=== PATIENT | female | born 2000 | race American Indian/Alaskan Native ===

== ENCOUNTER 2020-08-30 15:56 | Outpatient (REF) | payer OTHER, SELFPAY ==
[2020-08-30 16:20] LABS: MANUAL DIFF FLAG NO
[2020-08-30 16:22] LABS: Basophils Percent Auto 0.3 % (0-2); Eosinophils Percent Auto 0.8 % (0-4); Hematocrit 39.1 % (37-47); Hemoglobin 12.4 g/dl (12.0-16.0); Imm Gran Pct Auto 0.2 % (0.0-0.4); Lymphocytes Percent Auto 25.2 % (20-40); Mean Corpuscular HGB Conc 31.7 g/dl (31.0-35.0); Mean Corpuscular Hemoglobin 26.4 pg (27.0-33.0); Mean Corpuscular Volume 83.4 fL (80-98); Mean Platelet Volume 9.4 fL (9.4-12.3); Monocytes Percent Auto 6.4 % (2-11); Neutrophils Percent Auto 67.1 % (45-73); Platelet Count 318 X10*3/uL (160-400); Red Blood Count 4.69 X10*6/uL (4.20-5.50); Red Cell Distribution Width 12.5 % (11.0-16.0); White Blood Count 6.1 X10*3/uL (4.8-10.8)
[2020-08-30 16:23] LABS: Eosinophils Absolute Auto 0.1 X10*3/uL (0.0-0.4); Imm Gran Abs Auto 0.01 X10*3/uL (0.00-0.03); Lymphocytes Absolute Auto 1.6 X10*3/uL (1.2-4.9); Monocytes Absolute Auto 0.4 X10*3/uL (0.1-1.2); Neutrophils Absolute Auto 4.1 X10*3/uL (2.0-8.3)
[2020-08-30 16:37] LABS: Glucose Urine UA NEG (NEG); Leukocyte Esterase Urine 1+ (NEG); Nitrite Urine NEG (NEG); PH 6.5 (5.0-8.0); Specific Gravity - Urine 1.025 (1.005-1.025); UACC Culture Trigger YES; Urine Blood NEG (NEG); Urine Ketones NEG (NEG); Urine Protein NEG (NEG-TRACE)
[2020-08-30 16:40] LABS: Appearance Urine HAZY; Color Urine YELLOW
[2020-08-30 16:45] LABS: Alanine Aminotransferase 9 U/L (0-31); Albumin Level 4.6 g/dL (3.5-5.0); Alkaline Phosphatase 67 U/L (39-117); Anion Gap 11 (12-20); Aspartate Amino Transferase 17 U/L (5-31); Blood Urea Nitrogen 10 mg/dL (9-16); Carbon Dioxide 26 mmol/L (22-29); Chloride 105 mmol/L (96-108); Cholesterol 161 mg/dL; Estimated Glomerular Filt Rate > 60; Glucose Random 90 mg/dL (60-115); Potassium 4.2 mmol/L (3.3-5.1); Sodium 138 mmol/L (135-145); Total Protein 7.2 g/dL (6.5-8.0)
[2020-08-30 16:52] LABS: Bacteria Urine 1+ /LPF; RBC Urine 0 /HPF (0); Squamous Epithelial Cell Urine 1+ /LPF
[2020-08-30 17:08] LABS: TSH reflex Free T4 2.51 uIU/mL (0.32-4.0)
[2020-08-30 17:59] LABS: Erythrocyte Sedimentation Rate 2 MM/HR (0-20)
== END 2020-08-30 15:57 | disposition home or self-care (01) ==
LOC: HO.LAB 15:56
PROVIDERS: PCP Internal Medicine; Visit Provider Internal Medicine
DX: Z00.00 Encounter for general adult medical examination without abnormal findings (principal); R10.31 Right lower quadrant pain; R10.32 Left lower quadrant pain
CPT/HCPCS: 36415; 80053; 81001; 81003; 82465; 84443; 85025; 85652; 87086; 87147

== ENCOUNTER 2020-09-12 15:56 | Outpatient (REF) | payer OTHER, SELFPAY ==
--- NOTE | ~2020-09-12 | US_ITS ---
EXAMINATION: US PELVIS, COMPLETE CLINICAL INFORMATION: Bilateral lower quadrant pain; the last menstrual period was on 09/06/2020. COMPARISON: None TECHNIQUE: Transabdominal and transvaginal imaging was performed. FINDINGS: The uterus is of normal size and echogenicity measuring 7.9 x 3.1 x 4.2 cm. The uterus is anteverted and anteflexed. A regular homogeneous endometrium is identified measuring 0.9 cm. Both ovaries are of normal size and echogenicity. The right ovary measures 2.8 x 1.9 x 2.8 cm for a volume of 7.8 mL. The left ovary measures 3.8 x 2.8 x 3.1 cm for a volume of 14.4 mL and shows normal Doppler flow. The left ovary contains a 2.0 cm in maximal diameter simple cyst. There is further smaller physiologic follicles within the bilateral ovaries. There is no pelvic free fluid. No adnexal mass is seen. US/US transvaginal IMPRESSION: A 2.0 cm left ovarian simple cyst is incidentally noted. The examination is otherwise unremarkable.
--- NOTE | ~2020-09-12 | US_ITS ---
EXAMINATION: US PELVIS, COMPLETE CLINICAL INFORMATION: Bilateral lower quadrant pain; the last menstrual period was on 09/06/2020. COMPARISON: None TECHNIQUE: Transabdominal and transvaginal imaging was performed. FINDINGS: The uterus is of normal size and echogenicity measuring 7.9 x 3.1 x 4.2 cm. The uterus is anteverted and anteflexed. A regular homogeneous endometrium is identified measuring 0.9 cm. Both ovaries are of normal size and echogenicity. The right ovary measures 2.8 x 1.9 x 2.8 cm for a volume of 7.8 mL. The left ovary measures 3.8 x 2.8 x 3.1 cm for a volume of 14.4 mL and shows normal Doppler flow. The left ovary contains a 2.0 cm in maximal diameter simple cyst. There is further smaller physiologic follicles within the bilateral ovaries. There is no pelvic free fluid. No adnexal mass is seen. US/US pelvic complete IMPRESSION: A 2.0 cm left ovarian simple cyst is incidentally noted. The examination is otherwise unremarkable.
== END 2020-09-12 15:57 | disposition home or self-care (01) ==
LOC: HO.US 15:56
PROVIDERS: PCP Internal Medicine; Visit Provider Internal Medicine
DX: R10.31 Right lower quadrant pain (principal); R10.32 Left lower quadrant pain
CPT/HCPCS: 76830; 76856

== ENCOUNTER → 2020-10-20 11:02 | Outpatient (BNVA) | payer OTHER, SELFPAY | PROVIDERS: PCP Internal Medicine; Visit Provider Advanced Practice Midwife | DX: N94.6 Dysmenorrhea, unspecified (principal) | CPT/HCPCS: 81003; 81025; 99202 ==

== ENCOUNTER 2020-12-27 08:26 | Emergency (ER) | payer OTHER, SELFPAY ==
--- NOTE | ~2020-12-27 | CT_ITS ---
EXAMINATION: CT HEAD WITHOUT CONTRAST CLINICAL INFORMATION: Severe headache COMPARISON: None TECHNIQUE: Contiguous axial imaging was performed from the skull base to vertex without intravenous administration of contrast. This CT examination was performed using dose optimization techniques as appropriate, variously including the following: *Automated exposure control *Adjustment of mA and/or kV according to patient size (this includes techniques or standardized protocols for targeted exams where dose is matched to indication/reason for exam; i.e. extremities or head) *Use of iterative reconstruction technique DLP: 609 mGy-cm FINDINGS: There is no evidence of acute intracranial hemorrhage or territorial infarction. No abnormal mass effect or midline shift is seen. Youngblood to white matter differentiation is well preserved. No extra-axial fluid collections are identified. The ventricles are normal in size. There is no abnormal attenuation within the brain parenchyma. The osseous structures and soft tissues are normal. The mastoid air cells and visualized portions of the paranasal sinuses are well aerated. CT/CT head/brain wo con IMPRESSION: No acute intracranial process seen.
[2020-12-27 08:35] VITALS: BP 110/74; PULSE 100; RESP 16; TEMP 36.8; O2SAT 100; BMI 19.8
--- NOTE | 2020-12-27 09:18 | ED.HA ---
HPI - Headache General Chief Complaint: Headache Stated Complaint: head pressure Time Seen by Provider: 12/27/20 08:51 Source: patient Mode of arrival: ambulatory Limitations: no limitations History of Present Illness HPI Narrative: 20 y/o female with no medical history presents to the ER with 2 weeks of posterior headache. It was gradual to come on and comes and goes. It started at the top of her neck and now has gone all the way to the top of her head. It is severe sharp pain at times in the back of her head that causes her to be dizzy. She had some blurred vision intermittently when the pain is severe. She also reports bilateral ear pressure and pain. She called her doctor yesterday who told her it was probably seasonal allergies. MD elicited complaint: headache Onset (ago): week(s) (2) Onset description: gradually Location: occipital Severity: moderate Pain scale (0-10): 6 Quality & Timing: aching, sharp and intermittent Exacerbating factors: exertion and sitting/standing Relieving factors: rest Treatments prior to arrival: none Related Data Previous Rx's Medication Instructions Recorded ibuprofen 600 mg tablet 600 mg PO Q6H PRN #60 tab 10/20/20 [id number]-lsyuslcmnyaku-[id number] 1 cap PO Q8H PRN #10 cap 12/27/20 [Fioricet] Allergies Allergy/AdvReac Type Severity Reaction Status Date / Time No Known Allergies Allergy Verified 12/27/20 09:55 Review of Systems Review of Systems: Constitutional: No Fever, No Chills ENT/Mouth: No sore throat, No Rhinorrhea, No Swallowing Difficulty, +ear pain Eyes: No Eye Pain, No Swelling, No Redness Cardiovascular: No Chest Pain, No SOB, No Orthopnea, No Edema Respiratory: No Cough, No Sputum, No Wheezing, No dyspnea Gastrointestinal: No Nausea, No Vomiting, No Diarrhea, No abdominal Pain Genitourinary: No Dysuria, No Urinary Frequency, No Hematuria Musculoskeletal: No joint pain, No Myalgias Skin: No Skin Lesions, No rash Neuro: No Weakness, No Numbness, + Dizziness, + Headache Psych: No Anxiety/Panic, No Depression Heme/Lymph: No Bruising, No Lymphadenopathy Endocrine: No Polyuria, No Polydipsia PMFSH Past Medical History Attestation statement: The following information was validated with the patient. Medical History Inguinal pain of both sides No significant past medical history Surgical History No significant past surgical history Social History Social History Alcohol intake: never Smoked in Last 30 Days: No Use of substances other than those prescribed or required for medical reasons: No Advance Directives: Yes Advance Directives Information Provided: Yes Advance Directives on File: No Patient : No Gender identity: female Physical Exam Vital Signs: Vital Signs: Last Vital Signs Temp 98.2 F 12/27/20 08:35 Pulse 78 12/27/20 12:25 Resp 16 12/27/20 12:25 BP 115/48 L 12/27/20 12:25 Pulse Ox 99 12/27/20 12:25 Body Mass Index 19.8 Appearance: Alert. Oriented X3. No acute distress. Eyes: Pupils equal, round and reactive to light. EOMI, no nystagmus ENT: Pharynx normal. Neck: Normal inspection. Neck supple. CVS: Normal heart rate and rhythm. Pulses normal. Respiratory: No respiratory distress. Breath sounds normal. Abdomen: Soft and nontender. +BS x4 Skin: Skin warm and dry. Normal skin color. Normal skin turgor. No rashes. Extremities: No lower extremity edema. Neuro: Oriented X 3. No motor deficit. No sensory deficit. Steady gait. Course Course Course Narrative: 20 y/o female presenting with occipital headache x2 weeks. No neuro deficits. No trauma. No thunderclap headache. Gait is normal. Possibly mediated by stress. Will treat with benadryl, toradol and reglan and reassess. Reevaluation(s) Reevaluation #1: Patient had anxiety with sensation of SOB after mediation were administered. She was easily coached and calmed down. HR Improved nicely from 120-80s with calming breaths. EKG and CT head ordered. Reevaluation #2: CT head unremarkable. Her headache is greatly improved, slight throbbing in the back of her head but much better. She is stable for discharge from the ER with plan for outpatient follow up. Will start trial of fioricet PRN. Patient agreeable with plan. MDM - Headache Differential Diagnosis Differential diagnosis: Likely migraine, tension headache, subarachnoid hemorrhage, headache and sinusitis Lab Data Labs: Lab Results 12/27/20 Range/Units 11:08 Urine Test NEGATIVE (NEGATIVE) ECG Data Attestation: I personally reviewed and interpreted this ECG as follows: ECG interpretation date: 12/27/20 ECG interpretation time: 13:03 Interpretation: normal sinus rhythm, HR 88 bpm, nomral ID interval, rightward axis , question pulmonary disease pattern. No ST segment elevations or depressions. Discharge Plan Discharge Clinical Impression: Headache Qualifiers: Headache type: unspecified Headache chronicity pattern: episodic headache Intractability: not intractable Qualified Code(s): R51.9 - Headache, unspecified Patient Disposition: Home, Self-Care Instructions: Migraine Headache (ED) Additional Instructions: Your CT scan was normal. Recommend rest and staying dehydrated. Start Fioricet as needed for headache. Follow up with your doctor this week. If you have any worsening symptoms come back to the ER for further evaluation. Prescriptions: New byaxemkknk-rkqzjuxoxptsk-zsgx [Fioricet] 50-300-40 mg capsule 1 cap PO Q8H PRN (Reason: pain) Qty: 10 RF: 0 No Action ibuprofen 600 mg tablet 600 mg PO Q6H PRN (Reason: pain) Qty: 60 RF: 0 Stand Alone Forms: Work/School Release
[2020-12-27] MEDS: Ketorolac Tromethamine 30 MG/ML VIAL IVPUSH (09:27)
[2020-12-27] MEDS: diphenhydrAMINE HCL 50 MG/ML VIAL 25 MG IVPUSH (09:27)
[2020-12-27] MEDS: Metoclopramide HCl 10 MG/2 ML VIAL IVPUSH (09:27)
[2020-12-27 09:33] VITALS: BP 144/90; PULSE 102; RESP 20; O2SAT 100
--- NOTE | 2020-12-27 09:52 | PC.NURSE ---
Patient feeling dizzy and SOB after receiving meds, tearful and anxious- ST on tele HTN, 100% room air. EKG completed. Provider Francesca bedside to see the patient.
--- NOTE | 2020-12-27 10:05 | ECG_ITS ---
Test Reason : CHEST PRESSURE Blood Pressure : / mmHG Vent. Rate : 088 BPM Atrial Rate : 088 BPM P-R Int : 130 ms QRS Dur : 072 ms QT Int : 370 ms P-R-T Axes : 080 096 030 degrees QTc Int : 447 ms Normal sinus rhythm Biatrial enlargement Rightward axis Pulmonary disease pattern Abnormal ECG No previous ECGs available Referred By: Francesca Becker Electronically Signed By:ABILIO QUEVEDO MD
[2020-12-27] MEDS: 0.9 % Sodium Chloride 1,000 ML 999 ML IVCONT (10:15)
--- NOTE | 2020-12-27 11:01 | PC.NURSE ---
Patient ambulated to bathroom.
[2020-12-27 11:35] LABS: UPreg QC Valid YES; Urine Pregnancy NEGATIVE (NEGATIVE)
[2020-12-27 12:25] VITALS: BP 115/48; PULSE 78; RESP 16; O2SAT 99
== END 2020-12-27 13:37 | disposition home or self-care (01) ==
PROVIDERS: Physician Assistant; Emergency Provider Emergency Medicine; PCP Internal Medicine
DX: R51.9 Headache, unspecified (principal); R42 Dizziness and giddiness; I10 Essential (primary) hypertension
CPT/HCPCS: 70450; 81025; 93005; 96361; 96374; 96375; 99284; 99285; J1200; J1885; J2765

== ENCOUNTER 2021-01-21 08:22 | Emergency (ER) | payer OTHER, SELFPAY ==
--- NOTE | ~2021-01-21 | CT_ITS ---
EXAMINATION: CT ABDOMEN AND PELVIS WITH CONTRAST CLINICAL INFORMATION: 20-year-old female with right lower quadrant pain. Question appendicitis. COMPARISON: None TECHNIQUE: Multidetector volumetric images were obtained from the superior aspect of the liver through the pubic symphysis following administration 85 mL of Omnipaque 350 intravenous contrast. Sagittal and coronal reformatted images were obtained on the technologist's workstation. Evaluation of solid organs is suboptimal given paucity of intra-abdominal fat and contrast bolus timing. This CT examination was performed using dose optimization techniques as appropriate, variously including the following: *Automated exposure control *Adjustment of mA and/or kV according to patient size (this includes techniques or standardized protocols for targeted exams where dose is matched to indication/reason for exam; i.e. extremities or head) *Use of iterative reconstruction technique DLP: 314 mGy-cm FINDINGS: Visualized lung bases demonstrate some minimal lingular atelectasis. The liver demonstrates normal size, contour and attenuation. The gallbladder is normal in appearance. The pancreas, spleen and adrenal glands are unremarkable. The kidneys demonstrate symmetric nephrograms. There is no hydronephrosis of either kidney. The stomach is decompressed. Normal caliber loops of small and large bowel. The appendix is not definitively visualized, however, there is no localized inflammatory stranding identified within the right lower abdomen. Normal caliber abdominal aorta. Retroaortic left renal vein. No retroperitoneal lymphadenopathy. The bladder is only partially distended but grossly unremarkable. Unremarkable CT appearance of the uterus. A small amount of free pelvic fluid is likely physiologic in a female of this age. 1.7 cm right adnexal cyst. No inguinal lymphadenopathy. No acute osseous abnormality. CT/CT abdomen pelvis w con IMPRESSION: -Evaluation of solid organs is suboptimal given paucity of intra-abdominal fat and contrast bolus timing. -The appendix is not definitively visualized, however, there is no localized inflammatory stranding identified within the right lower abdomen. -1.7 cm right adnexal cyst.
[2021-01-21 08:25] VITALS: BP 121/68; PULSE 96; RESP 16; TEMP 36.9; O2SAT 98; BMI 19.5
--- NOTE | 2021-01-21 08:44 | ED_ITS ---
HPI - Female Genitourinary General Chief complaint: Urogenital-Female Stated complaint: right side abd pain, pt having trouble urinating Time Seen by Provider: 01/21/21 08:39 Source: patient Mode of arrival: ambulatory Limitations: no limitations History of Present Illness HPI Narrative: patient presents to ED for right lower quadrant pain with difficulty urinating. Patient states feeling pressure when urinating and significant right lower quadrant pain. Patient states having symptoms for the past 2 days. Patient states no nausea, vomiting, flank pain, fever, or chills. Patient denies missing her menstruation. Patient denies any recent trauma to the abdomen. Related Data Previous Rx's Medication Instructions Recorded lorazepam 0.5 mg tablet 0.5 mg PO DAILY PRN 5 Days #5 tab 01/04/21 naproxen 500 mg PO BID PRN #20 tab 01/21/21 Allergies Allergy/AdvReac Type Severity Reaction Status Date / Time diphenhydramine Allergy Severe Chest Verified 01/04/21 10:14 [From Benadryl] Pain, hard to breath Review of Systems Review of Systems: Yes all other systems are reviewed and are negative Constitutional: Constitutional: Reports as per HPI and Reports no additional constitutional complaints Eyes: Eyes: Reports as per HPI and Reports no additional eye complaints ENT: Reports system reviewed and no additional complaints, except as d ocumented and Reports as per HPI Cardiovascular: Cardiovascular: Reports as per HPI and Reports no additional cardiovascular complaints Respiratory: Respiratory: Reports as per HPI and Reports no additional respiratory complaints Gastrointestinal: Gastrointestinal: Reports as per HPI, Reports no additional gastrointestinal complaints and Reports abdominal pain ( Right lower quadrant) Genitourinary: Genitourinary: Reports no additional female genitourinary complaints, Reports as per HPI and Reports difficulty voiding Musculoskeletal: Musculoskeletal: Reports no additional musculoskeletal complaints and Reports as per HPI Neurologic: Reports system reviewed and no additional complaints, except as documented and Reports as per HPI Psychiatric: Psychiatric: Reports no additional psychiatric complaints and Reports as per HPI [facility] Past Medical History Medical History Inguinal pain of both sides No significant past medical history Surgical History No significant past surgical history Family History Family History Mother No problems noted. Father No problems noted. Social History Social History Housing: House Alcohol intake: never Patient Tobacco Use Status: Never used Tobacco Advance Directives: Yes Advance Directives Information Provided: No Advance Directives on File: No Patient : No Current occupational status: employed Gender identity: female Physical Exam Vital Signs: Vital Signs: Last Vital Signs Temp 98.4 F 01/21/21 09:19 Pulse 94 01/21/21 12:08 Resp 16 01/21/21 12:08 BP 119/70 01/21/21 12:08 Pulse Ox 99 01/21/21 12:08 Body Mass Index 19.5 Const: General: cooperative, healthy appearing, comfortable, no acute distress, well developed, alert, awake and Physically active Orientation/consciousness: patient oriented x3 HENMT: Head: Yes normal to inspection, Yes No palpable skull fracture present, Yes normocephalic, Yes atraumatic and No abrasion Eyes: General: appearance normal, both eyes and all related structures Neck: Neck: Yes normal visual inspection, Yes full ROM, Yes no lymphad enopathy, Yes no meningeal signs, Yes trachea midline, Yes supple and No tender Chest: Chest palpation & inspection: normal inspection of the chest and normal palpation of entire chest wall Resp: Effort & Inspection: normal respiratory effort and able to speak in complete sentences Auscultation: clear to auscultation bilaterally Cardio: Jugular venous distension: no JVD Heart sounds: S1 normal heart sound present and S2 normal heart sound present GI: Inspection: Yes normal to inspection and No abdominal wall ecchymosis Palpation (GI): Soft to palpation, not firm, Tenderness to palpation present (GI) in the RLQ, no guarding and not rigid : General: No CVA tenderness and Yes no CVA tenderness Back/Spine/Pelvis: Back: no CVA tenderness, No CVA tenderness and No back tenderness Skin: General skin exam: no rashes or lesions noted and elasticity normal Neuro: General: patient oriented x3, gait normal, no meningeal signs and CN's II-XI intact bilaterally Cranial nerves: Yes CN's II-XII intact bilaterally Extrem: General: Yes normal to inspection and Yes full ROM Psych: Appearance: grossly normal, well kempt and not disheveled Course Course Course Narrative: due to significant right lower quadrant tenderness will do labs and UA. Reevaluation(s) Reevaluation #1: Patient has no elevated white blood cell count. Urine negative for UTI in . Due to significant right lower quadrant pain was sent for abdominal CT scan Time: 10:01 Reevaluation #2: nurse informed me that the patient did not want any Toradol or pain medication. Patient inform her that her right lower quadrant pain resolved on its own. CT scan came back and states appendix was not visualized but negative for any signs of inflammatory changes in the right lower quadrant to indicate appendicitis. CT scan shows right adnexal cyst. Went to re-evaluate patient in abdominal exam is benign and nontender on palpation. I do Not suspect ovarian torsion or ovarian abscess Due to abdominal pain resolved without any pain medication and patient is smiling. Not suspecting appendicitis due to patient pain resolving, CT scan not showing any inflammatory changes, and negative for any white blood cell count. Vital signs are stable. Patient denies any vaginal discharge, vaginal lesions, or any recent unprotected sex to indicate STD. Patient will follow-up with her PCP. patient given instructions educated on ovarian torsion/abscess, appendicitis, kidney stones, and UTI and told to return to the ED immediatley if she has the symptoms or any other concerning symptoms. Time: 11:46 MDM - Female Genitourinary MDM Narrative Medical decision making narrative: right ovarian cyst Lab Data Result diagrams: 01/21/21 09:07 01/21/21 09:07 Labs: Lab Results 01/21/21 01/21/21 01/21/21 Range/Units 09:07 09:07 09:07 WBC 4.2 L (4.8-10.8) X10*3/uL RBC 5.25 (4.20-5.50) X10*6/uL Hgb 13.8 (12.0-16.0) g/dl Hct 43.2 (37-47) % MCV 82.3 (80-98) fL MCH 26.3 L (27.0-33.0) pg MCHC 31.9 (31.0-35.0) g/dl RDW 12.7 (11.0-16.0) % Plt Count 297 (160-400) X10*3/uL MPV 9.5 (9.4-12.3) fL Immature Gran % (Auto) 0.0 (0.0-0.4) % Neut % (Auto) 63.6 (45-73) % Lymph % (Auto) 28.0 (20-40) % Darke % (Auto) 7.2 (2-11) % Eos % (Auto) 0.7 (0-4) % Baso % (Auto) 0.5 (0-2) % Lymph # (Auto) 1.2 (1.2-4.9) X10*3/uL Darke # (Auto) 0.3 (0.1-1.2) X10*3/uL Eos # (Auto) 0.0 (0.0-0.4) X10*3/uL Baso # (Auto) 0.0 (0.0-0.2) X10*3/uL Abs Immat Gran (auto) 0.00 (0.00-0.03) X10*3/uL Absolute Neuts (auto) 2.6 (2.0-8.3) X10*3/uL Absolute Nucleated RBC 0.000 (0.0-0.012) X10*3/uL Nucleated RBC % (auto) 0.0 (0.0-0.2) /100WBC PT 11.4 (9.9-13.0) SEC INR 1.0 (0.9-1.1) APTT 38.4 H (24.1-38.0) SEC Sodium 140 (135-145) mmol/L Potassium 3.8 (3.3-5.1) mmol/L Chloride 107 (96-108) mmol/L Carbon Dioxide 22 (22-29) mmol/L Anion Gap 15 (12-20) BUN 11 (9-16) mg/dL Creatinine 0.78 (0.5-1.4) mg/dL Estim Creat Clear Calc 83.9 Estimated GFR > 60 Random Glucose 92 (60-115) mg/dL Calcium 9.8 D (8.4-10.2) mg/dL Total Bilirubin 1.5 H (0.0-1.0) mg/dL Direct Bilirubin 0.5 (0.0-0.5) mg/dL AST 17 (5-31) U/L ALT 12 (0-31) U/L Alkaline Phosphatase 74 (39-117) U/L Total Protein 7.6 (6.5-8.0) g/dL Albumin 4.8 (3.5-5.0) g/dL Lipase 37 (8-78) U/L Beta HCG, Quant < 2 mIU/mL Urine Color Urine Appearance Urine pH (5.0-8.0) Ur Specific [place] (1.005-1.025) Urine Protein (NEG-TRACE) MG/DL Urine Glucose (UA) (NEG) MG/DL Urine Ketones (NEG) MG/DL Urine Blood (NEG) Urine Nitrite (NEG) Ur Leukocyte Esterase (NEG) Urine RBC (0) /HPF Urine WBC (0-4) /HPF Ur Squamous Epith Cells /LPF Urine Bacteria /LPF Urine Mucus /LPF Urine Test (NEGATIVE) 01/21/21 01/21/21 Range/Units 09:07 09:07 WBC (4.8-10.8) X10*3/uL RBC (4.20-5.50) X10*6/uL Hgb (12.0-16.0) g/dl Hct (37-47) % MCV (80-98) fL MCH (27.0-33.0) pg MCHC (31.0-35.0) g/dl RDW (11.0-16.0) % Plt Count (160-400) X10*3/uL MPV (9.4-12.3) fL Immature Gran % (Auto) (0.0-0.4) % Neut % (Auto) (45-73) % Lymph % (Auto) (20-40) % Darke % (Auto) (2-11) % Eos % (Auto) (0-4) % Baso % (Auto) (0-2) % Lymph # (Auto) (1.2-4.9) X10*3/uL Darke # (Auto) (0.1-1.2) X10*3/uL Eos # (Auto) (0.0-0.4) X10*3/uL Baso # (Auto) (0.0-0.2) X10*3/uL Abs Immat Gran (auto) (0.00-0.03) X10*3/uL Absolute Neuts (auto) (2.0-8.3) X10*3/uL Absolute Nucleated RBC (0.0-0.012) X10*3/uL Nucleated RBC % (auto) (0.0-0.2) /100WBC PT (9.9-13.0) SEC INR (0.9-1.1) APTT (24.1-38.0) SEC Sodium (135-145) mmol/L Potassium (3.3-5.1) mmol/L Chloride (96-108) mmol/L Carbon Dioxide (22-29) mmol/L Anion Gap (12-20) BUN (9-16) mg/dL Creatinine (0.5-1.4) mg/dL Estim Creat Clear Calc Estimated GFR Random Glucose (60-115) mg/dL Calcium (8.4-10.2) mg/dL Total Bilirubin (0.0-1.0) mg/dL Direct Bilirubin (0.0-0.5) mg/dL AST (5-31) U/L ALT (0-31) U/L Alkaline Phosphatase (39-117) U/L Total Protein (6.5-8.0) g/dL Albumin (3.5-5.0) g/dL Lipase (8-78) U/L Beta HCG, Quant mIU/mL Urine Color YELLOW Urine Appearance HAZY Urine pH 6.0 (5.0-8.0) Ur Specific [place] 1.025 (1.005-1.025) Urine Protein NEG (NEG-TRACE) MG/DL Urine Glucose (UA) NEG (NEG) MG/DL Urine Ketones NEG (NEG) MG/DL Urine Blood TRACE (NEG) Urine Nitrite NEG (NEG) Ur Leukocyte Esterase NEG (NEG) Urine RBC 0-2 (0) /HPF Urine WBC 0 (0-4) /HPF Ur Squamous Epith Cells 1+ /LPF Urine Bacteria 1+ /LPF Urine Mucus 1+ /LPF Urine Test NEGATIVE (NEGATIVE) Discharge Plan Discharge Clinical Impression: Ovarian cyst Patient Disposition: Home, Self-Care Instructions: Ovarian Cyst (ED), Pelvic Pain (ED) Additional Instructions: return to the ED immediately for worsening abdominal pain, nausea, vomiting, fever, chills, flank pain, dizziness, weakness, vaginal discharge, vaginal bleeding, dysuria, hematuria, or any other concerning symptoms. Prescriptions: New naproxen 500 mg tablet 500 mg PO BID PRN (Reason: pain) Qty: 20 RF: 0 No Action lorazepam 0.5 mg tablet 0.5 mg PO DAILY PRN (Reason: anxiety) 5 Days Qty: 5 RF: 0 Referrals: Jasbir Wynn MD [Primary Care Provider] - 2 days (Right ovarian cyst) Stand Alone Forms: Work/School Release Interventions: ED Discharge Assessment Last Done: 01/21/21 12:15 Discharge Date/Time: 01/21/21 12:16 Print Language: Belarusian
[2021-01-21 09:13] LABS: MANUAL DIFF FLAG NO
[2021-01-21 09:15] LABS: Basophils Percent Auto 0.5 % (0-2); Eosinophils Percent Auto 0.7 % (0-4); Hematocrit 43.2 % (37-47); Hemoglobin 13.8 g/dl (12.0-16.0); Lymphocytes Absolute Auto 1.2 X10*3/uL (1.2-4.9); Mean Corpuscular HGB Conc 31.9 g/dl (31.0-35.0); Mean Corpuscular Hemoglobin 26.3 pg (27.0-33.0); Mean Corpuscular Volume 82.3 fL (80-98); Mean Platelet Volume 9.5 fL (9.4-12.3); Monocytes Absolute Auto 0.3 X10*3/uL (0.1-1.2); Monocytes Percent Auto 7.2 % (2-11); Neutrophils Absolute Auto 2.6 X10*3/uL (2.0-8.3); Neutrophils Percent Auto 63.6 % (45-73); Platelet Count 297 X10*3/uL (160-400); Red Blood Count 5.25 X10*6/uL (4.20-5.50); Red Cell Distribution Width 12.7 % (11.0-16.0); White Blood Count 4.2 X10*3/uL (4.8-10.8)
[2021-01-21 09:19] VITALS: BP 142/83; PULSE 89; RESP 18; TEMP 36.9; O2SAT 100
[2021-01-21 09:23] LABS: Glucose Urine UA NEG (NEG); Leukocyte Esterase Urine NEG (NEG); Nitrite Urine NEG (NEG); Specific Gravity - Urine 1.025 (1.005-1.025); Urine Blood TRACE (NEG); Urine Ketones NEG (NEG); Urine Protein NEG (NEG-TRACE)
[2021-01-21 09:25] LABS: Prothrombin Time 11.4 SEC (9.9-13.0)
[2021-01-21] MEDS: 0.9 % Sodium Chloride 1,000 ML 999 ML IV (09:26)
[2021-01-21 09:28] LABS: Partial Thromboplastin Time 38.4 SEC (24.1-38.0)
[2021-01-21 09:34] LABS: Appearance Urine HAZY; Color Urine YELLOW
[2021-01-21 09:38] LABS: Alanine Aminotransferase 12 U/L (0-31); Albumin Level 4.8 g/dL (3.5-5.0); Alkaline Phosphatase 74 U/L (39-117); Anion Gap 15 (12-20); Aspartate Amino Transferase 17 U/L (5-31); Bilirubin Direct 0.5 mg/dL (0.0-0.5); Bilirubin Total 1.5 mg/dL (0.0-1.0); Blood Urea Nitrogen 11 mg/dL (9-16); Calcium 9.8 mg/dL (8.4-10.2); Carbon Dioxide 22 mmol/L (22-29); Chloride 107 mmol/L (96-108); Creatinine Clr Calc Pharmacy 83.9; Estimated Glomerular Filt Rate > 60; Glucose Random 92 mg/dL (60-115); Lipase 37 U/L (8-78); Potassium 3.8 mmol/L (3.3-5.1); Sodium 140 mmol/L (135-145); Total Protein 7.6 g/dL (6.5-8.0); UPreg QC Valid YES; Urine Pregnancy NEGATIVE (NEGATIVE)
[2021-01-21 09:39] LABS: Bacteria Urine 1+ /LPF; Mucus Urine 1+ /LPF; RBC Urine 0-2 /HPF (0); Squamous Epithelial Cell Urine 1+ /LPF; WBC Urine 0 /HPF (0-4)
[2021-01-21 09:45] LABS: HCG Quantitative < 2 mIU/mL
[2021-01-21] MEDS: iohexoL 350 MG/ML 100 ML INFUS..BTL IV (10:25)
[2021-01-21 12:08] VITALS: BP 119/70; PULSE 94; RESP 16; O2SAT 99
== END 2021-01-21 12:16 | disposition home or self-care (01) ==
PROVIDERS: Physician Assistant; Emergency Provider Emergency Medicine; PCP Internal Medicine
DX: N83.201 Unspecified ovarian cyst, right side (principal); R10.31 Right lower quadrant pain
CPT/HCPCS: 36415; 74177; 80053; 80076; 81001; 81025; 82248; 83690; 84702; 85025; 85610; 85730; 96361; 96374; 99284; Q9967

== ENCOUNTER 2021-01-24 11:25 | Emergency (ER) | payer OTHER, SELFPAY ==
--- NOTE | 2021-01-24 | ECG_ITS ---
Test Reason : TACHYCARDIA Blood Pressure : / mmHG Vent. Rate : 106 BPM Atrial Rate : 106 BPM P-R Int : 124 ms QRS Dur : 068 ms QT Int : 334 ms P-R-T Axes : 082 102 017 degrees QTc Int : 443 ms Sinus tachycardia Biatrial enlargement Pulmonary disease pattern Possible Right ventricular hypertrophy Nonspecific ST abnormality Abnormal ECG When compared with ECG of 27-DEC-2020 09:45, No significant change was found Referred By: Generic ED Physician Electronically Signed By:BASILIO HUERTA
[2021-01-24 11:28] VITALS: BP 136/58; PULSE 128; RESP 18; TEMP 36.3; O2SAT 98; BMI 18.8
--- NOTE | 2021-01-24 13:26 | ED.NAVMDI ---
HPI - Nausea/Vomiting/Diarrhea General Chief complaint: General Medical Stated complaint: multiple complaints Time Seen by Provider: 01/24/21 11:41 Source: patient Mode of arrival: ambulatory Limitations: no limitations History of Present Illness MD elicited complaint: nausea, vomiting and diarrhea Onset (ago): day(s) (2) Associated nausea: Yes Associated abdominal pain: No Location of pain: none Pain consistency: intermittent Severity: mild Quality: cramping Exacerbating factors: eating Relieving factors: none Context: foreign travel (went to [place]) Associated symptoms: headaches, loss of appetite, malaise, nausea/vomiting and other (diarrhea) Related Data Previous Rx's Medication Instructions Recorded lorazepam 0.5 mg tablet 0.5 mg PO DAILY PRN 5 Days #5 tab 01/04/21 naproxen 500 mg PO BID PRN #20 tab 01/21/21 ondansetron 4 mg PO Q8H PRN #20 tab 01/24/21 Allergies Allergy/AdvReac Type Severity Reaction Status Date / Time diphenhydramine Allergy Severe Chest Verified 01/24/21 11:28 [From Benadryl] Pain, hard to breath Review of Systems Review of Systems: Constitutional : No Weight loss, No Fever, pos Chills ENT/Mouth : No sore throat, No Rhinorrhea Eyes: No Swelling, No Redness Cardiovascular : No Chest Pain, No SOB, NoEdema Respiratory : No Cough, No Sputum, No Wheezing Gastrointestinal : Positive Nausea, Positive Vomiting, positive Diarrhea, no abdominal Pain, No Hematochezia, No Melena Genitourinary : No Dysuria, No Urinary Frequency, No Hematuria, No Urgency Musculoskeletal : No joint pain, No Myalgias, No Joint Swelling Skin : No Skin Lesions, No rash Neuro : No Weakness, No Numbness, No Dizziness, No Headache Psych : No Anxiety/Panic, No Depression Heme/Lymph: No Bruising, No Lymphadenopathy Endocrine : No Polyuria, No Polydipsia All other systems reviewed and are negative. Gastrointestinal: Gastrointestinal: Reports nausea PMFSH Past Medical History Attestation statement: The following information was validated with the patient. Medical History Inguinal pain of both sides Surgical History No significant past surgical history Family History Family History Mother No problems noted. Father No problems noted. Social History Social History Housing: House Alcohol intake: never Patient Tobacco Use Status: Never used Tobacco Use of substances other than those prescribed or required for medical reasons: No Advance Directives: Yes Advance Directives Information Provided: Yes Advance Directives on File: No Patient : No Current occupational status: employed Gender identity: female Physical Exam Vital Signs: Vital Signs: Last Vital Signs Temp 98.5 F 01/24/21 15:51 Pulse 94 01/24/21 15:51 Resp 16 01/24/21 15:51 BP 118/68 01/24/21 15:51 Pulse Ox 100 01/24/21 15:51 Body Mass Index 18.8 Appearance: Alert. Oriented X3. No acute distress. Eyes: Pupils equal, round and reactive to light. ENT: Pharynx mild dry MM Neck: Normal inspection. Neck supple. CVS: Normal heart rate and rhythm. Pulses normal. Respiratory: No respiratory distress. Breath sounds normal. Abdomen: Soft and nontender. Skin: Skin warm and dry. Normal skin color. Normal skin turgor. Extremities: No lower extremity edema. No calf ttp Neuro: Oriented X 3. No motor deficit. No sensory deficit. Course Course Course Narrative: feels better able to tolerate PO without issue MDM - Nausea/Vomiting/Diarrhea MDM Narrative Medical decision making narrative: 20 yo female just came back from [place] two days ago had a negative COVID test yesterday, went to [facility] waiting room - did not see a provider comes in today with c/o n/v/d - feels weak and dehydrated her mom has the same illness, no abdominal ttp , no rash, no fevers - at this time will need labs, IVF, zofran, UA and UPT, doubt appendicitis, dispo per results and findings. Lab Data Result diagrams: 01/24/21 13:47 01/24/21 13:47 Labs: Lab Results 01/24/21 01/24/21 01/24/21 Range/Units 13:47 13:47 14:58 WBC 8.9 (4.8-10.8) X10*3/uL RBC 5.43 (4.20-5.50) X10*6/uL Hgb 14.2 (12.0-16.0) g/dl Hct 44.5 (37-47) % MCV 82.0 (80-98) fL MCH 26.2 L (27.0-33.0) pg MCHC 31.9 (31.0-35.0) g/dl RDW 12.8 (11.0-16.0) % Plt Count 303 (160-400) X10*3/uL MPV 9.9 (9.4-12.3) fL Immature Gran % (Auto) 0.2 (0.0-0.4) % Neut % (Auto) 87.2 H (45-73) % Lymph % (Auto) 8.6 L (20-40) % [place] % (Auto) 3.8 (2-11) % Eos % (Auto) 0.1 (0-4) % Baso % (Auto) 0.1 (0-2) % Lymph # (Auto) 0.8 L (1.2-4.9) X10*3/uL [place] # (Auto) 0.3 (0.1-1.2) X10*3/uL Eos # (Auto) 0.0 (0.0-0.4) X10*3/uL Baso # (Auto) 0.0 (0.0-0.2) X10*3/uL Abs Immat Gran (auto) 0.02 (0.00-0.03) X10*3/uL Absolute Neuts (auto) 7.7 (2.0-8.3) X10*3/uL Absolute Nucleated RBC 0.000 (0.0-0.012) X10*3/uL Nucleated RBC % (auto) 0.0 (0.0-0.2) /100WBC Sodium 138 (135-145) mmol/L Potassium 4.2 (3.3-5.1) mmol/L Chloride 104 (96-108) mmol/L Carbon Dioxide 20 L (22-29) mmol/L Anion Gap 18 (12-20) BUN 14 (9-16) mg/dL Creatinine 0.81 (0.5-1.4) mg/dL Estim Creat Clear Calc 77.9 Estimated GFR > 60 Random Glucose 78 (60-115) mg/dL Calcium 10.1 (8.4-10.2) mg/dL Total Bilirubin 2.2 H (0.0-1.0) mg/dL Direct Bilirubin 0.7 H (0.0-0.5) mg/dL AST 18 (5-31) U/L ALT 10 (0-31) U/L Alkaline Phosphatase 73 (39-117) U/L Total Protein 8.5 H (6.5-8.0) g/dL Albumin 5.2 H (3.5-5.0) g/dL Lipase 34 (8-78) U/L Urine Color Urine Appearance Urine pH (5.0-8.0) Ur Specific [place] (1.005-1.025) Urine Protein (NEG-TRACE) MG/DL Urine Glucose (UA) (NEG) MG/DL Urine Ketones (NEG) MG/DL Urine Blood (NEG) Urine Nitrite (NEG) Ur Leukocyte Esterase (NEG) Urine RBC (0) /HPF Urine WBC (0-4) /HPF Ur Squamous Epith Cells /LPF Urine Bacteria /LPF Urine Mucus /LPF Urine Test (NEGATIVE) COVID-19 (TARSHA) Negative (Negative) COVID-19 Clin Com See Note 01/24/21 01/24/21 Range/Units 14:59 15:01 WBC (4.8-10.8) X10*3/uL RBC (4.20-5.50) X10*6/uL Hgb (12.0-16.0) g/dl Hct (37-47) % MCV (80-98) fL MCH (27.0-33.0) pg MCHC (31.0-35.0) g/dl RDW (11.0-16.0) % Plt Count (160-400) X10*3/uL MPV (9.4-12.3) fL Immature Gran % (Auto) (0.0-0.4) % Neut % (Auto) (45-73) % Lymph % (Auto) (20-40) % [place] % (Auto) (2-11) % Eos % (Auto) (0-4) % Baso % (Auto) (0-2) % Lymph # (Auto) (1.2-4.9) X10*3/uL [place] # (Auto) (0.1-1.2) X10*3/uL Eos # (Auto) (0.0-0.4) X10*3/uL Baso # (Auto) (0.0-0.2) X10*3/uL Abs Immat Gran (auto) (0.00-0.03) X10*3/uL Absolute Neuts (auto) (2.0-8.3) X10*3/uL Absolute Nucleated RBC (0.0-0.012) X10*3/uL Nucleated RBC % (auto) (0.0-0.2) /100WBC Sodium (135-145) mmol/L Potassium (3.3-5.1) mmol/L Chloride (96-108) mmol/L Carbon Dioxide (22-29) mmol/L Anion Gap (12-20) BUN (9-16) mg/dL Creatinine (0.5-1.4) mg/dL Estim Creat Clear Calc Estimated GFR Random Glucose (60-115) mg/dL Calcium (8.4-10.2) mg/dL Total Bilirubin (0.0-1.0) mg/dL Direct Bilirubin (0.0-0.5) mg/dL AST (5-31) U/L ALT (0-31) U/L Alkaline Phosphatase (39-117) U/L Total Protein (6.5-8.0) g/dL Albumin (3.5-5.0) g/dL Lipase (8-78) U/L Urine Color YELLOW Urine Appearance CLEAR Urine pH 6.0 (5.0-8.0) Ur Specific [place] >= 1.030 H (1.005-1.025) Urine Protein TRACE (NEG-TRACE) MG/DL Urine Glucose (UA) NEG (NEG) MG/DL Urine Ketones >=80 (NEG) MG/DL Urine Blood TRACE (NEG) Urine Nitrite NEG (NEG) Ur Leukocyte Esterase NEG (NEG) Urine RBC 1-4 (0) /HPF Urine WBC 0-2 (0-4) /HPF Ur Squamous Epith Cells 1+ /LPF Urine Bacteria NONE /LPF Urine Mucus 2+ /LPF Urine Test NEGATIVE (NEGATIVE) COVID-19 (TARSHA) (Negative) COVID-19 Clin Com ECG Data Attestation: I personally reviewed and interpreted this ECG as follows: ECG interpretation date: 01/24/21 ECG interpretation time: 13:27 Interpretation: Rate: 106 Rhythm: sinus tachycardia [place]: rightward Normal P waves. Normal KEVIN. Normal QRS complex. ST T wave : nonspecific, no ALVINA qTC: normal prior studies: no change from prior The study has been interpreted contemporaneously by me. . Discharge Plan Discharge Clinical Impression: Acute dehydration Vomiting Qualifiers: Vomiting type: unspecified Vomiting Intractability: non-intractable Nausea presence: with nausea Qualified Code(s): R11.2 - Nausea with vomiting, unspecified Patient Disposition: Home, Self-Care Instructions: Dehydration (ED), Acute Nausea and Vomiting (ED) Additional Instructions: return to ED for any worsening symptoms or concerns Prescriptions: New ondansetron 4 mg tablet,disintegrating 4 mg PO Q8H PRN (Reason: nausea and vomiting) Qty: 20 RF: 0 No Action naproxen 500 mg tablet 500 mg PO BID PRN (Reason: pain) Qty: 20 RF: 0 lorazepam 0.5 mg tablet 0.5 mg PO DAILY PRN (Reason: anxiety) 5 Days Qty: 5 RF: 0 Stand Alone Forms: Work/School Release
[2021-01-24 13:51] LABS: MANUAL DIFF FLAG NO
[2021-01-24 13:53] LABS: Basophils Percent Auto 0.1 % (0-2); Eosinophils Percent Auto 0.1 % (0-4); Hematocrit 44.5 % (37-47); Hemoglobin 14.2 g/dl (12.0-16.0); Imm Gran Abs Auto 0.02 X10*3/uL (0.00-0.03); Imm Gran Pct Auto 0.2 % (0.0-0.4); Lymphocytes Absolute Auto 0.8 X10*3/uL (1.2-4.9); Lymphocytes Percent Auto 8.6 % (20-40); Mean Corpuscular HGB Conc 31.9 g/dl (31.0-35.0); Mean Corpuscular Hemoglobin 26.2 pg (27.0-33.0); Mean Platelet Volume 9.9 fL (9.4-12.3); Monocytes Absolute Auto 0.3 X10*3/uL (0.1-1.2); Monocytes Percent Auto 3.8 % (2-11); Neutrophils Absolute Auto 7.7 X10*3/uL (2.0-8.3); Neutrophils Percent Auto 87.2 % (45-73); Platelet Count 303 X10*3/uL (160-400); Red Blood Count 5.43 X10*6/uL (4.20-5.50); Red Cell Distribution Width 12.8 % (11.0-16.0); White Blood Count 8.9 X10*3/uL (4.8-10.8)
[2021-01-24 14:09] VITALS: BP 116/55; PULSE 91; RESP 17; TEMP 36.8; O2SAT 99
[2021-01-24] MEDS: ondansetron HCL 4 MG/2 ML VIAL IVPUSH (14:13)
[2021-01-24] MEDS: 0.9 % Sodium Chloride 1,000 ML 999 ML IVCONT ×2 (14:13→15:51)
[2021-01-24 14:23] LABS: Alanine Aminotransferase 10 U/L (0-31); Albumin Level 5.2 g/dL (3.5-5.0); Alkaline Phosphatase 73 U/L (39-117); Anion Gap 18 (12-20); Aspartate Amino Transferase 18 U/L (5-31); Bilirubin Direct 0.7 mg/dL (0.0-0.5); Bilirubin Total 2.2 mg/dL (0.0-1.0); Blood Urea Nitrogen 14 mg/dL (9-16); Calcium 10.1 mg/dL (8.4-10.2); Carbon Dioxide 20 mmol/L (22-29); Chloride 104 mmol/L (96-108); Creatinine Clr Calc Pharmacy 77.9; Estimated Glomerular Filt Rate > 60; Glucose Random 78 mg/dL (60-115); Lipase 34 U/L (8-78); Potassium 4.2 mmol/L (3.3-5.1); Sodium 138 mmol/L (135-145); Total Protein 8.5 g/dL (6.5-8.0)
[2021-01-24 15:10] LABS: Glucose Urine UA NEG (NEG); Leukocyte Esterase Urine NEG (NEG); Nitrite Urine NEG (NEG); Specific Gravity - Urine >= 1.030 (1.005-1.025); Urine Blood TRACE (NEG); Urine Ketones >=80 MG/DL (NEG); Urine Protein TRACE MG/DL (NEG-TRACE)
[2021-01-24 15:11] LABS: Appearance Urine CLEAR; Color Urine YELLOW
[2021-01-24 15:12] LABS: UPreg QC Valid YES; Urine Pregnancy NEGATIVE (NEGATIVE)
[2021-01-24 15:22] LABS: Mucus Urine 2+ /LPF; Squamous Epithelial Cell Urine 1+ /LPF; WBC Urine 0-2 /HPF (0-4)
[2021-01-24 15:41] LABS: COVID-19 Test Negative (Negative); IDNOW Serial# 9DD0AD1C
[2021-01-24 15:51] VITALS: BP 118/68; PULSE 94; RESP 16; TEMP 36.9; O2SAT 100
--- NOTE | 2021-01-24 16:40 | PC.NURSE ---
Passed PO challenge: plan to d/c
== END 2021-01-24 17:05 | disposition home or self-care (01) ==
PROVIDERS: Emergency Provider Emergency Medicine; PCP Internal Medicine
DX: E86.0 Dehydration (principal); R11.2 Nausea with vomiting, unspecified; Z20.822 Contact with and (suspected) exposure to COVID-19
CPT/HCPCS: 36415; 80048; 80076; 81001; 81025; 83690; 85025; 87635; 93005; 96361; 96374; 99284; J2405

== ENCOUNTER 2021-01-26 08:47 | Outpatient (REF) | payer OTHER, SELFPAY ==
--- NOTE | ~2021-01-26 | MR_ITS ---
EXAMINATION: MR BRAIN WITHOUT CONTRAST CLINICAL INFORMATION: Migraines. COMPARISON: Head CT dated 12/27/2020. TECHNIQUE: Multiplanar, multisequence imaging of the brain was performed without contrast. FINDINGS: No diffusion abnormalities are identified to suggest an acute or subacute infarct. The ventricles are normal in size. No mass effect or midline shift is seen. No brain parenchymal signal abnormality is noted. No extra-axial fluid collections are seen. The brainstem and cerebellum are normal. The gradient refocused acquisition is normal. The craniovertebral junction, marrow signal, and midline structures are normal. The major intracranial flow voids at the level of the native of [place] are preserved. The dural venous sinus flow voids are maintained. The mastoid air cells are well aerated. There are some small retention cysts in the right maxillary sinus. MR/MR head/brain wo con IMPRESSION: Normal MRI of the brain. No acute process.
== END 2021-01-26 08:48 | disposition home or self-care (01) ==
LOC: HO.MRI 08:47
PROVIDERS: PCP Internal Medicine; Visit Provider Physician Assistant
DX: G43.909 Migraine, unspecified, not intractable, without status migrainosus (principal)
CPT/HCPCS: 70551

== ENCOUNTER → 2021-02-05 08:56 | Outpatient (BNVA) | payer OTHER, SELFPAY | PROVIDERS: PCP Internal Medicine; Visit Provider Obstetrics & Gynecology | DX: N83.209 Unspecified ovarian cyst, unspecified side (principal) | CPT/HCPCS: 99212 ==

== ENCOUNTER 2021-02-06 09:16 | Outpatient (REF) | payer OTHER, SELFPAY ==
[2021-02-07 02:38] LABS: CT PCR NOT DETECTED (Not Detect.); NG PCR NOT DETECTED (Not Detect.)
== END 2021-02-06 09:17 | disposition home or self-care (01) ==
LOC: HO.LAB 09:16
PROVIDERS: Visit Provider Obstetrics & Gynecology
DX: N83.209 Unspecified ovarian cyst, unspecified side (principal); N93.9 Abnormal uterine and vaginal bleeding, unspecified
CPT/HCPCS: 87491; 87591

== ENCOUNTER 2021-02-22 14:47 | Outpatient (REF) | payer OTHER, SELFPAY ==
--- NOTE | ~2021-02-22 | US_ITS ---
EXAMINATION: PELVIC ULTRASOUND CLINICAL INFORMATION: Abnormal bleeding COMPARISON: Previous CT of the abdomen and pelvis January 2021 and pelvic ultrasound August 2020 TECHNIQUE: Transabdominal and transvaginal pelvic ultrasound was performed. Transvaginal exam was performed for better visualization of the uterus and ovaries. FINDINGS: The uterus is anteverted and measures 7.1 x 3.3 x 4.1 cm in dimension. No focal uterine lesion is seen. Endometrial thickness is normal measuring 0.9 cm. The cervix is normal. The right ovary is upper normal in size.. The right ovary measures 3.9 x 2.8 x 2.5 cm, volume 14 mL. There is a new 2.2 x 1.9 x 2.5 cm complex right ovarian cyst. The left ovary is normal-appearing and measures 3.1 x 1.7 x 2.8 cm. There is no fluid in the pelvis. US/US pelvic and transvaginal IMPRESSION: Unremarkable exam. Normal thickness endometrium. New 2.2 x 1.9 x 2.5 cm complex right ovarian cyst probably representing a physiologic cyst.
== END 2021-02-22 14:48 | disposition home or self-care (01) ==
LOC: HO.US 14:47
PROVIDERS: PCP Internal Medicine; Visit Provider Obstetrics & Gynecology
DX: N83.209 Unspecified ovarian cyst, unspecified side (principal); N93.9 Abnormal uterine and vaginal bleeding, unspecified
CPT/HCPCS: 76830; 76856

== ENCOUNTER 2021-03-04 17:21 | Emergency (ER) | payer OTHER, SELFPAY ==
--- NOTE | ~2021-03-04 | CT_ITS ---
EXAMINATION: CTA OF THE HEAD/NECK CLINICAL INFORMATION: Left-sided neck pain. Family history of dissection. COMPARISON: MRI 01/26/2021 TECHNIQUE: A routine non contrast head CT was performed followed by a 70 mL bolus of Omnipaque 350. Subsequent multidetector helical imaging was performed of the head and neck. Delayed post contrast imaging was also performed through the head. Multiplanar reformats and MIP were also obtained. Internal carotid artery stenoses are assessed in accordance with NASCET criteria unless otherwise indicated. This CT examination was performed using dose optimization techniques as appropriate, variously including the following: *Automated exposure control *Adjustment of mA and/or kV according to patient size (this includes techniques or standardized protocols for targeted exams where dose is matched to indication/reason for exam; i.e. extremities or head) *Use of iterative reconstruction technique DLP: 2254 mGy-cm. FINDINGS: CT HEAD: There is no evidence of acute intracranial hemorrhage or territorial infarction. No abnormal mass effect or midline shift is seen. Youngblood to white matter differentiation is well preserved. No extra-axial fluid collections are identified. No suspicious leptomeningeal or parenchymal enhancement on the post-contrast images. No hydrocephalus. No significant volume loss. There is no abnormal attenuation within the brain parenchyma. The osseous structures and soft tissues are normal. The mastoid air cells and visualized portions of the paranasal sinuses are well aerated. CTA NECK: The aortic arch is of normal caliber and the origins of the great vessels are patent without evidence of significant stenosis. The cervical portion of the vertebral arteries are patent bilaterally. No luminal irregularities in the common carotid arteries and the carotid bifurcations are patent bilaterally. The cervical portion of the internal carotid arteries are of normal caliber. The laryngeal structures and pharyngeal mucosal spaces are unremarkable. The oral cavity appears normal. The parotid and submandibular glands are normal. No pathologically enlarged lymph nodes. The thyroid gland is unremarkable. The lung apices are clear without evidence of pneumothorax. Spinal alignment is maintained. CTA HEAD: The intradural portion of the vertebral arteries are of normal caliber. The basilar, superior cerebellar, and posterior communicating arteries are patent. The posterior, middle, and anterior cerebral arteries are of normal caliber without evidence of significant luminal irregularity. No definite intracranial aneurysms. CT/CT angio head neck IMPRESSION: Normal head CT. Normal CT angiogram of the head and neck. No vertebral artery dissection.
[2021-03-04 17:29] VITALS: BP 128/82; PULSE 100; RESP 18; TEMP 36.6; O2SAT 100; BMI 18.4
--- NOTE | 2021-03-04 18:07 | ED.HA ---
HPI - Headache General Chief Complaint: Headache Stated Complaint: Head pressure Time Seen by Provider: 03/04/21 18:06 Source: patient Mode of arrival: ambulatory Limitations: no limitations History of Present Illness HPI Narrative: 20 yo female with hx or RLQ pain (has known cyst being followed by [facility]), migraines, anxiety disorder, recurrent syncope with recent observation [place] [facility] [place] workup thus far due for ECHO on 03/08 she is here with complaint of feeling off since being put on propanolol 10mg TID for palpitations. She is worried her arteries are clogged. When asked about anxiety she became visibly upset and refused anxiolytic. She states her mom had a carotid dissection when she was younger. Records [place] [facility] [place] 6 visits to their ED since December and 4 ED visits to our ED since December. Patient is no longer on the propanolol after talking to her PCP (due to lower blood pressure) MD elicited complaint: other (L sided neck pain feels her arteries are clogged) Pertinent past history: other Onset (ago): day(s) (started when she was put on propanolol (Friday)) Onset description: suddenly Location: left and other (left neck area) Severity: moderate Quality & Timing: constant and pressure Exacerbating factors: movement of head/neck Relieving factors: nothing Context: other (reports started after taking propanolol) Associated symptoms: lightheadedness Treatments prior to arrival: none Related Data Home Medications Medication Instructions Recorded Confirmed propranolol 10 mg tablet 10 mg PO TID 03/02/21 03/04/21 Allergies Allergy/AdvReac Type Severity Reaction Status Date / Time diphenhydramine Allergy Severe Chest Verified 03/04/21 01:00 [From Benadryl] Pain, hard to breath Review of Systems Review of Systems: Constitutional : No Fever, No Chills, No Fatigue ENT/Mouth : No sore throat, No Rhinorrhea, pos neck pain Eyes: No Eye Pain, No Swelling, No Redness Cardiovascular : No Chest Pain, No SOB, No Dyspnea on Exertion Respiratory : No Cough, No Sputum Gastrointestinal : No Nausea, No Vomiting, No Diarrhea, No abdominal Pain Genitourinary : No Dysuria, No Urinary Frequency, No Hematuria, Musculoskeletal : No joint pain, No Myalgias, No Joint Swelling Skin : No Skin Lesions, No rash Neuro : No Weakness, No Numbness, No Dizziness, positive Headache Psych : No Anxiety/Panic, No Depression Heme/Lymph: No Bruising, No Bleeding,No Lymphadenopathy Endocrine : No Polyuria, No Polydipsia All other systems reviewed and are negative [facility] Past Medical History Attestation statement: The following information was validated with the patient. Medical History Inguinal pain of both sides Palpitations Recurrent syncope RLQ abdominal pain Syncope Surgical History No significant past surgical history Family History Family History Mother No problems noted. Father No problems noted. 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 Oriented X3. No acute distress. Anxious, rapid speech Eyes: Pupils equal, round and reactive to light. ENT: Pharynx normal. Neck: Normal inspection. Neck supple. no bruit sound heard on L neck CVS: Normal heart rate and rhythm. Pulses normal. Respiratory: No respiratory distress. Breath sounds normal. Abdomen: Soft and nontender. Skin: Skin warm and dry. Normal skin color. Normal skin turgor. Extremities: No lower extremity edema. No calf ttp Neuro: Oriented X 3. No motor deficit. No sensory deficit. 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 after CT scan reported allergic reaction her sats were 100%, HR 150 no rash, it quickly resolved without any medications and the patient was breathing rapidly, HR returned to normal, seems unusual for allergic reaction no acute findings on CTA of neck can be DC at this time MDM - Headache MDM Narrative Medical decision making narrative: 20 yo female with hx or RLQ pain (has known cyst being followed by [facility]), migraines, anxiety disorder, recurrent syncope with recent observation stay [place] [facility] [place] negative workup thus far due for ECHO on 03/08 she is here with complaint of feeling off since being put on propanolol 10mg TID for palpitations. She is worried her arteries are clogged. When asked about anxiety she became visibly upset and refused anxiolytic. She states her mom had a carotid dissection when she was younger. At this time there is definitely a component of anxiety but she is refusing medications. Given her complaints will obtain basic labs, CTA of neck to r/o dissection, dispo per results and findings. Lab Data Result diagrams: 03/04/21 18:33 03/04/21 18:33 Labs: Lab Results 03/04/21 03/04/21 03/04/21 Range/Units 18:33 18:33 19:08 WBC 5.1 (4.8-10.8) X10*3/uL RBC 4.89 (4.20-5.50) X10*6/uL Hgb 13.1 (12.0-16.0) g/dl Hct 39.9 (37-47) % MCV 81.6 (80-98) fL MCH 26.8 L (27.0-33.0) pg MCHC 32.8 (31.0-35.0) g/dl RDW 12.6 (11.0-16.0) % Plt Count 330 (160-400) X10*3/uL MPV 9.4 (9.4-12.3) fL Immature Gran % (Auto) 0.2 (0.0-0.4) % Neut % (Auto) 72.3 (45-73) % Lymph % (Auto) 20.2 (20-40) % [place] % (Auto) 6.7 (2-11) % Eos % (Auto) 0.2 (0-4) % Baso % (Auto) 0.4 (0-2) % Lymph # (Auto) 1.0 L (1.2-4.9) X10*3/uL [place] # (Auto) 0.3 (0.1-1.2) X10*3/uL Eos # (Auto) 0.0 (0.0-0.4) X10*3/uL Baso # (Auto) 0.0 (0.0-0.2) X10*3/uL Abs Immat Gran (auto) 0.01 (0.00-0.03) X10*3/uL Absolute Neuts (auto) 3.7 (2.0-8.3) X10*3/uL Absolute Nucleated RBC 0.000 (0.0-0.012) X10*3/uL Nucleated RBC % (auto) 0.0 (0.0-0.2) /100WBC Sodium 143 (135-145) mmol/L Potassium 3.5 (3.3-5.1) mmol/L Chloride 108 (96-108) mmol/L Carbon Dioxide 26 (22-29) mmol/L Anion Gap 13 (12-20) BUN 6 L D (9-16) mg/dL Creatinine 0.81 (0.5-1.4) mg/dL Estim Creat Clear Calc 76.3 Estimated GFR > 60 Random Glucose 96 (60-115) mg/dL Calcium 9.8 (8.4-10.2) mg/dL Urine Color YELLOW Urine Appearance HAZY Urine pH 7.5 (5.0-8.0) Ur Specific [place] 1.010 (1.005-1.025) Urine Protein NEG (NEG-TRACE) MG/DL Urine Glucose (UA) NEG (NEG) MG/DL Urine Ketones NEG (NEG) MG/DL Urine Blood 2+ H (NEG) Urine Nitrite NEG (NEG) Ur Leukocyte Esterase NEG (NEG) Urine RBC 0 (0) /HPF Urine WBC 0-2 (0-4) /HPF Ur Squamous Epith Cells 2+ /LPF Amorphous Sediment 4+ /LPF Urine Bacteria NONE /LPF Urine Test (NEGATIVE) 03/04/21 Range/Units 19:08 WBC (4.8-10.8) X10*3/uL RBC (4.20-5.50) X10*6/uL Hgb (12.0-16.0) g/dl Hct (37-47) % MCV (80-98) fL MCH (27.0-33.0) pg MCHC (31.0-35.0) g/dl RDW (11.0-16.0) % Plt Count (160-400) X10*3/uL MPV (9.4-12.3) fL Immature Gran % (Auto) (0.0-0.4) % Neut % (Auto) (45-73) % Lymph % (Auto) (20-40) % [place] % (Auto) (2-11) % Eos % (Auto) (0-4) % Baso % (Auto) (0-2) % Lymph # (Auto) (1.2-4.9) X10*3/uL [place] # (Auto) (0.1-1.2) X10*3/uL Eos # (Auto) (0.0-0.4) X10*3/uL Baso # (Auto) (0.0-0.2) X10*3/uL Abs Immat Gran (auto) (0.00-0.03) X10*3/uL Absolute Neuts (auto) (2.0-8.3) X10*3/uL Absolute Nucleated RBC (0.0-0.012) X10*3/uL Nucleated RBC % (auto) (0.0-0.2) /100WBC Sodium (135-145) mmol/L Potassium (3.3-5.1) mmol/L Chloride (96-108) mmol/L Carbon Dioxide (22-29) mmol/L Anion Gap (12-20) BUN (9-16) mg/dL Creatinine (0.5-1.4) mg/dL Estim Creat Clear Calc Estimated GFR Random Glucose (60-115) mg/dL Calcium (8.4-10.2) mg/dL Urine Color Urine Appearance Urine pH (5.0-8.0) Ur Specific [place] (1.005-1.025) Urine Protein (NEG-TRACE) MG/DL Urine Glucose (UA) (NEG) MG/DL Urine Ketones (NEG) MG/DL Urine Blood (NEG) Urine Nitrite (NEG) Ur Leukocyte Esterase (NEG) Urine RBC (0) /HPF Urine WBC (0-4) /HPF Ur Squamous Epith Cells /LPF Amorphous Sediment /LPF Urine Bacteria /LPF Urine Test NEGATIVE (NEGATIVE) ECG Data Attestation: I personally reviewed and interpreted this ECG as follows: ECG interpretation date: 03/04/21 ECG interpretation time: 20:19 Interpretation: Rate: 77 Rhythm: NSR [place]: rightward Normal P waves. Normal KEVIN. Normal QRS complex. ST T wave : inverted t waves V1-V3, no ALVINA qTC: normal prior studies: no acute ischemia The study has been interpreted contemporaneously by me. . Discharge Plan Discharge Clinical Impression: Acute neck pain Patient Disposition: Home, Self-Care Instructions: Acute Neck Pain (ED) Additional Instructions: return to ED for any worsening symptoms or concerns IMPRESSION: Normal head CT. Normal CT angiogram of the head and neck. No vertebral artery dissection. PLEASE FOLLOW UP WITH YOUR DOCTOR AND THE FACILITY WORKER PLANNED Prescriptions: No Action propranolol 10 mg tablet 10 mg PO TID RF: 0
--- NOTE | 2021-03-04 18:19 | ECG_ITS ---
Test Reason : GENERAL MEDICAL Blood Pressure : / mmHG Vent. Rate : 077 BPM Atrial Rate : 077 BPM P-R Int : 130 ms QRS Dur : 072 ms QT Int : 378 ms P-R-T Axes : 078 094 050 degrees QTc Int : 427 ms Normal sinus rhythm with sinus arrhythmia Possible Left atrial enlargement Rightward axis Nonspecific T wave abnormality Abnormal ECG When compared with ECG of 24-JAN-2021 11:41, Non-specific change in ST segment in Inferior leads Heart rate has decreased Referred By: Roxy Osborne Electronically Signed By:JOSE HESTER
[2021-03-04 18:39] LABS: Basophils Percent Auto 0.4 % (0-2); Eosinophils Percent Auto 0.2 % (0-4); Hematocrit 39.9 % (37-47); Hemoglobin 13.1 g/dl (12.0-16.0); Imm Gran Abs Auto 0.01 X10*3/uL (0.00-0.03); Imm Gran Pct Auto 0.2 % (0.0-0.4); Lymphocytes Percent Auto 20.2 % (20-40); MANUAL DIFF FLAG NO; Mean Corpuscular HGB Conc 32.8 g/dl (31.0-35.0); Mean Corpuscular Hemoglobin 26.8 pg (27.0-33.0); Mean Corpuscular Volume 81.6 fL (80-98); Mean Platelet Volume 9.4 fL (9.4-12.3); Monocytes Absolute Auto 0.3 X10*3/uL (0.1-1.2); Monocytes Percent Auto 6.7 % (2-11); Neutrophils Absolute Auto 3.7 X10*3/uL (2.0-8.3); Neutrophils Percent Auto 72.3 % (45-73); Platelet Count 330 X10*3/uL (160-400); Red Blood Count 4.89 X10*6/uL (4.20-5.50); Red Cell Distribution Width 12.6 % (11.0-16.0); White Blood Count 5.1 X10*3/uL (4.8-10.8)
[2021-03-04] MEDS: 0.9 % Sodium Chloride 1,000 ML 999 ML IVCONT (18:40)
[2021-03-04 18:44] VITALS: BP 117/60; PULSE 91; RESP 20; TEMP 36.9; O2SAT 100
--- NOTE | 2021-03-04 18:57 | PC.NURSE ---
Pt alert and oriented x3, vss, lscta. +BS x4, all neuros in tact. Pt states her doctor stopped her propranolol 3 days ago and since then she has been feeling dizzy and having a headache that radiates from the back of her head to her left side. Pt states she was discharged from [facility] sometime last week and still feels the same. She denies n/v/d. no sob/difficulty breathing. No apparent distress noted. IV established, labs drawn, fluids hung. lab results pending.
[2021-03-04 19:06] LABS: Anion Gap 13 (12-20); Blood Urea Nitrogen 6 mg/dL (9-16); Calcium 9.8 mg/dL (8.4-10.2); Carbon Dioxide 26 mmol/L (22-29); Chloride 108 mmol/L (96-108); Creatinine Clr Calc Pharmacy 76.3; Estimated Glomerular Filt Rate > 60; Glucose Random 96 mg/dL (60-115); Potassium 3.5 mmol/L (3.3-5.1); Sodium 143 mmol/L (135-145)
[2021-03-04 19:16] LABS: Glucose Urine UA NEG (NEG); Leukocyte Esterase Urine NEG (NEG); Nitrite Urine NEG (NEG); PH 7.5 (5.0-8.0); UACC Culture Trigger NO; Urine Blood 2+ (NEG); Urine Ketones NEG (NEG); Urine Protein NEG (NEG-TRACE)
--- NOTE | 2021-03-04 19:17 | PC.NURSE ---
UA obtained and sent by SALLY Angulo. This RN resuming care. Plan for CTA.
[2021-03-04 19:19] LABS: UPreg QC Valid YES; Urine Pregnancy NEGATIVE (NEGATIVE)
[2021-03-04 19:20] LABS: Appearance Urine HAZY; Color Urine YELLOW
[2021-03-04 19:25] LABS: RBC Urine 0 /HPF (0); WBC Urine 0-2 /HPF (0-4)
[2021-03-04 19:26] LABS: Amorphous Sediment Urine 4+ /LPF; Squamous Epithelial Cell Urine 2+ /LPF
--- NOTE | 2021-03-04 20:21 | PC.NURSE ---
staging technician at bedside for EKG.
[2021-03-04] MEDS: iohexoL 350 MG/ML 100 ML INFUS..BTL IV (21:24)
[2021-03-04 22:00] VITALS: BP 117/56; PULSE 60; RESP 16; O2SAT 98
== END 2021-03-04 23:15 | disposition home or self-care (01) ==
PROVIDERS: Emergency Provider Emergency Medicine; PCP Internal Medicine
DX: M54.2 Cervicalgia (principal); R42 Dizziness and giddiness; Z20.822 Contact with and (suspected) exposure to COVID-19
CPT/HCPCS: 36415; 70496; 70498; 80048; 81001; 81025; 85025; 93005; 96360; 99284; Q9967

== ENCOUNTER → 2021-03-08 07:32 | Outpatient (REF) | payer OTHER, SELFPAY ==
--- NOTE | 2021-03-08 07:50 | CA_ITS ---
Transthoracic Echocardiogram Patient (Last, First, Middle): Twila Baker Marie Gender: Female Date of : 2000 Age: 20 Procedure Date: 03/08/2021 Procedure Type: Transthoracic Echocardiogram Location: OP Height: 154.94 cm Weight: 44. kg BSA: 1.39 m2 Heart Rate: bpm BP: 130 / 90 mmHg Floor Worker Transfer Bay: QUIQUE Escamilla MD: Jasbir Wynn MD Plasma Processing Technician: Feliz Medina MD Symptoms: R00.2 - Palpitations Study Quality: Fair ECG Rhythm: Sinus Conclusions: - Normal study Findings Left Ventricle Normal left ventricular size, thickness, and systolic function. The visually estimated ejection fraction is between 60-65%. Spectral Doppler is indicative of a normal filling pattern. There is presence of LV false tendon in the mid cavity Right Ventricle Normal right ventricular cavity size and systolic function. Atria Both atria are normal in size. There is no evidence of interatrial shunt. Aortic Valve Normal aortic valve structure and function. There is no aortic valve stenosis. There is no aortic valve regurgitation. Mitral Valve Likely normal mitral valve structure and function. There is no mitral valve regurgitation. There is no mitral valve stenosis. Tricuspid Valve Likely normal tricuspid valve structure and function. There is trace tricuspid valve regurgitation. The right ventricular systolic pressure is normal. The right ventricular systolic pressure is 17 mmHg. Normal right atrial pressure. There is no evidence of pulmonary hypertension. Great Vessels All visible segments of the aorta are normal in size. The pulmonary artery was not well visualized. Venous The inferior vena cava is normal in size and collapses greater than 50% with inspiration. Pericardium/Pleural There is no evidence of pericardial effusion. Prior Study Comparison No prior study available for comparison. Measurements 2D Linear Measurements IVSd: 0.56 0.6-0.9/0.6-1.0 cm LVIDd: 3.72 3.9-5.3/4.2-5.9 cm LVIDd Index: 2.68 2.4-3.2/2.2-3.1 cm/m2 LVIDs: 2.38 2.0-3.6 cm LVPWd: 0.65 0.7-1.1 cm Ao Root: 2.50 2.1-3.5 cm LA Diam: 2.10 2.7-3.8/3.0-4.0 cm LAIDs Index: 1.51 1.5-2.3 cm/m2 LV Mass: 70.70 67-162/88-224 g LV Mass Index: 50.86 43-95/49-115 g/m2 LVOT Diam: 2.00 3.0+(-)1.3 cm Mitral Valve MV Pk E: 0.77 MV PK A: 0.61 MV Decel Time: 348.00 E/A: 1.30 E'Lateral: 14.80 E'Medial: 12.60 E/E' Med: 6.10 E/E' Lat: 5.20 PHT: 102.00 MVA PHT: 2.16 Decel [place]: 2.20 Aortic Valve AoV Pk [place]: 1.31 AoV Mn [place]: 0.92 AoV VTI: 0.26 AoV Pk Grad: 7.00 Aov Mn Grad: 4.00 PHIL Cont.VTI: 2.26 LVOT LVOT Pk [place]: 0.88 LVOT Mn [place]: 0.64 LVOT VTI: 0.19 LVOT Pk Grad: 3.00 LVOT Mn Grad: 2.00 LVOT Diam: 2.00 LVOT Area: 3.14 Diastolic Function MV Pk E: 0.77 MV Pk A: 0.61 E/A: 1.30 E'Medial: 12.60 E/E' Med: 6.10 E' Laterial: 14.80 E/E' Lat: 5.20 Right Ventricle TAPSE (mm): 1.63 TVS' [place]: 11.60 Tricuspid Valve TR Pk [place]: 1.85 TR Pk Grad: 14.00 RA Press: 3.00 RVSP: 17.00 Great Vessels Aorta Ao Root-2D: 2.50 2.0-3.7 cm Ao Asc: 2.10 2.1-3.4 cm Ao Arch: 1.90 Updated in Other Vendor System with Status of Final Feliz Medina MD electronically signed on 03/09/2021 3:48:53 PM with status of Final
== END ==
LOC: HO.CARD 07:32
PROVIDERS: PCP Internal Medicine; Visit Provider Internal Medicine
DX: R00.2 Palpitations (principal); R55 Syncope and collapse; N83.291 Other ovarian cyst, right side
CPT/HCPCS: 93306

== ENCOUNTER → 2021-03-23 12:48 | Outpatient (REF) | payer OTHER, SELFPAY ==
--- NOTE | 2021-03-23 12:52 | ECG_ITS ---
Hook-up date: 2021-03-23 13:02:00 Duration: 47:59:00 Test Indications: PALPITATIONS Medications: [id number] QRS complexes 7 Ventricular ectopics which represent <1 % of total QRS comp. * Supraventricular ectopics which represent % of total QRS comp. * Paced QRS complexs which represent % of total QRS comp. VENTRICULAR ECTOPY 7 Isolated 0 Bigeminal Cycles 0 Couplets 0 Runs 0 Beats in Runs * Beats LONGEST at * BPM at :: -- * Beats FASTEST at * BPM at :: -- SUPRAVENTRICULAR ECTOPY * Isolated * Couplets * Runs * Beats in Runs * Beats LONGEST at * BPM at :: -- * Beats FASTEST at * BPM at :: -- HEART RATES 46 MIN at 08:21:52 2021-03-25 82 AVG 167 MAX at 18:56:44 2021-03-24 LONGEST RR 1.4880 secs at 06:02:07 2021-03-24 S-T LEVELS Channel 1 - 128 mm at 13:02:00 2021-03-23 - 128 mm at 13:02:00 2021-03-23 Channel 2 - 128 mm at 13:02:00 2021-03-23 - 128 mm at 13:02:00 2021-03-23 Channel 3 - 128 mm at 03:22:11 -- - 128 mm at 03:22:11 Underlying rhythm is sinus; Average ventricular rate 82/min; range 46-167/min; About 36% of the time, rate >100/min (sinus tachycardia); Very rare PVCs; Patient did not report any symptoms in the diary Referred By: Jasbir Wynn Overread By: BASILIO HUERTA
== END ==
LOC: HO.CARD 12:48
PROVIDERS: PCP Internal Medicine; Visit Provider Internal Medicine
DX: R00.2 Palpitations (principal); R55 Syncope and collapse
CPT/HCPCS: 93225; 93226

== ENCOUNTER → 2021-04-19 13:02 | Outpatient (BNVA) | payer OTHER, SELFPAY | PROVIDERS: PCP Internal Medicine; Referring Provider Internal Medicine; Visit Provider Internal Medicine Cardiovascular Disease | DX: R55 Syncope and collapse (principal) | CPT/HCPCS: 93005; 99202 ==

== ENCOUNTER 2021-05-08 10:59 | Emergency (ER) | payer OTHER, SELFPAY ==
[2021-05-08 11:56] VITALS: BP 121/67; PULSE 86; RESP 18; TEMP 36.7; O2SAT 100; BMI 17.4
[2021-05-08 12:34] LABS: COVID-19 Test Negative (Negative)
[2021-05-08 12:35] LABS: IDNOW Serial# 08D9AD1C; Strep A Nucleic Acid Negative (Negative)
--- NOTE | 2021-05-08 13:53 | ED_ITS ---
HPI - General Adult General Chief complaint: General Medical Stated complaint: Sore throat Time Seen by Provider: 05/08/21 13:20 Source: patient Mode of arrival: ambulatory Limitations: no limitations History of Present Illness HPI narrative: 20 y/o female who presents to the ER with sore throat and painful lumps in her neck for the last 1 week. She reports painful swallowing. She states she had an ear infection over a month ago and was antibiotics for this. She reports she had the painful lumps in her neck at that time and they never went away. She was seen by her doctor who continued antibiotics back in [facility]. Her ear got better with the lumps never fully went away. She has been off of antibiotics for over 1 month. She reports for the last 1 week she has had a sore throat generalized fatigue. She has some body aches and overall not feeling well. She has no shortness of breath, cough, chest pain, fever, chills. No known sick contacts and no known COVID exposure. MD complaint: Sore throat and neck lumps Onset (ago): week(s) (1) Location: mouth and neck Radiation: non-radiation Severity: moderate Severity scale (1-10): 5 Quality: aching Pain Consistency: constant Relieving factors: none Exacerbating factors: eating Associated symptoms: loss of appetite and malaise Treatments prior to arrival: none Related Data Previous Rx's Medication Instructions Recorded ibuprofen 600 mg tablet 600 mg PO Q6H PRN #60 tab 04/25/21 amoxicillin 875 mg-potassium 1 tab PO BID #20 tab 05/08/21 clavulanate 125 mg tablet (Augmentin) ibuprofen 600 mg tablet 600 mg PO Q8H PRN #10 tab 05/08/21 prednisone 20 mg tablet 40 mg PO DAILY #10 tab 05/08/21 Allergies Allergy/AdvReac Type Severity Reaction Status Date / Time diphenhydramine Allergy Severe Chest Verified 05/08/21 11:56 [From Benadryl] Pain, hard to breath Review of Systems Review of Systems: Constitutional: No Fever, No Chills ENT/Mouth: + sore throat, No Rhinorrhea, No Swallowing Difficulty, +Painful swallowing Eyes: No Eye Pain, No Swelling, No Redness Cardiovascular: No Chest Pain, No SOB Respiratory: No Cough, No Sputum, No Wheezing, No dyspnea Gastrointestinal: No Nausea, No Vomiting, No Diarrhea, No abdominal Pain Genitourinary: No Dysuria, No Urinary Frequency, No Hematuria Musculoskeletal: No joint pain, No Myalgias Skin: No Skin Lesions, No rash Neuro: No Weakness, No Numbness, No Dizziness, + Headache Psych: + Anxiety/Panic, No Depression Heme/Lymph: No Bruising, + Lymphadenopathy PMFSH Past Medical History Medical History Inguinal pain of both sides Otitis externa Palpitations Recurrent syncope RLQ abdominal pain Syncope Surgical History No significant past surgical history Family History Family History Mother No problems noted. Father No problems noted. 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 Oriented X3. No acute distress. Eyes: Pupils equal, round and reactive to light. ENT: Pharynx with moderate generalized erythema, mild tonsillar swelling bilaterally with no exudates. Uvula midline. Normal voice. Handling secretions normally. Neck: Normal inspection. Neck with left anterior cervical chains body small tender mobile lymph nodes. Submandibular lymphadenopathy noted as well CVS: Normal heart rate and rhythm. Pulses normal. Respiratory: No respiratory distress. Breath sounds normal. Skin: Skin warm and dry. Normal skin color. Normal skin turgor. No rashes. Extremities: No lower extremity edema. Neuro: Oriented X 3. Grossly normal, nonfocal Course Course Course Narrative: 20-year-old female presenting with sore throat and tender lymphadenopathy in her neck for the last 1 week. Nontoxic appearing. She reports the lymphadenopathy has been present for over 1 month in the setting of a recent ear infection. She is very concerned as they have not gone away with antibiotic treatment. She has no weight loss, fevers. No SOB or chest pain. Will check COVID, Strep, [place] and basic labs. Reevaluation(s) Reevaluation #1: Lab workup is unremarkable. COVID, strep, mono oral negative. Will treat for acute pharyngitis with course of antibiotics and steroids. Encourage follow-up with her PCP once she is no longer ill for follow-up of her mild cervical lymphadenopathy. This seems to be reactive from her illness. She was counseled and is stable for discharge home with supportive care. Medical Decision Making Lab Data Result diagrams: 05/08/21 14:07 05/08/21 14:07 Labs: Lab Results 05/08/21 05/08/21 05/08/21 Range/Units 12:02 12:02 14:07 WBC 7.8 (4.8-10.8) X10*3/uL RBC 5.14 (4.20-5.50) X10*6/uL Hgb 13.6 (12.0-16.0) g/dl Hct 42.3 (37-47) % MCV 82.3 (80-98) fL MCH 26.5 L (27.0-33.0) pg MCHC 32.2 (31.0-35.0) g/dl RDW 12.7 (11.0-16.0) % Plt Count 340 (160-400) X10*3/uL MPV 9.3 L (9.4-12.3) fL Immature Gran % (Auto) 0.3 (0.0-0.4) % Neut % (Auto) 80.2 H (45-73) % Lymph % (Auto) 15.1 L (20-40) % [place] % (Auto) 3.8 (2-11) % Eos % (Auto) 0.3 (0-4) % Baso % (Auto) 0.3 (0-2) % Lymph # (Auto) 1.2 (1.2-4.9) X10*3/uL [place] # (Auto) 0.3 (0.1-1.2) X10*3/uL Eos # (Auto) 0.0 (0.0-0.4) X10*3/uL Baso # (Auto) 0.0 (0.0-0.2) X10*3/uL Abs Immat Gran (auto) 0.02 (0.00-0.03) X10*3/uL Absolute Neuts (auto) 6.3 (2.0-8.3) X10*3/uL Absolute Nucleated RBC 0.000 (0.0-0.012) X10*3/uL Nucleated RBC % (auto) 0.0 (0.0-0.2) /100WBC Sodium (135-145) mmol/L Potassium (3.3-5.1) mmol/L Chloride (96-108) mmol/L Carbon Dioxide (22-29) mmol/L Anion Gap (12-20) BUN (9-16) mg/dL Creatinine (0.5-1.4) mg/dL Estim Creat Clear Calc Estimated GFR Random Glucose (60-115) mg/dL Calcium (8.4-10.2) mg/dL COVID-19 (TARSHA) Negative (Negative) COVID-19 Clin Com See Note Monoscreen (Negative) S. pyogenes GrpA TAMAR Negative (Negative) 05/08/21 05/08/21 Range/Units 14:07 14:07 WBC (4.8-10.8) X10*3/uL RBC (4.20-5.50) X10*6/uL Hgb (12.0-16.0) g/dl Hct (37-47) % MCV (80-98) fL MCH (27.0-33.0) pg MCHC (31.0-35.0) g/dl RDW (11.0-16.0) % Plt Count (160-400) X10*3/uL MPV (9.4-12.3) fL Immature Gran % (Auto) (0.0-0.4) % Neut % (Auto) (45-73) % Lymph % (Auto) (20-40) % [place] % (Auto) (2-11) % Eos % (Auto) (0-4) % Baso % (Auto) (0-2) % Lymph # (Auto) (1.2-4.9) X10*3/uL [place] # (Auto) (0.1-1.2) X10*3/uL Eos # (Auto) (0.0-0.4) X10*3/uL Baso # (Auto) (0.0-0.2) X10*3/uL Abs Immat Gran (auto) (0.00-0.03) X10*3/uL Absolute Neuts (auto) (2.0-8.3) X10*3/uL Absolute Nucleated RBC (0.0-0.012) X10*3/uL Nucleated RBC % (auto) (0.0-0.2) /100WBC Sodium 141 (135-145) mmol/L Potassium 4.1 (3.3-5.1) mmol/L Chloride 106 (96-108) mmol/L Carbon Dioxide 25 (22-29) mmol/L Anion Gap 14 (12-20) BUN 11 D (9-16) mg/dL Creatinine 0.76 (0.5-1.4) mg/dL Estim Creat Clear Calc 76.4 Estimated GFR > 60 Random Glucose 83 (60-115) mg/dL Calcium 10.1 (8.4-10.2) mg/dL COVID-19 (TARSHA) (Negative) COVID-19 Clin Com Monoscreen Negative (Negative) S. pyogenes GrpA TAMAR (Negative) Critical Care Time Critical Care Time Critical Care Time: No Discharge Plan Discharge Clinical Impression: Acute pharyngitis Qualifiers: Pharyngitis/tonsillitis etiology: unspecified etiology Qualified Code(s): J02.9 - Acute pharyngitis, unspecified Patient Disposition: Home, Self-Care Instructions: Pharyngitis (ED) Additional Instructions: Urine negative for COVID, strep throat, and mononucleosis. Your symptoms are most likely due to acute pharyngitis. Take the prescribed antibiotic and other medications as directed. Rest and drink plenty of fluids. Recommend warm salt water gargles several times throughout the day for sore throat. Recommend [id number] her Chloraseptic spray and Cepacol lozenges as needed for sore throat. Take Tylenol and Motrin as needed for pain. Follow-up with your doctor in 2 weeks. Prescriptions: New amoxicillin-pot clavulanate [Augmentin] 875-125 mg tablet 1 tab PO BID Qty: 20 RF: 0 ibuprofen 600 mg tablet 600 mg PO Q8H PRN (Reason: pain) Qty: 10 RF: 0 prednisone 20 mg tablet 40 mg PO DAILY Qty: 10 RF: 0 No Action ibuprofen 600 mg tablet 600 mg PO Q6H PRN (Reason: pain) Qty: 60 RF: 0 Interventions: ED Discharge Assessment Last Done: 05/08/21 16:05
[2021-05-08 14:12] LABS: MANUAL DIFF FLAG NO
[2021-05-08 14:17] LABS: Basophils Percent Auto 0.3 % (0-2); Eosinophils Percent Auto 0.3 % (0-4); Hematocrit 42.3 % (37-47); Hemoglobin 13.6 g/dl (12.0-16.0); Imm Gran Abs Auto 0.02 X10*3/uL (0.00-0.03); Imm Gran Pct Auto 0.3 % (0.0-0.4); Lymphocytes Absolute Auto 1.2 X10*3/uL (1.2-4.9); Lymphocytes Percent Auto 15.1 % (20-40); Mean Corpuscular HGB Conc 32.2 g/dl (31.0-35.0); Mean Corpuscular Hemoglobin 26.5 pg (27.0-33.0); Mean Corpuscular Volume 82.3 fL (80-98); Mean Platelet Volume 9.3 fL (9.4-12.3); Monocytes Absolute Auto 0.3 X10*3/uL (0.1-1.2); Monocytes Percent Auto 3.8 % (2-11); Neutrophils Absolute Auto 6.3 X10*3/uL (2.0-8.3); Neutrophils Percent Auto 80.2 % (45-73); Platelet Count 340 X10*3/uL (160-400); Red Blood Count 5.14 X10*6/uL (4.20-5.50); Red Cell Distribution Width 12.7 % (11.0-16.0); White Blood Count 7.8 X10*3/uL (4.8-10.8)
[2021-05-08 14:29] LABS: Anion Gap 14 (12-20); Blood Urea Nitrogen 11 mg/dL (9-16); Calcium 10.1 mg/dL (8.4-10.2); Carbon Dioxide 25 mmol/L (22-29); Chloride 106 mmol/L (96-108); Creatinine Clr Calc Pharmacy 76.4; Estimated Glomerular Filt Rate > 60; Glucose Random 83 mg/dL (60-115); Potassium 4.1 mmol/L (3.3-5.1); Sodium 141 mmol/L (135-145)
[2021-05-08 14:56] LABS: Monotest Negative (Negative)
[2021-05-08 16:00] VITALS: RESP 16
== END 2021-05-08 16:06 | disposition home or self-care (01) ==
PROVIDERS: Physician Assistant; Emergency Provider Emergency Medicine Emergency Medical Services; PCP Internal Medicine
DX: J02.9 Acute pharyngitis, unspecified (principal); R59.0 Localized enlarged lymph nodes; Z20.822 Contact with and (suspected) exposure to COVID-19
CPT/HCPCS: 36415; 80048; 85025; 86308; 87635; 87651; 99283

== ENCOUNTER → 2021-05-22 13:16 | Outpatient (REF) | payer OTHER, SELFPAY | LOC: HO.CARD 13:16 | PROVIDERS: Visit Provider Internal Medicine Cardiovascular Disease | DX: Z13.89 Encounter for screening for other disorder (principal) ==

== ENCOUNTER 2021-05-28 16:15 | Outpatient (REF) | payer OTHER, SELFPAY ==
[2021-05-28 16:27] LABS: MANUAL DIFF FLAG NO
[2021-05-28 17:23] LABS: Basophils Percent Auto 0.5 % (0-2); Eosinophils Percent Auto 0.3 % (0-4); Hematocrit 40.1 % (37.0-47.0); Hemoglobin 12.7 g/dl (12.0-16.0); Imm Gran Abs Auto 0.01 X10*3/uL (0.00-0.03); Imm Gran Pct Auto 0.2 % (0.0-0.4); Lymphocytes Absolute Auto 1.2 X10*3/uL (1.2-4.9); Lymphocytes Percent Auto 20.8 % (20-40); Mean Corpuscular HGB Conc 31.7 g/dl (31.0-35.0); Mean Corpuscular Hemoglobin 26.3 pg (27.0-33.0); Mean Corpuscular Volume 83.2 fL (80.0-98.0); Mean Platelet Volume 9.8 fL (9.4-12.3); Monocytes Absolute Auto 0.4 X10*3/uL (0.1-1.2); Monocytes Percent Auto 6.4 % (2-11); Neutrophils Absolute Auto 4.3 x10*3/uL (2.0-8.3); Neutrophils Percent Auto 71.8 % (45-73); Platelet Count 333 X10*3/uL (160-400); Red Blood Count 4.82 X10*6/uL (4.20-5.50)
[2021-05-28 18:01] LABS: Alanine Aminotransferase 12 U/L (0-31); Albumin Level 4.6 g/dL (3.5-5.0); Alkaline Phosphatase 71 U/L (39-117); Anion Gap 11 (12-20); Aspartate Amino Transferase 17 U/L (5-31); Bilirubin Total 1.6 mg/dL (0.0-1.0); Blood Urea Nitrogen 9 mg/dL (9-16); Calcium 9.4 mg/dL (8.4-10.2); Carbon Dioxide 25 mmol/L (22-29); Chloride 107 mmol/L (96-108); Estimated Glomerular Filt Rate > 60; Glucose Random 94 mg/dL (60-115); Potassium 4.2 mmol/L (3.3-5.1); Sodium 139 mmol/L (135-145); Total Protein 7.3 g/dL (6.5-8.0)
[2021-05-28 18:21] LABS: TSH reflex Free T4 1.74 uIU/mL (0.32-4.0)
== END 2021-05-28 16:16 | disposition home or self-care (01) ==
LOC: HO.LAB 16:15
PROVIDERS: PCP Internal Medicine; Visit Provider Internal Medicine
DX: I10 Essential (primary) hypertension (principal); R55 Syncope and collapse; E78.00 Pure hypercholesterolemia, unspecified
CPT/HCPCS: 36415; 80053; 84443; 85025

== ENCOUNTER → 2021-05-29 08:12 | Outpatient (REF) | payer OTHER, SELFPAY ==
--- NOTE | 2021-05-29 08:18 | CA_ITS ---
Acquisition Time: 2021-05-29 09:14:40 Total Exercise Time: 00:10:00 Test Indications: SYNCOPE AND COLLAPSE Medications: SEE CHART Protocol: ZEB Max HR: 187 BPM 94% of Pred: 198 BPM Max BP: 126/068 mmHG Max Work Load: 11.7 METS Exercise stress test with exercise 10 min of Zeb protocol, with 5/10 chest tightness during exercise, without arrythmia, with normal chronotropic and normotensive response to exercise, without EKG changes meeting criteria for ischemia. In recovery her chest tightness increased to 7/10 then gradually improved and resolved during remainder of recovery. After 8 min, she was allowed to stand and reported lightheadedness. Her standing BP was 98/60, which was minimal drop from sitting BP of 106/60. She was given a snack of dinesh crackers and 12 oz of water. At 15 min recovery she was allowed to stand again and reported feeling much better. BP sitting and standing was 102/60-70. Test reviewed with Dr Delgado. Referred By: Feliz Medina Overread By: CARMEN UNGER
--- NOTE | 2021-05-29 08:18 | HM_ITS ---
The patient is a 21-year-old female. REQUESTING PROVIDER: Feliz Medina M.D. REASON FOR TEST: Syncope and collapse. FINDINGS: The patient was monitored from 05/29/2021 to 06/28/2021. I was asked to report on this monitor today. The patient was monitored for a total period of 30 days. The patient's baseline rhythm is normal sinus rhythm with heart rate varying from 85 beats per minute to 102 beats per minute. The patient triggered 2 events, which were suggested events. There were no reported symptoms at that time. There were no arrhythmias noted. CONCLUSION: Event monitor is remarkable for: 1. Baseline normal sinus rhythm with no arrhythmias. 2. No patient reported events. Feliz Medina MD NRS/MODL / [id number]
== END ==
LOC: HO.CARD 08:12
PROVIDERS: Visit Provider Internal Medicine Cardiovascular Disease
DX: R55 Syncope and collapse (principal)
CPT/HCPCS: 93017; 93270

== ENCOUNTER 2021-06-07 08:04 | Outpatient (REF) | payer OTHER, SELFPAY ==
--- NOTE | ~2021-06-07 | US_ITS ---
EXAMINATION: US PELVIS CLINICAL INFORMATION: Ovarian cyst. COMPARISON: None TECHNIQUE: Ultrasound of the pelvis is performed using both transabdominal and transvaginal transducers along with Doppler. Transvaginal imaging is performed due to inadequate visualization transabdominally. FINDINGS: Uterus: The uterus is anteverted and measures 7.6 x 3.0 x 5.0 cm. The double wall endometrial thickness is 0.4 mm. The uterus is smooth in contour and has normal myometrial echogenicity. No visible fibroid. Adnexa: Both ovaries are visualized. There is normal color flow to the adnexa. There is no ovarian torsion. There is no pelvic ascites or fluid collection. Right ovary measures 3.8 x 2.0 x 1.9 cm. Volume 7.6 mL. No focal lesion seen. Previously, the right ovary measured 3.9 x 2.8 x 2.5 cm and volume 14.3 mL. Left ovary measures 3.6 x 2.2 x 2.1 cm. Volume 8.7 mL. No focal cystic or solid lesions seen. Previously, the left ovary measured 3.1 x 1.7 x 2.1 cm for a volume of 7.7 mL. US/US pelvic and transvaginal IMPRESSION: Unremarkable pelvic ultrasound.
== END 2021-06-07 08:05 | disposition home or self-care (01) ==
LOC: HO.US 08:04
PROVIDERS: Visit Provider Obstetrics & Gynecology
DX: N83.299 Other ovarian cyst, unspecified side (principal)
CPT/HCPCS: 76830; 76856

== ENCOUNTER → 2021-06-13 15:03 | Outpatient (BNVA) | payer OTHER, SELFPAY | PROVIDERS: PCP Internal Medicine; Visit Provider Obstetrics & Gynecology ==

== ENCOUNTER 2021-06-18 13:45 | Outpatient (REF) | payer OTHER, SELFPAY ==
[2021-06-19 03:02] LABS: CT PCR NOT DETECTED (Not Detect.); NG PCR NOT DETECTED (Not Detect.)
== END 2021-06-18 13:46 | disposition home or self-care (01) ==
LOC: HO.LAB 13:45
PROVIDERS: PCP Internal Medicine; Visit Provider Obstetrics & Gynecology
DX: Z01.411 Encounter for gynecological examination (general) (routine) with abnormal findings (principal); R10.2 Pelvic and perineal pain
CPT/HCPCS: 87491; 87591; 88142

== ENCOUNTER → 2021-06-19 15:32 | Outpatient (BNVA) | payer OTHER, SELFPAY | PROVIDERS: PCP Internal Medicine; Referring Provider Internal Medicine; Visit Provider Internal Medicine Cardiovascular Disease | DX: I49.8 Other specified cardiac arrhythmias (principal) | CPT/HCPCS: 99212 ==

== ENCOUNTER 2021-08-14 09:42 | Emergency (ER) | payer OTHER, SELFPAY ==
--- NOTE | ~2021-08-14 | CT_ITS ---
EXAMINATION: CT ABDOMEN AND PELVIS WITH CONTRAST CLINICAL INFORMATION: Left-sided pain COMPARISON: Previous CT of the abdomen and pelvis January 2021 and pelvic ultrasound May 2021 TECHNIQUE: Multidetector volumetric images were obtained from the superior aspect of the liver through the pubic symphysis following administration 85 mL of Omnipaque 350 intravenous contrast. Sagittal and coronal reformatted images were obtained on the technologist's workstation. Oral contrast: Yes This CT examination was performed using dose optimization techniques as appropriate, variously including the following: *Automated exposure control *Adjustment of mA and/or kV according to patient size (this includes techniques or standardized protocols for targeted exams where dose is matched to indication/reason for exam; i.e. extremities or head) *Use of iterative reconstruction technique DLP: 299 mGy-cm FINDINGS: LUNG BASES: The visualized lung bases are unremarkable. LIVER, GALLBLADDER, AND BILIARY TREE: The liver is normal in size, shape, and attenuation. No focal hepatic lesion or biliary ductal dilatation is present. The gallbladder is unremarkable with no evidence of radiopaque gallstones, gallbladder wall thickening, or obvious pericholecystic inflammatory changes. PANCREAS: Unremarkable. SPLEEN: Unremarkable. ADRENAL GLANDS: Unremarkable. KIDNEYS AND URETERS: The kidneys are normal in size, shape, and attenuation. No hydronephrosis, hydroureter, or calculi seen. No perinephric stranding. BLADDER: Unremarkable. GASTROINTESTINAL TRACT: The small and large bowel are unremarkable. The appendix is unremarkable. ABDOMINAL WALL: No significant hernia is appreciated. LYMPH NODES: Normal. VASCULAR: Unremarkable. PELVIC VISCERA: There is a centimeter left ovarian. Uterus and adnexa are otherwise unremarkable. OSSEOUS STRUCTURES: Unremarkable. CT/CT abdomen pelvis w con IMPRESSION: 2 cm left ovarian cyst otherwise unremarkable exam. Fleischner guidelines were followed.
[2021-08-14 09:55] VITALS: BP 147/94; PULSE 78; RESP 19; TEMP 36.6; O2SAT 99; BMI 18.5
[2021-08-14 11:19] LABS: MANUAL DIFF FLAG NO
[2021-08-14 11:22] LABS: Basophils Percent Auto 0.2 % (0-2); Eosinophils Percent Auto 0.3 % (0-4); Hematocrit 40.6 % (37.0-47.0); Hemoglobin 12.8 g/dl (12.0-16.0); Imm Gran Abs Auto 0.02 X10*3/uL (0.00-0.03); Imm Gran Pct Auto 0.3 % (0.0-0.4); Lymphocytes Absolute Auto 1.2 X10*3/uL (1.2-4.9); Lymphocytes Percent Auto 18.7 % (20-40); Mean Corpuscular HGB Conc 31.5 g/dl (31.0-35.0); Mean Corpuscular Hemoglobin 25.8 pg (27.0-33.0); Mean Corpuscular Volume 81.9 fL (80.0-98.0); Mean Platelet Volume 9.6 fL (9.4-12.3); Monocytes Absolute Auto 0.4 X10*3/uL (0.1-1.2); Monocytes Percent Auto 6.9 % (2-11); Neutrophils Absolute Auto 4.7 x10*3/uL (2.0-8.3); Neutrophils Percent Auto 73.6 % (45-73); Platelet Count 336 X10*3/uL (160-400); Red Blood Count 4.96 X10*6/uL (4.20-5.50); Red Cell Distribution Width 12.8 % (11.0-16.0); White Blood Count 6.4 X10*3/uL (4.8-10.8)
[2021-08-14 11:38] LABS: Anion Gap 12 (12-20); Blood Urea Nitrogen 11 mg/dL (9-16); Calcium 9.6 mg/dL (8.4-10.2); Carbon Dioxide 24 mmol/L (22-29); Chloride 106 mmol/L (96-108); Creatinine Clr Calc Pharmacy 85.3; Estimated Glomerular Filt Rate > 60; Glucose Random 91 mg/dL (60-115); Potassium 3.9 mmol/L (3.3-5.1); Sodium 138 mmol/L (135-145)
[2021-08-14 11:39] LABS: COVID-19 Test Negative (Negative)
[2021-08-14 11:44] LABS: Appearance Urine CLEAR; Color Urine YELLOW; Glucose Urine UA NEG (NEG); Leukocyte Esterase Urine TRACE (NEG); Nitrite Urine NEG (NEG); UACC Culture Trigger YES; Urine Blood NEG (NEG); Urine Ketones NEG (NEG); Urine Protein NEG (NEG-TRACE)
[2021-08-14 11:50] LABS: UPreg QC Valid YES; Urine Pregnancy NEGATIVE (NEGATIVE)
--- NOTE | 2021-08-14 11:52 | ED_ITS ---
HPI - Abdominal Pain General Chief Complaint: Abdominal Pain <Veda Bowles MD - Last Filed: 08/14/21 14:47> Stated Complaint: lt side abd pain <Veda Bowles MD - Last Filed: 08/14/21 14:47> Time Seen by Provider: 08/14/21 11:41 <Veda Bowles MD - Last Filed: 08/14/21 14:47> Source: patient <Veda Bowles MD - Last Filed: 08/14/21 14:47> Mode of arrival: ambulatory <Veda Bowles MD - Last Filed: 08/14/21 14:47> Limitations: no limitations <Veda Bowles MD - Last Filed: 08/14/21 14:47> History of Present Illness HPI narrative: Patient comes to the emergency room complaining of left abdominal pain upper and lower quadrant for 3 days. Patient complaining of nausea, no vomiting or diarrhea. Patient states at home she has been trying to take senna and Pepto-Bismol with the hope that it would alleviate the pain. Patient has had ovarian cysts in the past. Patient states that the pain is different. All previously all of her pain has been in the right side but never on the left. Patient describes the pain as very sharp, constant, nonradiating. <Veda Bowles MD - Last Filed: 08/14/21 14:47> Related Data Home Medications: Home Medications Medication Instructions Recorded Confirmed propranolol 10 mg tablet 10 mg PO DAILY 05/28/21 06/19/21 Previous Rx's Medication Instructions Recorded fludrocortisone 0.1 mg tablet 0.1 mg PO DAILY #30 tab 06/19/21 levonorgestrel 1.5 mg tablet (Plan 1.5 mg PO ONCE 1 Days #1 tab 06/20/21 B One-Step) acetaminophen 500 mg tablet 500 mg PO Q6H PRN #14 tab 08/14/21 ibuprofen 600 mg tablet 600 mg PO Q8H PRN #10 tab 08/14/21 <Veda Bowles MD - Last Filed: 08/14/21 14:47> Allergies/Adverse Reactions: Allergies Allergy/AdvReac Type Severity Reaction Status Date / Time diphenhydramine Allergy Severe Chest Verified 06/18/21 13:57 [From Benadryl] Pain, hard to breath <Veda Bowles MD - Last Filed: 08/14/21 14:47> Review of Systems Review of Systems Constitutional : No Weight loss, No Fever, No Chills, No Night Sweats, No Fatigue, No Malaise ENT/Mouth : No Hearing loss, No Ear Pain, No Nasal Congestion, No Sinus Pain, No Hoarseness, No sore throat, No Rhinorrhea, No Swallowing Difficulty Eyes: No Eye Pain, No Swelling, No Redness, No Foreign Body, No Discharge, No Vision Changes Cardiovascular : No Chest Pain, No SOB, No Dyspnea on Exertion, No Orthopnea, No Edema, No Palpitations Respiratory : No Cough, No Sputum, No Wheezing, No Smoke Exposure, No Dyspnea Gastrointestinal : Complaining of Nausea, No Vomiting, No Diarrhea, No Constipation, complaining right-sided abdominal pain both upper and lower quadrant, No Hematochezia, No Melena Genitourinary : no irregular bleeding, No Dysuria, No Urinary Frequency, No Hematuria, No Urinary Incontinence, No Urgency, No Flank Pain, No Urinary Flow Changes, No Hesitancy Musculoskeletal : No joint pain, No Myalgias, No Joint Swelling Skin : No Skin Lesions, No rash Neuro : No Weakness, No Numbness, No Paresthesias, No Loss of Consciousness, No Dizziness, No Headache Psych : No Anxiety/Panic, No Depression, No SI/HI/AH/VH, No Social Issues, Heme/Lymph: No Bruising, No Bleeding,No Lymphadenopathy Endocrine : No Polyuria, No Polydipsia, No Temperature Intolerance <Veda Bowles MD - Last Filed: 08/14/21 14:47> Physical Exam Vital Signs: Vital Signs: Last Vital Signs Temp 98.1 F 08/14/21 12:11 Pulse 90 08/14/21 12:11 Resp 16 08/14/21 12:11 BP 126/73 08/14/21 12:11 Pulse Ox 100 08/14/21 12:11 BMI result Body Mass Index 18.5 <Veda Bowles MD - Last Filed: 08/14/21 14:47> Vital Signs: Last Vital Signs Temp 98.1 F 08/14/21 12:11 Pulse 90 08/14/21 12:11 Resp 16 08/14/21 12:11 BP 126/73 08/14/21 12:11 Pulse Ox 100 08/14/21 12:11 BMI result Body Mass Index 18.5 <AGUILA Louise - Last Filed: 08/14/21 14:44> Const: Other: Appearance: Alert. Oriented X3. No acute distress. Eyes: Pupils equal, round and reactive to light. ENT: Pharynx normal. Neck: Normal inspection. Neck supple. No lymph nodes noted. No crepitus CVS: Normal heart rate and rhythm. Pulses normal. Normal S1 and S2 Respiratory: No respiratory distress. Breath sounds normal. No Wheezing. No rales Abdomen: Soft , moderate pain to palpation over the left upper and lower quadrant. No rigidity. No distention Skin: Skin warm and dry. Normal skin color. Normal skin turgor. Extremities: No lower extremity edema. No Lacerations. No Rash Neuro: Oriented X 3. No motor deficit. No sensory deficit. Moving all extermities. No slurred speech. <Veda Bowles MD - Last Filed: 08/14/21 14:47> Course Course Course Narrative: I discussed with the patient that she has ovarian cyst 2 cm on the left s benigno. At this time, patient is not ready to start control pills. Patient received 1 dose of IV Toradol and feels much better. Patient ready for discharge. Patient will take ibuprofen and Tylenol. Patient has no UTI symptoms. At this time, patient only has leukocyte esterase in the urine, patient is asymptomatic, antibiotics will not be started at this time. <Veda Bowles MD - Last Filed: 08/14/21 14:47> MDM - Abdominal Pain Lab Data Result diagrams: : 08/14/21 11:06 08/14/21 11:06 <Veda Bowles MD - Last Filed: 08/14/21 14:47> Labs: Lab Results 08/14/21 08/14/21 08/14/21 Range/Units 11:06 11:06 11:06 WBC 6.4 (4.8-10.8) X10*3/uL RBC 4.96 (4.20-5.50) X10*6/uL Hgb 12.8 (12.0-16.0) g/dl Hct 40.6 (37.0-47.0) % MCV 81.9 (80.0-98.0) fL MCH 25.8 L (27.0-33.0) pg MCHC 31.5 (31.0-35.0) g/dl RDW 12.8 (11.0-16.0) % Plt Count 336 (160-400) X10*3/uL MPV 9.6 (9.4-12.3) fL Immature Gran % (Auto) 0.3 (0.0-0.4) % Neut % (Auto) 73.6 H (45-73) % Lymph % (Auto) 18.7 L (20-40) % Gage % (Auto) 6.9 (2-11) % Eos % (Auto) 0.3 (0-4) % Baso % (Auto) 0.2 (0-2) % Lymph # (Auto) 1.2 (1.2-4.9) X10*3/uL Gage # (Auto) 0.4 (0.1-1.2) X10*3/uL Eos # (Auto) 0.0 (0.0-0.4) X10*3/uL Baso # (Auto) 0.0 (0.0-0.2) X10*3/uL Abs Immat Gran (auto) 0.02 (0.00-0.03) X10*3/uL Absolute Neuts (auto) 4.7 (2.0-8.3) x10*3/uL Absolute Nucleated RBC 0.000 (0.0-0.012) X10*3/uL Nucleated RBC % (auto) 0.0 (0.0-0.2) /100WBC Sodium 138 (135-145) mmol/L Potassium 3.9 (3.3-5.1) mmol/L Chloride 106 (96-108) mmol/L Carbon Dioxide 24 (22-29) mmol/L Anion Gap 12 (12-20) BUN 11 (9-16) mg/dL Creatinine 0.72 (0.5-1.4) mg/dL Estim Creat Clear Calc 85.3 Estimated GFR > 60 Random Glucose 91 (60-115) mg/dL Calcium 9.6 (8.4-10.2) mg/dL Urine Color Urine Appearance Urine pH (5.0-8.0) Ur Specific [place] (1.005-1.025) Urine Protein (NEG-TRACE) MG/DL Urine Glucose (UA) (NEG) MG/DL Urine Ketones (NEG) MG/DL Urine Blood (NEG) Urine Nitrite (NEG) Ur Leukocyte Esterase (NEG) Urine RBC (0) /HPF Urine WBC (0-4) /HPF Ur Squamous Epith Cells /LPF Urine Bacteria /LPF Urine Mucus /LPF Urine Test (NEGATIVE) COVID-19 (TARSHA) Negative (Negative) COVID-19 Clin Com See Note 08/14/21 08/14/21 Range/Units 11:06 11:06 WBC (4.8-10.8) X10*3/uL RBC (4.20-5.50) X10*6/uL Hgb (12.0-16.0) g/dl Hct (37.0-47.0) % MCV (80.0-98.0) fL MCH (27.0-33.0) pg MCHC (31.0-35.0) g/dl RDW (11.0-16.0) % Plt Count (160-400) X10*3/uL MPV (9.4-12.3) fL Immature Gran % (Auto) (0.0-0.4) % Neut % (Auto) (45-73) % Lymph % (Auto) (20-40) % Gage % (Auto) (2-11) % Eos % (Auto) (0-4) % Baso % (Auto) (0-2) % Lymph # (Auto) (1.2-4.9) X10*3/uL Gage # (Auto) (0.1-1.2) X10*3/uL Eos # (Auto) (0.0-0.4) X10*3/uL Baso # (Auto) (0.0-0.2) X10*3/uL Abs Immat Gran (auto) (0.00-0.03) X10*3/uL Absolute Neuts (auto) (2.0-8.3) x10*3/uL Absolute Nucleated RBC (0.0-0.012) X10*3/uL Nucleated RBC % (auto) (0.0-0.2) /100WBC Sodium (135-145) mmol/L Potassium (3.3-5.1) mmol/L Chloride (96-108) mmol/L Carbon Dioxide (22-29) mmol/L Anion Gap (12-20) BUN (9-16) mg/dL Creatinine (0.5-1.4) mg/dL Estim Creat Clear Calc Estimated GFR Random Glucose (60-115) mg/dL Calcium (8.4-10.2) mg/dL Urine Color YELLOW Urine Appearance CLEAR Urine pH 7.0 (5.0-8.0) Ur Specific [place] 1.020 (1.005-1.025) Urine Protein NEG (NEG-TRACE) MG/DL Urine Glucose (UA) NEG (NEG) MG/DL Urine Ketones NEG (NEG) MG/DL Urine Blood NEG (NEG) Urine Nitrite NEG (NEG) Ur Leukocyte Esterase TRACE H (NEG) Urine RBC 0 (0) /HPF Urine WBC 1-4 (0-4) /HPF Ur Squamous Epith Cells 2+ /LPF Urine Bacteria 1+ /LPF Urine Mucus 1+ /LPF Urine Test NEGATIVE (NEGATIVE) COVID-19 (TARSHA) (Negative) COVID-19 Clin Com <Veda Bowles MD - Last Filed: 08/14/21 14:47> Lab Results 08/14/21 08/14/21 08/14/21 Range/Units 11:06 11:06 11:06 WBC 6.4 (4.8-10.8) X10*3/uL RBC 4.96 (4.20-5.50) X10*6/uL Hgb 12.8 (12.0-16.0) g/dl Hct 40.6 (37.0-47.0) % MCV 81.9 (80.0-98.0) fL MCH 25.8 L (27.0-33.0) pg MCHC 31.5 (31.0-35.0) g/dl RDW 12.8 (11.0-16.0) % Plt Count 336 (160-400) X10*3/uL MPV 9.6 (9.4-12.3) fL Immature Gran % (Auto) 0.3 (0.0-0.4) % Neut % (Auto) 73.6 H (45-73) % Lymph % (Auto) 18.7 L (20-40) % Gage % (Auto) 6.9 (2-11) % Eos % (Auto) 0.3 (0-4) % Baso % (Auto) 0.2 (0-2) % Lymph # (Auto) 1.2 (1.2-4.9) X10*3/uL Gage # (Auto) 0.4 (0.1-1.2) X10*3/uL Eos # (Auto) 0.0 (0.0-0.4) X10*3/uL Baso # (Auto) 0.0 (0.0-0.2) X10*3/uL Abs Immat Gran (auto) 0.02 (0.00-0.03) X10*3/uL Absolute Neuts (auto) 4.7 (2.0-8.3) x10*3/uL Absolute Nucleated RBC 0.000 (0.0-0.012) X10*3/uL Nucleated RBC % (auto) 0.0 (0.0-0.2) /100WBC Sodium 138 (135-145) mmol/L Potassium 3.9 (3.3-5.1) mmol/L Chloride 106 (96-108) mmol/L Carbon Dioxide 24 (22-29) mmol/L Anion Gap 12 (12-20) BUN 11 (9-16) mg/dL Creatinine 0.72 (0.5-1.4) mg/dL Estim Creat Clear Calc 85.3 Estimated GFR > 60 Random Glucose 91 (60-115) mg/dL Calcium 9.6 (8.4-10.2) mg/dL Urine Color Urine Appearance Urine pH (5.0-8.0) Ur Specific [place] (1.005-1.025) Urine Protein (NEG-TRACE) MG/DL Urine Glucose (UA) (NEG) MG/DL Urine Ketones (NEG) MG/DL Urine Blood (NEG) Urine Nitrite (NEG) Ur Leukocyte Esterase (NEG) Urine RBC (0) /HPF Urine WBC (0-4) /HPF Ur Squamous Epith Cells /LPF Urine Bacteria /LPF Urine Mucus /LPF Urine Test (NEGATIVE) COVID-19 (TARSHA) Negative (Negative) COVID-19 Clin Com See Note 08/14/21 08/14/21 Range/Units 11:06 11:06 WBC (4.8-10.8) X10*3/uL RBC (4.20-5.50) X10*6/uL Hgb (12.0-16.0) g/dl Hct (37.0-47.0) % MCV (80.0-98.0) fL MCH (27.0-33.0) pg MCHC (31.0-35.0) g/dl RDW (11.0-16.0) % Plt Count (160-400) X10*3/uL MPV (9.4-12.3) fL Immature Gran % (Auto) (0.0-0.4) % Neut % (Auto) (45-73) % Lymph % (Auto) (20-40) % Gage % (Auto) (2-11) % Eos % (Auto) (0-4) % Baso % (Auto) (0-2) % Lymph # (Auto) (1.2-4.9) X10*3/uL Gage # (Auto) (0.1-1.2) X10*3/uL Eos # (Auto) (0.0-0.4) X10*3/uL Baso # (Auto) (0.0-0.2) X10*3/uL Abs Immat Gran (auto) (0.00-0.03) X10*3/uL Absolute Neuts (auto) (2.0-8.3) x10*3/uL Absolute Nucleated RBC (0.0-0.012) X10*3/uL Nucleated RBC % (auto) (0.0-0.2) /100WBC Sodium (135-145) mmol/L Potassium (3.3-5.1) mmol/L Chloride (96-108) mmol/L Carbon Dioxide (22-29) mmol/L Anion Gap (12-20) BUN (9-16) mg/dL Creatinine (0.5-1.4) mg/dL Estim Creat Clear Calc Estimated GFR Random Glucose (60-115) mg/dL Calcium (8.4-10.2) mg/dL Urine Color YELLOW Urine Appearance CLEAR Urine pH 7.0 (5.0-8.0) Ur Specific [place] 1.020 (1.005-1.025) Urine Protein NEG (NEG-TRACE) MG/DL Urine Glucose (UA) NEG (NEG) MG/DL Urine Ketones NEG (NEG) MG/DL Urine Blood NEG (NEG) Urine Nitrite NEG (NEG) Ur Leukocyte Esterase TRACE H (NEG) Urine RBC 0 (0) /HPF Urine WBC 1-4 (0-4) /HPF Ur Squamous Epith Cells 2+ /LPF Urine Bacteria 1+ /LPF Urine Mucus 1+ /LPF Urine Test NEGATIVE (NEGATIVE) COVID-19 (TARSHA) (Negative) COVID-19 Clin Com <AGUILA Louise - Last Filed: 08/14/21 14:44> Imaging Data CT scan - abdomen: Radiologist's impression: FINDINGS: LUNG BASES: The visualized lung bases are unremarkable.? LIVER, GALLBLADDER, AND BILIARY TREE: The liver is normal in size, shape, and attenuation. No focal hepatic lesion or biliary ductal dilatation is present. The gallbladder is unremarkable with no evidence of radiopaque gallstones, gallbladder wall thickening, or obvious pericholecystic inflammatory changes.? PANCREAS: Unremarkable.? SPLEEN: Unremarkable.? ADRENAL GLANDS: Unremarkable.? KIDNEYS AND URETERS: The kidneys are normal in size, shape, and attenuation. No hydronephrosis, hydroureter, or calculi seen. No perinephric stranding. ? BLADDER: Unremarkable.? GASTROINTESTINAL TRACT: The small and large bowel are unremarkable. The appendix is unremarkable.? ABDOMINAL WALL: No significant hernia is appreciated.? LYMPH NODES: Normal. VASCULAR: Unremarkable. PELVIC VISCERA: There is a centimeter left ovarian. Uterus and adnexa are otherwise unremarkable. OSSEOUS STRUCTURES: Unremarkable.? CT/CT abdomen pelvis w con IMPRESSION: 2 cm left ovarian cyst otherwise unremarkable exam. ? Fleischner guidelines were followed. <Veda Bowles MD - Last Filed: 08/14/21 14:47> Discharge Plan Discharge Clinical Impression: Ovarian cyst <Veda Bowles MD - Last Filed: 08/14/21 14:47> Patient Disposition: Home, Self-Care <Veda Bowles MD - Last Filed: 08/14/21 14:47> Instructions: Ovarian Cyst (ED) <Veda Bowles MD - Last Filed: 08/14/21 14:47> Additional Instructions: Please follow-up with your primary care physician tomorrow. If you have any worsening or new symptoms, please return to the emergency room or call 911 <Veda Bowles MD - Last Filed: 08/14/21 14:47> Prescriptions: New acetaminophen 500 mg tablet 500 mg PO Q6H PRN (Reason: pain) Qty: 14 RF: 0 ibuprofen 600 mg tablet 600 mg PO Q8H PRN (Reason: pain) Qty: 10 RF: 0 No Action levonorgestrel [Plan B One-Step] 1.5 mg tablet 1.5 mg PO ONCE 1 Days Qty: 1 RF: 0 propranolol 10 mg tablet 10 mg PO DAILY RF: 0 fludrocortisone 0.1 mg tablet 0.1 mg PO DAILY Qty: 30 RF: 4 <Veda Bowles MD - Last Filed: 08/14/21 14:47> Referrals: Jeferson Singletary MD [Physician] - 2 days <Veda Bowles MD - Last Filed: 08/14/21 14:47> [facility] Past Medical History Medical History: Medical History Inguinal pain of both sides Otitis externa Palpitations POTS (postural orthostatic tachycardia syndrome) Recurrent syncope RLQ abdominal pain Syncope <Veda Bowles MD - Last Filed: 08/14/21 14:47> Surgical History: Surgical History No significant past surgical history <Veda Bowles MD - Last Filed: 08/14/21 14:47> Family History Family History: Family History Mother No problems noted. Father No problems noted. 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
[2021-08-14 12:03] LABS: Bacteria Urine 1+ /LPF; Mucus Urine 1+ /LPF; RBC Urine 0 /HPF (0); Squamous Epithelial Cell Urine 2+ /LPF
[2021-08-14] MEDS: Ketorolac Tromethamine 30 MG/ML VIAL IVPUSH (12:09)
[2021-08-14] MEDS: ondansetron HCL 4 MG/2 ML VIAL IVPUSH (12:09)
[2021-08-14 12:11] VITALS: BP 126/73; PULSE 90; RESP 16; TEMP 36.7; O2SAT 100
[2021-08-14] MEDS: iohexoL 350 MG/ML 100 ML INFUS..BTL IV (13:23)
== END 2021-08-14 15:00 | disposition home or self-care (01) ==
PROVIDERS: Emergency Provider Emergency Medicine; PCP Internal Medicine
DX: N83.202 Unspecified ovarian cyst, left side (principal); R10.32 Left lower quadrant pain; R11.0 Nausea; Z20.822 Contact with and (suspected) exposure to COVID-19; Z79.899 Other long term (current) drug therapy
CPT/HCPCS: 74177; 80048; 81001; 81025; 85025; 87086; 87635; 96374; 96375; 99284; J1885; J2405; Q9967

== ENCOUNTER → 2021-08-27 13:52 | Outpatient (BNVA) | payer OTHER, SELFPAY | PROVIDERS: PCP Internal Medicine; Visit Provider Obstetrics & Gynecology | DX: I49.8 Other specified cardiac arrhythmias (principal); R10.2 Pelvic and perineal pain | CPT/HCPCS: 99212 ==

== ENCOUNTER 2021-09-01 10:33 | Outpatient (REF) | payer OTHER, SELFPAY ==
[2021-09-01 10:43] LABS: MANUAL DIFF FLAG NO
[2021-09-01 11:00] LABS: Basophils Percent Auto 0.6 % (0-2); Eosinophils Percent Auto 0.6 % (0-4); Hematocrit 41.1 % (37.0-47.0); Hemoglobin 12.7 g/dl (12.0-16.0); Imm Gran Abs Auto 0.01 X10*3/uL (0.00-0.03); Imm Gran Pct Auto 0.2 % (0.0-0.4); Lymphocytes Absolute Auto 1.2 X10*3/uL (1.2-4.9); Lymphocytes Percent Auto 26.2 % (20-40); Mean Corpuscular HGB Conc 30.9 g/dl (31.0-35.0); Mean Corpuscular Hemoglobin 25.2 pg (27.0-33.0); Mean Corpuscular Volume 81.5 fL (80.0-98.0); Mean Platelet Volume 9.4 fL (9.4-12.3); Monocytes Absolute Auto 0.3 X10*3/uL (0.1-1.2); Monocytes Percent Auto 6.3 % (2-11); Neutrophils Absolute Auto 3.1 x10*3/uL (2.0-8.3); Neutrophils Percent Auto 66.1 % (45-73); Platelet Count 359 X10*3/uL (160-400); Red Blood Count 5.04 X10*6/uL (4.20-5.50); White Blood Count 4.7 X10*3/uL (4.8-10.8)
[2021-09-01 11:03] LABS: Appearance Urine CLEAR; Color Urine YELLOW; Glucose Urine UA NEG (NEG); Leukocyte Esterase Urine NEG (NEG); Nitrite Urine NEG (NEG); Specific Gravity - Urine 1.015 (1.005-1.025); Urine Blood NEG (NEG); Urine Ketones NEG (NEG); Urine Protein NEG (NEG-TRACE)
[2021-09-01 11:29] LABS: Alanine Aminotransferase 9 U/L (0-31); Albumin Level 4.5 g/dL (3.5-5.0); Alkaline Phosphatase 69 U/L (39-117); Anion Gap 11 (12-20); Aspartate Amino Transferase 16 U/L (5-31); Bilirubin Total 1.8 mg/dL (0.0-1.0); Blood Urea Nitrogen 13 mg/dL (9-16); Calcium 9.8 mg/dL (8.4-10.2); Carbon Dioxide 26 mmol/L (22-29); Chloride 104 mmol/L (96-108); Cholesterol 183 mg/dL; Estimated Glomerular Filt Rate > 60; Glucose Fasting 92 mg/dL (60-99); HDL Cholesterol 70 mg/dL; LDL Cholesterol Calculated 101 mg/dl; Potassium 4.2 mmol/L (3.3-5.1); Sodium 137 mmol/L (135-145); Total Protein 7.4 g/dL (6.5-8.0); Triglycerides 60 mg/dL
[2021-09-01 11:35] LABS: Erythrocyte Sedimentation Rate 3 MM/HR (0-20)
[2021-09-01 11:51] LABS: TSH reflex Free T4 0.97 uIU/mL (0.32-4.0); Vitamin D 25-OH Total 8.1 ng/mL (>30)
== END 2021-09-01 10:34 | disposition home or self-care (01) ==
LOC: HO.LAB 10:33
PROVIDERS: PCP Internal Medicine; Visit Provider Internal Medicine
DX: Z00.00 Encounter for general adult medical examination without abnormal findings (principal); R10.84 Generalized abdominal pain; E55.9 Vitamin D deficiency, unspecified; E80.6 Other disorders of bilirubin metabolism
CPT/HCPCS: 36415; 80053; 80061; 81003; 82306; 84443; 85025; 85652

== ENCOUNTER 2021-09-06 10:35 | Outpatient (REF) | payer OTHER, SELFPAY ==
--- NOTE | ~2021-09-06 | FL_ITS ---
EXAMINATION: XR GI SERIES CLINICAL INFORMATION: Generalized abdominal pain for 2 weeks after eating or drinking. COMPARISON: None. TECHNIQUE: Air-contrast upper GI examination. FINDINGS: There is normal apposition of the vocal cords while saying E . There is normal elevation of the soft palate while saying candy . Patient swallowed thin and thick barium and half-inch diameter barium tablet without difficulty. No tracheal aspiration noted. No persistent stricture is seen. No mucosal abnormalities identified within the esophagus. Patient swallowed half-inch diameter barium tablet without difficulty. No gastroesophageal reflux appreciated including with water siphon test. The stomach demonstrated normal distensibility without abnormal mass or ulceration. There was no delay in gastric emptying. The duodenal bulb and sweep appeared unremarkable.. FLUOROSCOPY TIME: 1.4 minutes DOSE AREA PRODUCT: 2.279 Gy-cm2 (patel-centimeter squared) FL/FL upper GI series IMPRESSION: Normal air-contrast upper GI examination.
== END 2021-09-06 10:36 | disposition home or self-care (01) ==
LOC: HO.XRAY 10:35
PROVIDERS: PCP Internal Medicine; Visit Provider Internal Medicine
DX: R10.84 Generalized abdominal pain (principal)
CPT/HCPCS: 74240

== ENCOUNTER 2021-09-18 14:47 | Outpatient (REF) | payer OTHER, SELFPAY ==
[2021-09-18 15:16] LABS: Hematocrit 42.2 % (37.0-47.0); Mean Corpuscular HGB Conc 30.8 g/dl (31.0-35.0); Mean Corpuscular Hemoglobin 25.7 pg (27.0-33.0); Mean Corpuscular Volume 83.6 fL (80.0-98.0); Mean Platelet Volume 9.6 fL (9.4-12.3); Platelet Count 362 X10*3/uL (160-400); Red Blood Count 5.05 X10*6/uL (4.20-5.50); Red Cell Distribution Width 13.4 % (11.0-16.0)
[2021-09-18 16:01] LABS: Anion Gap 12 (12-20); Blood Urea Nitrogen 11 mg/dL (9-16); Calcium 9.6 mg/dL (8.4-10.2); Carbon Dioxide 25 mmol/L (22-29); Chloride 106 mmol/L (96-108); Estimated Glomerular Filt Rate > 60; Glucose Random 84 mg/dL (60-115); Potassium 4.1 mmol/L (3.3-5.1); Sodium 139 mmol/L (135-145)
[2021-09-18 16:35] LABS: Monotest Negative (Negative)
== END 2021-09-18 14:48 | disposition home or self-care (01) ==
LOC: HO.LAB 14:47
PROVIDERS: PCP Internal Medicine; Visit Provider Nurse Practitioner Family
DX: J02.9 Acute pharyngitis, unspecified (principal)
CPT/HCPCS: 36415; 80048; 85027; 86308

== ENCOUNTER 2021-12-07 08:25 | Outpatient (REF) | payer OTHER, SELFPAY ==
[2021-12-07 09:34] LABS: Alanine Aminotransferase 12 U/L (0-31); Albumin Level 4.4 g/dL (3.5-5.0); Alkaline Phosphatase 68 U/L (39-117); Anion Gap 10 (12-20); Aspartate Amino Transferase 21 U/L (5-31); Bilirubin Total 1.4 mg/dL (0.0-1.0); Blood Urea Nitrogen 11 mg/dL (9-16); Calcium 9.4 mg/dL (8.4-10.2); Carbon Dioxide 25 mmol/L (22-29); Chloride 103 mmol/L (96-108); Estimated Glomerular Filt Rate > 60; Glucose Random 80 mg/dL (60-115); Lipase 46 U/L (8-78); Potassium 4.1 mmol/L (3.3-5.1); Sodium 134 mmol/L (135-145); Total Protein 7.2 g/dL (6.5-8.0)
== END 2021-12-07 08:26 | disposition home or self-care (01) ==
LOC: HO.LAB 08:25
PROVIDERS: PCP Internal Medicine; Visit Provider Nurse Practitioner Family
DX: R10.13 Epigastric pain (principal); R10.9 Unspecified abdominal pain
CPT/HCPCS: 36415; 80053; 83690

== ENCOUNTER 2021-12-24 08:09 | Outpatient (REF) | payer OTHER, SELFPAY ==
[2021-12-24 14:17] LABS: CT PCR NOT DETECTED (Not Detect.); NG PCR NOT DETECTED (Not Detect.)
== END 2021-12-24 08:10 | disposition home or self-care (01) ==
LOC: HO.LAB 08:09
PROVIDERS: PCP Internal Medicine; Visit Provider Obstetrics & Gynecology
DX: R10.2 Pelvic and perineal pain (principal)
CPT/HCPCS: 81025; 87086; 87491; 87591; 99212

== ENCOUNTER 2022-01-10 08:58 | Outpatient (REF) | payer OTHER, SELFPAY ==
--- NOTE | ~2022-01-10 | US_ITS ---
EXAMINATION: US PELVIS CLINICAL INFORMATION: Pelvic and perineal pain. COMPARISON: CT abdomen of 08/14/2021 and pelvic ultrasound 06/07/2021. TECHNIQUE: Ultrasound of the pelvis is performed using both transabdominal and transvaginal transducers along with Doppler. Transvaginal imaging is performed due to inadequate visualization transabdominally. FINDINGS: Uterus: The uterus is anteverted and measures 8.0 x 3.7 x 5.0 cm. The double wall endometrial thickness is 11 mm. The uterus is smooth in contour and has normal myometrial echogenicity. No visible fibroid. Adnexa: Both ovaries are visualized. There is normal color flow to the adnexa. There is no ovarian torsion. There is no pelvic ascites or fluid collection. Right ovary measures 4.9 x 2.3 x 2.4 cm. Volume of 14.1 mL. No right ovarian abnormality is appreciated. Left ovary measures 4.2 x 2.4 x 3.2 cm. Volume of 16.9 mL. There is a corpus luteum seen within the left ovary measuring approximately 1.8 x 1.7 x 1.8 cm in size. No free fluid appreciated. US/US pelvic and transvaginal IMPRESSION: No significant pelvic abnormality appreciated. Left ovarian corpus luteum.
== END 2022-01-10 08:59 | disposition home or self-care (01) ==
LOC: HO.HMGCX 08:58
PROVIDERS: PCP Internal Medicine; Visit Provider Obstetrics & Gynecology
DX: R10.2 Pelvic and perineal pain (principal)
CPT/HCPCS: 76830; 76856

== ENCOUNTER 2022-01-22 | Outpatient (REF) | payer OTHER, SELFPAY | END 2022-01-22 00:01 | disposition home or self-care (01) | LOC: HO.LNP | PROVIDERS: Visit Provider Physician Assistant | DX: A04.8 Other specified bacterial intestinal infections (principal) | CPT/HCPCS: 83013 ==

== ENCOUNTER → 2022-01-22 09:34 | Outpatient (BNVA) | payer OTHER, SELFPAY | PROVIDERS: PCP Internal Medicine; Visit Provider Physician Assistant | DX: R10.13 Epigastric pain (principal) | CPT/HCPCS: 99202; 99212 ==

== ENCOUNTER 2022-02-07 11:07 | Outpatient (REF) | payer OTHER, SELFPAY ==
[2022-02-08 09:06] LABS: BV Int Neg Control Negative (Negative); BV Int Pos Control Positive (Positive)
== END 2022-02-07 11:08 | disposition home or self-care (01) ==
LOC: HO.LAB 11:07
PROVIDERS: Visit Provider Advanced Practice Midwife
DX: R10.2 Pelvic and perineal pain (principal); R32 Unspecified urinary incontinence; R35.0 Frequency of micturition; Z71.2 Person consulting for explanation of examination or test findings
CPT/HCPCS: 81003; 87480; 87510; 87660; 99212

== ENCOUNTER 2022-02-26 10:01 | Outpatient (REF) | payer OTHER, SELFPAY ==
[2022-02-26 11:18] LABS: MANUAL DIFF FLAG NO
[2022-02-26 11:33] LABS: Basophils Percent Auto 0.5 % (0-2); Eosinophils Percent Auto 0.3 % (0-4); Hematocrit 41.3 % (37.0-47.0); Hemoglobin 12.8 g/dl (12.0-16.0); Imm Gran Abs Auto 0.01 X10*3/uL (0.00-0.03); Imm Gran Pct Auto 0.2 % (0.0-0.4); Lymphocytes Absolute Auto 1.2 X10*3/uL (1.2-4.9); Lymphocytes Percent Auto 19.8 % (20-40); Mean Corpuscular Hemoglobin 24.8 pg (27.0-33.0); Mean Platelet Volume 9.5 fL (9.4-12.3); Monocytes Absolute Auto 0.4 X10*3/uL (0.1-1.2); Monocytes Percent Auto 7.4 % (2-11); Neutrophils Absolute Auto 4.3 x10*3/uL (2.0-8.3); Neutrophils Percent Auto 71.8 % (45-73); Platelet Count 316 X10*3/uL (160-400); Red Blood Count 5.16 X10*6/uL (4.20-5.50); Red Cell Distribution Width 13.5 % (11.0-16.0)
[2022-02-28 13:08] LABS: Transglutaminase IgA <1.0 U/mL
[2022-03-09 14:37] LABS: Endomysial IgA Antibody Negative (Negative)
== END 2022-02-26 10:02 | disposition home or self-care (01) ==
LOC: HO.WFDLDS 10:01
PROVIDERS: Visit Provider Physician Assistant
DX: R10.31 Right lower quadrant pain (principal); R10.32 Left lower quadrant pain; K52.9 Noninfective gastroenteritis and colitis, unspecified; G89.29 Other chronic pain
CPT/HCPCS: 36415; 85025; 86231; 86364; 99212

== ENCOUNTER → 2022-03-04 09:04 | Outpatient (BNVA) | payer OTHER, SELFPAY | PROVIDERS: PCP Internal Medicine; Referring Provider Physician Assistant; Visit Provider Internal Medicine | DX: R10.9 Unspecified abdominal pain (principal); E80.6 Other disorders of bilirubin metabolism; G89.29 Other chronic pain | CPT/HCPCS: 99212 ==

== ENCOUNTER 2022-06-02 12:33 | Emergency (ER) | payer OTHER, SELFPAY ==
--- NOTE | ~2022-06-02 | XR_ITS ---
EXAMINATION: XR CHEST CLINICAL INFORMATION: Shortness of breath COMPARISON: None TECHNIQUE: Frontal view of the chest was obtained. FINDINGS: No significant abnormality is noted involving the heart, lungs, mediastinum, bony thorax or soft tissues. XR/XR chest 1V IMPRESSION: Unremarkable examination.
--- NOTE | ~2022-06-02 | US_ITS ---
EXAMINATION: US ABDOMEN LIMITED CLINICAL INFORMATION: Right upper quadrant/epigastric pain. COMPARISON: CT abdomen/pelvis dated 08/14/2021. TECHNIQUE: Real-time imaging of the right upper quadrant abdominal viscera. FINDINGS: PANCREAS: Normal. LIVER: Normal. The liver is normal in size. The liver contour is normal. Parenchymal echogenicity is normal. No focal hepatic lesion. There is no intrahepatic biliary duct dilatation seen. GALLBLADDER: Normal. The gallbladder is physiologically distended without evidence of stones, sludge, polyps, wall thickening or pericholecystic fluid. COMMON BILE DUCT: Normal in caliber measuring 0.1 cm in diameter. RIGHT KIDNEY: Normal. No hydronephrosis. No renal calculi or focal parenchymal lesions. The kidney measures 10.2 cm in maximum dimension. FREE FLUID: None. US/US abdomen limited IMPRESSION: Unremarkable examination.
[2022-06-02 12:48] VITALS: BP 137/86; PULSE 105; RESP 20; TEMP 36.8; O2SAT 100; BMI 18.9
--- NOTE | 2022-06-02 14:46 | ED_ITS ---
HPI - General Adult General Chief complaint: General Medical Stated complaint: SOB Chest Tightness Time Seen by Provider: 06/02/22 14:36 Source: patient Mode of arrival: ambulatory Limitations: no limitations History of Present Illness HPI narrative: 21 year old female with a PMHx of POTS, presenting to the ED c/o URI sx including congestion, rhinorrhea, headache, chest tightness, & SOB since . Reports chest pain worsened with deep breath and when lying on her sides. Admits tested negative for Flu and COVID for the past 2 days. She took Theraflu with mild alleviation of her symptoms. She denies any lightheadedness, leg swelling, cough, nausea, vomiting, abdominal pain, ear pain, sore throat. reports sick contacts at work. Onset (ago): day(s) (4 days) Location: face and chest Radiation: non-radiation Pain Consistency: constant Relieving factors: medication Associated symptoms: cough, headaches and shortness of breath Treatments prior to arrival: cold therapy Related Data Previous Rx's Medication Instructions Recorded acetaminophen 500 mg tablet 500 mg PO Q6H PRN pain #14 tabs 08/14/21 calcium carbonate 300 mg (750 mg) 300 mg PO QID 30 days #120 tabs 01/22/22 chewable tablet (Tums E-X) famotidine 20 mg tablet (Pepcid) 20 mg PO DAILY #14 tabs 06/02/22 Allergies Allergy/AdvReac Type Severity Reaction Status Date / Time diphenhydramine Allergy Severe Chest Verified 03/15/22 12:32 [From Benadryl] Pain, hard to breath Review of Systems Review of Systems: Constitutional: No Fever, No Chills ENT/Mouth: No Ear Pain, +Nasal Congestion, No Sinus Pain, No Hoarseness, No sore throat, + Rhinorrhea Cardiovascular: + Chest tightness, + SOB Respiratory: No Cough, No Sputum, No Wheezing Gastrointestinal: No Nausea, No Vomiting, No Diarrhea, No Abdominal pain Genitourinary: No Dysuria, No Urinary Frequency, No Hematuria, No Urgency, No Flank Pain Musculoskeletal: No joint pain, + Myalgias, No Joint Swelling Skin: No Skin Lesions, No rash Neuro: No Weakness, No Numbness, No Paresthesias Yes all other systems are reviewed and are negative Constitutional: Constitutional: Reports as per HPI Neurologic: Reports Abnormal speech present PMFSH Past Medical History Attestation statement: The following information was validated with the patient. Medical History Chronic abdominal pain Inguinal pain of both sides Palpitations POTS (postural orthostatic tachycardia syndrome) Surgical History No significant past surgical history Family History Family History Mother No problems noted. Father No problems noted. 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 Sexual orientation: Straight/Heterosexual Gender identity: Female Cognitive needs: No Hearing needs: No Vision needs: No Physical Exam ED Vital Signs: Vital Signs - 24 hr 06/02/22 12:48 Temperature 98.3 F Pulse Rate 105 H Respiratory Rate 20 Blood Pressure 137/86 Pulse Oximetry 100 Oxygen Delivery Method Room Air BMI result Body Mass Index 18.9 Const General: cooperative, healthy appearing, comfortable, no acute distress, alert, awake and Physically active Orientation/consciousness: patient oriented x3 Limitations: no limitations HENMT Head: Yes normal to inspection and Yes atraumatic Ears: hearing grossly normal bilaterally, external ears normal, TM's normal bilaterally, EAC's normal and mastoids normal General nose exam: Normal external nose present Face and sinus: Yes normal facial exam Mouth: Normal oral and palatal mucosa present, lip normal, tongue normal, moist mucous membranes and no muffled voice Throat: Yes posterior oropharynx normal, Yes tonsils normal, Yes uvula midline, No peritonsillar mass, No uvula laterally displaced and No uvular edema Eyes General: appearance normal, both eyes and all related structures Pupils: Equal, round and reactive pupils present EOM: EOMs intact bilaterally Neck Neck: Yes normal visual inspection, Yes full ROM, Yes no lymphadenopathy and Yes no meningeal signs Thyroid: Thyroid normal Resp Effort & Inspection: normal respiratory effort, able to speak in complete sentences, no audible wheezes, no cough and no respiratory distress Auscultation: clear to auscultation bilaterally, no crackles, no rales, no rhonchi and no wheezes Cardio Rate: regular rate Rhythm: regular rhythm Heart sounds: S1 normal heart sound present and S2 normal heart sound present GI Other: Epigastric and RUQ tenderness on palpation Inspection: Yes normal to inspection Palpation (GI): Soft to palpation, Tenderness to palpation present (GI) in the epigastrum and in the RUQ; with no rebound tenderness, no guarding and not rigid General: Yes no CVA tenderness Back/Spine/Pelvis Back: no CVA tenderness Skin General skin exam: no rashes or lesions noted Rashes: no rashes Wounds: no wounds Neuro General: patient oriented x3, tone normal and no meningeal signs Cranial nerves: Yes CN's II-XII intact bilaterally and Yes Equal, round and reactive pupils present Speech: Abnormal speech present Gait exam (Neuro): Normal gait present Extrem General: Yes normal to inspection, Yes full ROM, Yes no clubbing, cyanosis or edema, Yes no pedal edema and Yes no calf tenderness Course Course Course Narrative: XR chest 1V IMPRESSION: Unremarkable examination. -no leukocytosis. Labs otherwise unremarkable -UA with trace leuk esterase and 3-5 rbc's, no appreciable infection, contaminated. -COVID/flu/RSV negative -D-dimer WNL US abdomen limited IMPRESSION: Unremarkable examination. >1921--on re-evaluation patient reports symptomatic improvement after Pepcid and Maalox. Results discussed. Discussed close follow-up with PCP/GI Results discussed with patient including worrisome signs and symptoms and strict return precautions, and when to return to the emergency department. They verbalized understanding and feel safe for discharge at this time. Medications Administered Discontinued Medications Generic Name Dose Route Start Last Admin Trade Name Freq PRN Reason Stop Dose Admin Al Hydroxide/Mg Hydroxide 30 ml 06/02/22 16:20 06/02/22 16:50 Magnesium Hydrox/Alum Hydrox 30 Ml Oral.Susp PO 06/02/22 16:21 30 ml ONCE ONE Administration Famotidine 20 mg 06/02/22 16:20 06/02/22 16:50 Famotidine 20 Mg Tablet PO 06/02/22 16:21 20 mg ONCE ONE Administration Medical Decision Making [facility] Narrative Medical decision making narrative: 21 year old female with a PMHx of POTS, presenting to the ED c/o URI sx including congestion, rhinorrhea, headache, chest tightness, & SOB since . On exam mildly tachycardic, NAD, nontoxic appearing, lungs CTA, abdomen soft with epigastric/RUQ tenderness, no rebound or guarding. No pedal edema. CP not reproducible. Concern for viral syndrome vs pneumonia vs PE vs pancreatitis vs cholecystitis/lithiasis vs GERD/gastritis. Lower suspicion for ACS, appendicitis/diverticulitis, renal stone/pyelo Plan: COVID/Flu/RSV swab, labs, Abdominal US, EKG, CXR, symptomatic remedies Medical Records Medical records reviewed: Yes I reviewed the patient's medical records. Lab Data Lab results reviewed: Yes I reviewed the patient's lab results. Result diagrams: 06/02/22 16:41 06/02/22 16:41 Labs: Lab Results 06/02/22 06/02/22 06/02/22 Range/Units 16:41 16:41 16:41 WBC 6.8 (4.8-10.8) X10*3/uL RBC 5.21 (4.20-5.50) X10*6/uL Hgb 13.1 (12.0-16.0) g/dl Hct 42.0 (37.0-47.0) % MCV 80.6 (80.0-98.0) fL MCH 25.1 L (27.0-33.0) pg MCHC 31.2 (31.0-35.0) g/dl RDW 13.5 (11.0-16.0) % Plt Count 337 (160-400) X10*3/uL MPV 9.2 L (9.4-12.3) fL Immature Gran % (Auto) 0.3 (0.0-0.4) % Neut % (Auto) 75.0 H (45-73) % Lymph % (Auto) 18.0 L (20-40) % [place] % (Auto) 6.0 (2-11) % Eos % (Auto) 0.4 (0-4) % Baso % (Auto) 0.3 (0-2) % Lymph # (Auto) 1.2 (1.2-4.9) X10*3/uL [place] # (Auto) 0.4 (0.1-1.2) X10*3/uL Eos # (Auto) 0.0 (0.0-0.4) X10*3/uL Baso # (Auto) 0.0 (0.0-0.2) X10*3/uL Abs Immat Gran (auto) 0.02 (0.00-0.03) X10*3/uL Absolute Neuts (auto) 5.1 (2.0-8.3) x10*3/uL Absolute Nucleated RBC 0.000 (0.0-0.012) X10*3/uL Nucleated RBC % (auto) 0.0 (0.0-0.2) /100WBC D-Dimer High Sensitivty < 150 NG/ML Sodium (135-145) mmol/L Potassium (3.3-5.1) mmol/L Chloride (96-108) mmol/L Carbon Dioxide (22-29) mmol/L Anion Gap (12-20) BUN (9-16) mg/dL Creatinine (0.5-1.4) mg/dL Estim Creat Clear Calc Estimated GFR Random Glucose (60-115) mg/dL Calcium (8.4-10.2) mg/dL Total Bilirubin (0.0-1.0) mg/dL Direct Bilirubin (0.0-0.5) mg/dL AST (5-31) U/L ALT (0-31) U/L Alkaline Phosphatase (39-117) U/L Troponin I High Sens (<3.5-17.0) ng/L Total Protein (6.5-8.0) g/dL Albumin (3.5-5.0) g/dL Lipase (8-78) U/L Urine Color Urine Appearance Urine pH (5.0-9.0) Ur Specific [place] (1.005-1.025) Urine Protein (Neg-Trace) mg/dL Urine Glucose (UA) (Negative) mg/dL Urine Ketones (Negative) mg/dL Urine Blood (Negative) Urine Nitrite (Negative) Ur Leukocyte Esterase (Negative) Urine RBC (0-2) /HPF Urine WBC (0-5) /HPF Ur Squamous Epith Cells (0-2) /HPF Urine Bacteria (None Seen) Hyaline Casts (0-2) /LPF Urine Test (NEGATIVE) Influenza Type A (PCR) NEGATIVE (Negative) Influenza Type B (PCR) NEGATIVE (Negative) RSV RNA Qual (PCR) NEGATIVE (Negative) SARS-CoV-2 RNA (RT-PCR) NEGATIVE (Negative) 06/02/22 06/02/22 06/02/22 Range/Units 16:41 16:41 16:41 WBC (4.8-10.8) X10*3/uL RBC (4.20-5.50) X10*6/uL Hgb (12.0-16.0) g/dl Hct (37.0-47.0) % MCV (80.0-98.0) fL MCH (27.0-33.0) pg MCHC (31.0-35.0) g/dl RDW (11.0-16.0) % Plt Count (160-400) X10*3/uL MPV (9.4-12.3) fL Immature Gran % (Auto) (0.0-0.4) % Neut % (Auto) (45-73) % Lymph % (Auto) (20-40) % [place] % (Auto) (2-11) % Eos % (Auto) (0-4) % Baso % (Auto) (0-2) % Lymph # (Auto) (1.2-4.9) X10*3/uL [place] # (Auto) (0.1-1.2) X10*3/uL Eos # (Auto) (0.0-0.4) X10*3/uL Baso # (Auto) (0.0-0.2) X10*3/uL Abs Immat Gran (auto) (0.00-0.03) X10*3/uL Absolute Neuts (auto) (2.0-8.3) x10*3/uL Absolute Nucleated RBC (0.0-0.012) X10*3/uL Nucleated RBC % (auto) (0.0-0.2) /100WBC D-Dimer High Sensitivty NG/ML Sodium 141 (135-145) mmol/L Potassium 4.0 (3.3-5.1) mmol/L Chloride 106 (96-108) mmol/L Carbon Dioxide 23 (22-29) mmol/L Anion Gap 16 (12-20) BUN 10 (9-16) mg/dL Creatinine 0.72 (0.5-1.4) mg/dL Estim Creat Clear Calc 84.4 Estimated GFR > 60 Random Glucose 83 (60-115) mg/dL Calcium 9.5 (8.4-10.2) mg/dL Total Bilirubin 0.8 (0.0-1.0) mg/dL Direct Bilirubin 0.3 (0.0-0.5) mg/dL AST 16 (5-31) U/L ALT 10 (0-31) U/L Alkaline Phosphatase 70 (39-117) U/L Troponin I High Sens 4.3 (<3.5-17.0) ng/L Total Protein 7.8 (6.5-8.0) g/dL Albumin 4.9 (3.5-5.0) g/dL Lipase 63 (8-78) U/L Urine Color Yellow Urine Appearance Turbid Urine pH 8.5 (5.0-9.0) Ur Specific [place] 1.020 (1.005-1.025) Urine Protein Negative (Neg-Trace) mg/dL Urine Glucose (UA) Negative (Negative) mg/dL Urine Ketones Negative (Negative) mg/dL Urine Blood Negative (Negative) Urine Nitrite Negative (Negative) Ur Leukocyte Esterase Trace H (Negative) Urine RBC 3-5 H (0-2) /HPF Urine WBC 0-5 (0-5) /HPF Ur Squamous Epith Cells 3-5 (0-2) /HPF Urine Bacteria Trace (None Seen) Hyaline Casts 0-2 (0-2) /LPF Urine Test (NEGATIVE) Influenza Type A (PCR) (Negative) Influenza Type B (PCR) (Negative) RSV RNA Qual (PCR) (Negative) SARS-CoV-2 RNA (RT-PCR) (Negative) 06/02/22 Range/Units 16:41 WBC (4.8-10.8) X10*3/uL RBC (4.20-5.50) X10*6/uL Hgb (12.0-16.0) g/dl Hct (37.0-47.0) % MCV (80.0-98.0) fL MCH (27.0-33.0) pg MCHC (31.0-35.0) g/dl RDW (11.0-16.0) % Plt Count (160-400) X10*3/uL MPV (9.4-12.3) fL Immature Gran % (Auto) (0.0-0.4) % Neut % (Auto) (45-73) % Lymph % (Auto) (20-40) % [place] % (Auto) (2-11) % Eos % (Auto) (0-4) % Baso % (Auto) (0-2) % Lymph # (Auto) (1.2-4.9) X10*3/uL [place] # (Auto) (0.1-1.2) X10*3/uL Eos # (Auto) (0.0-0.4) X10*3/uL Baso # (Auto) (0.0-0.2) X10*3/uL Abs Immat Gran (auto) (0.00-0.03) X10*3/uL Absolute Neuts (auto) (2.0-8.3) x10*3/uL Absolute Nucleated RBC (0.0-0.012) X10*3/uL Nucleated RBC % (auto) (0.0-0.2) /100WBC D-Dimer High Sensitivty NG/ML Sodium (135-145) mmol/L Potassium (3.3-5.1) mmol/L Chloride (96-108) mmol/L Carbon Dioxide (22-29) mmol/L Anion Gap (12-20) BUN (9-16) mg/dL Creatinine (0.5-1.4) mg/dL Estim Creat Clear Calc Estimated GFR Random Glucose (60-115) mg/dL Calcium (8.4-10.2) mg/dL Total Bilirubin (0.0-1.0) mg/dL Direct Bilirubin (0.0-0.5) mg/dL AST (5-31) U/L ALT (0-31) U/L Alkaline Phosphatase (39-117) U/L Troponin I High Sens (<3.5-17.0) ng/L Total Protein (6.5-8.0) g/dL Albumin (3.5-5.0) g/dL Lipase (8-78) U/L Urine Color Urine Appearance Urine pH (5.0-9.0) Ur Specific [place] (1.005-1.025) Urine Protein (Neg-Trace) mg/dL Urine Glucose (UA) (Negative) mg/dL Urine Ketones (Negative) mg/dL Urine Blood (Negative) Urine Nitrite (Negative) Ur Leukocyte Esterase (Negative) Urine RBC (0-2) /HPF Urine WBC (0-5) /HPF Ur Squamous Epith Cells (0-2) /HPF Urine Bacteria (None Seen) Hyaline Casts (0-2) /LPF Urine Test NEGATIVE (NEGATIVE) Influenza Type A (PCR) (Negative) Influenza Type B (PCR) (Negative) RSV RNA Qual (PCR) (Negative) SARS-CoV-2 RNA (RT-PCR) (Negative) Discharge Plan Discharge Clinical Impression: Acute viral syndrome, Epigastric abdominal pain Patient Disposition: Home, Self-Care Instructions: Viral Syndrome (ED), Epigastric Pain (ED) Additional Instructions: Your blood work and imaging studies were reassuring Your chest x-ray and ultrasound were unremarkable. You tested negative for COVID-19, the flu, and RSV Pepcid and Maalox to help with acid reduction Pace of close follow-up with her doctor. Avoid spicy foods, sweets, chocolate, caffeine as may worsen her symptoms Please follow-up with GI and your doctor Prescriptions: New famotidine [Pepcid] 20 mg tablet 20 mg PO DAILY Qty: 14 0RF No Action acetaminophen 500 mg tablet 500 mg PO Q6H PRN (Reason: pain) Qty: 14 0RF calcium carbonate [Tums E-X] 300 mg (750 mg) tablet,chewable 300 mg PO QID 30 Days Qty: 120 2RF Referrals: [facility] [place] [facility] [Provider Group] Jasbir Wynn MD [Primary Care Provider] - Interventions: ED Discharge Assessment Last Done: 06/02/22 19:50 Discharge Date/Time: 06/02/22 19:50
--- NOTE | 2022-06-02 15:04 | ECG_ITS ---
Test Reason : CHEST PAIN Blood Pressure : / mmHG Vent. Rate : 073 BPM Atrial Rate : 073 BPM P-R Int : 132 ms QRS Dur : 072 ms QT Int : 380 ms P-R-T Axes : 054 094 035 degrees QTc Int : 418 ms Normal sinus rhythm with sinus arrhythmia Rightward axis RSR' or QR pattern in V1 suggests right ventricular conduction delay Borderline ECG When compared with ECG of 04-MAR-2021 20:15, No significant change was found Referred By: Samra Cheng Electronically Signed By:OFE RANKIN MD
[2022-06-02 16:47] LABS: MANUAL DIFF FLAG NO
[2022-06-02 16:49] LABS: Basophils Percent Auto 0.3 % (0-2); Eosinophils Percent Auto 0.4 % (0-4); Hemoglobin 13.1 g/dl (12.0-16.0); Imm Gran Abs Auto 0.02 X10*3/uL (0.00-0.03); Imm Gran Pct Auto 0.3 % (0.0-0.4); Lymphocytes Absolute Auto 1.2 X10*3/uL (1.2-4.9); Mean Corpuscular HGB Conc 31.2 g/dl (31.0-35.0); Mean Corpuscular Hemoglobin 25.1 pg (27.0-33.0); Mean Corpuscular Volume 80.6 fL (80.0-98.0); Mean Platelet Volume 9.2 fL (9.4-12.3); Monocytes Absolute Auto 0.4 X10*3/uL (0.1-1.2); Neutrophils Absolute Auto 5.1 x10*3/uL (2.0-8.3); Platelet Count 337 X10*3/uL (160-400); Red Blood Count 5.21 X10*6/uL (4.20-5.50); Red Cell Distribution Width 13.5 % (11.0-16.0); White Blood Count 6.8 X10*3/uL (4.8-10.8)
[2022-06-02] MEDS: Magnesium Hydrox/Alum Hydrox 30 ML ORAL.SUSP PO (16:50)
[2022-06-02] MEDS: Famotidine 20 MG TABLET PO (16:50)
[2022-06-02 16:51] LABS: Appearance Urine Turbid; Color Urine Yellow; Glucose Urine UA Negative (Negative); Leukocyte Esterase Urine Trace (Negative); Nitrite Urine Negative (Negative); PH 8.5 (5.0-9.0); UMIC TRIGGER UACC YES; UPreg QC Valid YES; Urine Blood Negative (Negative); Urine Ketones Negative (Negative); Urine Pregnancy NEGATIVE (NEGATIVE); Urine Protein Negative (Neg-Trace)
[2022-06-02 16:53] LABS: Bacteria Urine Trace (None Seen); Hyaline Casts Urine 0-2 /LPF (0-2); WBC Urine 0-5 /HPF (0-5)
[2022-06-02 17:08] LABS: D Dimer High Sensitivity < 150 NG/ML
[2022-06-02 17:15] LABS: Alanine Aminotransferase 10 U/L (0-31); Albumin Level 4.9 g/dL (3.5-5.0); Alkaline Phosphatase 70 U/L (39-117); Anion Gap 16 (12-20); Aspartate Amino Transferase 16 U/L (5-31); Bilirubin Direct 0.3 mg/dL (0.0-0.5); Bilirubin Total 0.8 mg/dL (0.0-1.0); Blood Urea Nitrogen 10 mg/dL (9-16); Calcium 9.5 mg/dL (8.4-10.2); Carbon Dioxide 23 mmol/L (22-29); Chloride 106 mmol/L (96-108); Creatinine Clr Calc Pharmacy 84.4; Estimated Glomerular Filt Rate > 60; Glucose Random 83 mg/dL (60-115); Lipase 63 U/L (8-78); Sodium 141 mmol/L (135-145); Total Protein 7.8 g/dL (6.5-8.0)
[2022-06-02 17:22] LABS: Troponin-I High Sensitivity 4.3 ng/L (<3.5-17.0)
[2022-06-02 17:26] LABS: Influenza A PCR NEGATIVE (Negative); Influenza B PCR NEGATIVE (Negative); Resp Syncy Virus RNA Qual PCR NEGATIVE (Negative); SARS COV2 PCR INHOUSE NEGATIVE (Negative)
== END 2022-06-02 19:50 | disposition home or self-care (01) ==
PROVIDERS: Physician Assistant; Emergency Provider Emergency Medicine; PCP Internal Medicine
DX: R06.02 Shortness of breath (principal); R07.89 Other chest pain; R51.9 Headache, unspecified; R10.9 Unspecified abdominal pain; Z20.822 Contact with and (suspected) exposure to COVID-19; Z79.899 Other long term (current) drug therapy
CPT/HCPCS: 0241U; 36415; 71045; 76705; 80048; 80076; 81001; 81025; 83690; 84484; 85025; 85379; 93005; 99283

== ENCOUNTER → 2022-07-23 15:17 | Outpatient (BNVA) | payer OTHER, SELFPAY | PROVIDERS: PCP Internal Medicine; Referring Provider Internal Medicine; Visit Provider Internal Medicine Cardiovascular Disease | DX: R00.2 Palpitations (principal); G90.A Postural orthostatic tachycardia syndrome [POTS] | CPT/HCPCS: 99212 ==

== ENCOUNTER 2022-07-30 15:46 | Outpatient (REF) | payer OTHER, SELFPAY ==
[2022-07-31 17:13] LABS: CT PCR NOT DETECTED (Not Detect.); NG PCR NOT DETECTED (Not Detect.)
== END 2022-07-30 15:47 | disposition home or self-care (01) ==
LOC: HO.LNP 15:46
PROVIDERS: PCP Internal Medicine; Visit Provider Obstetrics & Gynecology
DX: Z11.3 Encounter for screening for infections with a predominantly sexual mode of transmission (principal); N64.4 Mastodynia
CPT/HCPCS: 0353U

== ENCOUNTER 2022-08-14 13:50 | Outpatient (REF) | payer OTHER, SELFPAY ==
--- NOTE | ~2022-08-14 | US_ITS ---
EXAMINATION: US PELVIS CLINICAL INFORMATION: Pelvic and perineal pain COMPARISON: None TECHNIQUE: Ultrasound of the pelvis is performed using both transabdominal and transvaginal transducers along with Doppler. Transvaginal imaging is performed due to inadequate visualization transabdominally. FINDINGS: Uterus: The uterus is anteverted and measures 7 x 3.2 x 4.9 cm. The double wall endometrial thickness is 6 mm. The uterus is smooth in contour and has normal myometrial echogenicity. No visible fibroid. Adnexa: Both ovaries are visualized. There is normal color flow to the adnexa. There is no ovarian torsion. There is no pelvic ascites or fluid collection. Right ovary measures 3.4 x 2 x 2.8 cm. Multiple follicles noted. Left ovary measures 2.9 x 1.9 x 2.2 cm. Multiple follicles noted. US/US pelvic and transvaginal IMPRESSION: Normal pelvic ultrasound.
[2022-08-14 14:48] LABS: Hematocrit 39.4 % (37.0-47.0); Hemoglobin 12.4 g/dl (12.0-16.0); Mean Corpuscular HGB Conc 31.5 g/dl (31.0-35.0); Mean Corpuscular Hemoglobin 25.7 pg (27.0-33.0); Mean Corpuscular Volume 81.7 fL (80.0-98.0); Mean Platelet Volume 9.8 fL (9.4-12.3); Platelet Count 325 X10*3/uL (160-400); Red Blood Count 4.82 X10*6/uL (4.20-5.50); Red Cell Distribution Width 13.8 % (11.0-16.0)
[2022-08-14 15:20] LABS: HCG Quantitative < 2 mIU/mL
== END 2022-08-14 13:51 | disposition home or self-care (01) ==
LOC: HO.US 13:50
PROVIDERS: PCP Internal Medicine; Visit Provider Obstetrics & Gynecology
DX: R10.2 Pelvic and perineal pain (principal)
CPT/HCPCS: 36415; 76830; 76856; 84702; 85027; 96372; 99212; J0696

== ENCOUNTER 2022-08-14 15:11 | Outpatient (REF) | payer OTHER, SELFPAY ==
[2022-08-15 01:57] LABS: CT PCR NOT DETECTED (Not Detect.); NG PCR NOT DETECTED (Not Detect.)
== END 2022-08-14 15:12 | disposition home or self-care (01) ==
LOC: HO.LNP 15:11
PROVIDERS: Visit Provider Obstetrics & Gynecology
DX: Z11.3 Encounter for screening for infections with a predominantly sexual mode of transmission (principal); R10.2 Pelvic and perineal pain
CPT/HCPCS: 0353U

== ENCOUNTER 2022-08-16 13:50 | Outpatient (REF) | payer OTHER, SELFPAY ==
--- NOTE | ~2022-08-16 | US_ITS ---
EXAMINATION: US DIAGNOSTIC ULTRASOUND BREAST, LEFT CLINICAL INFORMATION: 22-year-old with pain 5:00 left breast. Palpable fullness noted on clinical exam 6:00. No prior breast imaging. COMPARISON: None. TECHNIQUE: Ultrasound of the left breast is targeted to the areas of clinical concern. Grayscale imaging and color Doppler are performed without and with harmonics. FINDINGS: There is no focal suspicious finding. There is no cystic or solid mass, architectural abnormality, duct ectasia, or edema in the soft tissue planes. No skin thickening. Results are discussed with the patient at time of visit. US/US breast LT limited IMPRESSION: -Normal study. ASSESSMENT: BI-RADS 1: Negative RECOMMENDATION: Patient should be managed based on the clinical impression. If clinically indicated, further evaluation may be considered with surgical consult. Decision to proceed with biopsy should be based on clinical grounds and degree of clinical concern.
== END 2022-08-16 13:51 | disposition home or self-care (01) ==
LOC: HO.MAMMO 13:50
PROVIDERS: PCP Internal Medicine; Visit Provider Obstetrics & Gynecology
DX: N64.4 Mastodynia (principal)
CPT/HCPCS: 76642; 99202

== ENCOUNTER → 2022-08-19 14:35 | Outpatient (REF) | payer OTHER, SELFPAY ==
--- NOTE | 2022-08-19 14:42 | CA_ITS ---
Transthoracic Echocardiogram Patient (Last, First, Middle): Twila Baker M Gender: Female Date of : 2000 Age: 22 Procedure Date: 08/19/2022 Procedure Type: Transthoracic Echocardiogram Location: OP Height: 152.4 cm Weight: 45.36 kg BSA: 1.39 m2 Heart Rate: 70 bpm BP: 128 / 66 mmHg Senior Web Applications Developer: KAYLAH Referring MD: Feliz Medina MD Combine Mechanic: Feliz Median MD Symptoms: R00.2 - Palpitations Study Quality: Technically Difficult but adequate ECG Rhythm: Sinus Conclusions: - 1. Normal LV and RV systolic function and size 2. Mildly thickened mitral valve leaflet tips with possible artifactual structure attached to the tips 3. Normal cardiac valvular Dopplers 4. Normal RV systolic pressure 5. No gross pericardial effusion Findings Left Ventricle Normal left ventricular size, thickness, and systolic function. The visually estimated ejection fraction is between 55-60%. Diastolic function is normal for age. Right Ventricle Normal right ventricular cavity size and systolic function. Atria Both atria are normal in size. There is no evidence of interatrial shunt. Aortic Valve The aortic valve structure and function is likely normal. There is no aortic valve stenosis. There is no aortic valve regurgitation. Mitral Valve There is mild anterior and posterior mitral leaflet thickening. especially the tips of mitral valve leaflets are thickened without any evidence of prolapse. There is small mobile string like structure test to leaflet tips that could represent an artifact. Vegetation although unlikely cannot be entirely ruled out Pulmonic Valve The pulmonic valve is likely normal. Tricuspid Valve Normal tricuspid valve structure. There is trace tricuspid valve regurgitation. The right ventricular systolic pressure is normal. The right ventricular systolic pressure is 15 mmHg. Normal right atrial pressure. There is no evidence of pulmonary hypertension. Great Vessels All visible segments of the aorta are normal in size. The pulmonary artery was not well visualized. Venous The inferior vena cava is normal in size and collapses greater than 50% with inspiration. Pericardium/Pleural There is no evidence of pericardial effusion. Prior Study Comparison No significant change compared to prior study dated: 03/08/2021. Measurements 2D Linear Measurements IVSd: 0.49 0.6-0.9/0.6-1.0 cm LVIDd: 3.83 3.9-5.3/4.2-5.9 cm LVIDd Index: 2.76 2.4-3.2/2.2-3.1 cm/m2 LVIDs: 2.71 2.0-3.6 cm LVPWd: 0.51 0.7-1.1 cm LA Diam: 2.50 2.7-3.8/3.0-4.0 cm LAIDs Index: 1.80 1.5-2.3 cm/m2 LV Mass: 58.32 67-162/88-224 g LV Mass Index: 41.96 43-95/49-115 g/m2 LVOT Diam: 1.90 3.0+(-)1.3 cm 2D Systolic Function EF 4C: 56.80 >55% EF 2C: 60.50 >55% EF BiP: 59.20 >55% Mitral Valve MV Pk E: 1.15 MV PK A: 0.48 MV Decel Time: 114.00 E/A: 2.40 E'Lateral: 17.30 E'Medial: 12.90 E/E' Med: 8.90 E/E' Lat: 6.60 PHT: 34.00 MVA PHT: 6.47 [place]: 10.04 Aortic Valve AoV Pk [place]: 1.32 AoV Pk Grad: 7.00 PHIL: 2.50 LVOT LVOT Pk [place]: 1.16 LVOT Mn [place]: 0.77 LVOT VTI: 0.22 LVOT Pk Grad: 5.00 LVOT Mn Grad: 3.00 LVOT Diam: 1.90 LVOT Area: 2.84 Diastolic Function MV Pk E: 1.15 MV Pk A: 0.48 E/A: 2.40 E'Medial: 12.90 E/E' Med: 8.90 E' L[place]: 17.30 E/E' Lat: 6.60 Right Ventricle TAPSE (mm): 18.40 TVS' [place]: 11.70 Tricuspid Valve TR Pk [place]: 1.75 TR Pk Grad: 12.00 RA Press: 3.00 RVSP: 15.00 Great Vessels Aorta Sinus of Valsalva: 2.20 2.0-3.5 cm Ao Asc: 1.90 2.1-3.4 cm Pulmonary Veins Pulm Vein S/D 0.80 Pulmonary Valve PV Pk [place]: 0.70 Peak PV Grad: 2.00 Updated in Other Vendor System with Status of Final Feliz Carol MD electronically signed on 08/20/2022 8:45:18 AM with status of Final
--- NOTE | 2022-08-19 14:42 | HM_ITS ---
* Total monitoring time approximately 3 days. * Underlying rhythm is sinus. * Average ventricular rate 85/Min. Range 44 to 158/Min. About 24% of the time, rate > 100/Min. * Rare supraventricular and ventricular ectopy. * No significant pauses or AV blocks. * Chest tightness in patient diary correlates with sinus rhythm. MTDD
== END ==
LOC: HO.CARD 14:35
PROVIDERS: PCP Internal Medicine; Visit Provider Internal Medicine Cardiovascular Disease
DX: R00.2 Palpitations (principal)
CPT/HCPCS: 93242; 93306

== ENCOUNTER → 2022-09-19 15:34 | Outpatient (BNVA) | payer OTHER, SELFPAY | PROVIDERS: PCP Internal Medicine; Visit Provider Surgery | DX: N64.4 Mastodynia (principal) | CPT/HCPCS: 99212 ==

== ENCOUNTER 2022-10-02 10:09 | Outpatient (REF) | payer OTHER, SELFPAY ==
--- NOTE | ~2022-10-02 | XR_ITS ---
EXAMINATION: XR THORACIC SPINE CLINICAL INFORMATION: Pain. COMPARISON: None available. TECHNIQUE: 3 views of the thoracic spine were obtained. FINDINGS: There is maintained thoracic kyphosis. The vertebral heights and alignment is normal. There is minimal dextroscoliosis of dorsolumbar spine. No aggressive lytic or sclerotic process seen. The paravertebral soft tissues are normal. XR/XR thoracic spine 3V IMPRESSION: Mild dextroscoliosis of dorsolumbar spine. No visible acute fracture or dislocation seen. Minimal dextroscoliosis dorsolumbar spine. No visible acute fracture, dislocation or subluxation seen.
[2022-10-02 10:17] LABS: MANUAL DIFF FLAG NO
[2022-10-02 10:34] LABS: Basophils Percent Auto 0.3 % (0-2); Eosinophils Absolute Auto 0.1 X10*3/uL (0.0-0.4); Eosinophils Percent Auto 0.7 % (0-4); Hematocrit 42.1 % (37.0-47.0); Hemoglobin 13.3 g/dl (12.0-16.0); Imm Gran Abs Auto 0.02 X10*3/uL (0.00-0.03); Imm Gran Pct Auto 0.3 % (0.0-0.4); Lymphocytes Absolute Auto 1.6 X10*3/uL (1.2-4.9); Lymphocytes Percent Auto 23.4 % (20-40); Mean Corpuscular HGB Conc 31.6 g/dl (31.0-35.0); Mean Corpuscular Hemoglobin 25.4 pg (27.0-33.0); Mean Corpuscular Volume 80.5 fL (80.0-98.0); Mean Platelet Volume 9.4 fL (9.4-12.3); Monocytes Absolute Auto 0.5 X10*3/uL (0.1-1.2); Monocytes Percent Auto 6.4 % (2-11); Neutrophils Absolute Auto 4.8 x10*3/uL (2.0-8.3); Neutrophils Percent Auto 68.9 % (45-73); Platelet Count 332 X10*3/uL (160-400); Red Blood Count 5.23 X10*6/uL (4.20-5.50); Red Cell Distribution Width 13.5 % (11.0-16.0)
[2022-10-02 11:24] LABS: Appearance Urine Cloudy; Color Urine Yellow; Glucose Urine UA Negative (Negative); Leukocyte Esterase Urine Moderate (2+) (Negative); Nitrite Urine Negative (Negative); Specific Gravity - Urine 1.025 (1.005-1.025); UMIC TRIGGER UACC YES; Urine Blood Negative (Negative); Urine Ketones Trace mg/dL (Negative); Urine Protein Negative (Neg-Trace)
[2022-10-02 11:26] LABS: Alanine Aminotransferase 8 U/L (0-31); Albumin Level 4.8 g/dL (3.5-5.0); Alkaline Phosphatase 75 U/L (39-117); Anion Gap 11 (12-20); Aspartate Amino Transferase 17 U/L (5-31); Bilirubin Total 1.6 mg/dL (0.0-1.0); Blood Urea Nitrogen 13 mg/dL (9-16); Calcium 9.1 mg/dL (8.4-10.2); Carbon Dioxide 26 mmol/L (22-29); Chloride 105 mmol/L (96-108); Cholesterol 199 mg/dL; Estimated Glomerular Filt Rate > 60; Glucose Random 89 mg/dL (60-115); Potassium 4.2 mmol/L (3.3-5.1); Sodium 138 mmol/L (135-145); Total Protein 7.5 g/dL (6.5-8.0)
[2022-10-02 11:37] LABS: Bacteria Urine 3+ (None Seen); Hyaline Casts Urine 0-2 /LPF (0-2); UACC Culture Trigger YES
[2022-10-02 11:45] LABS: TSH reflex Free T4 1.96 uIU/mL (0.32-4.0); Vitamin D 25-OH Total 10.8 ng/mL (>30)
== END 2022-10-02 10:10 | disposition home or self-care (01) ==
LOC: HO.LAB 10:09
PROVIDERS: PCP Internal Medicine; Visit Provider Internal Medicine
DX: Z00.00 Encounter for general adult medical examination without abnormal findings (principal); E55.9 Vitamin D deficiency, unspecified; M54.6 Pain in thoracic spine
CPT/HCPCS: 36415; 72072; 80053; 81001; 82306; 82465; 84443; 85025; 87086

== ENCOUNTER 2022-11-27 09:51 | Emergency (ER) | payer OTHER, SELFPAY ==
--- NOTE | ~2022-11-27 | CT_ITS ---
EXAMINATION: CT ABDOMEN AND PELVIS WITHOUT CONTRAST CLINICAL INFORMATION: Right lower quadrant pain with question of appendicitis COMPARISON: Ultrasound pelvis 08/14/[address] abdomen pelvis 08/13/2021 TECHNIQUE: Multidetector volumetric imaging was performed from the superior aspect of the liver through the pubic symphysis. Sagittal and coronal reformatted images were obtained on the technologist's workstation. This CT examination was performed using dose optimization techniques as appropriate, variously including the following: *Automated exposure control *Adjustment of mA and/or kV according to patient size (this includes techniques or standardized protocols for targeted exams where dose is matched to indication/reason for exam; i.e. extremities or head) *Use of iterative reconstruction technique DLP: 272 mGy-cm FINDINGS: LUNG BASES: The visualized lung bases are unremarkable. LIVER, GALLBLADDER, AND BILIARY TREE: The liver is normal in size, shape, and attenuation. No focal hepatic lesion or biliary ductal dilatation is present. The gallbladder is unremarkable with no evidence of radiopaque gallstones, gallbladder wall thickening, or obvious pericholecystic inflammatory changes. PANCREAS: Unremarkable. SPLEEN: Unremarkable. ADRENAL GLANDS: Unremarkable. KIDNEYS AND URETERS: The kidneys are normal in size, shape, and attenuation. No hydronephrosis, hydroureter, or calculi seen. No perinephric stranding. BLADDER: Unremarkable. GASTROINTESTINAL TRACT: The small and large bowel are unremarkable. The appendix is none identified with certainty, but there is certainly no evidence of appendicitis. ABDOMINAL WALL: No significant hernia is appreciated. LYMPH NODES: No retroperitoneal lymphadenopathy. VASCULAR: Unremarkable. The left renal vein is retroaortic. PELVIC VISCERA: Unremarkable. OSSEOUS STRUCTURES: Unremarkable. CT/CT abdomen pelvis wo IV con IMPRESSION: A cause for the patient's abdominal pain has not been found. The appendix is not identified but there is no evidence of appendicitis. Fleischner guidelines were followed.
[2022-11-27 10:22] VITALS: BP 133/83; PULSE 93; RESP 18; TEMP 36.7; O2SAT 100; BMI 19.8
[2022-11-27 11:38] LABS: MANUAL DIFF FLAG NO
[2022-11-27 11:43] LABS: Basophils Percent Auto 0.4 % (0-2); Eosinophils Percent Auto 0.4 % (0-4); Hemoglobin 13.4 g/dl (12.0-16.0); Imm Gran Abs Auto 0.01 X10*3/uL (0.00-0.03); Imm Gran Pct Auto 0.2 % (0.0-0.4); Lymphocytes Absolute Auto 0.9 X10*3/uL (1.2-4.9); Lymphocytes Percent Auto 15.9 % (20-40); Mean Corpuscular HGB Conc 31.2 g/dl (31.0-35.0); Mean Corpuscular Hemoglobin 25.2 pg (27.0-33.0); Mean Corpuscular Volume 80.8 fL (80.0-98.0); Mean Platelet Volume 9.2 fL (9.4-12.3); Monocytes Absolute Auto 0.3 X10*3/uL (0.1-1.2); Monocytes Percent Auto 5.3 % (2-11); Neutrophils Absolute Auto 4.4 x10*3/uL (2.0-8.3); Neutrophils Percent Auto 77.8 % (45-73); Platelet Count 316 X10*3/uL (160-400); Red Blood Count 5.32 X10*6/uL (4.20-5.50); Red Cell Distribution Width 13.3 % (11.0-16.0); White Blood Count 5.7 X10*3/uL (4.8-10.8)
[2022-11-27 12:07] LABS: Alanine Aminotransferase 8 U/L (0-31); Albumin Level 4.7 g/dL (3.5-5.0); Alkaline Phosphatase 68 U/L (39-117); Anion Gap 13 (12-20); Aspartate Amino Transferase 17 U/L (5-31); Bilirubin Direct 0.6 mg/dL (0.0-0.5); Bilirubin Total 2.3 mg/dL (0.0-1.0); Blood Urea Nitrogen 8 mg/dL (9-16); Calcium 10.4 mg/dL (8.4-10.2); Carbon Dioxide 27 mmol/L (22-29); Chloride 105 mmol/L (96-108); Creatinine Clr Calc Pharmacy 79.8; Estimated Glomerular Filt Rate > 60; Glucose Random 88 mg/dL (60-115); HCG Quantitative < 2 mIU/mL; Magnesium 2.1 mg/dL (1.6-2.6); Potassium 4.5 mmol/L (3.3-5.1); Sodium 140 mmol/L (135-145); Total Protein 7.3 g/dL (6.5-8.0)
[2022-11-27 15:28] VITALS: BP 115/55; PULSE 76; RESP 17; TEMP 36.9; O2SAT 97
--- NOTE | 2022-11-27 16:20 | ED_ITS ---
HPI - Abdominal Pain General Chief Complaint: Abdominal Pain Stated Complaint: ? Appendicitis Time Seen by Provider: 11/27/22 15:16 Source: patient Mode of arrival: ambulatory Limitations: no limitations History of Present Illness HPI narrative: Patient with Chronic abdominal pain diagnosed with IBS followed by GI complaint here for 10 days of lower abdominal no diarrhea no nausea no vomiting no fever or chills patient had multiple CT scan the past which were negative Related Data Previous Rx's Medication Instructions Recorded dicyclomine 20 mg tablet 20 mg PO QID PRN abdominal pain 11/27/22 #20 tabs Allergies Allergy/AdvReac Type Severity Reaction Status Date / Time diphenhydramine Allergy Severe Chest Verified 11/27/22 09:27 [From Benadryl] Pain, hard to breath Review of Systems Review of Systems Yes all other systems are reviewed and are negative PMFSH Past Medical History Medical History Chronic abdominal pain Inguinal pain of both sides Insomnia Palpitations POTS (postural orthostatic tachycardia syndrome) Surgical History No significant past surgical history Family History Family History Mother No problems noted. Father No problems noted. 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 Oriented X3. No acute distress. ENT: Pharynx normal. Oral Mucosa moist Neck: Normal inspection. Neck supple. CVS: Normal heart rate and rhythm. Pulses normal. Respiratory: No respiratory distress. Equal air entry bilateral, no wheezing/rales/rhonchi Abdomen: Soft mild deep tenderness lower abdomen bilateral no rebound tenderness guarding Bowel sounds are present, no mass palpable, no CVA tenderness Skin: Skin warm and dry. Normal skin color. Normal skin turgor. Extremities: No lower extremity edema. No calf tenderness Neuro: Oriented X 3. Medical Decision Making Medical Decision Making MDM Narrative: Patient's CT scan negative for acute labs are stable likely has IBS-discharge patient on dicyclomine Lab Data [facility] Lab Attestation statement: I reviewed the patient's lab results. 11/27/22 11:35 11/27/22 11:35 Labs: Lab Results 11/27/22 11/27/22 11/27/22 Range/Units 11:35 11:35 16:09 WBC 5.7 (4.8-10.8) X10*3/uL RBC 5.32 (4.20-5.50) X10*6/uL Hgb 13.4 (12.0-16.0) g/dl Hct 43.0 (37.0-47.0) % MCV 80.8 (80.0-98.0) fL MCH 25.2 L (27.0-33.0) pg MCHC 31.2 (31.0-35.0) g/dl RDW 13.3 (11.0-16.0) % Plt Count 316 (160-400) X10*3/uL MPV 9.2 L (9.4-12.3) fL Immature Gran % (Auto) 0.2 (0.0-0.4) % Neut % (Auto) 77.8 H (45-73) % Lymph % (Auto) 15.9 L (20-40) % [place] % (Auto) 5.3 (2-11) % Eos % (Auto) 0.4 (0-4) % Baso % (Auto) 0.4 (0-2) % Lymph # (Auto) 0.9 L (1.2-4.9) X10*3/uL [place] # (Auto) 0.3 (0.1-1.2) X10*3/uL Eos # (Auto) 0.0 (0.0-0.4) X10*3/uL Baso # (Auto) 0.0 (0.0-0.2) X10*3/uL Abs Immat Gran (auto) 0.01 (0.00-0.03) X10*3/uL Absolute Neuts (auto) 4.4 (2.0-8.3) x10*3/uL Absolute Nucleated RBC 0.000 (0.0-0.012) X10*3/uL Nucleated RBC % (auto) 0.0 (0.0-0.2) /100WBC Sodium 140 (135-145) mmol/L Potassium 4.5 (3.3-5.1) mmol/L Chloride 105 (96-108) mmol/L Carbon Dioxide 27 (22-29) mmol/L Anion Gap 13 (12-20) BUN 8 L (9-16) mg/dL Creatinine 0.78 (0.5-1.4) mg/dL Estim Creat Clear Calc 79.8 Estimated GFR > 60 Random Glucose 88 (60-115) mg/dL Calcium 10.4 H D (8.4-10.2) mg/dL Magnesium 2.1 (1.6-2.6) mg/dL Total Bilirubin 2.3 H (0.0-1.0) mg/dL Direct Bilirubin 0.6 H (0.0-0.5) mg/dL AST 17 (5-31) U/L ALT 8 (0-31) U/L Alkaline Phosphatase 68 (39-117) U/L Total Protein 7.3 (6.5-8.0) g/dL Albumin 4.7 (3.5-5.0) g/dL Beta HCG, Quant < 2 mIU/mL Urine Color Yellow Urine Appearance Clear Urine pH 7.5 (5.0-9.0) Ur Specific [place] 1.020 (1.005-1.025) Urine Protein Trace (Neg-Trace) mg/dL Urine Glucose (UA) Negative (Negative) mg/dL Urine Ketones 80 (Negative) mg/dL Urine Blood Negative (Negative) Urine Nitrite Negative (Negative) Ur Leukocyte Esterase Moderate (2+) H (Negative) Urine RBC 3-5 H (0-2) /HPF Urine WBC 6-10 H (0-5) /HPF Ur Squamous Epith Cells 6-10 (0-2) /HPF Urine Bacteria 1+ (None Seen) Hyaline Casts 0-2 (0-2) /LPF Medications Administered Discontinued Medications Generic Name Dose Route Start Last Admin Trade Name Freq PRN Reason Stop Dose Admin Dicyclomine HCl 20 mg 11/27/22 16:20 11/27/22 17:04 Dicyclomine Hcl 10 Mg Capsule PO 11/27/22 16:21 20 mg ONCE ONE Administration Discharge Plan Discharge Clinical Impression: Irritable bowel syndrome Patient Disposition: Home, Self-Care Instructions: Irritable Bowel Syndrome (ED) Additional Instructions: drink plenty of fluids bentyl for severe pain have increase fibers in food follow up with GI Prescriptions: New dicyclomine 20 mg tablet 20 mg PO QID PRN (Reason: abdominal pain) Qty: 20 0RF Interventions: ED Discharge Assessment Last Done: 11/27/22 17:07
[2022-11-27 16:22] LABS: Appearance Urine Clear; Color Urine Yellow; Glucose Urine UA Negative (Negative); Leukocyte Esterase Urine Moderate (2+) (Negative); Nitrite Urine Negative (Negative); PH 7.5 (5.0-9.0); UMIC TRIGGER UACC YES; Urine Blood Negative (Negative); Urine Ketones 80 mg/dL (Negative); Urine Protein Trace mg/dL (Neg-Trace)
[2022-11-27 16:24] LABS: Bacteria Urine 1+ (None Seen); Hyaline Casts Urine 0-2 /LPF (0-2); UACC Culture Trigger YES
[2022-11-27] MEDS: Dicyclomine HCl 10 MG CAPSULE 20 MG PO (17:04)
== END 2022-11-27 17:07 | disposition home or self-care (01) ==
PROVIDERS: Physician Assistant; Emergency Provider Internal Medicine; PCP Internal Medicine
DX: K58.9 Irritable bowel syndrome, unspecified (principal); R10.30 Lower abdominal pain, unspecified; Z79.899 Other long term (current) drug therapy
CPT/HCPCS: 36415; 74176; 80048; 80076; 81001; 83735; 84702; 85025; 87086; 99284

== ENCOUNTER 2023-01-01 16:51 | Outpatient (REF) | payer OTHER, SELFPAY | END 2023-01-01 16:52 | disposition home or self-care (01) | LOC: HO.LAB 16:51 | PROVIDERS: Visit Provider Nurse Practitioner Family | DX: R30.0 Dysuria (principal) | CPT/HCPCS: 87086 ==

== ENCOUNTER 2023-01-30 12:04 | Outpatient (REF) | payer OTHER, SELFPAY ==
[2023-01-30 13:35] LABS: Appearance Urine Clear; Color Urine Yellow; Glucose Urine UA Negative (Negative); Leukocyte Esterase Urine Trace (Negative); Nitrite Urine Negative (Negative); PH 7.5 (5.0-9.0); UMIC TRIGGER UACC YES; Urine Blood Negative (Negative); Urine Ketones Negative (Negative); Urine Protein Trace mg/dL (Neg-Trace)
[2023-01-30 13:40] LABS: Bacteria Urine 1+ (None Seen); Hyaline Casts Urine 0-2 /LPF (0-2); RBC Urine 0-2 /HPF (0-2); WBC Urine 0-5 /HPF (0-5)
== END 2023-01-30 12:05 | disposition home or self-care (01) ==
LOC: HO.LAB 12:04
PROVIDERS: Physician Assistant; PCP Internal Medicine; Visit Provider Internal Medicine
DX: R30.0 Dysuria (principal)
CPT/HCPCS: 81001

== ENCOUNTER 2023-06-05 13:45 | Outpatient (AMB) | payer OTHER, SELFPAY ==
[2023-06-05 13:50] VITALS: BMI 19.8
--- NOTE | 2023-06-05 13:50 | MHC.OFFVIS ---
Intake Vital Signs 06/05/23 13:50 Height 5 ft Weight 101 lb 6.602 oz BMI 19.8 Intake Visit Reasons: ? BV Explosive Ordnance Specialist Required: No Information Interpreted: non-clinical & clinical Screen Handler: Screen Handler Present (Pita ZAVALA) Accompanied by: Self / Same As Patient Allergies diphenhydramine [From Benadryl] Allergy (Severe, Verified 06/05/23 13:51) Chest Pain, hard to breath Is last menstrual period known: Yes Last menstrual period: 05/25/23 HPI HPI Comments History of Present Illness Details The patient is presenting complaining of vulvovaginal irritation and itching associated with vaginal discharge and no odor, no other concerns PFSH Medical History Insomnia Chronic abdominal pain POTS (postural orthostatic tachycardia syndrome) Palpitations Inguinal pain of both sides Surgical History No significant past surgical history Family History Mother No problems noted. Father No problems noted. 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 Sexual orientation: Straight/Heterosexual Gender identity: Female Cognitive needs: No Hearing needs: No Vision needs: No Female Reproductive History Menstrual Age of Menarche: 10 Date of last menstrual period: 05/25/23 Review of Systems Const All systems reviewed & are unremarkable except as noted in HPI and below Physical Exam Vital Signs: BMI result Body Mass Index 19.8 General: Yes no CVA tenderness External Female Exam: normal external appearance and normal appearance of the urethra Speculum Exam - Vagina: normal appearance of the vagina, normal palpation, no lesions and no masses Speculum Exam - Cervix: normal appearance of the cervix, normal palpation, no lesions, no masses and nontender Bimanual exam- vagina & uterus: normal bimanual exam, normal palpation, uterine size normal, normal palpation, uterine shape normal, No Cervical tenderness present and non-tender Bimanual Exam- Adnexa, other: normal adnexae Back/Spine/Pelvis Back: no CVA tenderness Assessment & Plan Assessment & Plan (1) Candidal vulvovaginitis: Code(s): B37.31 - Acute candidiasis of vulva and vagina Plan: GC/CT, Bacterial Vaginosis panel taken, Terazol 0.8% q.h.s. for 3 days was sent to the patient's pharmacy. The patient was instructed to call if symptoms don't improve in 48 hours. Medications: New terconazole 0.8% 1 appful vaginal BEDTIME 20 grams 0RF 3 days Coding Level of Care Code Est Pt Level 3 (83586) Diagnoses Candidal vulvovaginitis B37.31
== END 2023-06-05 14:49 | disposition home or self-care (01) ==
PROVIDERS: PCP Internal Medicine; Visit Provider Obstetrics & Gynecology
DX: B37.31 Acute candidiasis of vulva and vagina (principal)
CPT/HCPCS: 99213

== ENCOUNTER 2023-06-05 13:45 | Outpatient (REF) | payer OTHER, SELFPAY ==
[2023-06-05 17:44] LABS: CT PCR NOT DETECTED (Not Detect.); NG PCR NOT DETECTED (Not Detect.)
[2023-06-06 08:58] LABS: BV Int Neg Control Negative (Negative); BV Int Pos Control Positive (Positive)
== END 2023-06-05 13:46 | disposition home or self-care (01) ==
LOC: HO.LNP 13:45
PROVIDERS: PCP Internal Medicine; Visit Provider Obstetrics & Gynecology
DX: B37.31 Acute candidiasis of vulva and vagina (principal)
CPT/HCPCS: 0353U; 87480; 87510; 87660

== ENCOUNTER 2023-06-07 09:49 | Outpatient (REF) | payer OTHER, SELFPAY ==
[2023-06-07 11:20] LABS: HBsAGNum1 0.31 S/CO (0.00-0.99); HIV AB/AG Nonreactive (Nonreactive); HIV Num 1 0.05 S/CO (0.00-0.99); Hepatitis B Surface Antigen Negative (Negative); ~HepC Num1 0.09 S/CO (0.00-0.79); ~Hepatitis C Antibody Nonreactive (Nonreactive)
[2023-06-09 03:31] LABS: Syphilis Screen Nonreactive (Nonreactive)
== END 2023-06-07 09:50 | disposition home or self-care (01) ==
LOC: HO.LAB 09:49
PROVIDERS: PCP Internal Medicine; Visit Provider Obstetrics & Gynecology
DX: Z20.2 Contact with and (suspected) exposure to infections with a predominantly sexual mode of transmission (principal)
CPT/HCPCS: 36415; 86780; 86803; 87340; 87389

== ENCOUNTER 2023-07-30 04:22 | Emergency (ER) | payer OTHER, SELFPAY ==
--- NOTE | 2023-07-30 | ECG_ITS ---
Test Reason : CHEST PAIN Blood Pressure : / mmHG Vent. Rate : 087 BPM Atrial Rate : 087 BPM P-R Int : 124 ms QRS Dur : 076 ms QT Int : 362 ms P-R-T Axes : 075 097 011 degrees QTc Int : 435 ms Normal sinus rhythm Rightward axis Nonspecific ST and T wave abnormality Abnormal ECG When compared with ECG of 02-JUN-2022 15:54, Non-specific change in ST segment in Anterior leads Referred By: Generic ED Physician Electronically Signed By:ABILIO QUEVEDO MD
--- NOTE | ~2023-07-30 | US_ITS ---
EXAMINATION: US PELVIS CLINICAL INFORMATION: Left lower quadrant tenderness COMPARISON: CT abdomen pelvis 11/27/2022 TECHNIQUE: Ultrasound of the pelvis is performed using both transabdominal and transvaginal transducers along with Doppler. Transvaginal imaging is performed due to inadequate visualization transabdominally. FINDINGS: Uterus: The uterus is anteverted and measures 8.2 x 3.1 x 4.5 cm. The double wall endometrial thickness is 11 mm. The uterus is smooth in contour and has normal myometrial echogenicity. No visible fibroid. Adnexa: Both ovaries are visualized. There is normal color flow to the adnexa. There is no ovarian torsion. There is no pelvic ascites or fluid collection. Right ovary measures 2.8 x 2.2 x 1.8 cm. Left ovary measures 3.8 x 3.0 x 2.6 cm. A corpus luteum cyst measuring 2.1 x 1.5 x 2.1 cm is present. US/US pelvic and transvaginal IMPRESSION: Negative exam.
[2023-07-30 04:35] VITALS: BP 139/77; PULSE 108; RESP 18; TEMP 36.8; O2SAT 98; BMI 20.5
[2023-07-30 04:58] LABS: MANUAL DIFF FLAG NO
[2023-07-30 04:59] LABS: Basophils Percent Auto 0.4 % (0-2); Eosinophils Absolute Auto 0.1 X10*3/uL (0.0-0.4); Eosinophils Percent Auto 1.2 % (0-4); Hematocrit 41.5 % (37.0-47.0); Hemoglobin 13.5 g/dl (12.0-16.0); Imm Gran Abs Auto 0.01 X10*3/uL (0.00-0.03); Imm Gran Pct Auto 0.1 % (0.0-0.4); Lymphocytes Absolute Auto 2.3 X10*3/uL (1.2-4.9); Lymphocytes Percent Auto 33.2 % (20-40); Mean Corpuscular HGB Conc 32.5 g/dl (31.0-35.0); Mean Corpuscular Hemoglobin 26.2 pg (27.0-33.0); Mean Corpuscular Volume 80.4 fL (80.0-98.0); Mean Platelet Volume 9.2 fL (9.4-12.3); Monocytes Absolute Auto 0.3 X10*3/uL (0.1-1.2); Monocytes Percent Auto 4.9 % (2-11); Neutrophils Absolute Auto 4.2 x10*3/uL (2.0-8.3); Neutrophils Percent Auto 60.2 % (45-73); Platelet Count 337 X10*3/uL (160-400); Red Blood Count 5.16 X10*6/uL (4.20-5.50); Red Cell Distribution Width 12.5 % (11.0-16.0); White Blood Count 6.9 X10*3/uL (4.8-10.8)
[2023-07-30 05:01] LABS: Appearance Urine Cloudy; Color Urine Yellow; Glucose Urine UA Negative (Negative); Leukocyte Esterase Urine Small (1+) (Negative); Nitrite Urine Negative (Negative); PH 6.5 (5.0-9.0); Specific Gravity - Urine <= 1.005 (1.005-1.025); UMIC TRIGGER UACC YES; Urine Blood Negative (Negative); Urine Ketones Negative (Negative); Urine Protein Negative (Neg-Trace)
[2023-07-30 05:02] LABS: UPreg QC Valid YES; Urine Pregnancy NEGATIVE (NEGATIVE)
[2023-07-30 05:09] LABS: Bacteria Urine None Seen (None Seen); Hyaline Casts Urine 0-2 /LPF (0-2); RBC Urine 0-2 /HPF (0-2); UACC Culture Trigger YES; WBC Urine 0-5 /HPF (0-5)
[2023-07-30 05:15] LABS: Alanine Aminotransferase 8 U/L (0-31); Albumin Level 4.4 g/dL (3.5-5.0); Alkaline Phosphatase 79 U/L (39-117); Anion Gap 16 (12-20); Aspartate Amino Transferase 16 U/L (5-31); Bilirubin Direct 0.2 mg/dL (0.0-0.5); Bilirubin Total 0.7 mg/dL (0.0-1.0); Blood Urea Nitrogen 8 mg/dL (9-16); Calcium 9.3 mg/dL (8.4-10.2); Carbon Dioxide 20 mmol/L (22-29); Chloride 107 mmol/L (96-108); Creatinine Clr Calc Pharmacy 88.2; Estimated Glomerular Filt Rate > 60; Glucose Random 99 mg/dL (60-115); Lipase 42 U/L (8-78); Potassium 3.4 mmol/L (3.3-5.1); Sodium 140 mmol/L (135-145); Total Protein 7.4 g/dL (6.5-8.0)
--- NOTE | 2023-07-30 06:19 | ED_ITS ---
HPI - General Adult General Chief complaint: Abdominal Pain Stated complaint: abd pain Time Seen by Provider: 07/30/23 06:18 Source: patient Mode of arrival: ambulatory Limitations: no limitations History of Present Illness HPI narrative: Patient is a 23-year-old female with history chronic abdominal pain, POTS, insomnia presenting to the emergency department with complaint of epigastric abdominal pain for three days, becoming intense overnight and waking her from sleep, radiating into chest. Denies vomiting, diarrhea, constipation. Reports some nausea which is new since arrival to ED. Denies dysuria, frequency, hematuria or other urinary symptoms. Denies back or flank pain. Denies fever, cough, shortness of breath. Has not taken any OTC medications for her symptoms. Denies sick contacts. MD complaint: abdominal pain Onset (ago): day(s) Radiation: abdomen Severity: severe Quality: burning Pain Consistency: constant Relieving factors: none Exacerbating factors: none Associated symptoms: nausea/vomiting (Reports nausea, denies vomiting) Treatments prior to arrival: none Related Data Previous Rx's Medication Instructions Recorded lidocaine HCl 2 % mucosal solution 1 appl mucous membrane BID PRN 01/01/23 (Lidocaine Viscous) pain 7 days #100 mL terconazole 0.8 % vaginal cream 1 appful vaginal BEDTIME 3 days 06/05/23 #20 grams metronidazole 500 mg tablet 500 mg PO BID 7 days #14 tabs 06/06/23 famotidine 20 mg tablet 20 mg PO BID #28 tabs 07/30/23 Allergies Allergy/AdvReac Type Severity Reaction Status Date / Time diphenhydramine Allergy Severe Chest Verified 07/30/23 04:38 [From Benadryl] Pain, hard to breath Review of Systems 2 Review of Systems: As per HPI. Yes all other systems are reviewed and are negative Constitutional: Constitutional: Reports as per HPI [facility] Past Medical History Onset Date is defined in the Problem List Problems that require an onset date and time if occurred within 24 hrs of arrival to the ED Aortic Dissection and Rupture; Neurologic impairment; Cardiopulmonary Arrest; Endotracheal Intubation; Insertion or Replacement of Mechanical Circulatory Assist Device Medical History Insomnia Chronic abdominal pain POTS (postural orthostatic tachycardia syndrome) Palpitations Inguinal pain of both sides Surgical History No significant past surgical history Family History Family History Mother No problems noted. Father No problems noted. 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 Blood pressure normal. Heart rate mildly tachycardic. Respiratory rate normal. Temperature normal. Oxygen saturation normal. Const General: cooperative, healthy appearing and no acute distress Orientation/consciousness: oriented to person, oriented to place, oriented to time and patient oriented x3 Limitations: no limitations HENMT Head: Yes normocephalic and Yes atraumatic Ears: external ears normal General nose exam: Normal external nose present Face and sinus: Yes face symmetric Mouth: oropharynx normal and moist mucous membranes Throat: Yes uvula midline Eyes Pupils: Equal, round and reactive pupils present Neck Neck: Yes normal visual inspection and Yes supple Resp Effort & Inspection: normal respiratory effort and able to speak in complete sentences Auscultation: clear to auscultation bilaterally Cardio Rate: regular rate Rhythm: regular rhythm Heart sounds: S1 normal heart sound present and S2 normal heart sound present GI Inspection: Yes normal to inspection Palpation (GI): Soft to palpation and Tenderness to palpation present (GI) in the LLQ Auscultation: normoactive bowel sounds General: Yes no CVA tenderness Back/Spine/Pelvis Back: no CVA tenderness Skin General skin exam: elasticity normal and turgor normal Neuro General: oriented to person, oriented to place, oriented to time, patient oriented x3, moves all extremities, no focal motor deficits and CN's II-XI intact bilaterally Cranial nerves: Yes Equal, round and reactive pupils present Cognition (Neuro): normal cognition Extrem General: Yes full ROM, Yes no pedal edema and Yes no calf tenderness Psych Mental Status: mental status grossly normal Affect: normal affect Thought process: Normal thought process present Medications Administered Discontinued Medications Generic Name Dose Route Start Last Admin Trade Name Dottie PRN Reason Stop Dose Admin Al Hydroxide/Mg Hydroxide 30 ml 07/30/23 06:29 07/30/23 06:48 Magnesium Hydrox/Alum Hydrox 30 Ml Oral.Susp PO 07/30/23 06:30 30 ml ONCE ONE Administration Lidocaine HCl 5 ml 07/30/23 06:29 07/30/23 06:48 Lidocaine Hcl Viscous 2 % 15 Ml Solution MUCOUS MEM 07/30/23 06:30 5 ml ONCE ONE Administration Medical Decision Making Medical Decision Making MDM Narrative: Patient is a 23-year-old female with history chronic abdominal pain, POTS, insomnia presenting to the emergency department with complaint of epigastric abdominal pain for three days, becoming intense overnight and waking her from sleep, radiating into chest. On exam patient is awake, A+Ox3, mildly tachycardic, VS otherwise WNL, afebrile, normal neurological exam without focal deficits, physical exam findings as above. Given reported symptoms and physical exam findings, initial differential includes GERD, PUD, gastritis, diverticulitis, ovarian cyst, uterine fibroid. Do not suspect ovarian torsion. Unlikely ACS but will obtain troponin as EKG shows normal sinus rhythm with T wave inversion in lead III, aVF, V1 Labs notable for no leukocytosis, no anemia, no significant electrolyte abnormalities. UA notable for 1+ leukocytes, no WBCs or bacteria, negative . Unlikely UTI as patient denies urinary complaints. Discussed imaging with patient who would prefer to defer CT at this time reporting significant history of imaging and concern for additional radiation. Will medicate at this time and order ultrasound. Will check troponin. U/S notable for no evidence of ovarian cyst. My interpretation is in agreement with the radiologist's interpretation. Negative troponin. Results discussed with patient, continues to decline CT scan. Feel symptoms are likely due to GERD vs PUD. Will start patient on famotidine, refer to GI. Return precautions discussed with patient. Patient verbalized understanding of and agreement with plan. Differential Diagnosis Differential Diagnoses: The differential diagnosis associated with the presentation includes As per [facility] Admission/Observation Consideration of admission/observation: Escalation of care including admission/observation considered Lab Data [facility] Lab Attestation statement: I reviewed the patient's lab results. As per [facility] 07/30/23 04:50 07/30/23 04:50 Labs: Lab Results 07/30/23 07/30/23 07/30/23 Range/Units 04:50 04:51 07:30 WBC 6.9 (4.8-10.8) X10*3/uL RBC 5.16 (4.20-5.50) X10*6/uL Hgb 13.5 (12.0-16.0) g/dl Hct 41.5 (37.0-47.0) % MCV 80.4 (80.0-98.0) fL MCH 26.2 L (27.0-33.0) pg MCHC 32.5 (31.0-35.0) g/dl RDW 12.5 (11.0-16.0) % Plt Count 337 (160-400) X10*3/uL MPV 9.2 L (9.4-12.3) fL Immature Gran % (Auto) 0.1 (0.0-0.4) % Neut % (Auto) 60.2 (45-73) % Lymph % (Auto) 33.2 (20-40) % [place] % (Auto) 4.9 (2-11) % Eos % (Auto) 1.2 (0-4) % Baso % (Auto) 0.4 (0-2) % Lymph # (Auto) 2.3 (1.2-4.9) X10*3/uL [place] # (Auto) 0.3 (0.1-1.2) X10*3/uL Eos # (Auto) 0.1 (0.0-0.4) X10*3/uL Baso # (Auto) 0.0 (0.0-0.2) X10*3/uL Abs Immat Gran (auto) 0.01 (0.00-0.03) X10*3/uL Absolute Neuts (auto) 4.2 (2.0-8.3) x10*3/uL Absolute Nucleated RBC 0.000 (0.0-0.012) X10*3/uL Nucleated RBC % (auto) 0.0 (0.0-0.2) /100WBC Sodium 140 (135-145) mmol/L Potassium 3.4 (3.3-5.1) mmol/L Chloride 107 (96-108) mmol/L Carbon Dioxide 20 L (22-29) mmol/L Anion Gap 16 (12-20) BUN 8 L (9-16) mg/dL Creatinine 0.70 (0.5-1.4) mg/dL Estim Creat Clear Calc 88.2 Estimated GFR > 60 Random Glucose 99 (60-115) mg/dL Calcium 9.3 D (8.4-10.2) mg/dL Total Bilirubin 0.7 (0.0-1.0) mg/dL Direct Bilirubin 0.2 (0.0-0.5) mg/dL AST 16 (5-31) U/L ALT 8 (0-31) U/L Alkaline Phosphatase 79 (39-117) U/L Troponin I High Sens < 2.7 (<3.5-17.0) ng/L Total Protein 7.4 (6.5-8.0) g/dL Albumin 4.4 (3.5-5.0) g/dL Lipase 42 (8-78) U/L Urine Color Yellow Urine Appearance Cloudy Urine pH 6.5 (5.0-9.0) Ur Specific [place] <= 1.005 (1.005-1.025) Urine Protein Negative (Neg-Trace) mg/dL Urine Glucose (UA) Negative (Negative) mg/dL Urine Ketones Negative (Negative) mg/dL Urine Blood Negative (Negative) Urine Nitrite Negative (Negative) Ur Leukocyte Esterase Small (1+) H (Negative) Urine RBC 0-2 (0-2) /HPF Urine WBC 0-5 (0-5) /HPF Ur Squamous Epith Cells 3-5 (0-2) /HPF Urine Bacteria None Seen (None Seen) Hyaline Casts 0-2 (0-2) /LPF Urine Test NEGATIVE (NEGATIVE) Independent Interpretation I performed an independent interpretation of an: EKG (normal sinus rhythm, rate 87 bpm, normal OR and QT intervals) and Ultrasound Interpretation: No evidence of ovarian cyst or uterine fibroids on U/S, no torsion Radiology Impression Discussion of test interpretation with radiology: I have reviewed the radiologist's reading. Radiologist Impression: US/US pelvic and transvaginal IMPRESSION: Negative exam. External Record Review External record reviewed: Inpatient record, Office record and Outpatient record Prescription Management I considered prescription management with: Other Discharge Plan Discharge Clinical Impression: Acute epigastric pain Patient Disposition: Home, Self-Care Instructions: Epigastric Pain (ED) Additional Instructions: You were evaluated in the emergency department today for epigastric pain, nausea which is most likely due to irritation of the lining of your stomach. You are being prescribed famotidine to begin taking daily. You can also use Mylanta, which is available over the counter, to help manage your symptoms. Avoid spicy or acidic foods. You are being referred to gastroenterology for further evaluation and management, please call their office to schedule an appointment. Please follow up with your primary care physician within two days. Return to the emergency department if you experience shortness of breath, worsening or uncontrolled abdominal pain, chest pain, light headedness, faiting, persistent nausea and vomiting, bloody vomit or stools, black, tarry stools, or any other concerning symptoms. Prescriptions: New famotidine 20 mg tablet 20 mg PO BID Qty: 28 0RF No Action metronidazole 500 mg tablet 500 mg PO BID 7 Days Qty: 14 0RF lidocaine HCl [Lidocaine Viscous] 2 % solution 1 appl mucous membrane BID PRN (Reason: pain) 7 Days Qty: 100 0RF terconazole 0.8 % cream 1 appful vaginal BEDTIME 3 Days Qty: 20 0RF Referrals: [facility] [Provider Group]
[2023-07-30] MEDS: Magnesium Hydrox/Alum Hydrox 30 ML ORAL.SUSP PO (06:48)
[2023-07-30] MEDS: Lidocaine HCl Viscous 2 % 15 ML SOLUTION 5 ML MUCOUS MEM (06:48)
[2023-07-30 07:58] LABS: Troponin-I High Sensitivity < 2.7 ng/L (<3.5-17.0)
== END 2023-07-30 09:04 | disposition home or self-care (01) ==
PROVIDERS: Registered Nurse Emergency; Emergency Provider Internal Medicine; PCP Internal Medicine
DX: R10.13 Epigastric pain (principal); R07.9 Chest pain, unspecified
CPT/HCPCS: 36415; 76830; 76856; 80053; 81001; 81025; 82248; 83690; 84484; 85025; 87086; 87147; 93005; 99284; 99285

== ENCOUNTER → 2023-07-30 04:41 | Outpatient (BNV) | payer OTHER, SELFPAY | PROVIDERS: Emergency Provider Internal Medicine; PCP Internal Medicine; Visit Provider Internal Medicine Cardiovascular Disease | DX: R07.9 Chest pain, unspecified (principal); R94.31 Abnormal electrocardiogram [ECG] [EKG] | CPT/HCPCS: 93010 ==

== ENCOUNTER 2023-08-05 15:08 | Outpatient (AMB) | payer OTHER, SELFPAY ==
[2023-08-05 15:36] VITALS: BP 110/68; BMI 20.2
--- NOTE | 2023-08-05 15:36 | MHC.OFFVIS ---
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 Complaining of heavy menstrual cycle associated with passage of blood clots last 2 months Last Pap smear was in 06/10 was negative [facility] Medical History Insomnia Chronic abdominal pain POTS (postural orthostatic tachycardia syndrome) Palpitations Inguinal pain of both sides Surgical History No significant past surgical history Family History Mother No problems noted. Father No problems noted. 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 Sexually active: No Sexual orientation: Straight/Heterosexual Gender identity: Female Cognitive needs: No Hearing needs: No Vision needs: No Female Reproductive History Menstrual Age of Menarche: 10 Date of last menstrual period: 07/03/23 control method: none Total pregnancies: 0 Review of Systems Const All systems reviewed & are unremarkable except as noted in HPI and below Card Reports as per HPI Resp Reports as per HPI GI Reports as per HPI and Reports no additional complaints Reports as per HPI Physical Exam Vital Signs: Last Vital Signs BP 110/68 08/05/23 15:36 BMI result Body Mass Index 20.2 Const General: cooperative, healthy appearing and comfortable Chest Chest palpation & inspection: normal inspection of the chest and normal palpation of entire chest wall Breast/axilla inspection: normal inspection of the breasts and normal inspection of the axillae Breast/axilla palpation: normal palpation of the breasts, normal palpation of the axillae and no axillary lymphadenopathy Resp Effort & Inspection: normal respiratory effort Auscultation: clear to auscultation bilaterally Percussion: percussion normal Cardio Palpation: normal PMI Rate: regular rate Rhythm: regular rhythm Heart sounds: no murmurs and no rubs Peripheral pulses: Peripheral pulses 2+ throughout GI Inspection: Yes normal to inspection Palpation (GI): Soft to palpation, nontender, no guarding, not rigid and No hepatosplenomegaly present Percussion: Yes normal to percussion Auscultation: normal bowel sounds Rectal Exam - Female: deferred General: Yes bladder normal to palpation External Female Exam: No lesion Speculum Exam - Vagina: normal appearance of the vagina, normal palpation, normal vaginal discharge and not erythematous Speculum Exam - Cervix: normal appearance of the cervix and normal palpation Bimanual exam- vagina & uterus: normal bimanual exam, normal palpation, uterine size normal, bladder normal to palpation, consistency normal and normal palpation Bimanual Exam- Adnexa, other: normal adnexae, no masses and no tenderness Assessment & Plan Assessment & Plan (1) Well woman exam: Code(s): Z01.419 - Encounter for gynecological examination (general) (routine) without abnormal findings Plan: Pap smear not indicated this year. GC/CT taken. Counseled the patient about the recommended dietary allowance of 1000 mg of Calcium & 600 IU of vitamin D. The patient was instructed to perform monthly self-breast exams , to call for any changes in menstrual patterns and to schedule an annual exam in a year; all questions answered and the patient verbalized understanding. (2) Abnormal uterine bleeding (AUB): Code(s): N93.9 - Abnormal uterine and vaginal bleeding, unspecified Plan: Pap smear not indicated this year, GC and chlamydia taken CBC, prolactin, TSH, HCG ordered and pelvic ultrasound recently done in the emergency. Discussed with the patient the different causes of abnormal bleeding including thyroid disorders, uterine and ovarian pathology and other potential causes. Discussed with the patient the work up including CBC (to r/o anemia), TSH, pelvic Ultrasound. All questions answered and the patient verbalized understanding. Instructed the patient to schedule a follow-up appointment in 2 weeks. Orders: Orders TSH reflex Free T4 Today N93.9 - Abnormal uterine and vaginal bleeding, unspecified HCG Quantitative Today N93.9 - Abnormal uterine and vaginal bleeding, unspecified Complete Blood Count no Diff Today N93.9 - Abnormal uterine and vaginal bleeding, unspecified Prolactin Today N93.9 - Abnormal uterine and vaginal bleeding, unspecified Coding Level of Care Code Est Pt Prev Care 18-39y(06407) Diagnoses Well woman exam Z01.419 Abnormal uterine bleeding (AUB) N93.9
== END 2023-08-05 16:05 | disposition home or self-care (01) ==
LOC: HO.HWS 15:08
PROVIDERS: PCP Internal Medicine; Visit Provider Obstetrics & Gynecology
DX: Z01.419 Encounter for gynecological examination (general) (routine) without abnormal findings (principal); N93.9 Abnormal uterine and vaginal bleeding, unspecified
CPT/HCPCS: 99395

== ENCOUNTER 2023-08-05 15:08 | Outpatient (REF) | payer OTHER, SELFPAY ==
[2023-08-05 18:31] LABS: CT PCR NOT DETECTED (Not Detect.); NG PCR NOT DETECTED (Not Detect.)
== END 2023-08-05 15:09 | disposition home or self-care (01) ==
LOC: HO.LNP 15:08
PROVIDERS: PCP Internal Medicine; Visit Provider Obstetrics & Gynecology
DX: N93.9 Abnormal uterine and vaginal bleeding, unspecified (principal); Z20.2 Contact with and (suspected) exposure to infections with a predominantly sexual mode of transmission
CPT/HCPCS: 0353U

== ENCOUNTER 2023-08-09 09:48 | Outpatient (REF) | payer OTHER, SELFPAY ==
[2023-08-09 10:39] LABS: Hematocrit 41.2 % (37.0-47.0); Hemoglobin 12.8 g/dl (12.0-16.0); Mean Corpuscular HGB Conc 31.1 g/dl (31.0-35.0); Mean Corpuscular Hemoglobin 25.9 pg (27.0-33.0); Mean Corpuscular Volume 83.4 fL (80.0-98.0); Mean Platelet Volume 9.7 fL (9.4-12.3); Platelet Count 335 X10*3/uL (160-400); Red Blood Count 4.94 X10*6/uL (4.20-5.50); Red Cell Distribution Width 12.7 % (11.0-16.0); White Blood Count 4.2 X10*3/uL (4.8-10.8)
[2023-08-09 11:44] LABS: HCG Quantitative < 2 mIU/mL; TSH reflex Free T4 1.43 uIU/mL (0.32-4.0)
[2023-08-11 17:29] LABS: Prolactin 17.4 ng/mL
== END 2023-08-09 09:49 | disposition home or self-care (01) ==
LOC: HO.LAB 09:48
PROVIDERS: PCP Internal Medicine; Visit Provider Obstetrics & Gynecology
DX: N93.9 Abnormal uterine and vaginal bleeding, unspecified (principal)
CPT/HCPCS: 36415; 84146; 84443; 84702; 85027

== ENCOUNTER 2023-08-27 13:41 | Outpatient (AMB) | payer OTHER, SELFPAY ==
--- NOTE | 2023-08-27 13:44 | MHC.OFFVIS ---
Intake Vital Signs 08/27/23 13:48 Height 5 ft Weight 103 lb 9.876 oz BMI 20.2 BP 110/66 Intake Visit Reasons: lab work results Allergies diphenhydramine [From Benadryl] Allergy (Severe, Verified 08/05/23 15:39) Chest Pain, hard to breath HPI HPI Comments History of Present Illness Details The patient is presenting for follow-up to discuss the results of her abnormal uterine bleeding workup and options of treatment. The patient is complaining of left breast 2 point tenderness over the last few days no associated nipple discharge. The following workup was done.: H&H= 12.8/41.2 TSH, hCG, prolactin, GC and chlamydia were negative. Co testing was done in 06/10 was negative. Pelvic ultrasound was negative [facility] Medical History Insomnia Chronic abdominal pain POTS (postural orthostatic tachycardia syndrome) Palpitations Inguinal pain of both sides Surgical History No significant past surgical history Family History Mother No problems noted. Father No problems noted. 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 Sexual orientation: Straight/Heterosexual Gender identity: Female Cognitive needs: No Hearing needs: No Vision needs: No Female Reproductive History Menstrual Age of Menarche: 10 Date of last menstrual period: 08/06/23 Review of Systems Const All systems reviewed & are unremarkable except as noted in HPI and below Reports as per HPI and Reports no additional complaints GI Reports no additional complaints Reports no additional complaints Physical Exam Chest Chest palpation & inspection: normal inspection of the chest Breast/axilla inspection: normal inspection of the breasts Breast/axilla palpation: normal palpation of the breasts (R breast wnl,L breast 7o'clock 4 cm from nipple & 11 oclock 5 cm from nippl) Assessment & Plan Assessment & Plan (1) Abnormal uterine bleeding (AUB): Code(s): N93.9 - Abnormal uterine and vaginal bleeding, unspecified Plan: Discussed with the patient the results of the work up done and options of treatment including BCP's, Mirena IUD, cyclic progesterone. All pros, cons, risks and benefits if each option was discussed with the patient and the patient decided to think about it and get back to us. All questions answered the patient verbalized understanding. (2) Breast pain, left: Comment: L breast 7 o'clock 4 cm from nipple & 11 o'clock 5 cm from nipple Code(s): N64.4 - Mastodynia Plan: Discussed with the patient the finding on Breast exam (breast point tenderness) .The differential diagnosis includes but not limited to lump/cyst/pre cancer/cancer or dense breast tissue. The work up includes breast US and referral for surgical breast consult. Orders: Orders US breast LT complete Today N64.4 - Mastodynia Referrals General Surgery Referral N64.4 - Mastodynia Coding Level of Care Code Est Pt Level 3 (88891) Diagnoses Abnormal uterine bleeding (AUB) N93.9 Breast pain, left N64.4
[2023-08-27 13:48] VITALS: BP 110/66; BMI 20.2
== END 2023-08-27 15:16 | disposition home or self-care (01) ==
LOC: HO.HWS 13:42
PROVIDERS: PCP Internal Medicine; Visit Provider Obstetrics & Gynecology
DX: N93.9 Abnormal uterine and vaginal bleeding, unspecified (principal); N64.4 Mastodynia
CPT/HCPCS: 99213

== ENCOUNTER → 2023-08-27 13:41 | Outpatient (BNVA) | payer OTHER, SELFPAY | PROVIDERS: PCP Internal Medicine; Visit Provider Obstetrics & Gynecology ==

== ENCOUNTER 2023-08-28 14:03 | Outpatient (AMB) | payer OTHER, SELFPAY ==
--- NOTE | 2023-08-28 14:15 | A.OFFPC_ITS ---
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 Denies any nausea or vomiting. No fever. Urinalysis done and urine culture will be order. Antibiotics were restarted. [facility] Medical History Insomnia Chronic abdominal pain POTS (postural orthostatic tachycardia syndrome) Palpitations Inguinal pain of both sides Surgical History No significant past surgical history Family History Mother No problems noted. Father No problems noted. 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 Maninder Evans, Kira Ceballos, Mike Veras and colleagues, with an educational dixie from [employer]. Review of Systems Const All systems reviewed & are unremarkable except as noted in HPI and below Eyes Reports no additional complaints, Denies change in vision and Denies other visual disturbances Card Denies chest pain at rest, Denies chest pain with activity, Denies edema, Denies irregular heart rhythm, Denies claudication, Denies dyspnea, Denies dyspnea on exertion, Denies orthopnea, Denies paroxysmal nocturnal dyspnea and Denies slow heart rate Resp Denies cough, Denies dyspnea and Denies dyspnea on exertion GI Denies abdominal pain, Denies change in bowel habits, Denies excessive flatus, Denies nausea and Denies vomiting Denies urinary incontinence, Denies urinary hesitancy and Denies urinary urgency Musc Denies abnormal gait, Denies atrophy, Denies deformity and Denies limited range of motion Skin/Breast Denies bleeding lesions, Denies changing lesions and Denies rash Neuro Denies abnormal gait Physical exam (Primary Care) Vital Signs: Last Vital Signs BP 110/70 08/28/23 14:30 BMI result Body Mass Index 20.9 Tobacco/Smoking Status: Tobacco use Status Tobacco use date assessed 08/28/23 08/28/23 14:39 Patient Tobacco Use Status Never used Tobacco 08/28/23 14:17 e-Cigarette/Vaping Use Never Used 08/28/23 14:17 Thrive Assessment: Date of Thrive Assessment Date Thrive assessed 10/02/22 08/28/23 14:17 Eyes General: appearance normal, both eyes and all related structures Eyelids: Yes eyelids normal Conjunctivae: conjunctivae normal Neck Neck: Yes normal visual inspection and Yes supple Resp Effort & Inspection: normal respiratory effort Auscultation: clear to auscultation bilaterally Cardio Jugular venous distension: no JVD Rate: regular rate Rhythm: regular rhythm Heart sounds: S1 normal heart sound present and S2 normal heart sound present Extrem General: Yes full ROM Results AMB Urinalysis, Automated UA Leukoctes 1 Miya/uL Last Edit by SALLY Juarez on 08/28/23 14:42 UA Nitrite Negative Last Edit by SALLY Juarez on 08/28/23 14:42 UA Urobilinogen 0.2 mg/dL Last Edit by SALLY Juarez on 08/28/23 14: 42 UA Protein 0 mg/dL Last Edit by SHAY JuarezA on 08/28/23 14:42 UA pH 7.5 Last Edit by Elmira Pineda, RMA on 08/28/23 14:42 UA Blood 0 Joshua/uL Last Edit by Elmira Pineda, RMA on 08/28/23 14:42 UA Specific Luna 1.020 Last Edit by Elmira Pineda, RMA on 08/28/23 14 :42 UA Ketone Negative Last Edit by Elmira Pineda, RMA on 08/28/23 14:42 UA Bilirubin 0 mg/dL Last Edit by Elmira Pineda, RMA on 08/28/23 14:42 UA Glucose 0 mg/dL Last Edit by Dashawnmaggi Miriam RMA on 08/28/23 14:42 Results Reviewed Results Reviewed: Laboratory Last Values Urine pH (Auto) 7.5 08/28/23 14:39 Specific Luna (Auto) 1.020 08/28/23 14:39 Urine Protein (Auto) 0 mg/dL 08/28/23 14:39 Glucose (UA)(Auto) 0 mg/dL 08/28/23 14:39 Urine Ketones (Auto) Negative 08/28/23 14:39 Urine Blood (Auto) 0 Joshua/uL 08/28/23 14:39 Urine Nitrite (Auto) Negative 08/28/23 14:39 Urine Bilirubin (Auto) 0 mg/dL 08/28/23 14:39 Urine Urobilinogen (Auto) 0.2 mg/dL 08/28/23 14:39 Leukocyte Esterase (Auto) 1 Miya/uL 08/28/23 14:39 Assessment and Plan Assessment & Plan (1) Dysuria: Code(s): R30.0 - Dysuria Plan: Urine culture ordered. Start antibiotics. Orders: Orders AMB Urinalysis Automated Today R30.0 - Dysuria Urine Culture Today R30.0 - Dysuria Medications: New sulfamethoxazole-trimethoprim 800-160 mg (Bactrim DS) 1 tab PO BID 3 days 6 tabs 0RF Coding Level of Care Code Est Pt Level 3 (48584) Diagnoses Dysuria R30.0 Time Spent (min) 19
[2023-08-28 14:30] VITALS: BP 110/70; BMI 20.9
== END 2023-08-28 14:59 | disposition home or self-care (01) ==
PROVIDERS: PCP Internal Medicine; Visit Provider Internal Medicine
DX: R30.0 Dysuria (principal)
CPT/HCPCS: 81003; 99213

== ENCOUNTER 2023-08-28 14:59 | Outpatient (REF) | payer OTHER, SELFPAY | END 2023-08-28 15:00 | disposition home or self-care (01) | LOC: HO.LAB 14:59 | PROVIDERS: Visit Provider Internal Medicine | DX: R30.0 Dysuria (principal) | CPT/HCPCS: 87086 ==

== ENCOUNTER 2023-09-08 16:55 | Outpatient (AMB) | payer OTHER, SELFPAY ==
[2023-09-08 17:29] VITALS: BP 110/60; PULSE 77; O2SAT 98; BMI 21.1
--- NOTE | 2023-09-08 17:29 | A.OFFPC_ITS ---
Vital Signs 09/08/23 17:29 Height 5 ft Weight 108 lb 2 oz BMI 21.1 BP 110/60 Blood Pressure Location Lt brachial Position Sitting Pulse 77 Pulse Source Pulse Oximeter Pulse Oximetry (%) 98 Oxygen Delivery Method Room Air Intake Visit Reasons: physical Rougher For Cement Required: No Accompanied by: Self / Same As Patient Allergies diphenhydramine [From Benadryl] Allergy (Severe, Verified 09/08/23 17:49) Chest Pain, hard to breath Medication List - Last Reconciled 09/08/23 by Jasbir Wynn MD No Known Home Meds Tobacco use date assessed: 09/08/23 Dental Screening Dental Screen Date: 09/08/23 Did you have a dental visit in the last 12 months?: No Did you have a dental problem in the last 6 months where you did not have access to dental care?: No Was dental information given to patient?: No HPI physical HPI Details Patient comes in today for her annual physical examination States that she continues to experience on and off sharp chest pains but these do not seem to be associated with activity or exertion Relates that she would sometimes wake up in the middle of the night from the sharp chest pains Work ups done in the past so far have all been negative for coronary disease Other cardiac work ups done last year (2022) including Holter monitor and echocardiogram have all come back normal although her echocardiogram did reveal (+) mildly thickened mitral valve leaflet tips with possible artifactual structure attached to the tips, something that was not present on her previous echocardiogram in 2020 Patient also reports experiencing frequent epigastric and upper abdominal pain States that she would often wake up in the morning already with the abdominal pain and notes that eating and drinking sometimes make her symptoms feel worse She went to the ER last month for the same complaints - states that the increasing abdominal pain woke her up from her sleep Work ups done in the ER were all negative and she was eventually discharged home with some Rx for oral Famotidine She was also recommended to see GI for further evaluation and she is scheduled to see GI later this week She denies any headaches or dizziness lately although she reports experiencing frequent symptoms of what she thinks are allergies but these tend to linger on and eventually turn into a sinus infection for her States that she would often start taking some OTC Mucinex when her symptoms of nasal drainage and congestion occur but these often only help temporarily She is concerned about getting sinus infections often and is wondering if there is anything she can do to prevent this from happening repeatedly She currently denies any sore throat or any sinus pain or pressure; denies any fever or chills Denies any SOB Relates (+) nausea when her stomach starts hurting; denies any vomiting lately No change in bowel habits noted - states that she still sometimes gets constipated Adds that she also has a tendency to easily develop symptoms of UTI for which she often ends up being prescribed some antibiotics States that she normally drinks a lot of water so hydration is not an issue but is also wondering if there is anything she can do to help prevent her getting UTIs often She had some labs done last month (ordered by Dr. Singletary) and is inquiring if she needs to go and get any additional labs done after her physical exam today FORMERLY [facility], [facility] Medical History (Updated 09/08/23 @ 19:41 by Jasbir Wynn MD) Allergic rhinitis Insomnia Chronic abdominal pain POTS (postural orthostatic tachycardia syndrome) Palpitations Inguinal pain of both sides Surgical History No significant past surgical history Family History Mother No problems noted. Father No problems noted. 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 1. Little interest or pleasure in doing things: not at all 2. Feeling down, depressed, or hopeless: not at all 3. Trouble falling or staying asleep, or sleeping too much: not at all 4. Feeling tired or having little energy: not at all 5. Poor appetite or overeating: not at all 6. Feeling bad about yourself - or that you are a failure or have let yourself or your family down: not at all 7. Trouble concentrating on things, such as reading the newspaper or watching television: not at all 8. Moving or speaking so slowly that other people could have noticed. Or the opposite - being so fidgety or restless that you have been moving around a lot more than usual: not at all 9. Thoughts that you would be better off or of hurting yourself in some way: not at all Total score: 0 Depression Screening Interpretation: Negative Depression Screening Done: Yes 85857 - PHQ-9 Billing: Yes Source: Developed by Drs. Maninder Evans, Kira Ceballos, Mike Veras and colleagues, with an educational dixie from [employer]. Thrive Questionnaire Date Thrive assessed: 09/08/23 I am a: Patient What is your living situation today?: I have a steady place to live Within the past 12 months, did the food you bought not last and you didn't have the money to get more?: Never true Within the past 12 months, did you worry whether your food would run out before you got money to buy more?: Never true Do you have trouble paying for medicines?: No Do you have trouble getting transportation to medical appointments?: No Do you have trouble paying your heating and electricity bill?: No Do you have trouble taking care of your child, family member or friend?: No Do you have trouble with day-to-day activities such as bathing, preparing meals, shopping, managing finances, etc.?: No Are you currently unemployed and looking for a job?: No Are you interested in more education?: No Please select the resources that you would like help with: None Currently or been in a relationship where the following occur: no concerns reported THRIVE Score: 0 AUDIT C Alcohol Use Questionnaire (AUDIT-C) 1. How often do you have a drink containing alcohol?: Never 3. How often do you have six or more drinks on one occasion?: Never Total Score: 0 Score Reviewed/Action Taken: Yes EVETTE-7 AMB Questionnaire EVETTE-7 Date EVETTE - 7 assessed: 09/08/23 Feeling nervous, anxious, or on edge: 0 = Not at all Not being able to stop or control worryin = Not at all Worrying too much about different things: 0 = Not at all Trouble relaxin = Not at all Being so restless that it is hard to sit still: 0 = Not at all Becoming easily annoyed or irritable: 0 = Not at all Feeling afraid as if something awful might happen: 0 = Not at all Total EVETTE-7 score (0-4 normal; 5-9 mild; 10-14 moderate; 15-21 severe): 0 Source: Developed by Drs. Maninder Evans, Kira Ceballos, Mike Vears and colleagues, with an educational dixie from [employer]. Review of Systems Const Denies chills, Reports fatigue, Denies fever(s), Denies headache(s) and Denies malaise Eyes Denies blurry vision, Denies change in vision, Denies irritation and Denies itchy eyes ENT Denies dysphagia, Denies dizziness, Denies otalgia, Denies headache(s), Reports nasal congestion (on and off), Denies neck pain, Denies odynophagia, Denies sinus pain, Reports sinus pressure (at times) and Denies sore throat Card Reports chest pain (recurrent sharp chest pains - see HPI), Denies chest pain with activity, Denies rapid heart rate, Denies irregular heart rhythm, Denies palpitations and Denies dyspnea Resp Denies chest congestion, Denies cough, Denies dyspnea and Denies wheezing GI Reports abdominal pain (over the epigastric area), Denies bloating, Denies hematochezia, Reports constipation (at times), Denies dysphagia, Denies heartburn, Denies diarrhea, Reports nausea (occasionally), Denies odynophagia and Denies vomiting Denies hematuria, Denies urinary frequency, Reports dysuria (on and off), Denies urinary incontinence, Reports urinary urgency (on and off) and Denies vaginal discharge Musc Denies back pain, Denies arthralgias, Denies joint swelling, Denies muscle weakness and Denies neck pain Skin/Breast Denies breast pain, Denies breast mass, Denies change in pigmentation, Denies lesions, Denies rash and Denies unusual bruising Neuro Denies dizziness, Denies headache(s) and Denies paresthesias Psych Denies anxiety and Denies depression Endo Reports fatigue and Denies palpitations Peter/Lymph Denies easy bruising Aller/Immun Denies itchy eyes and Denies wheezing Physical exam (Primary Care) Vital Signs: Last Vital Signs Pulse 77 09/08/23 17:29 BP 110/60 09/08/23 17:29 Pulse Ox 98 09/08/23 17:29 Oxygen Delivery Method Room Air 09/08/23 17:29 BMI result Body Mass Index 21.1 Tobacco/Smoking Status: Tobacco use Status Tobacco use date assessed 09/08/23 09/08/23 17:37 Patient Tobacco Use Status Never used Tobacco 09/08/23 17:37 e-Cigarette/Vaping Use Never Used 09/08/23 17:37 PHQ-9: PHQ-9 Score PHQ-9: Total score 0 09/08/23 17:50 Depression Screening Interpretation: Negative Thrive Assessment: Date of Thrive Assessment Date Thrive assessed 09/08/23 09/08/23 17:37 Currently or been in a relationship where the following occur: no concerns reported Const General: no acute distress, alert and awake Orientation/consciousness: patient oriented x3 HENMT Head: Yes normocephalic and Yes atraumatic Ears: external ears normal, TM's normal bilaterally and EAC's normal General nose exam: No nasal discharge present Face and sinus: Yes normal facial exam and Yes sinuses nontender Teeth and gingiva: dentition normal Throat: Yes posterior oropharynx normal and Yes tonsils normal (no TP congestion) Eyes Eyelids: Yes eyelids normal Conjunctivae: conjunctivae normal Pupils: Equal, round and reactive pupils present EOM: EOMs intact bilaterally Neck Neck: Yes no lymphadenopathy and Yes supple Thyroid: Thyroid normal Resp Auscultation: clear to auscultation bilaterally, no rales and no wheezes Cardio Rate: regular rate Rhythm: regular rhythm Heart sounds: no murmurs GI Palpation (GI): Soft to palpation, Tenderness to palpation present (GI) (mild) in the epigastrum, no guarding, not rigid, No hepatosplenomegaly present and No Rebound tenderness present Auscultation: normal bowel sounds General: Yes no CVA tenderness Back/Spine/Pelvis Back: no CVA tenderness Thoracic/Lumbar Spine: thoracic and lumbar spine normal to inspection Skin Lesions: no lesions Rashes: no rashes Neuro General: patient oriented x3, moves all extremities, no focal motor deficits and CN's II-XI intact bilaterally Cranial nerves: Yes Equal, round and reactive pupils present Cognition (Neuro): normal cognition Gait exam (Neuro): Normal gait present Extrem General: Yes no clubbing, cyanosis or edema Results Reviewed Results Reviewed: Laboratory Tests 07/30/23 07/30/23 07/30/23 04:50 04:50 04:51 WBC Hgb Hct Plt Count Sodium 140 Potassium 3.4 Creatinine 0.70 Estimated GFR > 60 Random Glucose 99 Calcium 9.3 D AST 16 ALT 8 Total Protein 7.4 Albumin 4.4 TSH Ur Specific Rhodes <= 1.005 Urine Protein Negative Urine Glucose (UA) Negative Urine Blood Negative Urine Nitrite Negative Ur Leukocyte Esterase Small (1+) H 08/09/23 08/09/23 10:05 10:05 WBC 4.2 L Hgb 12.8 Hct 41.2 Plt Count 335 Sodium Potassium Creatinine Estimated GFR Random Glucose Calcium AST ALT Total Protein Albumin TSH 1.43 Ur Specific Rhodes Urine Protein Urine Glucose (UA) Urine Blood Urine Nitrite Ur Leukocyte Esterase Assessment and Plan Assessment & Plan (1) Annual physical exam: Code(s): Z00.00 - Encounter for general adult medical examination without abnormal findings Plan: Results of her labs done last month reviewed and discussed with patient - advised that her labs are all within normal limits (2) Epigastric pain: Code(s): R10.13 - Epigastric pain Plan: Discussed that her abdominal symptoms are likely due to gastritis Discussed dietary restrictions to minimize aggravating her symptoms Advised that she can start back on OTC Famotidine 20 mg BID PRN for now until she is seen by GI Has appointment with GI coming up later this week - may need EGD for further evaluation (3) Allergic rhinitis: Code(s): J30.9 - Allergic rhinitis, unspecified Qualifiers: Allergic rhinitis trigger: unspecified Allergic rhinitis seasonality: unspecified Qualified Code(s): J30.9 - Allergic rhinitis, unspecified Plan: Advised that she can try taking OTC Loratadine 10 mg QD or Cetirizine 10 mg QD PRN, and that Mucinex would not really help much for allergy symptoms May also consider Fluticasone nasal spray and also referral to [facility] specialist for allergy testing and evaluation if her symptoms persist or progress (4) Recurrent chest pain: Code(s): R07.9 - Chest pain, unspecified Plan: Her cardiac work ups done last year were all negative She also had Holter monitoring done as part of her work up for POTS, which came out unremarkable as well Reassured that her recurrent chest pains are likely musculoskeletal in etiology Follow up with cardiology as scheduled - she has an appointment with cardiology coming up in October 2023 (5) Recurrent urinary tract infection: Code(s): N39.0 - Urinary tract infection, site not specified Plan: She is encouraged to continue to increase her oral fluids and advised to try either drinking cranberry juice or taking some cranberry tablets to see if these will help decrease her risks/tendencies to develop symptoms of dysuria and UTI Plan Follow up in 3 to 4 months Coding Level of Care Code Est Pt Prev Care [id number]([id number]) Diagnoses Annual physical exam Z00.00 Epigastric pain R10.13 Allergic rhinitis, unspecified seasonality, unspecified trigger J30.9 Allergic rhinitis trigger: unspecified Allergic rhinitis seasonality: unspecified Recurrent chest pain R07.9 Recurrent urinary tract infection N39.0
== END 2023-09-08 18:03 | disposition home or self-care (01) ==
PROVIDERS: PCP Internal Medicine; Visit Provider Internal Medicine
DX: Z00.00 Encounter for general adult medical examination without abnormal findings (principal); R10.13 Epigastric pain; J30.9 Allergic rhinitis, unspecified; R07.9 Chest pain, unspecified; N39.0 Urinary tract infection, site not specified
CPT/HCPCS: 99395

== ENCOUNTER → 2023-09-25 08:00 | Outpatient (BNV) | payer OTHER, SELFPAY | PROVIDERS: PCP Internal Medicine; Visit Provider Radiology Diagnostic Radiology | DX: N64.4 Mastodynia (principal); R92.30 Dense breasts, unspecified | CPT/HCPCS: 76642 ==

== ENCOUNTER 2023-09-25 08:05 | Outpatient (REF) | payer OTHER, SELFPAY ==
--- NOTE | ~2023-09-25 | US_ITS ---
EXAMINATION: US DIAGNOSTIC ULTRASOUND BREAST, LEFT CLINICAL INFORMATION: Left breast pain lower outer quadrant 1-2 months. COMPARISON: 08/16/2022. TECHNIQUE: Ultrasound of the breast is performed with real-time patel scale imaging and color Doppler. Attention was given to the 2:00-12:00 axes to include the lower outer quadrant region of pain. FINDINGS: There is no focal suspicious finding. There is dense breast tissue present. There is no solid mass, architectural abnormality, duct ectasia, cystic abnormality, or edema in the soft tissue planes. No correlate to left breast pain is identified. Results are discussed with the patient at time of visit. US/US breast LT limited mamm only IMPRESSION: No findings suspicious for malignancy. Negative left breast ultrasound. No correlate in the region of pain lower outer quadrant. Recommend clinical management. ASSESSMENT: BI-RADS 1 - Negative RECOMMENDATION: 1. Patient should be managed based on the clinical impression.
== END 2023-09-25 08:06 | disposition home or self-care (01) ==
LOC: HO.MAMMO 08:05
PROVIDERS: PCP Internal Medicine; Visit Provider Obstetrics & Gynecology
DX: N64.4 Mastodynia (principal)
CPT/HCPCS: 76642

== ENCOUNTER 2023-10-13 13:55 | Outpatient (AMB) | payer OTHER, SELFPAY ==
--- NOTE | 2023-10-13 14:00 | A.OFFVIS_ITS ---
Vital Signs 10/13/23 14:03 Height 5 ft Weight 108 lb 0.424 oz BMI 21.1 Intake Visit Reasons: per keesha - abdominal pains Intake Note: Twila presents in the office as a follow up for abdominal pains. CC: She suffers from abdominal pains, She gets a lot of constipation lately. Allergies diphenhydramine [From Benadryl] Allergy (Severe, Verified 11/03/23 03:21) Chest Pain, hard to breath HPI Comments Details: 21 y.o F with PMH of POTS who is here for follow up of her chronic abdominal pain. Recap: Previously has been seen by Keesha Greer. Her abdominal pain dates back to December started with LUQ and then later started noticing it in her bilateral flanks with radiation to back. Unable to identify trigger thinks may be dairy. Had significant bloating and constipation with this. Would feel better after defecation. Also had loss of appetite. H Pylori and celiac r/o. Has not had abd US but CT abd from 07/2021 without any GI related abnormality. 03/04/22: Now the pain is in fact better. Has not had any issues since last week. Attributes it to mostly the change in her diet. Has stopped having any fast food now having low fat home cooked food. Also feels dairy is irritating and has been avoiding it. Of note, she reports she just finished school last month. Recall December/January to be quite challenging as she had finals in January. Thinks now that the school is complete her stress levels have improved tremendously. No hx of NSAID use. 10/13/23: Here for follow up for IBS-C. Had been doing very well over the last 1 year, but the last couple months has noticed progressive worsening. This is despite taking adequate fiber and avoiding trigger foods. Reports that cramping seems to be more bothersome than the constipation itself. COUNTS INCLUDE 234 BEDS AT THE [facility] Medical History (Updated 11/10/23 @ 11:29 by Nadiya Burnham MD) Allergic rhinitis Insomnia Chronic abdominal pain POTS (postural orthostatic tachycardia syndrome) Palpitations Inguinal pain of both sides Surgical History No significant past surgical history Family History Mother No problems noted. Father No problems noted. 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 Current occupational exposures/hazards: No Sexual orientation: Straight/Heterosexual Gender identity: Female Cognitive needs: No Hearing needs: No Vision needs: No Female Reproductive History Menstrual Age of Menarche: 10 Review of Systems Const All systems reviewed & are unremarkable except as noted in HPI and below Physical Exam Vital Signs: BMI result Body Mass Index 21.1 No acute distress Young female Nonicteric Abdomen soft, nondistended, nontender No peripheral edema Assessment & Plan Assessment & Plan (1) Chronic abdominal pain: Code(s): R10.9 - Unspecified abdominal pain; G89.29 - Other chronic pain Category: Medical (2) Irritable bowel syndrome with constipation: Code(s): K58.1 - Irritable bowel syndrome with constipation Category: Medical Plan Clinical assessment remains consistent with IBS C. Heightened symptoms the background of ongoing stressors. Plan: - Will trial hyoscyamine for abdominal cramping. - Cont soluble fiber - add MiraLax once daily, titrated to effect - can also add senna on top if no bowel movement >3-4 days despite the above, but patient was cautioned that as this is a stimulant laxative, may worsened cramping transiently Follow-up in 3 months Medications: New hyoscyamine sulfate ER 0.375 mg PO BID PRN 60 tabs 0RF Abd discomfort 30 days sennosides (senna) 17.2 mg (2 x 8.6 mg) PO DAILY 28 tabs 0RF 14 days polyethylene glycol 3350 (Miralax) 17 grams PO DAILY 510 grams 0RF 30 days
[2023-10-13 14:03] VITALS: BMI 21.1
== END 2023-10-13 14:18 | disposition home or self-care (01) ==
PROVIDERS: PCP Internal Medicine; Visit Provider Internal Medicine
DX: R10.9 Unspecified abdominal pain (principal); G89.29 Other chronic pain; K58.1 Irritable bowel syndrome with constipation
CPT/HCPCS: 99213

== ENCOUNTER → 2023-10-13 13:55 | Outpatient (BNVA) | payer OTHER, SELFPAY | PROVIDERS: PCP Internal Medicine; Visit Provider Internal Medicine ==

== ENCOUNTER 2023-10-14 07:45 | Outpatient (AMB) | payer OTHER, SELFPAY ==
--- NOTE | 2023-10-14 07:47 | A.OFFVIS_ITS ---
Intake Vital Signs 10/14/23 07:54 Height 5 ft BP 100/60 Intake Visit Reasons: vag inf Intake Note: pt c/o vag irritation and discharge ?BV Slip Operator: Slip Operator Present (Saniya) Allergies diphenhydramine [From Benadryl] Allergy (Severe, Verified 10/14/23 07:53) Chest Pain, hard to breath Is last menstrual period known: Yes Last menstrual period: 09/15/23 HPI HPI Comments History of Present Illness Details Patient is here today with vaginal discharge and irritation. She reports she is prone to bacterial vaginosis in the past. Currently not sexually active. She denies any pelvic pain or urinary symptoms. [facility] Medical History (Updated 09/08/23 @ 19:41 by Jasbir Wynn MD) Allergic rhinitis Insomnia Chronic abdominal pain POTS (postural orthostatic tachycardia syndrome) Palpitations Inguinal pain of both sides Surgical History No significant past surgical history Family History Mother No problems noted. Father No problems noted. 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 Current occupational exposures/hazards: No Sexual orientation: Straight/Heterosexual Gender identity: Female Cognitive needs: No Hearing needs: No Vision needs: No Female Reproductive History Menstrual Age of Menarche: 10 Date of last menstrual period: 09/15/23 Review of Systems Const All systems reviewed & are unremarkable except as noted in HPI and below Physical Exam Vital Signs: Last Vital Signs BP 100/60 10/14/23 07:54 Const General: cooperative, healthy appearing and no acute distress Orientation/consciousness: patient oriented x3 GI Inspection: Yes normal to inspection Palpation (GI): Soft to palpation and Other GI palpation findings present (Nontender) Rectal Exam - Female: visual inspection normal General: Yes bladder normal to palpation External Female Exam: normal appearance of the urethra Speculum Exam - Vagina: normal appearance of the vagina, normal palpation and normal vaginal discharge Speculum Exam - Cervix: normal appearance of the cervix and normal palpation Bimanual exam- vagina & uterus: normal bimanual exam, normal palpation, uterine size normal, bladder normal to palpation, normal palpation, uterine shape normal and non-tender Bimanual Exam- Adnexa, other: normal adnexae Neuro General: patient oriented x3 Assessment & Plan Assessment & Plan (1) Vaginitis: Code(s): N76.0 - Acute vaginitis Qualifiers: Chronicity: chronic Qualified Code(s): N76.1 - Subacute and chronic vaginitis Plan Await BV and GC chlamydia results for plan of care. She declines having STD blood work tested today. Use of condoms if sexually active. Annual exam as scheduled for July 2024. All of her questions and concerns were addressed to the best of my ability and shared decision making. She is agreeable to the plan of care. This note is constructed using voice recognition software. While every effort has been made to ensure accuracy, grease cup filler errors may have been included. Orders: Orders Bacterial Vaginosis Panel Today N89.8 - Other specified noninflammatory disorders of vagina CT NG by PCR Today N89.8 - Other specified noninflammatory disorders of vagina Coding Level of Care Code Est Pt Level 3 (46847) Diagnoses Chronic vaginitis N76.1 Chronicity: chronic
[2023-10-14 07:54] VITALS: BP 100/60
== END 2023-10-14 08:05 | disposition home or self-care (01) ==
PROVIDERS: PCP Internal Medicine; Visit Provider Advanced Practice Midwife
DX: N76.1 Subacute and chronic vaginitis (principal)
CPT/HCPCS: 99213

== ENCOUNTER 2023-10-14 07:45 | Outpatient (REF) | payer OTHER, SELFPAY ==
[2023-10-14 17:10] LABS: CT PCR NOT DETECTED (Not Detect.); NG PCR NOT DETECTED (Not Detect.)
[2023-10-15 10:18] LABS: BV Int Neg Control Negative (Negative); BV Int Pos Control Positive (Positive)
== END 2023-10-14 07:46 | disposition home or self-care (01) ==
LOC: HO.LAB 07:45
PROVIDERS: PCP Internal Medicine; Visit Provider Advanced Practice Midwife
DX: N89.8 Other specified noninflammatory disorders of vagina (principal)
CPT/HCPCS: 0353U; 87480; 87510; 87660

== ENCOUNTER 2023-10-14 08:13 | Outpatient (REF) | payer OTHER, SELFPAY | END 2023-10-14 08:14 | disposition home or self-care (01) | LOC: HO.LNP 08:13 | PROVIDERS: Visit Provider Advanced Practice Midwife | DX: Z13.89 Encounter for screening for other disorder (principal) ==

== ENCOUNTER 2023-10-30 09:50 | Outpatient (AMB) | payer OTHER, SELFPAY ==
--- NOTE | 2023-10-30 10:08 | MHC.PC.OV ---
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 Allergies diphenhydramine [From Benadryl] Allergy (Severe, Verified 11/03/23 03:21) Chest Pain, hard to breath Medication List - Last Reconciled 11/03/23 by Jasbir Wynn MD fluconazole 150 mg PO DAILY 1 dose hyoscyamine sulfate ER 0.375 mg PO BID PRN 30 days metronidazole 0.75%(37.5mg/5gram) 1 appful vaginal BEDTIME 5 days ondansetron 4 mg PO Q8H PRN 15 days pantoprazole 40 mg PO DAILY 30 days polyethylene glycol 3350 (Miralax) 17 grams PO DAILY 30 days sennosides (senna) 17.2 mg (2 x 8.6 mg) PO DAILY 14 days sucralfate (Carafate) 10 mL PO QIDACHS 30 days Tobacco use date assessed: 10/30/23 Dental Screening Dental Screen Date: 09/08/23 HPI bloody discharge and trouble with bowel movement HPI Details Patient comes in today complaining of increased epigastric pain for the past 2 weeks Notes that her abdominal pain often feels worse when she eats so she has hardly been eating much of anything lately States that she has also been experiencing increased perianal/rectal pain at times when she moves her bowels, especially when she has to strain a lot during bowel movements, and has noticed the presence of bright red blood in her stools often lately Relates (+) on and off nausea as well lately but denies any vomiting She reports also feeling dizzy at times over the past week or so; denies any headaches She denies any chest pains, no shortness of breath [facility] Medical History (Updated 11/03/23 @ 04:12 by Jasbir Wynn MD) Allergic rhinitis Insomnia Chronic abdominal pain POTS (postural orthostatic tachycardia syndrome) Palpitations Inguinal pain of both sides Surgical History No significant past surgical history Family History Mother No problems noted. Father No problems noted. 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 How often do you have a drink containing alcohol?: Never 3. How often do you have six or more drinks on one occasion?: Never Total Score: 0 Score Reviewed/Action Taken: Yes EVETTE-7 AMB Questionnaire EVETTE-7 Date EVETTE - 7 assessed: 09/08/23 Source: Developed by Drs. Maninder Evans, Kira Ceballos, Mike Veras and colleagues, with an educational dixie from [employer]. Review of Systems Const Denies chills, Reports fatigue, Denies fever(s) and Denies headache(s) ENT Denies dysphagia, Reports dizziness (on and off lately), Denies headache(s), Denies neck pain, Denies odynophagia and Denies sore throat Card Denies chest pain, Denies rapid heart rate, Denies irregular heart rhythm, Denies palpitations and Denies dyspnea Resp Denies cough, Denies dyspnea and Denies wheezing GI Reports abdominal pain (over the epigastric area), Reports hematochezia, Reports constipation (at times), Denies dysphagia, Denies heartburn, Denies diarrhea, Reports nausea (on and off), Denies odynophagia and Denies vomiting Denies hematuria, Denies urinary frequency, Denies nocturia and Denies dysuria Musc Denies back pain and Denies neck pain Skin/Breast Denies rash Neuro Reports dizziness (on and off lately), Denies headache(s) and Denies paresthesias Psych Denies anxiety and Denies depression Endo Reports fatigue and Denies palpitations Peter/Lymph Denies easy bruising Aller/Immun Denies wheezing Physical exam (Primary Care) Vital Signs: Last Vital Signs BP 98/70 10/30/23 10:11 Pulse Ox 100 10/30/23 10:11 Oxygen Delivery Method Room Air 10/30/23 10:11 BMI result Body Mass Index 20.5 Tobacco/Smoking Status: Tobacco use Status Tobacco use date assessed 10/30/23 10/30/23 10:17 Patient Tobacco Use Status Never used Tobacco 10/30/23 10:08 e-Cigarette/Vaping Use Never Used 10/30/23 10:08 Thrive Assessment: Date of Thrive Assessment Date Thrive assessed 09/08/23 10/30/23 10:08 Const General: no acute distress and alert HENMT Throat: Yes posterior oropharynx normal and Yes tonsils normal Neck Neck: Yes no lymphadenopathy and Yes supple Thyroid: Thyroid normal Resp Auscultation: clear to auscultation bilaterally, no rales and no wheezes Cardio Rate: regular rate Rhythm: regular rhythm Heart sounds: no murmurs GI Palpation (GI): Soft to palpation, Tenderness to palpation present (GI) in the epigastrum, no guarding, not rigid and No Rebound tenderness present General: Yes no CVA tenderness Back/Spine/Pelvis Back: no CVA tenderness Extrem General: Yes no clubbing, cyanosis or edema Assessment and Plan Assessment & Plan (1) Gastritis: Code(s): K29.70 - Gastritis, unspecified, without bleeding Qualifiers: Gastritis type: unspecified gastritis Chronicity: acute Gastritis bleeding: presence of bleeding unspecified Qualified Code(s): K29.00 - Acute gastritis without bleeding Plan: Will send patient for an upper GI series STACIA for further evaluation Will start her for now on Carafate 10 ml QID with meals and at bedtime and Pantoprazole 40 mg QD Discussed dietary restrictions and advised her to avoid these foods and drinks for now, at least until her symptoms have improved significantly Will also start her on Ondansetron 4 mg PRN for her recurrent nausea Patient is advised that depending on how her upper GI series come out, we may need to refer her back to gastroenterology for further evaluation and management (2) Rectal bleeding: Code(s): K62.5 - Hemorrhage of anus and rectum Plan: Discussed that this is likely due to hemorrhoids and is aggravated when she gets constipated but she may need to see GI for further evaluation if her symptoms persist or get worse Have advised her to take some stool softeners as needed for now until we can address her abdominal pain Advised her as well rodrigo if she continues to experience recurrent dizziness. we may need to send her for some labs to check her blood count/CBC Plan Follow up in 1 month Orders: Orders [place] upper GI series 10/30/23 K29.70 - Gastritis, unspecified, without bleeding, K92.2 - Gastrointestinal hemorrhage, unspecified Medications: New pantoprazole 40 mg PO DAILY 30 tabs 3RF 30 days K29.70 - Gastritis, unspecified, without bleeding ondansetron 4 mg PO Q8H PRN 45 tabs 1RF nausea and vomiting 15 days sucralfate (Carafate) 10 mL PO QIDACHS 1,200 mL 3RF 30 days K29.70 - Gastritis, unspecified, without bleeding, K92.2 - Gastrointestinal hemorrhage, unspecified Coding Level of Care Code Est Pt Level 4 (90570) Diagnoses Acute gastritis, presence of bleeding unspecified, unspecified gastritis type K29.00 Gastritis type: unspecified gastritis Chronicity: acute Gastritis bleeding: presence of bleeding unspecified Rectal bleeding K62.5
[2023-10-30 10:11] VITALS: BP 98/70; O2SAT 100; BMI 20.5
== END 2023-10-30 10:46 | disposition home or self-care (01) ==
PROVIDERS: PCP Internal Medicine; Visit Provider Internal Medicine
DX: K29.00 Acute gastritis without bleeding (principal); K62.5 Hemorrhage of anus and rectum
CPT/HCPCS: 99214

== ENCOUNTER 2023-11-17 16:52 | Outpatient (REF) | payer OTHER, SELFPAY ==
[2023-11-17 17:05] LABS: MANUAL DIFF FLAG NO
[2023-11-17 18:30] LABS: Appearance Urine Cloudy; Color Urine Yellow; Glucose Urine UA Negative (Negative); Leukocyte Esterase Urine Trace (Negative); Nitrite Urine Negative (Negative); PH >= 9.0 (5.0-9.0); Specific Gravity - Urine >= 1.030 (1.005-1.025); UMIC TRIGGER UACC YES; Urine Blood Moderate (2+) (Negative); Urine Ketones Trace mg/dL (Negative); Urine Protein 30 (1+) mg/dL (Neg-Trace)
[2023-11-17 18:33] LABS: Bacteria Urine None Seen (None Seen); Hyaline Casts Urine 0-2 /LPF (0-2); RBC Urine >20 /HPF (0-2); Squamous Epithelial Cell Urine 0-2 /HPF (0-2); WBC Urine 0-5 /HPF (0-5)
[2023-11-17 18:53] LABS: Alanine Aminotransferase 7 U/L (0-31); Albumin Level 4.3 g/dL (3.5-5.0); Anion Gap 12 (12-20); Aspartate Amino Transferase 16 U/L (5-31); Bilirubin Total 0.9 mg/dL (0.0-1.0); Blood Urea Nitrogen 10 mg/dL (9-16); Carbon Dioxide 24 mmol/L (22-29); Chloride 107 mmol/L (96-108); Estimated Glomerular Filt Rate > 60; Glucose Random 89 mg/dL (60-115); Lipase 43 U/L (8-78); Potassium 4.2 mmol/L (3.3-5.1); Sodium 139 mmol/L (135-145); Total Protein 7.2 g/dL (6.5-8.0)
[2023-11-17 19:03] LABS: Basophils Percent Auto 0.4 % (0-2); Eosinophils Absolute Auto 0.1 X10*3/uL (0.0-0.4); Eosinophils Percent Auto 0.9 % (0-4); Hematocrit 39.9 % (37.0-47.0); Hemoglobin 12.7 g/dl (12.0-16.0); Imm Gran Abs Auto 0.02 X10*3/uL (0.00-0.03); Imm Gran Pct Auto 0.2 % (0.0-0.4); Lymphocytes Absolute Auto 1.5 X10*3/uL (1.2-4.9); Mean Corpuscular HGB Conc 31.8 g/dl (31.0-35.0); Mean Corpuscular Hemoglobin 26.8 pg (27.0-33.0); Mean Corpuscular Volume 84.4 fL (80.0-98.0); Mean Platelet Volume 10.3 fL (9.4-12.3); Monocytes Absolute Auto 0.5 X10*3/uL (0.1-1.2); Monocytes Percent Auto 5.9 % (2-11); Neutrophils Absolute Auto 5.9 x10*3/uL (2.0-8.3); Neutrophils Percent Auto 73.6 % (45-73); Platelet Count 360 X10*3/uL (160-400); Red Blood Count 4.73 X10*6/uL (4.20-5.50); Red Cell Distribution Width 12.7 % (11.0-16.0)
[2023-11-17 19:09] LABS: Alkaline Phosphatase 69 U/L (39-117)
[2023-11-17 19:56] LABS: Erythrocyte Sedimentation Rate 3 MM/HR (0-20)
== END 2023-11-17 16:53 | disposition home or self-care (01) ==
LOC: HO.LAB 16:52
PROVIDERS: PCP Internal Medicine; Visit Provider Internal Medicine
DX: D64.9 Anemia, unspecified (principal); R10.9 Unspecified abdominal pain
CPT/HCPCS: 36415; 80053; 81001; 83690; 85025; 85652

== ENCOUNTER 2024-01-08 18:53 | Emergency (ER) | payer OTHER, SELFPAY ==
--- NOTE | ~2024-01-08 | US_ITS ---
EXAMINATION: US PELVIS CLINICAL INFORMATION: Pelvic pain; question ovarian torsion; the last menstrual period was on 12/15/2023. COMPARISON: Pelvic ultrasound dated 07/30/2023. TECHNIQUE: Ultrasound of the pelvis is performed using both transabdominal and transvaginal transducers along with Doppler. Transvaginal imaging is performed due to inadequate visualization transabdominally. FINDINGS: Uterus: The uterus is anteverted and anteflexed. The uterus measures 6.4 x 3.0 x 4.1 cm. The double wall endometrial thickness is 9 mm. The uterus is smooth in contour and has normal myometrial echogenicity. No visible fibroid. Adnexa: Both ovaries are visualized. There is normal color flow to the adnexa. There is no ovarian torsion. There is no pelvic ascites or fluid collection. Right ovary measures 3.2 x 3.8 x 2.6 cm, volume 16.6 mL. The right ovary contains a 1.4 x 1.3 x 0.9 cm involuting corpus luteum cyst, for which no imaging follow-up is recommended. Left ovary measures 3.9 x 2.5 x 2.4 cm, volume 12.3 mL. US/US pelvic and transvaginal IMPRESSION: Unremarkable examination. No ovarian torsion is seen.
--- NOTE | ~2024-01-08 | US_ITS ---
EXAMINATION: US PELVIS CLINICAL INFORMATION: Pelvic pain; question ovarian torsion; the last menstrual period was on 12/15/2023. COMPARISON: Pelvic ultrasound dated 07/30/2023. TECHNIQUE: Ultrasound of the pelvis is performed using both transabdominal and transvaginal transducers along with Doppler. Transvaginal imaging is performed due to inadequate visualization transabdominally. FINDINGS: Uterus: The uterus is anteverted and anteflexed. The uterus measures 6.4 x 3.0 x 4.1 cm. The double wall endometrial thickness is 9 mm. The uterus is smooth in contour and has normal myometrial echogenicity. No visible fibroid. Adnexa: Both ovaries are visualized. There is normal color flow to the adnexa. There is no ovarian torsion. There is no pelvic ascites or fluid collection. Right ovary measures 3.2 x 3.8 x 2.6 cm, volume 16.6 mL. The right ovary contains a 1.4 x 1.3 x 0.9 cm involuting corpus luteum cyst, for which no imaging follow-up is recommended. Left ovary measures 3.9 x 2.5 x 2.4 cm, volume 12.3 mL. US/US pelvic ovarian doppler IMPRESSION: Unremarkable examination. No ovarian torsion is seen.
[2024-01-08 18:57] VITALS: BP 132/64; PULSE 90; RESP 16; TEMP 36.7; O2SAT 100; BMI 19.9
--- NOTE | 2024-01-08 18:57 | ED.FEMALEGU ---
HPI - Female Genitourinary General Chief complaint: Abdominal Pain Stated complaint: looking to rule out ovarian torsion Time Seen by Provider: 01/08/24 21:29 Source: patient Mode of arrival: ambulatory Limitations: no limitations History of Present Illness ED Provider: fina PATEL Narrative: Patient is 23 years old with history of ovarian cyst in the past comes here for 2 weeks of lower abdominal pain called OB was her to go to hospital to rule out torsion no nausea no vomiting also complaining of low back pain denies any urinary complaints no fever no chills Related Data Previous Rx's ?Medication ?Instructions ?Recorded hyoscyamine sulfate 0.375 mg 0.375 mg PO BID PRN Abd discomfort 10/13/23 tablet,extended release,12 hr 30 days #60 tabs polyethylene glycol 3350 17 17 g PO DAILY 30 days #510 grams 10/13/23 gram/dose oral powder (Miralax) sennosides 8.6 mg tablet (senna) 17.2 mg (2 x 8.6 mg) PO DAILY 14 10/13/23 days #28 tabs fluconazole 150 mg tablet 150 mg PO DAILY 1 dose #1 tab 10/15/23 metronidazole 0.75 % (37.5 mg/5 1 appful vaginal BEDTIME 5 days 10/15/23 gram) vaginal gel #70 grams ondansetron 4 mg disintegrating 4 mg PO Q8H PRN nausea and 10/30/23 tablet vomiting 15 days #45 tabs pantoprazole 40 mg tablet,delayed 40 mg PO DAILY 30 days #30 tabs 10/30/23 release sucralfate 100 mg/mL oral 10 ml PO QIDACHS 30 days #1,200 mL 10/30/23 suspension (Carafate) metronidazole 500 mg tablet 500 mg PO BID 7 days #14 tabs 11/06/23 cefuroxime axetil 250 mg tablet 250 mg PO BID 7 days #14 tabs 01/08/24 ibuprofen 600 mg tablet 600 mg PO Q6H PRN fever or pain 01/08/24 #30 tabs Allergies Allergy/AdvReac Type Severity Reaction Status Date / Time diphenhydramine Allergy Severe Chest Verified 01/08/24 18:59 [From Benadryl] Pain, hard to breath Review of Systems Review of Systems: Yes all other systems are reviewed and are negative PMFSH Past Medical History Medical History Allergic rhinitis Insomnia Chronic abdominal pain POTS (postural orthostatic tachycardia syndrome) Palpitations Inguinal pain of both sides Surgical History No significant past surgical history Family History Family History Mother No problems noted. Father No problems noted. 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 Oriented X3. No acute distress. Neck: Normal inspection. Neck supple. CVS: Normal heart rate and rhythm. Pulses normal. Respiratory: No respiratory distress. Equal air entry bilateral, Abdomen: Soft mild suprapubic tenderness no rebound tenderness or guarding Bowel sounds are present, no mass palpable, no CVA tenderness Skin: Skin warm and dry. Normal skin color. Normal skin turgor. Neuro: Oriented X 3. Course Course Course Narrative: This is a Rapid Medical Exam performed in triage by Samra Cheng PA-C. Full HPI, ROS and PE to be performed by primary ED provider. 23 year-old F w/ PMHx endometriosis, ovarian cysts, presenting to the ED c/o LLQ abdominal pain twisting feeling x2 weeks, worsening. LMP 12/15/23. Admits to some vaginal discharge. States called her OBGYN and was sent to the ED to rule out ovarian torsion. denies concern for STI, vag bleeding PE: Abdomen soft with left lower/suprapubic tenderness, no rebound or guarding. Nontoxic appearing Plan: Labs, UA, ultrasound ordered Medical Decision Making Lab Data 01/08/24 19:25 01/08/24 19:25 Labs: Lab Results 01/08/24 01/08/24 Range/Units 19:25 20:04 WBC 9.2 (4.8-10.8) X10*3/uL RBC 4.79 (4.20-5.50) X10*6/uL Hgb 12.6 (12.0-16.0) g/dl Hct 39.0 (37.0-47.0) % MCV 81.4 (80.0-98.0) fL MCH 26.3 L (27.0-33.0) pg MCHC 32.3 (31.0-35.0) g/dl RDW 12.2 (11.0-16.0) % Plt Count 303 (160-400) X10*3/uL MPV 9.3 L (9.4-12.3) fL Immature Gran % (Auto) 0.4 (0.0-0.4) % Neut % (Auto) 76.8 H (45-73) % Lymph % (Auto) 16.9 L (20-40) % [place] % (Auto) 5.3 (2-11) % Eos % (Auto) 0.3 (0-4) % Baso % (Auto) 0.3 (0-2) % Lymph # (Auto) 1.6 (1.2-4.9) X10*3/uL [place] # (Auto) 0.5 (0.1-1.2) X10*3/uL Eos # (Auto) 0.0 (0.0-0.4) X10*3/uL Baso # (Auto) 0.0 (0.0-0.2) X10*3/uL Abs Immat Gran (auto) 0.04 H (0.00-0.03) X10*3/uL Absolute Neuts (auto) 7.0 (2.0-8.3) x10*3/uL Absolute Nucleated RBC 0.000 (0.0-0.012) X10*3/uL Nucleated RBC % (auto) 0.0 (0.0-0.2) /100WBC Sodium 139 (135-145) mmol/L Potassium 3.9 (3.3-5.1) mmol/L Chloride 107 (96-108) mmol/L Carbon Dioxide 22 (22-29) mmol/L Anion Gap 14 (12-20) BUN 13 (9-16) mg/dL Creatinine 0.67 (0.5-1.4) mg/dL Estim Creat Clear Calc 92.1 Estimated GFR > 60 Random Glucose 84 (60-115) mg/dL Calcium 9.2 (8.4-10.2) mg/dL Total Bilirubin 1.2 H (0.0-1.0) mg/dL Direct Bilirubin 0.3 (0.0-0.5) mg/dL AST 15 (5-31) U/L ALT 6 (0-31) U/L Alkaline Phosphatase 64 (39-117) U/L Total Protein 7.3 (6.5-8.0) g/dL Albumin 4.5 (3.5-5.0) g/dL Urine Color Yellow Urine Appearance Clear Urine pH 7.0 (5.0-9.0) Ur Specific [place] 1.025 (1.005-1.025) Urine Protein Negative (Neg-Trace) mg/dL Urine Glucose (UA) Negative (Negative) mg/dL Urine Ketones 40 (Negative) mg/dL Urine Blood Negative (Negative) Urine Nitrite Negative (Negative) Ur Leukocyte Esterase Moderate (2+) H (Negative) Urine RBC 0-2 (0-2) /HPF Urine WBC 6-10 H (0-5) /HPF Ur Squamous Epith Cells 6-10 (0-2) /HPF Urine Bacteria 1+ (None Seen) Hyaline Casts 0-2 (0-2) /LPF Urine Test NEGATIVE (NEGATIVE) Discharge Plan Discharge Clinical Impression: UTI (urinary tract infection) Patient Disposition: Home, Self-Care Instructions: Urinary Tract Infection in Women (ED) Additional Instructions: Drink plenty of fluids Take antibiotics as prescribed ibuprofen for pain Follow up with your PCP Prescriptions: New cefuroxime axetil 250 mg tablet 250 mg PO BID 7 Days Qty: 14 0RF ibuprofen 600 mg tablet 600 mg PO Q6H PRN (Reason: fever or pain) Qty: 30 0RF No Action metronidazole 0.75 % (37.5mg/5 gram) gel 1 appful vaginal BEDTIME 5 Days Qty: 70 0RF fluconazole 150 mg tablet 150 mg PO DAILY Qty: 1 0RF Rx Instructions: administer on day 1 of therapy metronidazole 500 mg tablet 500 mg PO BID 7 Days Qty: 14 0RF Rx Instructions: Take with food, Avoid alcohol and vinegar products sucralfate [Carafate] 100 mg/mL suspension 10 ml PO QIDACHS 30 Days Qty: 1200 3RF pantoprazole 40 mg tablet,delayed release (DR/EC) 40 mg PO DAILY 30 Days Qty: 30 3RF ondansetron 4 mg tablet,disintegrating 4 mg PO Q8H PRN (Reason: nausea and vomiting) 15 Days Qty: 45 1RF sennosides [senna] 8.6 mg tablet 17.2 mg PO DAILY 14 Days Qty: 28 0RF polyethylene glycol 3350 [Miralax] 17 gram/dose powder 17 g PO DAILY 30 Days Qty: 510 0RF hyoscyamine sulfate 0.375 mg tablet extended release 12 hr 0.375 mg PO BID PRN (Reason: Abd discomfort) 30 Days Qty: 60 0RF Print Language: Macedonian
[2024-01-08 19:28] LABS: MANUAL DIFF FLAG NO
[2024-01-08 19:29] LABS: Basophils Percent Auto 0.3 % (0-2); Eosinophils Percent Auto 0.3 % (0-4); Hemoglobin 12.6 g/dl (12.0-16.0); Imm Gran Abs Auto 0.04 X10*3/uL (0.00-0.03); Imm Gran Pct Auto 0.4 % (0.0-0.4); Lymphocytes Absolute Auto 1.6 X10*3/uL (1.2-4.9); Lymphocytes Percent Auto 16.9 % (20-40); Mean Corpuscular HGB Conc 32.3 g/dl (31.0-35.0); Mean Corpuscular Hemoglobin 26.3 pg (27.0-33.0); Mean Corpuscular Volume 81.4 fL (80.0-98.0); Mean Platelet Volume 9.3 fL (9.4-12.3); Monocytes Absolute Auto 0.5 X10*3/uL (0.1-1.2); Monocytes Percent Auto 5.3 % (2-11); Neutrophils Percent Auto 76.8 % (45-73); Platelet Count 303 X10*3/uL (160-400); Red Blood Count 4.79 X10*6/uL (4.20-5.50); Red Cell Distribution Width 12.2 % (11.0-16.0); White Blood Count 9.2 X10*3/uL (4.8-10.8)
[2024-01-08 19:44] LABS: Alanine Aminotransferase 6 U/L (0-31); Albumin Level 4.5 g/dL (3.5-5.0); Alkaline Phosphatase 64 U/L (39-117); Anion Gap 14 (12-20); Aspartate Amino Transferase 15 U/L (5-31); Bilirubin Direct 0.3 mg/dL (0.0-0.5); Bilirubin Total 1.2 mg/dL (0.0-1.0); Blood Urea Nitrogen 13 mg/dL (9-16); Calcium 9.2 mg/dL (8.4-10.2); Carbon Dioxide 22 mmol/L (22-29); Chloride 107 mmol/L (96-108); Creatinine Clr Calc Pharmacy 92.1; Estimated Glomerular Filt Rate > 60; Glucose Random 84 mg/dL (60-115); Potassium 3.9 mmol/L (3.3-5.1); Sodium 139 mmol/L (135-145); Total Protein 7.3 g/dL (6.5-8.0)
[2024-01-08 20:13] LABS: Appearance Urine Clear; Color Urine Yellow; Glucose Urine UA Negative (Negative); Leukocyte Esterase Urine Moderate (2+) (Negative); Nitrite Urine Negative (Negative); Specific Gravity - Urine 1.025 (1.005-1.025); UMIC TRIGGER UACC YES; Urine Blood Negative (Negative); Urine Ketones 40 mg/dL (Negative); Urine Protein Negative (Neg-Trace)
[2024-01-08 20:14] LABS: UPreg QC Valid YES; Urine Pregnancy NEGATIVE (NEGATIVE)
[2024-01-08 20:18] LABS: Bacteria Urine 1+ (None Seen); Hyaline Casts Urine 0-2 /LPF (0-2); RBC Urine 0-2 /HPF (0-2); UACC Culture Trigger YES
--- NOTE | 2024-01-08 20:24 | MHC.EDTECH ---
This tech went to the pt room, made sure pt had call leyva, offered pt a warm blanket to which the pt denied. Tech informed pt to ring the leyva if needed.
[2024-01-08] MEDS: Ibuprofen 600 MG TABLET PO (21:57)
[2024-01-08] MEDS: cefuroxime axetiL 250 MG TABLET PO (21:57)
[2024-01-08 22:38] VITALS: BP 128/66; PULSE 88; RESP 16; TEMP 36.6; O2SAT 99
== END 2024-01-08 22:39 | disposition home or self-care (01) ==
PROVIDERS: Physician Assistant; Emergency Provider Internal Medicine; PCP Internal Medicine
DX: N39.0 Urinary tract infection, site not specified (principal); R10.2 Pelvic and perineal pain
CPT/HCPCS: 36415; 76830; 76856; 80048; 80076; 81001; 81025; 85025; 87086; 93975; 99284

== ENCOUNTER 2024-02-16 17:00 | Outpatient (AMB) | payer OTHER, SELFPAY ==
[2024-02-16 17:08] VITALS: BP 114/66; PULSE 76; BMI 20.9
--- NOTE | 2024-02-16 17:08 | MHC.PC.OV ---
Vital Signs 02/16/24 17:08 Height 5 ft Weight 107 lb 2 oz BMI 20.9 BP 114/66 Blood Pressure Location Lt brachial Position Sitting Pulse 76 Pulse Source Palpation Intake Visit Reasons: rectal bleeding Doctor Osteopathic Required: No Accompanied by: Self / Same As Patient Allergies diphenhydramine [From Benadryl] Allergy (Severe, Verified 02/16/24 17:27) Chest Pain, hard to breath Medication List - Last Reconciled 02/16/24 by Jasbir Wynn MD hyoscyamine sulfate ER 0.375 mg PO BID PRN 30 days ibuprofen 600 mg PO Q6H PRN ondansetron 4 mg PO Q8H PRN 15 days polyethylene glycol 3350 (Miralax) 17 grams PO DAILY 30 days sennosides (senna) 17.2 mg (2 x 8.6 mg) PO DAILY 14 days Tobacco use date assessed: 10/30/23 Dental Screening Dental Screen Date: 09/08/23 HPI rectal bleeding HPI Details Patient comes in today for her follow up visit - this was a rescheduled visit of her October 2023 appointment when she had to leave before being seen States that she has changed her diet around and has been eating a healthier diet for the past few months and that she no longer has the recurrent rectal bleeding that she had a few months ago States that her bowel movements have been much better regulated and she no longer has to strain a lot during bowel movements which, according to GI, is what is causing her recurrent rectal bleeding previously She currently takes Miralax everyday and Senna PRN Relates that she has been experiencing increased allergy symptoms over the past couple of weeks, and that she often has increased nasal and sinus congestion and pressure She denies any headaches or dizziness; denies any fever or sore throat Denies any chest pains, no SOB No nausea/vomiting, no abdominal pain PFSH Medical History Allergic rhinitis Insomnia Chronic abdominal pain POTS (postural orthostatic tachycardia syndrome) Palpitations Inguinal pain of both sides Surgical History No significant past surgical history Family History Mother No problems noted. Father No problems noted. 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 Maninder Evans, Kira Ceballos, Mike Veras and colleagues, with an educational dixie from [employer]. Review of Systems Const Denies chills, Denies fatigue, Denies fever(s) and Denies headache(s) ENT Denies dysphagia, Denies dizziness, Denies otalgia, Denies headache(s), Reports nasal congestion (increased lately), Denies neck pain, Denies odynophagia and Denies sore throat Card Denies chest pain, Denies rapid heart rate, Denies irregular heart rhythm, Denies palpitations and Denies dyspnea Resp Denies cough, Denies dyspnea and Denies wheezing GI Denies abdominal pain, Denies hematochezia, Denies constipation (better controlled lately), Denies dysphagia, Denies heartburn, Denies diarrhea, Denies nausea, Denies odynophagia and Denies vomiting Denies urinary frequency, Denies nocturia, Denies dysuria and Denies urinary urgency Musc Denies back pain and Denies neck pain Skin/Breast Denies rash Neuro Denies dizziness, Denies headache(s) and Denies paresthesias Psych Denies anxiety and Denies depression Endo Denies fatigue and Denies palpitations Peter/Lymph Denies easy bruising Aller/Immun Denies wheezing Physical exam (Primary Care) Vital Signs: Last Vital Signs Pulse 76 02/16/24 17:08 BP 114/66 02/16/24 17:08 BMI result Body Mass Index 20.9 Tobacco/Smoking Status: Tobacco use Status Tobacco use date assessed 10/30/23 02/16/24 17:09 Patient Tobacco Use Status Never used Tobacco 02/16/24 17:09 e-Cigarette/Vaping Use Never Used 02/16/24 17:09 Thrive Assessment: Date of Thrive Assessment Date Thrive assessed 09/08/23 02/16/24 17:09 Const General: no acute distress and alert HENMT Ears: TM's normal bilaterally and EAC's normal General nose exam: Abnormal mucous membranes and turbinates present erythematous bilateral Face and sinus: Yes sinuses nontender Throat: Yes posterior oropharynx normal and Yes tonsils normal Neck Neck: Yes no lymphadenopathy and Yes supple Thyroid: Thyroid normal Resp Auscultation: clear to auscultation bilaterally, no rales and no wheezes Cardio Rate: regular rate Rhythm: regular rhythm Heart sounds: no murmurs GI Palpation (GI): Soft to palpation and nontender Auscultation: normal bowel sounds General: Yes no CVA tenderness Back/Spine/Pelvis Back: no CVA tenderness Thoracic/Lumbar Spine: No lumbar spinal tenderness Extrem General: Yes no clubbing, cyanosis or edema Assessment and Plan Assessment & Plan (1) Allergic rhinitis: Code(s): J30.9 - Allergic rhinitis, unspecified Qualifiers: Allergic rhinitis trigger: unspecified Allergic rhinitis seasonality: unspecified Qualified Code(s): J30.9 - Allergic rhinitis, unspecified Plan: Will start her for now on Fexofenadine 180 mg QD Advised that if this is not enough to control or alleviate her allergy symptoms, will then add Fluticasone 50 mcg nasal spray QD PRN (2) Gastritis: Code(s): K29.70 - Gastritis, unspecified, without bleeding Qualifiers: Gastritis type: unspecified gastritis Chronicity: acute Gastritis bleeding: presence of bleeding unspecified Qualified Code(s): K29.00 - Acute gastritis without bleeding Plan: Appears improved Patient previously has significant epigastric tenderness on palpation and was started on Pantoprazole 40 mg QD and Carafate 1 gm QID but she is currently no longer taking any of these meds States that she has changed her diet around recently and is now eating a lot healthier and her abdominal symptoms have reportedly improved since Reinforced dietary restrictions (3) Rectal bleeding: Code(s): K62.5 - Hemorrhage of anus and rectum Plan: Patient reports NO episodes of rectal bleeding for over a couple of months now This was likely due to hemorrhoids and was aggravated when she was experiencing increased constipation a few months ago She has been taking Miralax daily and Senna PRN with significant improvement of her constipation States that she has also been eating a lot healthier and has changed her diet around lately, which has also helped a lot Plan To return in August 2024 for her next annual physical examination Medications: New fexofenadine 180 mg PO DAILY 90 days PRN 90 tabs 1RF allergy symptoms Coding Level of Care Code Est Pt Level 4 (26894) Diagnoses Allergic rhinitis, unspecified seasonality, unspecified trigger J30.9 Allergic rhinitis trigger: unspecified Allergic rhinitis seasonality: unspecified Acute gastritis, presence of bleeding unspecified, unspecified gastritis type K29.00 Gastritis type: unspecified gastritis Chronicity: acute Gastritis bleeding: presence of bleeding unspecified Rectal bleeding K62.5
== END 2024-02-16 17:32 | disposition home or self-care (01) ==
PROVIDERS: PCP Internal Medicine; Visit Provider Internal Medicine
DX: J30.9 Allergic rhinitis, unspecified (principal); K29.00 Acute gastritis without bleeding; K62.5 Hemorrhage of anus and rectum
CPT/HCPCS: 99214

== ENCOUNTER 2024-02-26 11:18 | Outpatient (REF) | payer OTHER, SELFPAY ==
[2024-02-27 02:32] LABS: CT PCR NOT DETECTED (Not Detect.); NG PCR NOT DETECTED (Not Detect.)
[2024-02-27 11:04] LABS: Bacterial Vaginosis PCR POSITIVE (Negative); Candida Group PCR NOT DETECTED (Not Detect); Candida glab krusei PCR NOT DETECTED (Not Detect); Trichomonas vaginalis PCR NOT DETECTED (Not Detect)
== END 2024-02-26 11:19 | disposition home or self-care (01) ==
LOC: HO.LAB 11:18
PROVIDERS: PCP Internal Medicine; Visit Provider Advanced Practice Midwife
DX: N89.8 Other specified noninflammatory disorders of vagina (principal); Z20.2 Contact with and (suspected) exposure to infections with a predominantly sexual mode of transmission
CPT/HCPCS: 0352U; 87491; 87591

== ENCOUNTER 2024-02-26 11:18 | Outpatient (AMB) | payer OTHER, SELFPAY ==
[2024-02-26 11:20] VITALS: BP 110/62; BMI 20.7
--- NOTE | 2024-02-26 11:20 | A.OFFVIS_ITS ---
Vital Signs 02/26/24 11:20 Height 5 ft Weight 106 lb BMI 20.7 BP 110/62 Intake Visit Reasons: ? 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: No Information Interpreted: clinical only [employer]: [employer] Present Allergies diphenhydramine [From Benadryl] Allergy (Severe, Verified 02/26/24 11:22) Chest Pain, hard to breath Medication List - Last Reconciled 02/26/24 by Jen Javier CNM fexofenadine 180 mg PO DAILY PRN 90 days hyoscyamine sulfate ER 0.375 mg PO BID PRN 30 days ibuprofen 600 mg PO Q6H PRN ondansetron 4 mg PO Q8H PRN 15 days polyethylene glycol 3350 (Miralax) 17 grams PO DAILY 30 days sennosides (senna) 17.2 mg (2 x 8.6 mg) PO DAILY 14 days Is last menstrual period known: Yes Last menstrual period: 02/15/24 Do you need a note to return to daycare/school/sports/work: No HPI HPI ? infection: Details: She thinks she has an infection again she has got vaginal itching she wonders why she keeps getting bacterial vaginosis. She is sexually abstinent at the moment when she is active she uses condoms her fiance is deployed to [place] at the moment and will be back till June. She gets regular periods and showed me the regular recent menses in her phone. She also has a frequent history of UTIs and is concerned about that and is considering asking her PCC for Urology referral. She says she cut out sugar and a lot of unhealthy things from her diet and eats only very simple Berrys for fruits and drinks lots of water and does not drink anything sugary. She drinks unsweetened cranberry juice when she drinks juice or thinks she has a uti. She wipes from front to back she wears only cotton underwear she go sleeps without on these at night she has had no change in detergents she is not complaining of the fishy odor just vaginal itch ing she tends to use usually pads for her periods sometimes tampons for the very heavy days and then panty liners at the very end of her period but not otherwise. She has been on antibiotics frequently for both bacterial vaginosis and for UTIs. [facility] Medical History Allergic rhinitis Insomnia Chronic abdominal pain POTS (postural orthostatic tachycardia syndrome) Palpitations Inguinal pain of both sides Surgical History No significant past surgical history Family History Mother No problems noted. Father No problems noted. 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 Current occupational exposures/hazards: No Sexual orientation: Straight/Heterosexual Gender identity: Female Cognitive needs: No Hearing needs: No Vision needs: No Female Reproductive History Menstrual Age of Menarche: 10 Duration of menses: 6-7 days Date of last menstrual period: 02/15/24 control method: none Total pregnancies: 0 Date of last pap smear: 06/19/21 (negative) History of abnormal pap smear: No Physical Exam Vital Signs: Last Vital Signs BP 110/62 02/26/24 11:20 BMI result Body Mass Index 20.7 Other: External exam within normal limits vagina is pink and moist normal appearing healthy mucosal tissue there is fairly normal appearing whitish creamy yellowish discharge with a little bit of clear discharge coming from cervical os cervix is nulliparous mobile nontender the patient did clinched during exam couple of times. Adnexa nontender nonenlarged uterus midposition patient is very slightly tender at her bladder area superior/anterior to uterus External Female Exam: normal external appearance Speculum Exam - Vagina: normal appearance of the vagina and normal vaginal discharge Speculum Exam - Cervix: normal appearance of the cervix Bimanual exam- vagina & uterus: normal bimanual exam, uterine size normal, consistency normal, uterine mobility normal, uterine shape normal and non-tender Bimanual Exam- Adnexa, other: normal adnexae, no masses and No adnexal tenderne ss Results Reviewed Results Reviewed: [facility] [address] [place] [id number] Director Of Pediatric Rehabilitation: Fran Mckinley M.D. Specimen Inquiry Name: Twila Baker Age/Sex: 23/F : 2000 Unit#: [id number] Attend Dr: Aure Soler CNM Re10/14/23 Status: DEP REF [facility] Disch: SPEC : [id number] LARISA: 10/14/2345 STATUS: COMP REQ : [id number] RECD: 10/14/23-[address]: Aure Soler CNM COMP: 10/15/23-1018 ENTERED: 10/14/23-[address]: Jasbir Wynn MD ORDERED: BV Panel Test Result Flag Reference Trichomonas DNA Negative Negative Gardnerella DNA Positive A Negative Renae DNA Positive A Negative Name: Twila Baker Age/Sex: 20/F Attending: Jeferson Singletary MD : 2000 Submitted by: Jeferson Singletary MD Copies to: Jasbir Wynn MD MR #: [id number] Status: DEP REF Collected: 06/18/21 Location: [facility] Received: 06/19/21 Interpretation Satisfactory for evaluation. No endocervical cells seen. Negative for intraepithelial lesion or malignancy. Mild inflammation. Clinical Information LMP: 05/30/2021 Previous PAP test: None Material Received ThinPrep- Cervical Copies To Jasbir Wynn MD [address] [place] [address] Jeferson Singletary MD [address] [place] [address] [address]. Mary Ann [address] [place] [address] Electronically Signed By: Analy Lang 06/22/21 1651 The Pap Test is a screening procedure with the inherent possibility of both false negative and false positive results. Results should be interpreted in the context of historic and current clinical findings. Reliability of the Pap Test is enhanced by performing the test on a regular repetitive basis. Patient: Twila Baker Page 1 of 1 Assessment & Plan Assessment & Plan (1) Vaginal itching: Code(s): N89.8 - Other specified noninflammatory disorders of vagina Category: Medical (2) Recurrent urinary tract infection: Code(s): N39.0 - Urinary tract infection, site not specified Category: Medical Plan ---Discussed the current research around the phenomena of bacterial vaginosis, and the many factors involved in the increase and change in the prevalence of certain bacteria in the vagina, that contribute to the clingy discharge, the fishy malodor, and the discomfort, that many women experience very frequently in their lives. Discussed the many factors that can promote it, and current thinking about best options for treatment of both the a 1 time episode, or frequently occurring episodes. Discussed the role of partner condom use. Discussed that previously, treatment was recommended for both partners, but is not currently recommended today as of 2020. Discussed the testing involved. Discussed the limitations of testing and the over diagnosis of BV as well. Discussed treatment options including Flagyl, metronidazole gel, boric acid capsules and others. There was a order in the system from her primary care provider for her clean- catch urine with culture from Dr. Wynn and we printed it so that she could get that done other than having a redundant order in the system. This way she can follow-up with her primary care provider about a UTI if it is proven to be there additionally reviewed her most recent urine that was in the system from emergency visit where she was diagnosed with a UTI that came back contaminated with multiple maryuri. Reviewed the challenges of doing a clean-catch urine and diagnosed a UTI correctly. Discussed the precautions of over diagnosed sing and over treating in general and the risks involved urged being cautious as far as this is concerned and drinking more water and trying to flush bacteria out reinforce her efforts at health prevention methods all discussed above Will await the testing for BV Gardnerella Renae gonorrhea chlamydia trich. Anticipate that possibly bacterial vaginosis maybe present as is possible for Renae as they are normal maryuri in the vagina and currently get over diagnosed. if she does get called with a positive diagnosis of these/presence of Gardnerella or Renae in the test, I recommend considering the gel or cream treatments rather than p.o. antibiotics as they all take a toll on her system. She would be due for her annual exam and Pap this year as well. Orders: Orders Bacterial Vaginosis Panel Today N89.8 - Other specified noninflammatory disorders of vagina CT NG by PCR Today N89.8 - Other specified noninflammatory disorders of vagina, Z20.2 - Contact with and (suspected) exposure to infections with a predominantly sexual mode of transmission Coding Level of Care Code Est Pt Level 3 (54181) Diagnoses Vaginal itching N89.8 Recurrent urinary tract infection N39.0
== END 2024-02-26 13:08 | disposition home or self-care (01) ==
LOC: HO.HWSM 11:18
PROVIDERS: PCP Internal Medicine; Visit Provider Advanced Practice Midwife
DX: N89.8 Other specified noninflammatory disorders of vagina (principal); N39.0 Urinary tract infection, site not specified
CPT/HCPCS: 99213

== ENCOUNTER 2024-03-25 12:13 | Outpatient (REF) | payer OTHER, SELFPAY ==
[2024-03-25 13:12] LABS: Appearance Urine Clear; Color Urine Yellow; Glucose Urine UA Negative (Negative); Leukocyte Esterase Urine Negative (Negative); Nitrite Urine Negative (Negative); PH 7.5 (5.0-9.0); Specific Gravity - Urine 1.025 (1.005-1.025); Urine Blood Negative (Negative); Urine Ketones Negative (Negative); Urine Protein Trace mg/dL (Neg-Trace)
== END 2024-03-25 12:14 | disposition home or self-care (01) ==
LOC: HO.LAB 12:13
PROVIDERS: PCP Internal Medicine; Visit Provider Internal Medicine
DX: R39.9 Unspecified symptoms and signs involving the genitourinary system (principal)
CPT/HCPCS: 81003

== ENCOUNTER 2024-03-31 03:57 | Emergency (ER) | payer OTHER, SELFPAY ==
--- NOTE | 2024-03-31 | ECG_ITS ---
Test Reason : CHEST PAIN Blood Pressure : / mmHG Vent. Rate : 078 BPM Atrial Rate : 078 BPM P-R Int : 138 ms QRS Dur : 076 ms QT Int : 388 ms P-R-T Axes : 077 097 033 degrees QTc Int : 442 ms Normal sinus rhythm Possible Left atrial enlargement Rightward axis Borderline ECG When compared with ECG of 30-JUL-2023 04:41, No significant change was found Referred By: Generic ED Physician Electronically Signed By:JOSE HESTER
--- NOTE | ~2024-03-31 | XR_ITS ---
EXAMINATION: XR CHEST CLINICAL INFORMATION: Chest pain COMPARISON: 06/02/2022 TECHNIQUE: Frontal view of the chest was obtained. FINDINGS: Lung volumes are symmetric. No focal consolidation is seen. No evidence of pneumothorax, pleural effusion, or pulmonary edema. The cardiomediastinal contour is unremarkable. No acute osseous findings are seen. XR/XR chest 1V IMPRESSION: No acute cardiopulmonary findings. Electronically signed by: Hugh Granados MD 03/31/2024 05:12 AM EDT
[2024-03-31 04:04] VITALS: BP 130/76; PULSE 73; RESP 18; TEMP 36.8; O2SAT 100; BMI 21.0
[2024-03-31 04:21] LABS: MANUAL DIFF FLAG NO
[2024-03-31 04:22] LABS: Basophils Percent Auto 0.4 % (0-2); Eosinophils Absolute Auto 0.1 X10*3/uL (0.0-0.4); Eosinophils Percent Auto 1.3 % (0-4); Hematocrit 37.3 % (37.0-47.0); Imm Gran Abs Auto 0.01 X10*3/uL (0.00-0.03); Imm Gran Pct Auto 0.2 % (0.0-0.4); Lymphocytes Absolute Auto 1.6 X10*3/uL (1.2-4.9); Lymphocytes Percent Auto 30.1 % (20-40); Mean Corpuscular HGB Conc 32.2 g/dl (31.0-35.0); Mean Corpuscular Hemoglobin 26.5 pg (27.0-33.0); Mean Corpuscular Volume 82.3 fL (80.0-98.0); Mean Platelet Volume 9.3 fL (9.4-12.3); Monocytes Absolute Auto 0.4 X10*3/uL (0.1-1.2); Monocytes Percent Auto 7.6 % (2-11); Neutrophils Absolute Auto 3.3 x10*3/uL (2.0-8.3); Neutrophils Percent Auto 60.4 % (45-73); Platelet Count 273 X10*3/uL (160-400); Red Blood Count 4.53 X10*6/uL (4.20-5.50); Red Cell Distribution Width 12.7 % (11.0-16.0); White Blood Count 5.4 X10*3/uL (4.8-10.8)
[2024-03-31 04:36] LABS: Alanine Aminotransferase 7 U/L (0-31); Albumin Level 4.2 g/dL (3.5-5.0); Alkaline Phosphatase 71 U/L (39-117); Anion Gap 12 (12-20); Aspartate Amino Transferase 14 U/L (5-31); Bilirubin Total 0.8 mg/dL (0.0-1.0); Blood Urea Nitrogen 9 mg/dL (9-16); Calcium 9.2 mg/dL (8.4-10.2); Carbon Dioxide 24 mmol/L (22-29); Chloride 107 mmol/L (96-108); Creatinine Clr Calc Pharmacy 79.1; Estimated Glomerular Filt Rate > 60; Glucose Random 97 mg/dL (60-115); Potassium 3.5 mmol/L (3.3-5.1); Sodium 139 mmol/L (135-145); Total Protein 6.8 g/dL (6.5-8.0)
[2024-03-31 08:07] VITALS: BP 114/70; PULSE 76; RESP 14; TEMP 36.7; O2SAT 100
--- NOTE | 2024-03-31 08:08 | ED.CHESTPAIN ---
HPI - Chest Pain General Chief Complaint: Chest Pain Stated Complaint: chest pain Time Seen by Provider: 03/31/24 07:55 History of Present Illness HPI narrative: Patient is a 23-year-old female presents today with having left-sided chest pain. The pain is shooting like it goes to the left shoulder area it lasted for about an hour. There is no fever no chills. Positive generalized malaise. No history of control pills. No travel history. No trauma. Patient from home. Took an aspirin prior to arrival. Patient's co-worker tested positive for COVID she has some mild headache as well. No fever no coughing or congestion. No history of diabetes, hypertension, high cholesterol, smoking, mi, family history of OR. Related Data Previous Rx's ?Medication ?Instructions ?Recorded hyoscyamine sulfate 0.375 mg 0.375 mg PO BID PRN Abd discomfort 10/13/23 tablet,extended release,12 hr 30 days #60 tabs polyethylene glycol 3350 17 17 g PO DAILY 30 days #510 grams 10/13/23 gram/dose oral powder (Miralax) sennosides 8.6 mg tablet (senna) 17.2 mg (2 x 8.6 mg) PO DAILY 14 10/13/23 days #28 tabs ondansetron 4 mg disintegrating 4 mg PO Q8H PRN nausea and 10/30/23 tablet vomiting 15 days #45 tabs ibuprofen 600 mg tablet 600 mg PO Q6H PRN fever or pain 01/08/24 #30 tabs fexofenadine 180 mg tablet 180 mg PO DAILY PRN allergy 02/16/24 symptoms 90 days #90 tabs metronidazole 0.75 % (37.5 mg/5 1 appful vaginal BEDTIME 5 days 02/27/24 gram) vaginal gel #70 grams Allergies Allergy/AdvReac Type Severity Reaction Status Date / Time diphenhydramine Allergy Severe Chest Verified 03/31/24 04:07 [From Benadryl] Pain, hard to breath Review of Systems Review of Systems: Positive chest pain on the left side. Yes all other systems are reviewed and are negative PMFSH Past Medical History Attestation statement: The following information was validated with the patient. Medical History Allergic rhinitis Insomnia Chronic abdominal pain POTS (postural orthostatic tachycardia syndrome) Palpitations Inguinal pain of both sides Surgical History No significant past surgical history Family History Family History Mother No problems noted. Father No problems noted. 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 Oriented X3. No acute distress. Eyes: Pupils equal, round and reactive to light. ENT: Pharynx normal. Neck: Normal inspection. Neck supple. No lymph nodes noted. No crepitus CVS: Normal heart rate and rhythm. Pulses normal. Normal S1 and S2 Respiratory: No respiratory distress. Breath sounds normal. No Wheezing. No rales Abdomen: Soft and nontender. No rigidity. No distention. good BS x4 Skin: Skin warm and dry. Normal skin color. Normal skin turgor. Extremities: No lower extremity edema. Neurovascular intact to all extremities. No Lacerations. No Rash Neuro: Oriented X 3. No motor deficit. No sensory deficit. Moving all extermities. No slurred speech Medical Decision Making Medical Decision Making MDM Narrative: Patient well-appearing no acute distress. Pain is atypical for ACS. No history of diabetes, hypertension, high cholesterol is not overweight. Never had an OR in the past. Patient's heart score is less than 3. Pain is atypical. Negative troponin. No significant risk. 23 years old. Patient's has no significant risk for PE. Her D-dimer is negative. In this setting unlikely to have a pulmonary emboli. Patient's chest x-ray was grossly negative. There is no evidence for pneumonia no pneumothorax. Differential Diagnosis Differential Diagnoses: The differential diagnosis associated with the presentation includes Admission/Observation Consideration of admission/observation: Escalation of care including admission/observation considered Lab Data MDM Lab Attestation statement: I reviewed the patient's lab results. 03/31/24 04:17 03/31/24 04:17 Labs: Lab Results 03/31/24 03/31/24 03/31/24 Range/Units 04:17 08:24 09:18 WBC 5.4 (4.8-10.8) X10*3/uL RBC 4.53 (4.20-5.50) X10*6/uL Hgb 12.0 (12.0-16.0) g/dl Hct 37.3 (37.0-47.0) % MCV 82.3 (80.0-98.0) fL MCH 26.5 L (27.0-33.0) pg MCHC 32.2 (31.0-35.0) g/dl RDW 12.7 (11.0-16.0) % Plt Count 273 (160-400) X10*3/uL MPV 9.3 L (9.4-12.3) fL Immature Gran % (Auto) 0.2 (0.0-0.4) % Neut % (Auto) 60.4 (45-73) % Lymph % (Auto) 30.1 (20-40) % Loving % (Auto) 7.6 (2-11) % Eos % (Auto) 1.3 (0-4) % Baso % (Auto) 0.4 (0-2) % Lymph # (Auto) 1.6 (1.2-4.9) X10*3/uL Loving # (Auto) 0.4 (0.1-1.2) X10*3/uL Eos # (Auto) 0.1 (0.0-0.4) X10*3/uL Baso # (Auto) 0.0 (0.0-0.2) X10*3/uL Abs Immat Gran (auto) 0.01 (0.00-0.03) X10*3/uL Absolute Neuts (auto) 3.3 (2.0-8.3) x10*3/uL Absolute Nucleated RBC 0.000 (0.0-0.012) X10*3/uL Nucleated RBC % (auto) 0.0 (0.0-0.2) /100WBC D-Dimer High Sensitivty < 150 NG/ML Sodium 139 (135-145) mmol/L Potassium 3.5 (3.3-5.1) mmol/L Chloride 107 (96-108) mmol/L Carbon Dioxide 24 (22-29) mmol/L Anion Gap 12 (12-20) BUN 9 (9-16) mg/dL Creatinine 0.78 (0.5-1.4) mg/dL Estim Creat Clear Calc 79.1 Estimated GFR > 60 Random Glucose 97 (60-115) mg/dL Calcium 9.2 (8.4-10.2) mg/dL Total Bilirubin 0.8 (0.0-1.0) mg/dL AST 14 (5-31) U/L ALT 7 (0-31) U/L Alkaline Phosphatase 71 (39-117) U/L Troponin I High Sens 3.3 (<3.5-17.0) ng/L Total Protein 6.8 (6.5-8.0) g/dL Albumin 4.2 (3.5-5.0) g/dL Urine Color Yellow Urine Appearance Clear Urine pH 6.5 (5.0-9.0) Ur Specific [place] 1.015 (1.005-1.025) Urine Protein Negative (Neg-Trace) mg/dL Urine Glucose (UA) Negative (Negative) mg/dL Urine Ketones Negative (Negative) mg/dL Urine Blood Negative (Negative) Urine Nitrite Negative (Negative) Ur Leukocyte Esterase Negative (Negative) Urine RBC 0-2 (0-2) /HPF Urine WBC 0-5 (0-5) /HPF Ur Squamous Epith Cells 0-2 (0-2) /HPF Urine Bacteria None Seen (None Seen) Hyaline Casts 0-2 (0-2) /LPF Urine Test NEGATIVE (NEGATIVE) COVID-19 (TARSHA) Negative (Negative) COVID-19 Clin Com See Note Independent Interpretation I performed an independent interpretation of an: EKG (My interpretation of patient's EKG showed a sinus rhythm heart rate is 80 KS QRS QTC normal there is no acute ST segment elevation) and Plain X-Ray (Chest x-ray is negative) Radiology Impression Discussion of test interpretation with radiology: I have reviewed the radiologist's reading. External Record Review Previous EKG reviewed Social Determinants Patient?s care significantly limited by Social Determinants of Health including: Problems related to primary support group Discharge Plan Discharge Clinical Impression: Chest pain Patient Disposition: Home, Self-Care Instructions: Chest Pain (ED) Prescriptions: No Action metronidazole 0.75 % (37.5mg/5 gram) gel 1 appful vaginal BEDTIME 5 Days Qty: 70 0RF ibuprofen 600 mg tablet 600 mg PO Q6H PRN (Reason: fever or pain) Qty: 30 0RF ondansetron 4 mg tablet,disintegrating 4 mg PO Q8H PRN (Reason: nausea and vomiting) 15 Days Qty: 45 1RF fexofenadine 180 mg tablet 180 mg PO DAILY PRN (Reason: allergy symptoms) 90 Days Qty: 90 1RF sennosides [senna] 8.6 mg tablet 17.2 mg PO DAILY 14 Days Qty: 28 0RF polyethylene glycol 3350 [Miralax] 17 gram/dose powder 17 g PO DAILY 30 Days Qty: 510 0RF hyoscyamine sulfate 0.375 mg tablet extended release 12 hr 0.375 mg PO BID PRN (Reason: Abd discomfort) 30 Days Qty: 60 0RF Referrals: Jasbir Wynn MD [Primary Care Provider] - 04/02/24 Print Language: Malaysian
--- NOTE | 2024-03-31 08:16 | PC.NURSE ---
Pt comes to ED today with c/o 6/10 chest pain that woke her up from sleeping. States pain is to her L chest and is described as stabbing and constant in nature with radiation to L upper back. VSS, afebrile, A&Ox3 blood labs pending
[2024-03-31 08:31] LABS: Appearance Urine Clear; Color Urine Yellow; Glucose Urine UA Negative (Negative); Leukocyte Esterase Urine Negative (Negative); Nitrite Urine Negative (Negative); PH 6.5 (5.0-9.0); Specific Gravity - Urine 1.015 (1.005-1.025); Urine Blood Negative (Negative); Urine Ketones Negative (Negative); Urine Protein Negative (Neg-Trace)
[2024-03-31 08:33] LABS: UPreg QC Valid YES; Urine Pregnancy NEGATIVE (NEGATIVE)
[2024-03-31 08:35] LABS: Bacteria Urine None Seen (None Seen); Hyaline Casts Urine 0-2 /LPF (0-2); RBC Urine 0-2 /HPF (0-2); Squamous Epithelial Cell Urine 0-2 /HPF (0-2); WBC Urine 0-5 /HPF (0-5)
[2024-03-31 09:41] LABS: D Dimer High Sensitivity < 150 NG/ML
[2024-03-31 09:50] LABS: COVID-19 Test Negative (Negative); IDNOW Serial# 152EDE1D; Troponin-I High Sensitivity 3.3 ng/L (<3.5-17.0)
[2024-03-31 10:15] VITALS: BP 113/42; PULSE 66; RESP 16; TEMP 36.6; O2SAT 100
== END 2024-03-31 10:16 | disposition home or self-care (01) ==
PROVIDERS: Emergency Provider Emergency Medicine Emergency Medical Services; PCP Internal Medicine
DX: R07.89 Other chest pain (principal); M25.512 Pain in left shoulder; Z11.52 Encounter for screening for COVID-19; Z79.899 Other long term (current) drug therapy
CPT/HCPCS: 36415; 71045; 80053; 81001; 81025; 84484; 85025; 85379; 87635; 93005; 99283; 99285

== ENCOUNTER 2024-05-06 12:44 | Outpatient (AMB) | payer OTHER, SELFPAY ==
--- NOTE | 2024-05-06 13:06 | A.OFFVIS_ITS ---
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 Wynn. She has a past medical history of IBS, insomnia, and allergic rhinitis. She presents to the office today as a new patient for recurrent urinary tract infections. In discussion with the patient today she reports since the beginning of year she has been experiencing ongoing issues with UTI like symptoms. In review of patient's chart it appears many urine cultures were ordered and obtained however not always positive. Urine cultures are as follows: 2/ strep agalactiae, 12/ mixed bacteria, 6/ no growth, 3/ no growth, 5/23 mixed bacteria, 6/23 mixed bacteria, 1/24 strep agalactiae, 2/24 mixed bacteria, 6/24 mixed bacteria. She currently denies any UTI like symptoms. She reports typically UTI like symptoms are urinary urgency, urinary frequency, and dysuria. In office urinalysis results reviewed with the patient today. 2+ leukocytes negative nitrates trace microscopic hematuria. PVR 0 mL. We discussed at length potential causes of lower urinary tract symptoms patient is experiencing. We discussed possible near future in office cystoscopy for further assessment evaluation. We discussed obtaining retroperitoneal ultrasound for further assessment evaluation. When asked she does report a history of IBS. She denies urinary urgency, urinary frequency, incontinence, nocturia, hematuria, dysuria, foul smelling urine, changes to urinary stream, flank pain, fever, and or chills. She is happy with her current voiding parameters. She otherwise offers no other issues or concerns at this time. [facility] Medical History Allergic rhinitis Insomnia Chronic abdominal pain POTS (postural orthostatic tachycardia syndrome) Palpitations Inguinal pain of both sides Surgical History No significant past surgical history Family History Mother No problems noted. Father No problems noted. 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 Current occupational exposures/hazards: No Sexual orientation: Straight/Heterosexual Gender identity: Female Cognitive needs: No Hearing needs: No Vision needs: No Female Reproductive History Menstrual Age of Menarche: 10 Review of Systems Const All systems reviewed & are unremarkable except as noted in HPI and below Physical Exam Const General: cooperative, healthy appearing, comfortable, no acute distress, well developed, alert and awake Orientation/consciousness: patient oriented x3 Limitations: no limitations HEENT Head: Yes normal to inspection, Yes normocephalic and Yes atraumatic Ears: hearing grossly normal bilaterally Eyes General: appearance normal, both eyes and all related structures Neck Neck: Yes normal visual inspection and Yes trachea midline Chest Chest palpation & inspection: normal inspection of the chest Resp Effort & Inspection: normal respiratory effort and able to speak in complete sentences Cardio Rate: regular rate GI Inspection: Yes normal to inspection General: Yes no CVA tenderness Back/Spine/Pelvis Back: no CVA tenderness Skin General skin exam: no rashes or lesions noted Neuro General: patient oriented x3 Extrem General: Yes normal to inspection Psych Appearance: grossly normal and well kempt Mental Status: mental status grossly normal Speech and movement: Normal speech and movement present and Clear speech present Affect: normal affect Attitude: cooperative Thought process: Normal thought process present Thought content: Normal thought content present Insight: Fair insight present (Psych) Judgement: Fair judgement present (Psych) Office Procedures Post Void Residual Post Residual Void Post Void Residual (PVR): 0 [id number]-[id number] Void Residual by ultrasound Results AMB Urinalysis, Automated UA Leukoctes 125 Miya/uL Last Edit by Ewirelessgearky Dailey on 05/06/24 13:59 UA Nitrite Last Edit by James Dailey on 05/06/24 13:59 UA Urobilinogen 0.2 mg/dL Last Edit by James Dailey on 05/06/24 13:59 UA Protein 15 mg/dL Last Edit by NSH Holdcokrzysztof Southtreesudhakar on 05/06/24 13:59 UA pH 6.0 Last Edit by NSH Holdcokrzysztof Southtreesudhakar on 05/06/24 13:59 UA Blood 10 Joshua/uL Last Edit by [employer]OTECH[employer]udhakar on 05/06/24 13:59 UA Specific [place] 1.020 Last Edit by [employer]hakar on 05/06/24 13:59 UA Ketone Last Edit by NSH Holdcokrzysztof Dailey on 05/06/24 13:59 UA Bilirubin 0 mg/dL Last Edit by [employer]CH[employer] on 05/06/24 13:59 UA Glucose 0 mg/dL Last Edit by NSH Holdcokrzysztof Southtreesudhakar on 05/06/24 13:59 Results Reviewed Results Reviewed: Laboratory Last Values Urine pH (Auto) 6.0 05/06/24 13:57 Specific [place] (Auto) 1.020 05/06/24 13:57 Urine Protein (Auto) 15 mg/dL 05/06/24 13:57 Glucose (UA)(Auto) 0 mg/dL 05/06/24 13:57 Urine Blood (Auto) 10 Joshua/uL 05/06/24 13:57 Urine Bilirubin (Auto) 0 mg/dL 05/06/24 13:57 Urine Urobilinogen (Auto) 0.2 mg/dL 05/06/24 13:57 Leukocyte Esterase (Auto) 125 Miya/uL 05/06/24 13:57 Assessment & Plan Assessment & Plan (1) Recurrent urinary tract infection: Code(s): N39.0 - Urinary tract infection, site not specified Category: Medical (2) Lower urinary tract symptoms: Code(s): R39.9 - Unspecified symptoms and signs involving the genitourinary system Category: Medical Plan In office urinalysis results reviewed the patient today; as noted above. PVR 0 mL. We discussed at length potential causes lower urinary tract symptoms patient is experiencing. Will obtain retroperitoneal ultrasound for further assessment evaluation. Discussed UTI prevention with D mannose supplement, vitamin-C, increasing fluid intake, behavioral therapy with timed voiding, perineal hygiene and postcoital voiding, and management of constipation with stool softeners and increased fiber intake. Patient currently denies any UTI like symptoms. She reports be happy with current voiding parameters. Follow-up in 1-3 months with imaging to be completed prior and PVR at next office visit; or sooner with any issues, concerns, and or questions. Orders: Orders US retroperitoneal comp Today N39.0 - Urinary tract infection, site not specified, R39.9 - Unspecified symptoms and signs involving the genitourinary s ystem AMB Urinalysis Automated Today Z13.9 - Encounter for screening, unspecified AMB Post Void Residual by ultrasound Today N39.0 - Urinary tract infection, site not specified Patient Instructions: The patient had an opportunity to ask questions regarding the treatment plan. All questions were answered. Physical exam, labs, and imaging were discussed and reviewed in detail. As well as risks, benefits, and discussion of treatment choices. No major barriers to understanding were identified. The patient expressed understanding and agreement with the above treatment plan. The patient was made aware they should contact our office by phone for worsening of their current condition, the appearance of new symptoms, or with any questions or concerns. Compliance is encouraged with any medications and follow up testing that is ordered. It is a privilege to be allowed the opportunity to participate in? your urological care.? Again, if you have any questions or concerns If you have any questions or concerns please do not hesitate to contact me. The office is [phone]. This note is constructed using voice recognition software. While every effort has been made to ensure accuracy elephant keeper errors may have been included. Yours sincerely, JEANNA Sheehan Coding Level of Care Code New Pt Level 3 (84397) Diagnoses Recurrent urinary tract infection N39.0 Lower urinary tract symptoms R39.9 CPT Codes Post Residual Void - PVR CPT Code: 43470-Psud Void Residual by ultrasound ([id number])
== END 2024-05-06 13:45 | disposition home or self-care (01) ==
PROVIDERS: PCP Internal Medicine; Visit Provider Nurse Practitioner Family
DX: N39.0 Urinary tract infection, site not specified (principal); R39.9 Unspecified symptoms and signs involving the genitourinary system; Z13.9 Encounter for screening, unspecified
CPT/HCPCS: 99203

== ENCOUNTER → 2024-05-06 12:44 | Outpatient (BNVA) | payer OTHER, SELFPAY | PROVIDERS: PCP Internal Medicine; Visit Provider Nurse Practitioner Family | DX: N39.0 Urinary tract infection, site not specified (principal); R39.9 Unspecified symptoms and signs involving the genitourinary system | CPT/HCPCS: 51798; 81003 ==

== ENCOUNTER 2024-07-23 09:47 | Outpatient (REF) | payer OTHER, SELFPAY ==
--- NOTE | ~2024-07-23 | US_ITS ---
EXAMINATION: US RETROPERITONEAL COMPLETE (RENAL) CLINICAL INFORMATION: Recurrent urinary tract infection. COMPARISON: No priors. Correlated to CT dated November 27, 2022. TECHNIQUE: Real-time imaging of the kidneys and bladder using grayscale and color Doppler technique. FINDINGS: Submitted for interpretation on July 28, 2024. RIGHT KIDNEY: 10 x 4 x 5 cm (SAG x AP x TRV). The kidney is normal in size, contour, and echogenicity. Renal cortical thickness is normal. No solid or cystic lesion. No hydronephrosis. Mild fullness of the pelvicalyceal system. Normal flow on color Doppler interrogation of the renal hilum. LEFT KIDNEY: 11 x 4 x 5 cm (SAG x AP x TRV). The kidney is normal in size, contour, and echogenicity. Renal cortical thickness is normal. No solid or cystic lesion. No hydronephrosis. Mild fullness of the pelvicalyceal system. Normal flow on color Doppler interrogation. BLADDER: Fluid-filled. Bilateral ureteral jets are demonstrated. Prevoid bladder volume is 418 mL. Postvoid bladder volume is 33 mL. US/US retroperitoneal comp IMPRESSION: No hydronephrosis. 33 cc residual urine in a post void image.. Electronically signed by: Sabino Lawrence MD 07/28/2024 09:47 AM EST
== END 2024-07-23 09:48 | disposition home or self-care (01) ==
LOC: HO.US 09:47
PROVIDERS: PCP Internal Medicine; Visit Provider Nurse Practitioner Family
DX: R39.9 Unspecified symptoms and signs involving the genitourinary system (principal); N39.0 Urinary tract infection, site not specified
CPT/HCPCS: 76770

== ENCOUNTER → 2024-07-23 09:50 | Outpatient (BNV) | payer OTHER, SELFPAY | PROVIDERS: PCP Internal Medicine; Visit Provider Radiology Diagnostic Radiology | DX: N39.0 Urinary tract infection, site not specified (principal) | CPT/HCPCS: 76770 ==

== ENCOUNTER → 2024-08-04 13:23 | Outpatient (BNVA) | payer OTHER, SELFPAY | PROVIDERS: PCP Internal Medicine; Visit Provider Nurse Practitioner Family ==

== ENCOUNTER → 2024-08-04 13:23 | Outpatient (AMB) | payer OTHER, SELFPAY ==
--- NOTE | 2024-08-04 13:24 | A.OFFVIS_ITS ---
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 Wynn. She has a past medical history of IBS, insomnia, and allergic rhinitis. She is being followed up on today via via telehealth. Of note, patient was seen approximately 3 months ago as a new patient for recurrent urinary tract infections at which time a retroperitoneal ultrasound was ordered for further assessment evaluation. These results reviewed with the patient today. 08/14 bilateral kidneys are normal in size, contour, and echogenicity. No hydronephrosis or cystic lesions noted bilaterally. Mild fullness of the pelvicalyceal system. The bladder is fluid-filled. Bladder jets are demonstrated. Pre void bladder volume is approximately 420 mL. Postvoid bladder volume is approximately 30 mL. In discussion with the patient today she continues to report bilateral flank pain right side greater than left. We discussed potential causes of flank pain. She does note she has not been drinking enough water daily as she has been busy at work. Urine cultures are as follows: 09/10 strep agalactiae, 07/11 mixed bacteria, 01/09 no growth, 10/10 no growth, / mixed bacteria, / mixed bacteria, 08/13 strep agalactiae, 2 mixed bacteria, 6/ mixed bacteria. She currently denies any UTI like symptoms. She denies urinary urgency, urinary frequency, incontinence, nocturia, hematuria, dysuria, foul smelling urine, stormy nges to urinary stream, flank pain, fever, and or chills. She is happy with her current voiding parameters. We discussed obtaining urinalysis and culture for further assessment evaluation. She otherwise offers no other issues or concerns at this time. [facility] Medical History Allergic rhinitis Insomnia Chronic abdominal pain POTS (postural orthostatic tachycardia syndrome) Palpitations Inguinal pain of both sides Surgical History No significant past surgical history Family History Mother No problems noted. Father No problems noted. 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 Current occupational exposures/hazards: No Sexual orientation: Straight/Heterosexual Gender identity: Female Cognitive needs: No Hearing needs: No Vision needs: No Female Reproductive History Menstrual Age of Menarche: 10 Review of Systems Const All systems reviewed & are unremarkable except as noted in HPI and below Physical Exam Const General: cooperative, healthy appearing, comfortable, no acute distress, well developed, alert and awake Orientation/consciousness: patient oriented x3 Resp Effort & Inspection: normal respiratory effort and able to speak in complete sentences Neuro General: patient oriented x3 Psych Appearance: grossly normal and well kempt Mental Status: mental status grossly normal Speech and movement: Clear speech present Affect: normal affect Attitude: cooperative Thought process: Normal thought process present Thought content: Normal thought content present Insight: Fair insight present (Psych) Judgement: Fair judgement present (Psych) Telehealth Telehealth Telehealth Platform: [facility] Location of provider rendering services: practice address Location of patient: address on file Patient Identification confirmed using: Name, : Yes Telehealth method: video Patient verbally consented to treatment: Yes Patient verbally consented to billing insurance company: Yes Patient informed of any privacy concerns related to visit: Yes Minutes spent on Phone/Video with Pt.: 15 Results Reviewed Results Reviewed: Date of Service: 07/23/24 EXAMINATION: US RETROPERITONEAL COMPLETE (RENAL) FINDINGS: Submitted for interpretation on July 28, 2024. RIGHT KIDNEY: 10 x 4 x 5 cm (SAG x AP x TRV). The kidney is normal in size, contour, and echogenicity. Renal cortical thickness is normal. No solid or cystic lesion. No hydronephrosis. Mild fullness of the pelvicalyceal system. Normal flow on color Doppler interrogation of the renal hilum. LEFT KIDNEY: 11 x 4 x 5 cm (SAG x AP x TRV). The kidney is normal in size, contour, and echogenicity. Renal cortical thickness is normal. No solid or cystic lesion. No hydronephrosis. Mild fullness of the pelvicalyceal system. Normal flow on color Doppler interrogation. BLADDER: Fluid-filled. Bilateral ureteral jets are demonstrated. Prevoid bladder volume is 418 mL. Postvoid bladder volume is 33 mL. IMPRESSION: No hydronephrosis. 33 cc residual urine in a post void image.. Assessment & Plan Assessment & Plan (1) Flank pain: Code(s): R10.9 - Unspecified abdominal pain Category: Medical (2) Lower urinary tract symptoms: Code(s): R39.9 - Unspecified symptoms and signs involving the genitourinary system Category: Medical (3) Recurrent urinary tract infection: Code(s): N39.0 - Urinary tract infection, site not specified Category: Medical Plan Recent retroperitoneal ultrasound results reviewed with the patient today; as noted above. We discussed at length potential causes of flank pain. Will obtain urinalysis for further assessment evaluation; will await results for potential treatment. We discussed at length importance of adequate hydration relation to previous lower urinary tract symptoms, flank pain, and for overall health and well-being. We discussed potential for microgen for further assessment and evaluation if symptoms continue and or persist. We discussed possible near future in office cystoscopy if symptoms arise. Follow-up in 1-3 months; or sooner with any issues, concerns, and or questions. Orders: Orders UA CC w/rflx Micro + Cult Today R10.9 - Unspecified abdominal pain Patient Instructions: The patient had an opportunity to ask questions regarding the treatment plan. All questions were answered. Physical exam, labs, and imaging were discussed and reviewed in detail. As well as risks, benefits, and discussion of treatment choices. No major barriers to understanding were identified. The patient expressed understanding and agreement with the above treatment plan. The patient was made aware they should contact our office by phone for worsening of their current condition, the appearance of new symptoms, or with any ques tions or concerns. Compliance is encouraged with any medications and follow up testing that is ordered. It is a privilege to be allowed the opportunity to participate in? your urological care.? Again, if you have any questions or concerns If you have any questions or concerns please do not hesitate to contact me. The office is [phone]. This note is constructed using voice recognition software. While every effort has been made to ensure accuracy administrative project coordinator errors may have been included. Yours sincerely, MARCIA Sheehan-GRAEME Coding Level of Care Code Tele Est Pt Level 3 (61553) Diagnoses Flank pain R10.9 Lower urinary tract symptoms R39.9 Recurrent urinary tract infection N39.0
== END ==
PROVIDERS: PCP Internal Medicine; Visit Provider Nurse Practitioner Family
DX: R10.9 Unspecified abdominal pain (principal); R39.9 Unspecified symptoms and signs involving the genitourinary system; N39.0 Urinary tract infection, site not specified
CPT/HCPCS: 99213

== ENCOUNTER 2024-08-12 11:58 | Outpatient (REF) | payer OTHER, SELFPAY ==
[2024-08-12 14:03] LABS: Appearance Urine Clear; Color Urine Yellow; Glucose Urine UA Negative (Negative); Leukocyte Esterase Urine Negative (Negative); Nitrite Urine Negative (Negative); Urine Blood Negative (Negative); Urine Ketones Negative (Negative); Urine Protein Negative (Neg-Trace)
== END 2024-08-12 11:59 | disposition home or self-care (01) ==
LOC: HO.LAB 11:58
PROVIDERS: PCP Internal Medicine; Visit Provider Nurse Practitioner Family
DX: R10.9 Unspecified abdominal pain (principal)
CPT/HCPCS: 81003

== ENCOUNTER 2024-09-13 17:01 | Outpatient (AMB) | payer OTHER, SELFPAY ==
--- NOTE | 2024-09-13 17:32 | A.OFFPC_ITS ---
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 Required: No Accompanied by: Self / Same As Patient Allergies diphenhydramine [From Benadryl] Allergy (Severe, Verified 09/13/24 22:16) Chest Pain, hard to breath Medication List - Last Reconciled 09/13/24 by Jasbir Wynn MD albuterol sulfate 90 mcg/actuation (Ventolin HFA) 2 puffs inhalation Q6H PRN 30 days Tobacco use date assessed: 09/13/24 Dental Screening Dental Screen Date: 09/13/24 Did you have a dental visit in the last 12 months?: No Did you have a dental problem in the last 6 months where you did not have access to dental care?: No Was dental information given to patient?: Patient has dentist HPI PHYSICAL HPI Details Patient comes in today for her annual physical examination States that she came down with a cold about a month ago - recalls experiencing some sore throat, productive cough, chest congestion and some mild shortness of breath at the time but states that most of her symptoms gradually cleared up over the next couple weeks except for her cough, which is still lingering Reports (+) on and off nonproductive cough since last month and she states that her cough seems to be more pronounced at night, which sometimes keep her up She currently denies any fever or sore throat Denies any headaches or dizziness but recalls experiencing a couple of bouts of sudden onset of dizziness over a month ago States that the 1st incident happened when she was driving to work when she suddenly felt that her surroundings were spinning accompanied by a pressure-like sensation/heavy feeling in her head and blurry vision, forcing her to boat puller to the side of the road States that she called her mother immediately when it happened and she waited for over 5 minutes before her symptoms gradually subsided, after which she was then able to resume driving States that she had a similar bout occurred a few days later but this time she was not driving and the symptoms were less severe States that she has not had any further episodes of the dizziness since Denies any chest pains, no increased shortness of breath No nausea/vomiting, no abdominal pain No change in bowel habits noted She denies any acute urinary symptoms but states that she has been following up with Urology over the past few months for recurrent UTI and flank pains States that she was sent for a bladder ultrasound last month, which reportedly came back normal States that she was advised to increase her oral fluid intake to maintain ad equate hydration She is currently up-to-date with her yearly gynecology exam and her neck is exam is in October [address] Hayder LAW Medical History Gastritis Allergic rhinitis Insomnia Chronic abdominal pain POTS (postural orthostatic tachycardia syndrome) Palpitations Surgical History No significant past surgical history Family History Mother No problems noted. Father No problems noted. 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 1. Little interest or pleasure in doing things: not at all 2. Feeling down, depressed, or hopeless: several days 3. Trouble falling or staying asleep, or sleeping too much: several days 4. Feeling tired or having little energy: several days 5. Poor appetite or overeating: not at all 6. Feeling bad about yourself - or that you are a failure or have let yourself or your family down: not at all 7. Trouble concentrating on things, such as reading the newspaper or watching television: not at all 8. Moving or speaking so slowly that other people could have noticed. Or the opposite - being so fidgety or restless that you have been moving around a lot more than usual: not at all 9. Thoughts that you would be better off or of hurting yourself in some way: not at all Total score: 3 Depression Screening Interpretation: Positive Depression Screening Follow-up: Follow-up Visit Requested and Declines treatment Depression Screening Done: Yes 59351 - PHQ-9 Billing: Yes Source: Developed by Drs. Maninder Evans, Kira Ceballos, Mike Veras and colleagues, with an educational dixie from [employer]. Thrive Questionnaire Date Thrive assessed: 09/13/24 I am a: Patient What is your living situation today?: I have a steady place to live Within the past 12 months, did the food you bought not last and you didn't have the money to get more?: Never true Within the past 12 months, did you worry whether your food would run out before you got money to buy more?: Never true Do you have trouble paying for medicines?: No Do you have trouble getting transportation to medical appointments?: No Do you have trouble paying your heating and electricity bill?: No Do you have trouble taking care of your child, family member or friend?: No Do you have trouble with day-to-day activities such as bathing, preparing meals, shopping, managing finances, etc.?: No Are you currently unemployed and looking for a job?: No Are you interested in more education?: No Please select the resources that you would like help with: None Currently or been in a relationship where the following occur: No concerns reported THRIVE Score: 0 AUDIT C Alcohol Use Questionnaire (AUDIT-C) 1. How often do you have a drink containing alcohol?: Never 3. How often do you have six or more drinks on one occasion?: Never Total Score: 0 Score Reviewed/Action Taken: Yes EVETTE-7 AMB Questionnaire EVETTE-7 Date EVETTE - 7 assessed: 09/13/24 Feeling nervous, anxious, or on edge: 1 = Several days Not being able to stop or control worryin = Several days Worrying too much about different things: 1 = Several days Trouble relaxin = Several days Being so restless that it is hard to sit still: 0 = Not at all Becoming easily annoyed or irritable: 0 = Not at all Feeling afraid as if something awful might happen: 0 = Not at all Total EVETTE-7 score (0-4 normal; 5-9 mild; 10-14 moderate; 15-21 severe): 4 Source: Developed by Drs. Maninder Evans, Kira Ceballos, Mike Veras and colleagues, with an educational dixie from [employer]. Review of Systems Const Denies chills, Denies fatigue, Denies fever(s), Denies headache(s) and Denies malaise Eyes Denies blurry vision, Denies change in vision, Denies irritation and Denies itchy eyes ENT Denies dysphagia, Reports dizziness (see HPI), Denies otalgia, Denies headache(s), Denies nasal congestion, Denies neck pain, Denies odynophagia, Denies sinus pain and Denies sore throat Card Denies chest pain, Denies rapid heart rate, Denies irregular heart rhythm, Denies palpitations and Reports dyspnea on exertion (mild, at times) Resp Denies chest congestion (but chest feels slightly tight at times), Reports cough (on and off, nonproductive), Reports dyspnea on exertion (mild, at times) and Denies wheezing GI Denies abdominal pain, Denies bloating, Denies constipation, Denies dysphagia, Denies heartburn, Denies diarrhea, Denies nausea, Denies odynophagia and Denies vomiting Denies hematuria, Denies urinary frequency, Denies dysuria, Denies urinary incontinence and Denies urinary urgency Musc Denies back pain, Denies arthralgias, Denies joint swelling, Denies muscle weakness and Denies neck pain Skin/Breast Denies breast pain, Denies breast mass, Denies change in pigmentation, Denies lesions, Denies rash and Denies unusual bruising Neuro Reports dizziness (see HPI), Denies headache(s) and Denies paresthesias Psych Denies anxiety and Denies depression Endo Denies fatigue and Denies palpitations Peter/Lymph Denies easy bruising Aller/Immun Denies itchy eyes and Denies wheezing Physical exam (Primary Care) Vital Signs: Last Vital Signs Pulse 75 09/13/24 17:34 BP 110/66 09/13/24 17:34 Pulse Ox 99 09/13/24 17:34 Oxygen Delivery Method Room Air 09/13/24 17:34 BMI result Body Mass Index 20.9 Tobacco/Smoking Status: Tobacco use Status Tobacco use date assessed 09/13/24 09/13/24 17:37 Patient Tobacco Use Status Never used Tobacco 09/13/24 17:37 e-Cigarette/Vaping Use Never Used 09/13/24 17:37 PHQ-9: PHQ-9 Score PHQ-9: Total score 3 09/13/24 22:16 Depression Screening Interpretation: Positive Depression Screening Follow-up: Follow-up Visit Requested and Declines treatment Thrive Assessment: Date of Thrive Assessment Date Thrive assessed 09/13/24 09/13/24 17:37 Currently or been in a relationship where the following occur: No concerns reported Const General: no acute distress, alert and awake Orientation/consciousness: patient oriented x3 HENMT Head: Yes normocephalic and Yes atraumatic Ears: external ears normal, TM's normal bilaterally and EAC's normal General nose exam: No nasal discharge present Face and sinus: Yes normal facial exam and Yes sinuses nontender Teeth and gingiva: dentition normal Throat: Yes posterior oropharynx normal and Yes tonsils normal (no TP congestion) Eyes Eyelids: Yes eyelids normal Conjunctivae: conjunctivae normal Pupils: Equal, round and reactive pupils present EOM: EOMs intact bilaterally Neck Neck: Yes supple and No lymphadenopathy Thyroid: Thyroid normal Resp Auscultation: no rales, wheezes (faint, occasional) expiratory wheezes and upper bilaterally and diminished lung sounds (slightly) bilateral Cardio Rate: regular rate Rhythm: regular rhythm Heart sounds: no murmurs GI Palpation (GI): Soft to palpation, nontender and No hepatosplenomegaly present Auscultation: normal bowel sounds General: Yes no CVA tenderness Back/Spine/Pelvis Back: no CVA tenderness Thoracic/Lumbar Spine: thoracic and lumbar spine normal to inspection Skin Lesions: no lesions Rashes: no rashes Neuro General: patient oriented x3, moves all extremities, no focal motor deficits and CN's II-XI intact bilaterally Cranial nerves: Yes Equal, round and reactive pupils present Cognition (Neuro): normal cognition Gait exam (Neuro): Normal gait present Extrem General: Yes no clubbing, cyanosis or edema Coding Level of Care Code Est Pt Prev Care 18-39y(78652) Diagnoses Annual physical exam Z00.00 Recurrent nonproductive cough R05.8 Dizziness R42 Allergic rhinitis, unspecified seasonality, unspecified trigger J30.9 Allergic rhinitis trigger: unspecified Allergic rhinitis seasonality: unspecified Acute gastritis, presence of bleeding unspecified, unspecified gastritis type K29.00 Gastritis type: unspecified gastritis Chronicity: acute Gastritis bleeding: presence of bleeding unspecified Recurrent urinary tract infection N39.0 Additional Codes PHQ-9 - 33542 - PHQ-9 Billing: Yes ([id number]) Assessment & Plan Assessment & Plan (1) Annual physical exam: Code(s): Z00.00 - Encounter for general adult medical examination without abnormal findings Category: Medical Plan: Check labs She is up-to-date with her yearly gynecology exam and pap smear - her next appointment is in October [address] Singletary (2) Recurrent nonproductive cough: Code(s): R05.8 - Other specified cough Category: Medical Plan: Patient was noted to some faint expiratory wheezing as well as slightly diminished air entry on auscultation of her lungs today She denies any history of asthma - her symptoms and findings today suggests the possibility of a reactive airway disease that may be a lingering result of her bout with a respiratory tract infection about a month ago Will send her for some chest x-rays for further evaluation If her chest x-rays are unrevealing and her symptoms persist, may need to consider sending her for PFTs for further evaluation In the meantime, I will go ahead and start her on Albuterol HFA 1 to 2 inhalations every 6 hours PRN (3) Dizziness: Code(s): R42 - Dizziness and giddiness Category: Medical Plan: Have discussed with patient that her 2 recent bouts of transient but sudden onset of dizziness may be due to paroxysmal vertigo or may be a migraine equivalent/variant as she does have a (?) Hx of migraine She has not had any recurrence of these in over a month now, we will just continue to observe her for now Have advised patient to call us back immediately if she starts having the symptoms again - may consider referring her to Neurology for further evaluation and management if her symptoms recur and/or progress (4) Allergic rhinitis: Code(s): J30.9 - Allergic rhinitis, unspecified Category: Medical Qualifiers: Allergic rhinitis trigger: unspecified Allergic rhinitis seasonality: unspecified Qualified Code(s): J30.9 - Allergic rhinitis, unspecified Plan: Patient has taken OTC Loratadine 10 mg or Cetirizine 10 mg QD PRN in the past May also consider Fluticasone nasal spray PRN (5) Gastritis: Code(s): K29.70 - Gastritis, unspecified, without bleeding Category: Medical Qualifiers: Gastritis type: unspecified gastritis Chronicity: acute Gastritis bleeding: presence of bleeding unspecified Qualified Code(s): K29.00 - Acute gastritis without bleeding Plan: Dietary restrictions reinforced Patient used to take Pantoprazole 40 MG QD but states that her abdominal symptoms have improved significantly when she changed her diet and started eating healthier States that she has not had to take any medications for her stomach in a while now (6) Recurrent urinary tract infection: Code(s): N39.0 - Urinary tract infection, site not specified Category: Medical Plan: Patient states that she has not had any UTIs now in over 2 months Follow-up with urology as scheduled Plan Follow-up in 4 months Orders: Orders Lipid Panel 09/13/24 E78.00 - Pure hypercholesterolemia, unspecified, Z00.00 - Encounter for general adult medical examination without abnormal findings Vitamin B12 and Folate 09/13/24 E53.8 - Deficiency of other specified B group vitamins, Z00.00 - Encounter for general adult medical examination without abnormal findings XR chest 2V 09/13/24 J98.8 - Other specified respiratory disorders Complete Blood Count Auto Diff 09/13/24 D64.9 - Anemia, unspecified, Z00.00 - Encounter for general adult medical examination without abnormal findings Comprehensive [place]. Panel Fast 09/13/24 E78.00 - Pure hypercholesterolemia, unspecified, Z00.00 - Encounter for general adult medical examination without abnormal findings TSH reflex Free T4 09/13/24 E78.00 - Pure hypercholesterolemia, unspecified, Z00.00 - Encounter for general adult medical examination without abnormal findings UA CC w/rflx Micro + Cult 09/13/24 R30.0 - Dysuria, Z00.00 - Encounter for general adult medical examination without abnormal findings Vitamin D 25-OH Total 09/13/24 E55.9 - Vitamin D deficiency, unspecified, Z00.00 - Encounter for general adult medical examination without abnormal findings Medications: New albuterol sulfate 90 mcg/actuation (Ventolin HFA) 2 puffs inhalation Q6H 30 days PRN 8.5 grams 0RF shortness of breath or wheezing
[2024-09-13 17:34] VITALS: BP 110/66; PULSE 75; O2SAT 99; BMI 20.9
--- OUTSIDE RECORDS SUMMARY | 2024-09-13 18:38 | XMS_ITS | Encounter Summary ---
Author Organization [facility] Address [address] [place] [address] Phone Care Team Providers Care Sterilizer Machine Operator Name Role Phone Vee Armstrong MD Primary Care Provider [phone] Encounter Details Date Type Department Care Team (Late st Contact Info) Description 04/02/2014 [place] [facility] [place] [address] [place], [place] [phone] Family Medicine, Physician [address] [place] [phone] Social History Tobacco Use Types Packs/Day Years Used Date Smoking Tobacco: Never Assessed Comments Unknown Sex and Gender Information Value Date Recorded Sex Assigned at Not on file Legal Sex Female 5:06 PM EDT Gender Identity Not on file Sexual Orientation Not on file documented as of this encounter Plan of Treatment Not on file documented as of this encounter Visit Diagnoses Not on filedocumented in this encounter Care Teams Sterilizer Machine Operator Relationship Specialty Start Date End Date Vee Armstrong MD [address] [place] [address] PCP - General 02/28/17 12/25/22 documented as of this encounter
--- OUTSIDE RECORDS SUMMARY | 2024-09-13 18:38 | XMS_ITS | Encounter Summary ---
Author Organization [facility] Address [address] [place] [address] Phone Care Team Providers Care Radiation Protection Specialist Name Role Phone Vee Armstrong MD Primary Care Provider Encounter Details Date Type Department Care Team (Late st Contact Info) Description 02/28/2014 Documentation [facility] [place] [address] [place], [place] [phone] Family Medicine, Physician [address], [place] [phone] Social History Tobacco Use Types Packs/Day Years [...] on filedocumented in this encounter Care Teams Radiation Protection Specialist Relationship Specialty Start Date End Date Vee Armstrong MD [address] [place] [address] PCP - General 02/28/17 12/25/22 documented as of this encounter
--- OUTSIDE RECORDS SUMMARY | 2024-09-13 18:39 | XMS_ITS | Encounter Summary ---
Author Organization [facility] Address [address] [place] [address] Phone Care Team Providers Care Utility Aircrewman Name Role Phone Vee Armstrong MD Primary Care Provider Encounter Details Date Type Department Care Team (Late st Contact Info) Description 03/15/2013 Documentation [facility] [place] [address] [place], [place] [phone] Family Medicine, Physician [address] [phone] Social History Tobacco Use Types Packs/Day Years [...] on filedocumented in this encounter Care Teams Utility Aircrewman Relationship Specialty Start Date End Date Vee Armstrong MD [address] [place] [address] PCP - General 02/28/17 12/25/22 documented as of this encounter
--- OUTSIDE RECORDS SUMMARY | 2024-09-13 18:39 | XMS_ITS | Encounter Summary ---
Author Organization [facility] Address [address] [place] [address] Phone Care Team Providers Care Helicopter Dispatcher Name Role Phone Vee Armstrong MD Primary Care Provider [phone] Encounter Details Date Type Department Care Team (Late st Contact Info) Description 03/06/2017 Conversion Encounter [facility] [address] [place] [address] Social History Tobacco Use Types Packs/Day Years Used Date Smoking Tobacco: Never Comments:Never smoker Comments Unknown Sex and Gender Information Value Date Recorded Sex Assigned at Not on file Legal Sex Female 5:06 PM EDT Gender Identity Not on file Sexual Orientation Not on file documented as of this encounter Plan of Treatment Not on file documented as of this encounter Visit Diagnoses Not on filedocumented in this encounter Care Teams Helicopter Dispatcher Relationship Specialty Start Date End Date Vee Armstrong MD [address] [place] [address] PCP - General 02/28/17 12/25/22 documented as of this encounter
--- OUTSIDE RECORDS SUMMARY | 2024-09-13 18:39 | XMS_ITS | Clinical Summary ---
Author Organization [facility] Address [address] [place] [address] Phone Care Team Providers Care Wire Photo Operator News Name Role Phone Unavailable Primary Care Provider Unavailabl e Allergies No known active allergies Medications naproxen 250 MG tablet Take by mouth. 12/02/2016 Active ibuprofen 200 MG capsuleIndicati ons:Dysmenorrhe a Take 2 capsules (400 mg total) by mouth every 6 (six) hours as needed for pain or fever (For fever or pain). 120 capsule 1 09/29/2017 Active Immunizations Immunization Administration Dates Next Due DTaP 5 08/30/2002, 0,01/17/1999,11/17,1998 HPV, Quadrivalent 09/16/2011,05/16/2011,03/15/20 11 Hep A, ped/adol 05/20/2015,05/24/2014 Hep B, ped/adol 01/17/1999,1998,1998 Hib (PRP-T) 02/01/2000, 9,1998,09/14 IPV 08/30/2002,1998,1998 Influenza Split 04/15/2013,05/15/2012 Influenza, injectable, quadrivalent 05/20/2015 Influenza, injectable, quadr ivalent, preservative free 05/11/2019,08/26/2018,06/11/2017,11/15,04/02/2014 Influenza, injectable, trivalent 05/13/2008 Influenza, intranasal, trivalent 03/15/2011 MMR 08/30/2002,07/12/1999 Meningococcal B Trumenba 03/08/2019,08/26/2018 Meningococcal Conj (Menactra) MCV4P 11/15/2016,0 02/14/2010 OPV 07/12/1999 Tdap 02/14/2010 Varicella 11/06/2007,07/12/1999 Family History Relation Name Status Comments Father Alive Father: Alive a nd well Half-Sister Alive Half sister (M) : Alive and well Mother Alive Mother: Alive a nd well Other 1 great grandmoth er: Diabetes mellitus Other 2 No family histo ry of *Dental caries, No family history of *CVA/Stroke, No family history of *Heart Disease, No family history of *Thrombophilia, No family history of *Sudden /[place] under 55 Social History Tobacco Use Types Packs/Day Years Used Date Smoking Tobacco: Never Smokeless Tobacco: Never Tobacco Cessation:Counseling Given: Yes Comments:Never smoker Alcohol Use Standard Drinks/Week Comments Never 0 (1 standard drink = 0.6 oz pur e alcohol) Hunger/Food Answer Date Recorded No 04/15/2020 Stable Housing Answer Date Recorded No 04/15/2020 Transportation Concerns Answer Date Rec orded No 04/15/2020 Hazards in Home Answer Date Recorded No 06/03/2020 Financing Utilities Answer Date Recorde d No 06/03/2020 Safety at Home Answer Date Recorded No 06/03/2020 Outside Support Answer Date Recorded No 06/03/2020 Understanding Health Concerns Answer Da te Recorded No 06/03/2020 Financing Health Concerns Answer Date R ecorded No 06/03/2020 Missing School or Work Answer Date Bimal rded No 06/03/2020 Comments No Sex and Gender Information Value Date Recorded Sex Assigned at Not on file Legal Sex Female 5:06 PM EDT Gender Identity Not on file Sexual Orientation Not on file Last Filed Vital Signs Vital Sign Reading Time Taken Comments Blood Pressure 124/71 08/31/2019 1:25 PM EST Pulse 78 08/26/2018 1:13 PM EST Temperature 36.9 ??C (98.5 ??F) 10/13/2017 6:19 PM ED T Respiratory Rate - - Oxygen Saturation - - Inhaled Oxygen Concentration - - Weight 46.2 kg (101 lb 12.8 oz) 08/31/2019 1:25 PM EST Height 153.7 cm (5' 0.5 ) 08/31/2019 1:25 PM EST Body Mass Index 19.55 08/31/2019 1:25 PM EST Plan of Treatment Health Maintenance Due Date Last Done Comments DTaP,Tdap,and Td Vaccines (7 - Td or Tdap) 02/15/2020 02/14/2010, 08/30/2002, 02/01/2000, Additional history exists Influenza Vaccines (#1) 2024 05/11/20 19, 08/26/2018, 06/11/2017, Additional history exists COVID-19 Vaccine ( season) 2024 Hepatitis B Vaccines Completed 01/17/1999, 1998, 1998 HIB Vaccines Completed 02/01/2000, 12/21, 1998, Additional history exists IPV Vaccines Completed 08/30/2002, 06/21, 1998, Additional history exists MMR Vaccines Completed 08/30/2002, 07/12/1999 Varicella Vaccines Completed 11/06/2007, 07/12/1999 HPV Vaccines Completed 09/16/2011, 04/21, 03/15/2011 Hepatitis A Vaccines Completed 05/20/2015, 05/24/20 14 Meningococcal Vaccine Completed 11/15/2016, 010 Men B Vaccine Completed 03/08/2019, 08/26/2018 Pneumococcal Vaccine Aged Out No long er eligible based on patient's age to complete this topic Procedures * Due to [place] [employer] law, this organization might not be sharing sensitive test results. Procedure Name Priority Date/Time Associated Diagnosis Comments CHLAMYDIA AND GONORRHEA, AMPLIFIED Routine 08/31/2019 1:30 PM EST from Last 3 Months or Most Recently Relevant to Health Maintenance Results * Due to [place] [employer] law, this organization might not be sharing sensitive test results. * Chlamydia and Gonorrhoea, Amplified (08/31/2019 1:30 PM EST) Chlamydia Trachomatis, DNA Probe NEGATIVE (NEG) [facility] Comment: No Chlamydia Trachomatis RNA detected in this patient's sample ? (REFERENCE RANGE/NORMAL VALUE: NOT DETECTED) ? Note: This test uses proposal review analyst- mediated amplification method to detect rRNA from C. Trachomatis URINE GC AMP PROBE NEGATIVE (NEG) [facility] Comment: No Neisseria Gonorrhoeae RNA detected in this patient's sample ? (REFERENCE RANGE/NORMAL VALUE: NOT DETECTED) ? NOTE: This test uses proposal review analyst-mediated amplification method to detect rRNA from N.Gonorrhoeae. A negative result does not preclude infection. In the case of a negative urine result, testing of an endocervical(female) or urethral (male) specimen is recommended if there is high clinical suspicion of infection. Due to very high sensitivity of Nucleic Acid Amplification Test, false positive results may occur. Therefore, specimen handling is extremely important. In patients in whom the disease is unlikely, additional sample for testing should be considered after an initial positive result. The performance characteristics of this test have not been evaluated in children. The Aptima Combo2 assay is not intended for the evaluation of suspected sexual abuse or for other medico-legal indications. The ordering provider should assess if the patient had consensual sex without risk of sexual abuse. Consult the [facility] if needed. Contact phone number . Therapeutic failure or success cannot be determined with the Aptima Combo2 assay since nucleic acid may persist following appropriate antimicrobial therapy. The Centers for Disease Control and Prevention (CDC) recommends confirmatory retesting using culture or a different nucleic acid amplification test when positive results occur, if indicated. Testing performed or reported by [facility], a Service of [facility], [address] [place] [id number] Nathan Wild MD, Pulp Grinder Feeder 08/31/2019 1:30 PM EST 08/31/2019 8:34 PM EST us Vee Armstrong MD LAB MICROBIOLOGY - GENERAL ORDERABLES Final Result [facility] from Last 3 Months or Most Recently Relevant to Health Maintenance Insurance [facility] NON PCC
--- OUTSIDE RECORDS SUMMARY | 2024-09-13 18:39 | XMS_ITS | Encounter Summary ---
Author Organization [facility] Address [address] [place] [address] Phone Care Team Providers Care Pinked Edge Sewing Machine Operator Name Role Phone Vee Armstrong MD Primary Care Provider [phone] Encounter Details Date Type Department Care Team (Late st Contact Info) Description 10/03/2009 Documentation [facility] [place] [address] [place], [place] [phone] Family Medicine, Physician [address] [place], [place] [phone] Social History Tobacco Use Types Packs/Day Years [...] on filedocumented in this encounter Care Teams Pinked Edge Sewing Machine Operator Relationship Specialty Start Date End Date Vee Armstrong MD [address] [place] [address] PCP - General 02/28/17 12/25/22 documented as of this encounter
== END 2024-09-13 18:01 | disposition home or self-care (01) ==
PROVIDERS: PCP Internal Medicine; Visit Provider Internal Medicine
DX: Z00.00 Encounter for general adult medical examination without abnormal findings (principal); R05.8 Other specified cough; R42 Dizziness and giddiness; J30.9 Allergic rhinitis, unspecified; K29.00 Acute gastritis without bleeding; N39.0 Urinary tract infection, site not specified

== ENCOUNTER → 2024-09-13 17:01 | Outpatient (BNVA) | payer SELFPAY | PROVIDERS: PCP Internal Medicine; Visit Provider Internal Medicine | DX: Z00.00 Encounter for general adult medical examination without abnormal findings (principal); R05.8 Other specified cough; R42 Dizziness and giddiness; J30.9 Allergic rhinitis, unspecified; K29.00 Acute gastritis without bleeding; N39.0 Urinary tract infection, site not specified | CPT/HCPCS: 96127 ==

== ENCOUNTER 2024-10-09 10:36 | Outpatient (REF) | payer OTHER, SELFPAY ==
--- NOTE | ~2024-10-09 | XR_ITS ---
EXAMINATION: XR CHEST 2 VIEWS HISTORY: J98.8 - Other specified respiratory disorders COMPARISON: Comparison is made with the prior examination dated 03/31/2024. FINDINGS: PA and lateral views of the chest are submitted. The lungs are expanded and clear. There is no pleural effusion, pneumothorax, or pulmonary vascular congestion. The heart is normal in size. The bones are intact. XR/XR chest 2V IMPRESSION: No acute cardiopulmonary abnormality. Electronically signed by: Maninder Pennington MD 10/11/2024 09:35 AM EDT
--- OUTSIDE RECORDS SUMMARY | 2024-10-09 10:38 | XMS_ITS | Encounter Summary ---
Author Organization [facility] Address [address] [place] [address] Phone Care Team Providers Care Director Geophysical Laboratory Name Role Phone Vee Armstrong MD Primary Care Provider [phone] Encounter Details Date Type Department Care Team (Late st Contact Info) Description 04/02/2014 Documentation [facility] [place] [address] [place], [place] [phone] Family Medicine, Physician [address], [place] [phone] Social History Tobacco Use Types Packs/Day Years [...] on filedocumented in this encounter Care Teams Director Geophysical Laboratory Relationship Specialty Start Date End Date Vee Armstrong MD [address] [place] [address] PCP - General 02/28/17 12/25/22 documented as of this encounter
--- OUTSIDE RECORDS SUMMARY | 2024-10-09 10:38 | XMS_ITS | Encounter Summary ---
Author Organization [facility] Address [address] [place] [address] Phone Care Team Providers Care Cytotechnologist/Histotechnologist Name Role Phone Vee Armstrong MD Primary Care Provider Encounter Details Date Type Department Care Team (Late st Contact Info) Description 03/06/2017 Conversion Encounter [facility] [address] [place] [address] Social History Tobacco Use Types Packs/Day Years [...] on filedocumented in this encounter Care Teams Cytotechnologist/Histotechnologist Relationship Specialty Start Date End Date Vee Armstrong MD [address] [place] [address] PCP - General 02/28/17 12/25/22 documented as of this encounter
--- OUTSIDE RECORDS SUMMARY | 2024-10-09 10:38 | XMS_ITS | Encounter Summary ---
Author Organization [facility] Address [address] [place] [address] Phone Care Team Providers Care Mechanical Assembly Name Role Phone Vee Armstrong MD Primary Care Provider Encounter Details Date Type Department Care Team (Late st Contact Info) Description 02/28/2014 [place] [facility] [place] [address] [place], [place] [phone] Family Medicine, Physician [address], [place] [phone] Social History Tobacco Use Types Packs/Day Years [...] on filedocumented in this encounter Care Teams Mechanical Assembly Relationship Specialty Start Date End Date Vee Armstrong MD [address] [place] [address] PCP - General 02/28/17 12/25/22 documented as of this encounter
--- OUTSIDE RECORDS SUMMARY | 2024-10-09 10:38 | XMS_ITS | Encounter Summary ---
Author Organization [facility] Address [address] [place] [address] Phone Care Team Providers Care Insurance Defense Attorney Name Role Phone Vee Armstrong MD Primary Care Provider Encounter Details Date Type Department Care Team (Late st Contact Info) Description 10/03/2009 Documentation [facility] [place] Family Medicine [address] [place], [place] [phone] Family Medicine, Physician [address], [place] [phone] Social History Tobacco Use Types Packs/Day Years [...] on filedocumented in this encounter Care Teams Insurance Defense Attorney Relationship Specialty Start Date End Date Vee Armstrong MD [address] [place] [address] PCP - General 02/28/17 12/25/22 documented as of this encounter
--- OUTSIDE RECORDS SUMMARY | 2024-10-09 10:38 | XMS_ITS | Encounter Summary ---
Author Organization [facility] Address [address] [place] [address] Phone Care Team Providers Care Drain Tile Machine Operator Name Role Phone Vee Armstrong MD Primary Care Provider Encounter Details Date Type Department Care Team (Late st Contact Info) Description 03/15/2013 Documentation [facility] [place] [address] [place], [place] [phone] Family Medicine, Physician [address] [place] [phone] Social History Tobacco Use Types Packs/Day Years [...] on filedocumented in this encounter Care Teams Drain Tile Machine Operator Relationship Specialty Start Date End Date Vee Armstrong MD [address] [place] [address] PCP - General 02/28/17 12/25/22 documented as of this encounter
--- OUTSIDE RECORDS SUMMARY | 2024-10-09 10:38 | XMS_ITS | Clinical Summary ---
Author Organization [facility] Address [address] [place] [address] Phone Care Team Providers Care Mannequin Refinisher Name Role Phone Unavailable Primary Care Provider [...] of *Thrombophilia, No family history of *Sudden /[place] under 55 Social History Tobacco Use Types [...] complete this topic Procedures * Due to [place] [employer] law, this organization might not be sharing sensitive test results. Procedure Name Priority Date/Time Associated Diagnosis Comments CHLAMYDIA AND GONORRHEA, AMPLIFIED Routine 08/31/2019 1:30 PM EST from Last 3 Months or Most Recently Relevant to Health Maintenance Results * Due to [place] [employer] law, this organization might not be sharing sensitive test results. * Chlamydia and Gonorrhoea, Amplified (08/31/2019 1:30 PM EST) Chlamydia Trachomatis, DNA Probe NEGATIVE (NEG) [facility] Comment: No Chlamydia Trachomatis RNA detected in this patient's sample ? (REFERENCE RANGE/NORMAL VALUE: NOT DETECTED) ? Note: This test uses director of neurology- mediated amplification method to detect rRNA from C. Trachomatis URINE GC AMP PROBE NEGATIVE (NEG) [facility] Comment: No Neisseria Gonorrhoeae RNA detected in this patient's sample ? (REFERENCE RANGE/NORMAL VALUE: NOT DETECTED) ? NOTE: This test uses director of neurology-mediated amplification method to detect rRNA from N.Gonorrhoeae. [...] without risk of sexual abuse. Consult the [facility] if needed. Contact phone number . Therapeutic failure or success cannot be determined with the Aptima Combo2 assay since nucleic acid may persist following appropriate antimicrobial therapy. The Centers for Disease Control and Prevention (CDC) recommends confirmatory retesting using culture or a different nucleic acid amplification test when positive results occur, if indicated. Testing performed or reported by [facility], a Service of [facility], [address] [place] [id number] Nathan Wild MD, Administrative Coordinator 08/31/2019 1:30 PM EST 08/31/2019 8:34 PM EST us Vee Armstrong MD LAB MICROBIOLOGY - GENERAL ORDERABLES Final Result [facility] from Last 3 Months or Most Recently Relevant to Health Maintenance Insurance [facility] NON PCC
[2024-10-09 13:41] LABS: MANUAL DIFF FLAG NO
[2024-10-09 13:56] LABS: Appearance Urine Clear; Color Urine Yellow; Glucose Urine UA Negative (Negative); Leukocyte Esterase Urine Negative (Negative); Nitrite Urine Negative (Negative); PH 8.5 (5.0-9.0); Specific Gravity - Urine 1.025 (1.005-1.025); Urine Blood Negative (Negative); Urine Ketones Negative (Negative); Urine Protein Trace mg/dL (Neg-Trace)
[2024-10-09 14:01] LABS: Alanine Aminotransferase 8 U/L (0-31); Albumin Level 4.2 g/dL (3.5-5.0); Alkaline Phosphatase 71 U/L (39-117); Anion Gap 10 (12-20); Aspartate Amino Transferase 20 U/L (5-31); Bilirubin Total 1.1 mg/dL (0.0-1.0); Blood Urea Nitrogen 15 mg/dL (9-16); Calcium 8.8 mg/dL (8.4-10.2); Carbon Dioxide 25 mmol/L (22-29); Chloride 107 mmol/L (96-108); Cholesterol 156 mg/dL (<200); Estimated Glomerular Filt Rate > 60; Glucose Fasting 88 mg/dL (60-99); HDL Cholesterol 66 mg/dL (>40); LDL Cholesterol Calculated 79 mg/dL (<100); Potassium 3.9 mmol/L (3.3-5.1); Sodium 138 mmol/L (135-145); Total Protein 7.3 g/dL (6.5-8.0); Triglycerides 57 mg/dL (<150)
[2024-10-09 14:02] LABS: Basophils Percent Auto 0.7 % (0-2); Eosinophils Absolute Auto 0.1 X10*3/uL (0.0-0.4); Eosinophils Percent Auto 1.1 % (0-4); Hematocrit 38.4 % (37.0-47.0); Hemoglobin 12.1 g/dl (12.0-16.0); Imm Gran Abs Auto 0.01 X10*3/uL (0.00-0.03); Imm Gran Pct Auto 0.2 % (0.0-0.4); Lymphocytes Absolute Auto 1.1 X10*3/uL (1.2-4.9); Lymphocytes Percent Auto 24.1 % (20-40); Mean Corpuscular HGB Conc 31.5 g/dl (31.0-35.0); Mean Corpuscular Hemoglobin 26.1 pg (27.0-33.0); Mean Corpuscular Volume 82.9 fL (80.0-98.0); Mean Platelet Volume 9.8 fL (9.4-12.3); Monocytes Absolute Auto 0.3 X10*3/uL (0.1-1.2); Monocytes Percent Auto 6.9 % (2-11); Neutrophils Absolute Auto 2.9 x10*3/uL (2.0-8.3); Platelet Count 332 X10*3/uL (160-400); Red Blood Count 4.63 X10*6/uL (4.20-5.50); Red Cell Distribution Width 13.2 % (11.0-16.0); White Blood Count 4.4 X10*3/uL (4.8-10.8)
[2024-10-09 14:17] LABS: TSH reflex Free T4 1.25 uIU/mL (0.32-4.0); Vitamin D 25-OH Total 25.9 ng/mL (>30)
[2024-10-09 14:31] LABS: Folate 13.4 ng/mL (> or = 4.0); Vitamin B12 517 pg/mL (200-900)
== END 2024-10-09 10:37 | disposition home or self-care (01) ==
LOC: HO.HMGCX 10:36
PROVIDERS: PCP Internal Medicine; Visit Provider Internal Medicine
DX: J98.8 Other specified respiratory disorders (principal); R30.0 Dysuria; E55.9 Vitamin D deficiency, unspecified; D64.9 Anemia, unspecified; E53.8 Deficiency of other specified B group vitamins; E78.00 Pure hypercholesterolemia, unspecified; Z00.00 Encounter for general adult medical examination without abnormal findings
CPT/HCPCS: 36415; 71046; 80053; 80061; 81003; 82306; 82607; 82746; 84443; 85025

== ENCOUNTER → 2024-10-09 10:39 | Outpatient (BNV) | payer OTHER, SELFPAY | PROVIDERS: PCP Internal Medicine; Visit Provider Radiology Diagnostic Radiology | DX: J98.8 Other specified respiratory disorders (principal) | CPT/HCPCS: 71046 ==

== ENCOUNTER 2025-02-07 16:59 | Outpatient (AMB) | payer OTHER, SELFPAY ==
--- NOTE | 2025-02-07 17:06 | MHC.PC.OV ---
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 Required: No Accompanied by: Self / Same As Patient Allergies diphenhydramine (From Benadryl) Allergy (Severe, Verified 02/07/25 17:20) Chest Pain, hard to breath Medication List - Last Reconciled 02/07/25 by Jasbir Wynn MD albuterol sulfate 90 mcg/actuation (Ventolin HFA) 2 puffs inhalation Q6H PRN 30 days magnesium oxide 400 mg PO BEDTIME 30 days riboflavin (vitamin B2) 400 mg PO DAILY 30 days sumatriptan succinate 50 - 100 mg orally at onset of headache, may repeat in 2 hrs PRN; max 2 tabs per day or 4 tabs/week (may take with Ibuprofen) 30 days Tobacco use date assessed: 09/13/24 Dental Screening Dental Screen Date: 09/13/24 HPI 4 months HPI Details Patient comes in today for her follow-up visit States that she is still experiencing on and off headaches Is currently taking vitamin B2 and magnesium supplements at the advice of neurology 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 [place] and states that they have helped somewhat She is scheduled to be seen formally by Neurology for her recurrent headaches in early May 2025 She has also been complaining of recurrent/frequent itching in both of her ears lately; she denies any ear drainage Patient states that she feels well otherwise She denies any dizziness lately Denies any chest pains, no increased shortness of breath No nausea/vomiting, no abdominal pain No change in bowel habits noted She had some follow-up labs done back in September 2024 [facility] Medical History (Updated 02/08/25 @ 05:06 by Jasbir Wynn MD) Vitamin D deficiency Gastritis Allergic rhinitis Insomnia Chronic abdominal pain POTS (postural orthostatic tachycardia syndrome) Palpitations Surgical History No significant past surgical history Family History Mother No problems noted. Father No problems noted. 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 1. Little interest or pleasure in doing things: not at all 2. Feeling down, depressed, or hopeless: several days 3. Trouble falling or staying asleep, or sleeping too much: several days 4. Feeling tired or having little energy: several days 5. Poor appetite or overeating: not at all 6. Feeling bad about yourself - or that you are a failure or have let yourself or your family down: not at all 7. Trouble concentrating on things, such as reading the newspaper or watching television: not at all 8. Moving or speaking so slowly that other people could have noticed. Or the opposite - being so fidgety or restless that you have been moving around a lot more than usual: not at all 9. Thoughts that you would be better off or of hurting yourself in some way: not at all Total score: 3 Depression Screening Interpretation: Positive Depression Screening Follow-up: Follow-up Visit Requested Depression Screening Done: Yes 77053 - PHQ-9 Billing: Yes Source: Developed by Drs. Maninder Evans, Kira Ceballos, Mike Veras and colleagues, with an educational dixie from [employer]. Thrive Questionnaire Date Thrive assessed: 02/07/25 I am a: Patient What is your living situation today?: I have a steady place to live Within the past 12 months, did the food you bought not last and you didn't have the money to get more?: Never true Within the past 12 months, did you worry whether your food would run out before you got money to buy more?: Never true Do you have trouble paying for medicines?: No Do you have trouble getting transportation to medical appointments?: No Do you have trouble paying your heating and electricity bill?: No Do you have trouble taking care of your child, family member or friend?: No Do you have trouble with day-to-day activities such as bathing, preparing meals, shopping, managing finances, etc.?: No Are you currently unemployed and looking for a job?: No Are you interested in more education?: No Please select the resources that you would like help with: None Currently or been in a relationship where the following occur: No concerns reported THRIVE Score: 0 AUDIT C Alcohol Use Questionnaire (AUDIT-C) 1. How often do you have a drink containing alcohol?: Never 3. How often do you have six or more drinks on one occasion?: Never Total Score: 0 Score Reviewed/Action Taken: Yes EVETTE-7 AMB Questionnaire EVETTE-7 Date EVETTE - 7 assessed: 09/13/24 Feeling nervous, anxious, or on edge: 1 = Several days Not being able to stop or control worryin = Several days Worrying too much about different things: 1 = Several days Trouble relaxin = Several days Being so restless that it is hard to sit still: 0 = Not at all Becoming easily annoyed or irritable: 0 = Not at all Feeling afraid as if something awful might happen: 0 = Not at all Total EVETTE-7 score (0-4 normal; 5-9 mild; 10-14 moderate; 15-21 severe): 4 Source: Developed by Drs. Maninder Evans, Kira Ceballos, Mike Veras and colleagues, with an educational dixie from [employer]. Review of Systems Const Denies chills, Denies difficulty sleeping, Denies fatigue, Denies fever(s) and Reports headache(s) (on and off) ENT Denies dysphagia, Denies dizziness, Denies ear discharge, Denies otalgia, Reports headache(s) (on and off), Denies neck pain, Denies odynophagia and Denies sore throat Card Denies chest pain, Denies rapid heart rate, Denies irregular heart rhythm, Denies palpitations and Reports dyspnea on exertion (mild, at times) Resp Denies chest congestion, Denies cough and Reports dyspnea on exertion (mild, at times) GI Denies abdominal pain, Denies constipation, Denies dysphagia, Denies heartburn, Denies diarrhea, Denies nausea, Denies odynophagia and Denies vomiting Denies difficulty voiding, Denies nocturia, Denies dysuria and Denies urinary urgency Musc Denies back pain, Denies arthralgias and Denies neck pain Skin/Breast Denies rash Neuro Denies dizziness and Reports headache(s) (on and off) Psych Denies anxiety and Denies depression Endo Denies fatigue and Denies palpitations Peter/Lymph Denies easy bruising Physical exam (Primary Care) Vital Signs: Last Vital Signs BP 110/72 02/07/25 17:07 BMI result Body Mass Index 23.2 Tobacco/Smoking Status: Tobacco use Status Tobacco use date assessed 09/13/24 02/07/25 17:10 Patient Tobacco Use Status Never used Tobacco 02/07/25 17:10 e-Cigarette/Vaping Use Never Used 02/07/25 17:10 PHQ-9: PHQ-9 Score PHQ-9: Total score 3 02/07/25 22:55 Depression Screening Interpretation: Positive Depression Screening Follow-up: Follow-up Visit Requested Thrive Assessment: Date of Thrive Assessment Date Thrive assessed 09/13/24 02/07/25 17:10 Currently or been in a relationship where the following occur: No concerns reported Const General: no acute distress and alert HENMT Ears: TM's normal bilaterally and Abnormal EAC present erythema (with minimal scaling noted) bilateral Throat: Yes posterior oropharynx normal and Yes tonsils normal (no TP congestion) Neck Neck: Yes supple and No lymphadenopathy Thyroid: Thyroid normal Resp Auscultation: clear to auscultation bilaterally, no rales and no wheezes Cardio Rate: regular rate Rhythm: regular rhythm Heart sounds: no murmurs GI Palpation (GI): Soft to palpation and nontender Auscultation: normal bowel sounds General: Yes no CVA tenderness Back/Spine/Pelvis Back: no CVA tenderness Thoracic/Lumbar Spine: No lumbar spinal tenderness Skin Rashes: no rashes Extrem General: Yes no clubbing, cyanosis or edema Results Reviewed Results Reviewed: Laboratory Tests 10/09/24 10:55 WBC 4.4 L Hgb 12.1 Hct 38.4 Plt Count 332 Sodium 138 Potassium 3.9 Creatinine 0.63 Estimated GFR > 60 Fasting Glucose 88 Calcium 8.8 AST 20 ALT 8 Triglycerides 57 Cholesterol 156 LDL Cholesterol, Calc 79 HDL Cholesterol 66 Vitamin B12 517 25-OH Vitamin D Total 25.9 L TSH 1.25 Ur Specific [place] 1.025 Urine Protein Trace Urine Glucose (UA) Negative Urine Blood Negative Urine Nitrite Negative Ur Leukocyte Esterase Negative Coding Level of Care Code Est Pt Level 4 (03279) Diagnoses Migraine without status migrainosus, not intractable, unspecified migraine type G43.909 Migraine type: unspecified Status migrainosus presence: without status migrainosus Intractability: not intractable Vitamin D deficiency E55.9 Acute gastritis, presence of bleeding unspecified, unspecified gastritis type K29.00 Gastritis type: unspecified gastritis Chronicity: acute Gastritis bleeding: presence of bleeding unspecified 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 Allergic rhinitis, unspecified seasonality, unspecified trigger J30.9 Allergic rhinitis trigger: unspecified Allergic rhinitis seasonality: unspecified Mild intermittent reactive airway disease without complication J45.20 Asthma severity: mild Asthma persistence: intermittent Asthma complication type: uncomplicated Additional Codes PHQ-9 - 81165 - PHQ-9 Billing: Yes ([id number]) Assessment & Plan Assessment & Plan (1) Migraine: Code(s): G43.909 - Migraine, unspecified, not intractable, without status migrainosus Category: Medical Qualifiers: Migraine type: unspecified Status migrainosus presence: without status migrainosus Intractability: not intractable Qualified Code(s): G43.909 - Migraine, unspecified, not intractable, without status migrainosus Plan: Continue Vitamin B2 and oral magnesium supplements daily for now as they seem to be helping somewhat Continue sumatriptan 50 mg 1-2 tablets PRN as instructed - patient is reminded that this should ideally be taken as soon as she feels a headache or migraine episode coming on for it to be effective Reinforced avoidance of any potential migraine triggers She is currently scheduled to be seen formally by Neurology in early May 2025 for further evaluation and management of her recurrent headaches (2) Vitamin D deficiency: Code(s): E55.9 - Vitamin D deficiency, unspecified Category: Medical Plan: Have advised patient that her vitamin-D level is low on her labs done back in September 2024 Will have her start taking Vitamin D3 supplements 2000 units QD (3) Gastritis: Code(s): K29.70 - Gastritis, unspecified, without bleeding Category: Medical Qualifiers: Gastritis type: unspecified gastritis Chronicity: acute Gastritis bleeding: presence of bleeding unspecified Qualified Code(s): K29.00 - Acute gastritis without bleeding Plan: Dietary restrictions reinforced Patient used to take Pantoprazole 40 MG QD but states that her abdominal symptoms have improved significantly when she changed her diet and started eating healthier States that she has not had to take any Rx for her stomach in a while now (4) Eczema of external auditory canal: Code(s): H60.549 - Acute eczematoid otitis externa, unspecified ear Category: Medical Plan: Will start patient on Fluocinolone 0.01% ear drops 5 drops into each ear BID x 7 to 10 days and then PRN (5) Allergic rhinitis: Code(s): J30.9 - Allergic rhinitis, unspecified Category: Medical Qualifiers: Allergic rhinitis trigger: unspecified Allergic rhinitis seasonality: unspecified Qualified Code(s): J30.9 - Allergic rhinitis, unspecified Plan: Patient takes OTC Loratadine 10 mg or Cetirizine 10 mg QD PRN May also consider Fluticasone nasal spray PRN if the oral meds alone are not enough to control her symptoms (6) Reactive airway disease: Code(s): J45.909 - Unspecified asthma, uncomplicated Category: Medical Qualifiers: Asthma severity: mild Asthma persistence: intermittent Asthma complication type: uncomplicated Qualified Code(s): J45.20 - Mild intermittent asthma, uncomplicated Plan: Continue Albuterol HFA 1 to 2 inhalations Q 6 hours PRN Plan To return as scheduled in September 2025 for her next annual physical examination Medications: New fluocinolone acetonide oil 0.01% 5 drps otic (ears) BID 20 mL 0RF 7 days cholecalciferol (vitamin D3) 50 mcg PO DAILY 90 caps 3RF 90 days E55.9 - Vitamin D deficiency, unspecified
[2025-02-07 17:07] VITALS: BP 110/72; BMI 23.2
== END 2025-02-07 17:32 | disposition home or self-care (01) ==
LOC: HO.HMCH 17:00
PROVIDERS: PCP Internal Medicine; Visit Provider Internal Medicine
DX: G43.909 Migraine, unspecified, not intractable, without status migrainosus (principal); E55.9 Vitamin D deficiency, unspecified; K29.00 Acute gastritis without bleeding; H60.543 Acute eczematoid otitis externa, bilateral; J30.9 Allergic rhinitis, unspecified; J45.20 Mild intermittent asthma, uncomplicated

== ENCOUNTER → 2025-02-07 16:59 | Outpatient (BNVA) | payer OTHER, SELFPAY | PROVIDERS: PCP Internal Medicine; Visit Provider Internal Medicine | DX: J45.20 Mild intermittent asthma, uncomplicated (principal); G43.909 Migraine, unspecified, not intractable, without status migrainosus; E55.9 Vitamin D deficiency, unspecified; K29.00 Acute gastritis without bleeding; H60.549 Acute eczematoid otitis externa, unspecified ear; J30.9 Allergic rhinitis, unspecified | CPT/HCPCS: 96127 ==

== ENCOUNTER 2025-02-18 13:48 | Outpatient (REF) | payer OTHER, SELFPAY ==
--- OUTSIDE RECORDS SUMMARY | 2025-02-18 13:51 | XMS_ITS | Encounter Summary ---
Author Organization [facility] Address [address] [place] [address] Phone Care Team Providers Care Crawler Crane Operator Name Role Phone Vee Armstrong MD Primary Care Provider [phone] Encounter Details Date Type Department Care Team (Late st Contact Info) Description 02/28/2014 Documentation [facility] [address] [place], [place] [id number] Family Medicine, Physician [address] [phone] Social History Tobacco Use Types Packs/Day Years [...] on filedocumented in this encounter Care Teams Crawler Crane Operator Relationship Specialty Start Date End Date Vee Armstrong MD [address] [place] [address] PCP - General 02/28/17 12/25/22 documented as of this encounter
[2025-02-18 17:47] LABS: Appearance Urine Clear; Glucose Urine UA Negative (Negative); PH 8.0 (5.0-9.0); Specific Gravity - Urine <= 1.005 (1.005-1.025); UMIC TRIGGER UACC YES
== END 2025-02-18 13:49 | disposition home or self-care (01) ==
LOC: HO.HKASLDS 13:48
PROVIDERS: Visit Provider Internal Medicine
DX: R39.9 Unspecified symptoms and signs involving the genitourinary system (principal)
CPT/HCPCS: 81001

== ENCOUNTER 2025-02-22 15:39 | Outpatient (AMB) | payer OTHER, SELFPAY ==
--- NOTE | 2025-02-22 15:42 | A.OFFVIS_ITS ---
Intake Visit Reasons: 3m F/U Intake Note: Patient is present for 3M/F/U Urology Medication:NONE Antibiotic Allergy: NONE Blood Thinner:NONE Editor Managing Director Required: No Allergies diphenhydramine (From Benadryl) Allergy (Severe, Verified 02/22/25 16:47) Chest Pain, hard to breath Medication List - Last Reconciled 02/22/25 by JEANNA Sheehan albuterol sulfate 90 mcg/actuation (Ventolin HFA) 2 puffs inhalation Q6H PRN 30 days cholecalciferol (vitamin D3) 50 mcg PO DAILY 90 days fluocinolone acetonide oil 0.01% 5 drps otic (ears) BID 7 days magnesium oxide 400 mg PO BEDTIME 30 days riboflavin (vitamin B2) 400 mg PO DAILY 30 days sumatriptan succinate 50 - 100 mg orally at onset of headache, may repeat in 2 hrs PRN; max 2 tabs per day or 4 tabs/week (may take with Ibuprofen) 30 days HPI Comments Details: Twila is a very pleasant 24-year-old female patient of Dr. Wynn. She has a past medical history of IBS, insomnia, and allergic rhinitis. She presents to the office today for follow-up of a lower urinary tract symptoms and recurrent urinary tract infections. In discussion with the patient today she reports noting over the last 2-3 weeks she has been having intermittent episodes of dysuria, urinary urgency, urinary frequency, and bladder pressure. She reports having followed up with her PCP at which time urinalysis did not know any infection in recommendations were made for urology follow-up. She reports symptoms have somewhat subsided and or lessened. In office urinalysis results reviewed with the patient today 2+ leukocytes negative nitrates. She does r eport issues with diarrhea and or constipation at the same time of lower urinary tract symptoms. Previous workup has included a retroperitoneal ultrasound 08/14 bilateral kidneys are normal in size, contour, and echogenicity. No hydronephrosis or cystic lesions noted bilaterally. Mild fullness of the pelvicalyceal system. The bladder is fluid-filled. Bladder jets are demonstrated. Pre void bladder volume is approximately 420 mL. Postvoid bladder volume is approximately 30 mL. She reports she continues to attempt to drink increased amount of water daily and does feel this has been helpful. Previous urine cultures are as follows: 09/10 strep agalactiae, 12/ mixed bacteria, 6/ no growth, 3/ no growth, 5/ mixed bacteria, 6/ mixed bacteria, 1/ strep agalactiae, 2/ mixed bacteria, 6/ mixed bacteria. She denies incontinence, nocturia, hematuria, foul smelling urine, changes to urinary stream, flank pain, fever, and or chills. She otherwise offers no other issues or concerns at this time. [facility] Medical History Vitamin D deficiency Gastritis Allergic rhinitis Insomnia Chronic abdominal pain POTS (postural orthostatic tachycardia syndrome) Palpitations Surgical History No significant past surgical history Family History Mother No problems noted. Father No problems noted. 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 Current occupational exposures/hazards: No Sexual orientation: Straight/Heterosexual Gender identity: Female Cognitive needs: No Hearing needs: No Vision needs: No Female Reproductive History Menstrual Age of Menarche: 10 Review of Systems Const All systems reviewed & are unremarkable except as noted in HPI and below Physical Exam Const General: cooperative, healthy appearing, comfortable, no acute distress, well developed, alert and awake Orientation/consciousness: patient oriented x3 Limitations: no limitations HEENT Head: Yes normal to inspection, Yes normocephalic and Yes atraumatic Ears: hearing grossly normal bilaterally Eyes General: appearance normal, both eyes and all related structures Neck Neck: Yes normal visual inspection and Yes trachea midline Chest Chest palpation & inspection: normal inspection of the chest Resp Effort & Inspection: normal respiratory effort and able to speak in complete sentences Cardio Rate: regular rate GI Inspection: Yes normal to inspection General: Yes no CVA tenderness Back/Spine/Pelvis Back: no CVA tenderness Skin General skin exam: no rashes or lesions noted Neuro General: patient oriented x3 Extrem General: Yes normal to inspection Psych Appearance: grossly normal and well kempt Mental Status: mental status grossly normal Speech and movement: Normal speech and movement present and Clear speech present Affect: normal affect Attitude: cooperative Thought process: Normal thought process present Thought content: Normal thought content present Insight: Fair insight present (Psych) Judgement: Fair judgement present (Psych) Results AMB Urinalysis, Automated UA Leukoctes 125 Miya/uL Last Edit by SINA Chandra on 02/22/25 16:06 UA Nitrite Negative Last Edit by Donna Magallon CCM on 02/22/25 16:06 UA Urobilinogen 0.2 mg/dL Last Edit by Donna Magallon CCM on 02/22/25 16:0 6 UA Protein 0 mg/dL Last Edit by Donna Magallon CCM on 02/22/25 16:06 UA pH 7.0 Last Edit by Donna Magallon CCM on 02/22/25 16:06 UA Blood 0 Joshua/uL Last Edit by Donna Magallon CCM on 02/22/25 16:06 UA Specific [place] 1.005 Last Edit by Donna Magallon CCM on 02/22/25 16: 06 UA Ketone Negative Last Edit by SINA Chandra on 02/22/25 16:06 UA Bilirubin 0 mg/dL Last Edit by Donna Magallon CCM on 02/22/25 16:06 UA Glucose 0 mg/dL Last Edit by Donna Magallon [facility] on 02/22/25 16:06 Results Reviewed Results Reviewed: Laboratory Last Values Urine pH (Auto) 7.0 02/22/25 16:05 Specific [place] (Auto) 1.005 02/22/25 16:05 Urine Protein (Auto) 0 mg/dL 02/22/25 16:05 Glucose (UA)(Auto) 0 mg/dL 02/22/25 16:05 Urine Ketones (Auto) Negative 02/22/25 16:05 Urine Blood (Auto) 0 Joshua/uL 02/22/25 16:05 Urine Nitrite (Auto) Negative 02/22/25 16:05 Urine Bilirubin (Auto) 0 mg/dL 02/22/25 16:05 Urine Urobilinogen (Auto) 0.2 mg/dL 02/22/25 16:05 Leukocyte Esterase (Auto) 125 Miya/uL 02/22/25 16:05 Assessment & Plan Assessment & Plan (1) Lower urinary tract symptoms: Code(s): R39.9 - Unspecified symptoms and signs involving the genitourinary system Category: Medical (2) Urinary frequency: Code(s): R35.0 - Frequency of micturition Category: Medical (3) Dysuria: Code(s): R30.0 - Dysuria Category: Medical Plan In office urinalysis results reviewed with the patient today; as noted above; will send for microgen. PVR 0 mL. We discussed potential causes of lower urinary tract symptoms patient is experiencing as well as further treatment options and risks and benefits of these treatment options. We discussed bladder triggers and irritants. Will await results for potential treatment. We discussed worsening symptoms Follow-up in 3 months with PVR; or sooner with any issues, concerns, and or questions. Orders: Orders AMB Urinalysis Automated Today Z13.9 - Encounter for screening, unspecified Patient Instructions: The patient had an opportunity to ask questions regarding the treatment plan. All questions were answered. Physical exam, labs, and imaging were discussed and reviewed in detail. As well as risks, benefits, and discussion of treatment choices. No major barriers to understanding were identified. The patient expressed understanding and agreement with the above treatment plan. The patient was made aware they should contact our office by phone for worsening of their current condition, the appearance of new symptoms, or with any questions or concerns. Compliance is encouraged with any medications and follow up testing that is ordered. It is a privilege to be allowed the opportunity to participate in? your urological care.? Again, if you have any questions or concerns If you have any questions or concerns please do not hesitate to contact me. The office is [phone]. This note is constructed using voice recognition software. While every effort has been made to ensure accuracy medical interpreter errors may have been included. Yours sincerely, JEANNA Sheehan Coding Level of Care Code Est Pt Level 4 (09030) Diagnoses Lower urinary tract symptoms R39.9 Urinary frequency R35.0 Dysuria R30.0
--- OUTSIDE RECORDS SUMMARY | 2025-02-22 16:02 | XMS_ITS | Encounter Summary ---
Author Organization [facility] Address [address] [place] [phone] Phone Care Team Providers Care Manufacturing Analyst Name Role Phone Vee Armstrong MD Primary Care Provider [phone] Encounter Details Date Type Department Care Team (Late st Contact Info) Description 02/28/[address] [facility] [place] Medicine [address] [place] [address] Family Medicine, Physician [address] [place], [place] [phone] Social History Tobacco Use Types Packs/Day Years [...] on filedocumented in this encounter Care Teams Manufacturing Analyst Relationship Specialty Start Date End Date Vee Armstrong MD [address] [place] [address] PCP - General 02/28/17 12/25/22 documented as of this encounter
== END 2025-02-22 16:39 | disposition home or self-care (01) ==
LOC: HO.HUSH 15:39
PROVIDERS: PCP Internal Medicine; Visit Provider Nurse Practitioner Family
DX: R39.9 Unspecified symptoms and signs involving the genitourinary system (principal); R35.0 Frequency of micturition; R30.0 Dysuria; Z13.9 Encounter for screening, unspecified
CPT/HCPCS: 99214

== ENCOUNTER → 2025-02-22 15:39 | Outpatient (BNVA) | payer OTHER, SELFPAY | PROVIDERS: PCP Internal Medicine; Visit Provider Nurse Practitioner Family | DX: R35.0 Frequency of micturition (principal) | CPT/HCPCS: 81003 ==

== ENCOUNTER 2025-04-05 14:17 | Outpatient (AMB) | payer OTHER, SELFPAY ==
[2025-04-05 14:28] VITALS: BP 112/60; PULSE 77; O2SAT 99; BMI 23.1
--- NOTE | 2025-04-05 14:28 | A.OFFPC_ITS ---
Vital Signs 3 04/05/25 14:28 Height 5 ft Weight 118 lb 4 oz BMI 23.1 BP 112/60 Pulse 77 Pulse Oximetry (%) 99 Oxygen Delivery Method Room Air Intake Visit Reasons: pain on her throat Seat Nailer Required: No Accompanied by: Self / Same As Patient Allergies diphenhydramine (From Benadryl) Allergy (Severe, Verified 04/05/25 14:47) Chest Pain, hard to breath Medication List - Last Reconciled 04/05/25 by Porsha Marcial PA-C albuterol sulfate 90 mcg/actuation (Ventolin HFA) 2 puffs inhalation Q6H PRN 30 days cholecalciferol (vitamin D3) 50 mcg PO DAILY 90 days fluocinolone acetonide oil 0.01% 5 drps otic (ears) BID 7 days magnesium oxide 400 mg PO BEDTIME 30 days riboflavin (vitamin B2) 400 mg PO DAILY 30 days sumatriptan succinate 50 - 100 mg orally at onset of headache, may repeat in 2 hrs PRN; max 2 tabs per day or 4 tabs/week (may take with Ibuprofen) 30 days Tobacco use date assessed: 04/05/25 Dental Screening Dental Screen Date: 09/13/24 Did you have a dental visit in the last 12 months?: Yes Did you have a dental problem in the last 6 months where you did not have access to dental care?: No Was dental information given to patient?: Patient has dentist HPI pain on her throat 2 HPI0 Details 24 year old female with past medical his tory of migraine, reactive airway disease, IBS, AUB, EVETTE last seen by Dr. Villalta 01/2025 coming in for acute problem. Presenting with persistent stabbing throat/neck pain. The pain has been ongoing for over a year, initially localized to the left side but recently affecting both sides. The pain is described as stabbing and persistent, exacerbated by swallowing and eating, with no relief from [id number] medications. The patient reports occasional painful swallowing and has noticed lumps in the area of pain. There is no associated fever, cough, or postnasal drip, but occasional ear pain is noted. The patient has a history of eczema and reactive airway disease, suggesting an allergic component. [facility] Medical History Vitamin D deficiency Gastritis Allergic rhinitis Insomnia Chronic abdominal pain POTS (postural orthostatic tachycardia syndrome) Palpitations Surgical History No significant past surgical history Family History Mother No problems noted. Father No problems noted. 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 Current occupational exposures/hazards: No Sexual orientation: Straight/Heterosexual Gender identity: Female Cognitive needs: No Hearing needs: No Vision needs: No Female Reproductive History Menstrual Age of Menarche: 10 Questionnaire Thrive Questionnaire Date Thrive assessed: 09/13/24 I am a: Patient What is your living situation today?: I have a steady place to live Within the past 12 months, did the food you bought not last and you didn't have the money to get more?: Never true Within the past 12 months, did you worry whether your food would run out before you got money to buy more?: Never true Do you have trouble paying for medicines?: No Do you have trouble getting transportation to medical appointments?: No Do you have trouble paying your heating and electricity bill?: No Do you have trouble taking care of your child, family member or friend?: No Do you have trouble with day-to-day activities such as bathing, preparing meals, shopping, managing finances, etc.?: No Are you currently unemployed and looking for a job?: No Are you interested in more education?: No Please select the resources that you would like help with: None Currently or been in a relationship where the following occur: No concerns reported THRIVE Score: 0 EVETTE-7 AMB Questionnaire EVETTE-7 Date EVETTE - 7 assessed: 09/13/24 Source: Developed by Drs. Maninder Evans, Kira Ceballos, Mike Veras and colleagues, with an educational dixie from [employer]. Review of Systems Const Denies body aches, Denies chills, Denies fever(s), Denies headache(s) and Denies poor appetite Eyes Reports no additional complaints ENT Reports as per HPI, Denies dysphagia, Denies dizziness, Denies headache(s), Reports odynophagia and Denies sore throat Card Denies chest pain, Denies syncope, Denies edema, Denies irregular heart rhythm, Denies lightheadedness and Denies dyspnea Resp Denies cough and Denies dyspnea GI Denies abdominal pain, Denies constipation, Denies dysphagia, Denies diarrhea, Denies nausea, Reports odynophagia and Denies vomiting Reports no additional complaints Musc Reports no additional complaints and Denies abnormal gait Skin/Breast Reports system reviewed and no additional complaints, except as documented Neuro Denies abnormal gait, Denies dizziness, Denies syncope and Denies headache(s) Psych Reports no additional complaints Physical exam (Primary Care) Vital Signs: Last Vital Signs Pulse 77 04/05/25 14:28 BP 112/60 04/05/25 14:28 Pulse Ox 99 04/05/25 14:28 Oxygen Delivery Method Room Air 04/05/25 14:28 BMI result Body Mass Index 23.1 Tobacco/Smoking Status: Tobacco use Status Tobacco use date assessed 04/05/25 04/05/25 14:31 Patient Tobacco Use Status Never used Tobacco 04/05/25 14:31 e-Cigarette/Vaping Use Never Used 04/05/25 14:31 Thrive Assessment: Date of Thrive Assessment Date Thrive assessed 09/13/24 04/05/25 14:31 Currently or been in a relationship where the following occur: No concerns reported Const General: cooperative, healthy appearing, comfortable and no acute distress Orientation/consciousness: patient oriented x3 HENMT Head: Yes normocephalic Ears: hearing grossly normal bilaterally, TM's normal bilaterally and EAC's normal General nose exam: Normal external nose present Face and sinus: Yes normal facial exam Mouth: Normal oral and palatal mucosa present and oropharynx normal Throat: Yes posterior oropharynx normal Eyes General: appearance normal, both eyes and all related structures Conjunctivae: conjunctivae normal Neck Other: tenderness to palpation of submandibular lymph nodes on the left Neck: Yes full ROM Neck images: 2 1. tenderness to palpation in this area without palpable nodules Resp Effort & Inspection: normal respiratory effort Auscultation: clear to auscultation bilaterally, no crackles, no rales, no rhonchi and no wheezes Cardio Rate: regular rate Rhythm: regular rhythm Skin General skin exam: no rashes or lesions noted Neuro General: patient oriented x3 Gait exam (Neuro): Normal gait present Extrem General: Yes normal to inspection, Yes full ROM and No edema Psych Affect: normal affect Attitude: cooperative Insight: Good insight present (Psych) Judgement: Good judgement present (Psych) Coding Level of Care Code Est Pt Level 3 (78641) Diagnoses Neck pain M54.2 Assessment & Plan Assessment & Plan (1) Neck pain: Code(s): M54.2 - Cervicalgia Category: Medical Plan: Pain to palpation in the left submandibular region and left side of the neck. An ultrasound of the neck will be performed to evaluate for any enlarged lymph nodes or other abnormalities in the area of pain. The patient is advised to start taking Lindsey or Zyrtec daily, along with Flonase, to address potential allergic causes. Plan This note was constructed using voice recognition software. While every effort has been made to ensure accuracy and shipping and receiving assistant, still areas may have been included sometimes these areas may affect the content or meeting of the given symptoms. Total time spent caring for the patient today was 20 minutes. This includes time spent before the visit reviewing the chart, time spent during the visit, and time spent after the visit and documentation. Patient was informed and verbally consented to the use of an ambient scribe for clinic note documentation during this visit.
--- OUTSIDE RECORDS SUMMARY | 2025-04-05 18:06 | XMS_ITS | Encounter Summary ---
Author Organization [facility] Address [address] [place] [phone] Phone Care Team Providers Care Grain I Farmworker Name Role Phone Vee Armstrong MD Primary Care Provider Encounter Details Date Type Department Care Team (Late st Contact Info) Description 04/02/2014 Documentation [facility] [place] [facility] [address] [place], [place] [phone] Family Medicine, Physician [address] [phone] Social History Tobacco Use Types Packs/Day Years [...] on filedocumented in this encounter Care Teams Grain I Farmworker Relationship Specialty Start Date End Date Vee Armstrong MD [address] [place] [address] PCP - General 02/28/17 12/25/22 documented as of this encounter
--- OUTSIDE RECORDS SUMMARY | 2025-04-05 18:06 | XMS_ITS | Clinical Summary ---
Author Organization [facility] Address [address] [place] [address] Phone Care Team Providers Care Hair Mixer Name Role Phone Unavailable Primary Care Provider [...] of *Thrombophilia, No family history of *Sudden /[place] under 55 Social History Tobacco Use Types [...] 78 08/26/2018 1:13 PM EST Temperature 36.9 C (98.5 F) 10/13/2017 6:19 PM EDT Respiratory Rate - - Oxygen Saturation - [...] 02/01/2000, Additional history exists Influenza Vaccines (#1) 2025 05/11/20, 08/26/2018, 06/11/2017, Additional history exists COVID-19 Vaccine ( season) 2025 Hepatitis B Vaccines Completed 01/17/1999, 1998, 1998 [...] complete this topic Procedures * Due to [place] [employer] law, this organization might not be sharing sensitive test results. Procedure Name Priority Date/Time Associated Diagnosis Comments CHLAMYDIA AND GONORRHEA, AMPLIFIED Routine 08/31/2019 1:30 PM EST from Last 3 Months or Most Recently Relevant to Health Maintenance Results * Due to [place] [employer] law, this organization might not be sharing sensitive test results. * Chlamydia and Gonorrhoea, Amplified (08/31/2019 1:30 PM EST) Chlamydia Trachomatis, DNA Probe NEGATIVE (NEG) [facility] Comment: No Chlamydia Trachomatis RNA detected in this patient's sample (REFERENCE RANGE/NORMAL VALUE: NOT DETECTED) Note: This test uses indigo mixer- mediated amplification method to detect rRNA from C. Trachomatis URINE GC AMP PROBE NEGATIVE (NEG) [facility] Comment: No Neisseria Gonorrhoeae RNA detected in this patient's sample (REFERENCE RANGE/NORMAL VALUE: NOT DETECTED) NOTE: This test uses indigo mixer-mediated amplification method to detect rRNA from N.Gonorrhoeae. [...] without risk of sexual abuse. Consult the [facility] if needed. Contact phone number . Therapeutic failure or success cannot be determined with the Aptima Combo2 assay since nucleic acid may persist following appropriate antimicrobial therapy. The Centers for Disease Control and Prevention (CDC) recommends confirmatory retesting using culture or a different nucleic acid amplification test when positive results occur, if indicated. Testing performed or reported by [facility], a Service of [facility], [address] [place] [address] [place] [address] Nathan Wild MD, First Helper 08/31/2019 1:30 PM EST 08/31/2019 8:34 PM EST us Vee Armstrong MD LAB MICROBIOLOGY - GENERAL ORDERABLES Final Result [facility] from Last 3 Months or Most Recently Relevant to Health Maintenance Insurance [employer] NON PCC
--- OUTSIDE RECORDS SUMMARY | 2025-04-05 18:06 | XMS_ITS | Encounter Summary ---
Author Organization [facility] Address [address] [place] [phone] Phone Care Team Providers Care Pharmaceutical Sales Representative Name Role Phone Vee Armstrong MD Primary Care Provider Encounter Details Date Type Department Care Team (Late st Contact Info) Description 10/03/2009 Documentation [facility] [place] [address] [place], [place] [phone] Family Medicine, Physician [address] [phone] Social History Tobacco Use Types Packs/Day Years [...] on filedocumented in this encounter Care Teams Pharmaceutical Sales Representative Relationship Specialty Start Date End Date Vee Armstrong MD [address] [place] [address] PCP - General 02/28/17 12/25/22 documented as of this encounter
--- OUTSIDE RECORDS SUMMARY | 2025-04-05 18:06 | XMS_ITS | Encounter Summary ---
Author Organization [facility] Address [address] [place] [phone] Phone Care Team Providers Care Accounts Supervisor Name Role Phone Vee Armstrong MD Primary Care Provider Encounter Details Date Type Department Care Team (Late st Contact Info) Description 02/28/2014 Documentation [facility] [place] Medicine [address] [place], [place] [phone] Family Medicine, Physician [address] [phone] Social History Tobacco Use Types Packs/Day Years [...] on filedocumented in this encounter Care Teams Accounts Supervisor Relationship Specialty Start Date End Date Vee Armstrong MD [address] [place] [address] PCP - General 02/28/17 12/25/22 documented as of this encounter
--- OUTSIDE RECORDS SUMMARY | 2025-04-05 18:06 | XMS_ITS | Encounter Summary ---
Author Organization [facility] Address [address] [place] [address] Phone Care Team Providers Care Shut Off Worker Name Role Phone Vee Armstrong MD Primary Care Provider [phone] Encounter Details Date Type Department Care Team (Late st Contact Info) Description 03/06/2017 Conversion Encounter [facility] [address] [place] [address] Social History Tobacco Use Types Packs/Day Years [...] on filedocumented in this encounter Care Teams Shut Off Worker Relationship Specialty Start Date End Date Vee Armstrong MD [address] [place] [address] PCP - General 02/28/17 12/25/22 documented as of this encounter
--- OUTSIDE RECORDS SUMMARY | 2025-04-05 18:06 | XMS_ITS | Encounter Summary ---
Author Organization [facility] Address [address] [place] [address] Phone Care Team Providers Care Mechanics Handyman Name Role Phone Vee Armstrong MD Primary Care Provider Encounter Details Date Type Department Care Team (Late st Contact Info) Description 03/15/2013 [place]ation [facility] [place] [address] [place], [place] [phone] Family Medicine, Physician [address], [place] [phone] Social History Tobacco Use Types Packs/Day Years [...] on filedocumented in this encounter Care Teams Mechanics Handyman Relationship Specialty Start Date End Date Vee Armstrong MD [address] [place] [address] PCP - General 02/28/17 12/25/22 documented as of this encounter
== END 2025-04-05 15:10 | disposition home or self-care (01) ==
LOC: HO.HMCH 14:18
PROVIDERS: PCP Internal Medicine
DX: M54.2 Cervicalgia (principal)

== ENCOUNTER 2025-05-05 10:10 | Outpatient (REF) | payer OTHER, SELFPAY ==
[2025-05-06 11:36] LABS: Chlamydia pneumoniae PCR Not Detected (Not Detect.); Coronavirus 229E PCR Not Detected (Not Detect.); Coronavirus HKU1 PCR Not Detected (Not Detect.); Coronavirus NL63 PCR Not Detected (Not Detect.); Coronavirus OC43 PCR Not Detected (Not Detect.); RSV PCR Not Detected (Not Detect.); Rhino/Enterovirus PCR Detected (Not Detect.)
[2025-05-06 11:39] LABS: Influenza A H1 PCR Not Detected (Not Detect.); Influenza A H1-2009 PCR Not Detected (Not Detect.); Influenza A H3 PCR Not Detected (Not Detect.); SARS-CoV-2 PCR Not Detected (Not Detect.)
== END 2025-05-05 10:11 | disposition home or self-care (01) ==
LOC: HO.LNP 10:10
PROVIDERS: PCP Internal Medicine; Visit Provider Student in an Organized Health Care Education/Training Program
DX: J06.9 Acute upper respiratory infection, unspecified (principal); R05.9 Cough, unspecified; R50.9 Fever, unspecified; R09.89 Other specified symptoms and signs involving the circulatory and respiratory systems; J02.9 Acute pharyngitis, unspecified; Z13.31 Encounter for screening for depression; Z13.39 Encounter for screening examination for other mental health and behavioral disorders
CPT/HCPCS: 87633; 96127

== ENCOUNTER 2025-05-05 10:10 | Outpatient (AMB) | payer OTHER, SELFPAY ==
[2025-05-05 10:13] VITALS: BP 132/67; PULSE 96; RESP 16; TEMP 36.5; O2SAT 99; BMI 23.5
--- NOTE | 2025-05-05 10:13 | MHC.PC.OV ---
Vital Signs 05/05/25 10:13 Height 5 ft Weight 120 lb 4 oz BMI 23.5 BP 132/67 Blood Pressure Location Rt brachial Position Sitting Respiration 16 Pulse 96 Pulse Source Pulse Oximeter Temp 97.7 F Temp Source Oral Pulse Oximetry (%) 99 Oxygen Delivery Method Room Air Intake Visit Reasons: Cough, ?Flu/Covid Ok Per MD Food Service Steward Required: No Accompanied by: Self / Same As Patient Allergies diphenhydramine (From Benadryl) Allergy (Severe, Verified 05/05/25 10:13) Chest Pain, hard to breath Tobacco use date assessed: 05/05/25 Dental Screening Dental Screen Date: 05/05/25 Did you have a dental visit in the last 12 months?: Yes Did you have a dental problem in the last 6 months where you did not have access to dental care?: No Was dental information given to patient?: Patient has dentist HPI HPI Comments History of Present Illness Details Consent Patient was informed and verbally consented to the use of an ambient scribe for clinic note documentation during this visit. History of Present Illness The patient is a 24-year-old female presenting with symptoms of fever, chills, runny nose, and headache. Upper respiratory infection: - History of Problem: The patient reports experiencing fever, chills, runny nose, and headache since Friday. - Detailed Description of the Problem: The fever was measured at 101?F, and the patient feels exhausted despite adequate sleep. - Progression: Symptoms have persisted without improvement since onset. - Interventions: The patient has been taking TheraFlu but reports no significant relief. - Relevant Medical History: No significant past medical history or hospitalizations reported. Review of Systems - General: Reports fever and chills since Friday. - Respiratory: Reports runny nose. Denies wheezing. - Neurological: Reports headache. Denies nausea, vomiting, or diarrhea. 10-point ROS reviewed and negative except as noted in HPI Past Medical History Health Maintenance Physical Exam General: Well-appearing, in no acute distress. Vital signs: Temperature recorded at 101?F. HEENT: Normocephalic, atraumatic. PERRLA, EOMI. Conjunctiva clear, sclera anicteric. Oropharynx clear, mucous membranes moist. TMs intact bilaterally. Throat pain noted. Neck: Supple, no lymphadenopathy, no thyromegaly, no JVD or carotid bruits. Cardiovascular: RRR, normal S1/S2, no murmurs, rubs, or gallops. Peripheral pulses 2+ and symmetric. No edema. Respiratory: Lungs clear to auscultation bilaterally, no wheezes, rales, or rhonchi. Normal effort. Abdomen: Soft, non-tender, non-distended. Normoactive bowel sounds. No hepatosplenomegaly, no masses. MSK: Full range of motion, no joint swelling or deformity. Normal gait. Skin: Warm, dry, intact. No rashes, lesions, or pallor. Neuro: Alert and oriented x3. Cranial nerves II-XII intact. Strength 5/5 throughout. Sensation intact. Reflexes 2+ symmetric. Normal coordination and gait. Psych: Appropriate mood and affect. Normal judgment and insight. Plan 1. Upper Respiratory Infection - The patient is advised to rest at home, increase fluid intake, and take Tylenol 650 mg for fever management. - Additional Medications: Use Albuterol as needed and take DM Robitussin for cough symptoms. - Follow-up: Patient advised to stay home until symptoms improve and return to work on Friday if feeling better. -respiratory panel ordered pending results Discussion Notes I discussed with the patient that her symptoms are consistent with an upper respiratory infection, likely viral in nature. I recommended rest, hydration, and symptomatic treatment with Tylenol and DM Robitussin. I advised her to stay home from work until Friday and offered to provide a note if needed. Patient Instructions - Rest at home and avoid going to work until symptoms improve. - Take Tylenol 650 mg for fever management. - Use Albuterol as needed for respiratory symptoms. - Take dextromethorphan guaifenesin, Cepacol for URI symptoms. - Increase fluid intake and consume vitamin C-rich foods. Medical Decision Making The patient's symptoms suggest an upper respiratory infection, likely viral, given the lack of bacterial infection indicators. The decision to manage with symptomatic treatment, including Tylenol and dextromethorphan guaifenesin and Cepacol was based on the persistence of symptoms and the need for rest and hydration. The goal is to alleviate symptoms and prevent further complications by ensuring adequate rest and hydration. Total time spent caring for the patient today was 30 minutes. This includes time spent before the visit reviewing the chart, time spent documenting, and time spent reviewing laboratory results, diagnostic imaging, medications, performing a medically necessary evaluation, counseling on diagnoses, care coordination, ordering appropriate tests, ordering appropriate medications. [facility] Medical History Vitamin D deficiency Gastritis Allergic rhinitis Insomnia Chronic abdominal pain POTS (postural orthostatic tachycardia syndrome) Palpitations Surgical History No significant past surgical history Family History Mother No problems noted. Father No problems noted. 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 1. Little interest or pleasure in doing things: not at all 2. Feeling down, depressed, or hopeless: several days 3. Trouble falling or staying asleep, or sleeping too much: several days 4. Feeling tired or having little energy: several days 5. Poor appetite or overeating: not at all 6. Feeling bad about yourself - or that you are a failure or have let yourself or your family down: not at all 7. Trouble concentrating on things, such as reading the newspaper or watching television: not at all 8. Moving or speaking so slowly that other people could have noticed. Or the opposite - being so fidgety or restless that you have been moving around a lot more than usual: not at all 9. Thoughts that you would be better off or of hurting yourself in some way: not at all Total score: 3 Depression Screening Interpretation: Positive Depression Screening Follow-up: Follow-up Visit Requested Depression Screening Done: Yes 00074 - PHQ-9 Billing: Yes Source: Developed by Drs. Mannider Evans, Kira Ceballos, Mike Veras and colleagues, with an educational dixie from [employer]. Thrive Questionnaire Date Thrive assessed: 05/05/25 I am a: Patient What is your living situation today?: I have a steady place to live Within the past 12 months, did the food you bought not last and you didn't have the money to get more?: Never true Within the past 12 months, did you worry whether your food would run out before you got money to buy more?: Never true Do you have trouble paying for medicines?: No Do you have trouble getting transportation to medical appointments?: No Do you have trouble paying your heating and electricity bill?: No Do you have trouble taking care of your child, family member or friend?: No Do you have trouble with day-to-day activities such as bathing, preparing meals, shopping, managing finances, etc.?: No Are you currently unemployed and looking for a job?: No Are you interested in more education?: No Please select the resources that you would like help with: None Currently or been in a relationship where the following occur: No concerns reported THRIVE Score: 0 AUDIT C Alcohol Use Questionnaire (AUDIT-C) 1. How often do you have a drink containing alcohol?: Never 3. How often do you have six or more drinks on one occasion?: Never Total Score: 0 Score Reviewed/Action Taken: Yes EVETTE-7 AMB Questionnaire EVETTE-7 Date EVETTE - 7 assessed: 05/05/25 Feeling nervous, anxious, or on edge: 0 = Not at all Not being able to stop or control worryin = Not at all Worrying too much about different things: 0 = Not at all Trouble relaxin = Not at all Being so restless that it is hard to sit still: 0 = Not at all Becoming easily annoyed or irritable: 0 = Not at all Feeling afraid as if something awful might happen: 0 = Not at all Total EVETTE-7 score (0-4 normal; 5-9 mild; 10-14 moderate; 15-21 severe): 0 Source: Developed by Kira Mckeon, Mike Veras and colleagues, with an educational dixie from [employer]. Physical exam (Primary Care) Vital Signs: Last Vital Signs Temp 97.7 F 05/05/25 10:13 Pulse 96 05/05/25 10:13 Resp 16 05/05/25 10:13 BP 132/67 05/05/25 10:13 Pulse Ox 99 05/05/25 10:13 Oxygen Delivery Method Room Air 05/05/25 10:13 BMI result Body Mass Index 23.5 Tobacco/Smoking Status: Tobacco use Status Tobacco use date assessed 05/05/25 05/05/25 10:16 Patient Tobacco Use Status Never used Tobacco 05/05/25 10:16 e-Cigarette/Vaping Use Never Used 05/05/25 10:16 PHQ-9: PHQ-9 Score PHQ-9: Total score 3 05/05/25 10:16 Depression Screening Interpretation: Positive Depression Screening Follow-up: Follow-up Visit Requested Thrive Assessment: Date of Thrive Assessment Date Thrive assessed 05/05/25 05/05/25 10:16 Currently or been in a relationship where the following occur: No concerns reported Coding Level of Care Code New Pt Level 4 (52832) Diagnoses Upper respiratory infection J06.9 Cough R05.9 Fever R50.9 Chest congestion R09.89 Sore throat J02.9 Additional Codes PHQ-9 - 19994 - PHQ-9 Billing: Yes ([id number]) Assessment & Plan Assessment & Plan (1) Upper respiratory infection: Code(s): J06.9 - Acute upper respiratory infection, unspecified (2) Cough: Code(s): R05.9 - Cough, unspecified (3) Fever: Code(s): R50.9 - Fever, unspecified (4) Chest congestion: Code(s): R09.89 - Other specified symptoms and signs involving the circulatory and respiratory systems (5) Sore throat: Code(s): J02.9 - Acute pharyngitis, unspecified Category: Medical Plan Orders: Orders Resp Pathogen Panel - [facility] Today Z13.9 - Encounter for screening, unspecified BinaxNOW Covid-19 Ag Today Z13.9 - Encounter for screening, unspecified Medications: New dextromethorphan-guaifenesin 20-400 mg 1 tab PO Q4-6H PRN 30 tabs 0RF cough benzocaine-menthol 15-2.6 mg (Cepacol Sore Throat (benzocaine-menthol)) 1 stephanie mucous membrane Q2-4H PRN 16 ea 0RF pain acetaminophen 650 mg (2 x 325 mg) PO Q6H PRN 30 caps 0RF pain
--- OUTSIDE RECORDS SUMMARY | 2025-05-05 12:21 | XMS_ITS | Encounter Summary ---
Author Organization [facility] Address [address] [place] [id number] Phone Care Team Providers Care Metal Trimmer Name Role Phone Vee Armstrong MD Primary Care Provider Encounter Details Date Type Department Care Team (Late st Contact Info) Description 10/03/2009 Documentation [facility] [place] [address] [place], [place] [phone] Family Medicine, Physician [address] [place], [place] [phone] Social History Tobacco Use Types Packs/Day Years [...] on filedocumented in this encounter Care Teams Metal Trimmer Relationship Specialty Start Date End Date Vee Armstrong MD [address] [place] [address] PCP - General 02/28/17 12/25/22 documented as of this encounter
--- OUTSIDE RECORDS SUMMARY | 2025-05-05 12:21 | XMS_ITS | Encounter Summary ---
Author Organization [facility] Address [address] [place] [address] Phone Care Team Providers Care Marine Tower Operator Name Role Phone Vee Armstrong MD Primary Care Provider Encounter Details Date Type Department Care Team (Late st Contact Info) Description 03/06/2017 Conversion Encounter [facility] [address] [place] [address] Social History Tobacco Use Types Packs/Day Years [...] on filedocumented in this encounter Care Teams Marine Tower Operator Relationship Specialty Start Date End Date Vee Armstrong MD [address] [place] [address] PCP - General 02/28/17 12/25/22 documented as of this encounter
--- OUTSIDE RECORDS SUMMARY | 2025-05-05 12:21 | XMS_ITS | Encounter Summary ---
Author Organization [facility] Address [address] [place] [id number] Phone Care Team Providers Care Manager Talent Acquisition Name Role Phone Vee Armstrong MD Primary Care Provider [phone] Encounter Details Date Type Department Care Team (Late st Contact Info) Description 02/28/2014 Documentation [facility] Family Medicine [address] [place], [place] [phone] Family Medicine, Physician [address], [place] [phone] Social History Tobacco Use Types Packs/Day Years [...] on filedocumented in this encounter Care Teams Manager Talent Acquisition Relationship Specialty Start Date End Date Vee Armstrong MD [address] [place] [address] PCP - General 02/28/17 12/25/22 documented as of this encounter
--- OUTSIDE RECORDS SUMMARY | 2025-05-05 12:21 | XMS_ITS | Encounter Summary ---
Author Organization [facility] Address [address] [place] [phone] Phone Care Team Providers Care Procurement Buyer Name Role Phone Vee Armstrong MD Primary Care Provider Encounter Details Date Type Department Care Team (Late st Contact Info) Description 04/02/2014 Documentation [facility] [place] Family Medicine [address] [place], [place] [phone] Family Medicine, Physician [address] [place], [place] [phone] Social History Tobacco Use Types Packs/Day Years [...] on filedocumented in this encounter Care Teams Procurement Buyer Relationship Specialty Start Date End Date Vee Armstrong MD [address] [place] [address] PCP - General 02/28/17 12/25/22 documented as of this encounter
--- OUTSIDE RECORDS SUMMARY | 2025-05-05 12:21 | XMS_ITS | Encounter Summary ---
Author Organization [facility] Address [address] [place] [phone] Phone Care Team Providers Care Correctional Nurse Name Role Phone Vee Armstrong MD Primary Care Provider [phone] Encounter Details Date Type Department Care Team (Late st Contact Info) Description 03/15/2013 [place] [facility] [place] [address] [place], [place] [phone] Family Medicine, Physician [address] [place], [place] [phone] Social History Tobacco Use Types Packs/Day Years [...] on filedocumented in this encounter Care Teams Correctional Nurse Relationship Specialty Start Date End Date Vee Armstrong MD [address] [place] [address] PCP - General 02/28/17 12/25/22 documented as of this encounter
--- OUTSIDE RECORDS SUMMARY | 2025-05-05 12:21 | XMS_ITS | Clinical Summary ---
Author Organization [facility] Address [address] [place] [address] Phone Care Team Providers Care Citrus Fruit Colorer Name Role Phone Unavailable Primary Care Provider [...] of *Thrombophilia, No family history of *Sudden /[place] under 55 Social History Tobacco Use Types [...] complete this topic Procedures * Due to [place] law, this organization might not be sharing sensitive test results. Procedure Name Priority Date/Time Associated Diagnosis Comments CHLAMYDIA AND GONORRHEA, AMPLIFIED Routine 08/31/2019 1:30 PM EST from Last 3 Months or Most Recently Relevant to Health Maintenance Results * Due to [place] law, this organization might not be sharing sensitive test results. * Chlamydia and Gonorrhoea, Amplified (08/31/2019 1:30 PM EST) Chlamydia Trachomatis, DNA Probe NEGATIVE (NEG) [facility] Comment: No Chlamydia Trachomatis RNA detected in this patient's sample (REFERENCE RANGE/NORMAL VALUE: NOT DETECTED) Note: This test uses nurse aide evaluator- mediated amplification method to detect rRNA from C. Trachomatis URINE GC AMP PROBE NEGATIVE (NEG) [facility] Comment: No Neisseria Gonorrhoeae RNA detected in this patient's sample (REFERENCE RANGE/NORMAL VALUE: NOT DETECTED) NOTE: This test uses nurse aide evaluator-mediated amplification method to detect rRNA from N.Gonorrhoeae. [...] without risk of sexual abuse. Consult the [facility] if needed. Contact phone number . Therapeutic failure or success cannot be determined with the Aptima Combo2 assay since nucleic acid may persist following appropriate antimicrobial therapy. The Centers for Disease Control and Prevention (CDC) recommends confirmatory retesting using culture or a different nucleic acid amplification test when positive results occur, if indicated. Testing performed or reported by [facility], a Service of [facility], [address] [place] [address] [place] [address] Nathan Wild MD, Plumbing Hardware Assembler 08/31/2019 1:30 PM EST 08/31/2019 8:34 PM EST us Vee Armstrong MD LAB MICROBIOLOGY - GENERAL ORDERABLES Final Result [facility] from Last 3 Months or Most Recently Relevant to Health Maintenance Insurance [employer] NON PCC
== END 2025-05-05 10:43 | disposition home or self-care (01) ==
PROVIDERS: PCP Internal Medicine; Visit Provider Student in an Organized Health Care Education/Training Program
DX: J06.9 Acute upper respiratory infection, unspecified (principal); R05.9 Cough, unspecified; R50.9 Fever, unspecified; R09.89 Other specified symptoms and signs involving the circulatory and respiratory systems; J02.9 Acute pharyngitis, unspecified

== ENCOUNTER 2025-05-18 14:54 | Outpatient (REF) | payer OTHER, SELFPAY | END 2025-05-18 14:55 | disposition home or self-care (01) | LOC: HO.LAB 14:54 | PROVIDERS: PCP Internal Medicine; Visit Provider Nurse Practitioner Family | DX: R35.0 Frequency of micturition (principal); R30.0 Dysuria; R39.9 Unspecified symptoms and signs involving the genitourinary system; Z13.89 Encounter for screening for other disorder | CPT/HCPCS: 81003; 88112 ==

== ENCOUNTER 2025-05-18 14:54 | Outpatient (AMB) | payer OTHER, SELFPAY ==
--- NOTE | 2025-05-18 15:01 | A.OFFVIS_ITS ---
Intake Visit Reasons: 3m/microgen Intake Note: Patient is present for 3M/MICROGEN Urology Medication:VITAMIN B2 Antibiotic Allergy:NONE Blood Thinner:NONE Single Stroke Preformer Required: No Allergies diphenhydramine (From Benadryl) Allergy (Severe, Verified 05/18/25 21:47) Chest Pain, hard to breath Medication List - Last Reconciled 05/18/25 by MINISTERIO SheehanP-BC acetaminophen 650 mg (2 x 325 mg) PO Q6H PRN albuterol sulfate 90 mcg/actuation (Ventolin HFA) 2 puffs inhalation Q6H PRN 30 days amoxicillin-pot clavulanate 500-125 mg (Augmentin) 1 tab PO TID 10 days benzocaine-menthol 15-2.6 mg (Cepacol Sore Throat (benzocaine-menthol)) 1 stephanie mucous membrane Q2-4H PRN cholecalciferol (vitamin D3) 50 mcg PO DAILY 90 days dextromethorphan-guaifenesin 20-400 mg 1 tab PO Q4-6H PRN fexofenadine (Lindsey Allergy) 180 mg PO DAILY fluconazole 150 mg PO Q3D 2 doses fluticasone propionate 50 mcg/actuation (Flonase Allergy Relief) 1 spray intranasal DAILY magnesium oxide 400 mg PO BEDTIME 30 days riboflavin (vitamin B2) 400 mg PO DAILY 30 days sumatriptan succinate 50 - 100 mg orally at onset of headache, may repeat in 2 hrs PRN; max 2 tabs per day or 4 tabs/week (may take with Ibuprofen) 30 days HPI Comments Details: Twila is a very pleasant 24-year-old female patient of Dr. Wynn. She has a past medical history of IBS, insomnia, and allergic rhinitis. She presents to the office today for follow-up of a lower urinary tract symptoms and recurrent urinary tract infections. Of note, during patient's last office visit here approximately 2 months her urine was sent for microgen for further assessment evaluation. These results were reviewed and communicated with the patient today 03/14 microgen E coli, Enterococcus faecalis, Streptococcus agalactiee, prevotella bivia, mycoplasma hominis, Gardnerella vaginalis, rhodotorula mucilaginosa, Renae albicans, and Naganishia diffluens. Given results she has since started Augmentin and Diflucan. She does feel symptoms have already improved. In office urinalysis results reviewed with the patient today 3+ microscopic hematuria however patient is on her menses. She reports feeling episodes of dysuria, urinary urgency, urinary frequency, and bladder pressure has since improved. However she has not yet completed antibiotic therapy as prescribed. She does report issues with diarrhea and or constipation at the same time of lower urinary tract symptoms. Previous workup has included a retroperitoneal ultrasound 08/14 bilateral kidneys are normal in size, contour, and echogenicity. No hydronephrosis or cystic lesions noted bilaterally. Mild fullness of the pelvicalyceal system. The bladder is fluid-filled. Bladder jets are demonstrated. Pre void bladder volume is approximately 420 mL. Postvoid bladder volume is approximately 30 mL. She reports she continues to attempt to drink increased amount of water daily and does feel this has been helpful. Previous urine cultures are as follows: 09/10 strep agalactiae, 07/11 mixed bacteria, 01/09 no growth, 10/10 no growth, / mixed bacteria, 01/10 mixed bacteria, 08/13 strep agalactiae, 2 mixed bacteria, 6/ mixed bacteria. She denies incontinence, nocturia, hematuria, foul smelling urine, changes to urinary stream, flank pain, fever, and or chills. She otherwise offers no other issues or concerns at this time. [facility] Medical History Vitamin D deficiency Gastritis Allergic rhinitis Insomnia Chronic abdominal pain POTS (postural orthostatic tachycardia syndrome) Palpitations Surgical History No significant past surgical history Family History Mother No problems noted. Father No problems noted. 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 Current occupational exposures/hazards: No Sexual orientation: Straight/Heterosexual Gender identity: Female Cognitive needs: No Hearing needs: No Vision needs: No Female Reproductive History Menstrual Age of Menarche: 10 Review of Systems Const All systems reviewed & are unremarkable except as noted in HPI and below Physical Exam Const General: cooperative, healthy appearing, comfortable, no acute distress, well developed, alert and awake Orientation/consciousness: patient oriented x3 Limitations: no limitations HEENT Head: Yes normal to inspection, Yes normocephalic and Yes atraumatic Ears: hearing grossly normal bilaterally Eyes General: appearance normal, both eyes and all related structures Neck Neck: Yes normal visual inspection and Yes trachea midline Chest Chest palpation & inspection: normal inspection of the chest Resp Effort & Inspection: normal respiratory effort and able to speak in complete sentences Cardio Rate: regular rate GI Inspection: Yes normal to inspection General: Yes no CVA tenderness Back/Spine/Pelvis Back: no CVA tenderness Skin General skin exam: no rashes or lesions noted Neuro General: patient oriented x3 Extrem General: Yes normal to inspection Psych Appearance: grossly normal and well kempt Mental Status: mental status grossly normal Speech and movement: Normal speech and movement present and Clear speech present Affect: normal affect Attitude: cooperative Thought process: Normal thought process present Thought content: Normal thought content present Insight: Fair insight present (Psych) Judgement: Fair judgement present (Psych) Results AMB Urinalysis, Automated UA Leukoctes 0 Miya/uL Last Edit by SINA Chandra on 05/18/25 15:11 UA Nitrite Negative Last Edit by SINA Chandra on 05/18/25 15:11 UA Urobilinogen 0.2 mg/dL Last Edit by SINA Chandra on 05/18/25 15:1 1 UA Protein 0 mg/dL Last Edit by SINA Chandra on 05/18/25 15:11 UA pH 7.5 Last Edit by SINA Chandra on 05/18/25 15:11 UA Blood 200 Joshua/uL Last Edit by SINA Chandra on 05/18/25 15:11 UA Specific [place] 1.005 Last Edit by SINA Chandra on 05/18/25 15: 11 UA Ketone Negative Last Edit by SINA Chandra on 05/18/25 15:11 UA Bilirubin 0 mg/dL Last Edit by SINA Chandra on 05/18/25 15:11 UA Glucose 0 mg/dL Last Edit by SINA Chandra on 05/18/25 15:11 Results Reviewed Results Reviewed: Laboratory Last Values Urine pH (Auto) 7.5 05/18/25 15:11 Specific [place] (Auto) 1.005 05/18/25 15:11 Urine Protein (Auto) 0 mg/dL 05/18/25 15:11 Glucose (UA)(Auto) 0 mg/dL 05/18/25 15:11 Urine Ketones (Auto) Negative 05/18/25 15:11 Urine Blood (Auto) 200 Joshua/uL 05/18/25 15:11 Urine Nitrite (Auto) Negative 05/18/25 15:11 Urine Bilirubin (Auto) 0 mg/dL 05/18/25 15:11 Urine Urobilinogen (Auto) 0.2 mg/dL 05/18/25 15:11 Leukocyte Esterase (Auto) 0 Miya/uL 05/18/25 15:11 Assessment & Plan Assessment & Plan (1) Lower urinary tract symptoms: Code(s): R39.9 - Unspecified symptoms and signs involving the genitourinary system Category: Medical (2) Urinary frequency: Code(s): R35.0 - Frequency of micturition Category: Medical (3) Dysuria: Code(s): R30.0 - Dysuria Category: Medical Plan In office urinalysis results reviewed with the patient today; as noted above. We discussed potential causes of lower urinary tract symptoms patient is/was experiencing as well as further treatment options and risks and benefits of these treatment options. We discussed importance of completing antibiotic therapy as prescribed. We discussed bladder triggers and irritants. All questions were answered. We did discuss near future in office cystoscopy if symptoms continue and or arise. We discussed worsening symptoms. Discussed UTI prevention with D mannose supplement, vitamin-C, increasing fluid intake, behavioral therapy with timed voiding, perineal hygiene and postcoital voiding, and management of constipation with stool softeners and increased fiber intake. Follow-up in 3 months with [facility]; or sooner with any issues, concerns, and or questions. Orders: Orders AMB Urinalysis Automated Today Z13.9 - Encounter for screening, unspecified Urine Cytology Today R31.29 - Other microscopic hematuria Patient Instructions: The patient had an opportunity to ask questions regarding the treatment plan. All questions were answered. Physical exam, labs, and imaging were discussed and reviewed in detail. As well as risks, benefits, and discussion of treatment choices. No major barriers to understanding were identified. The patient expressed understanding and agreement with the above treatment plan. The patient was made aware they should contact our office by phone for worsening of their current condition, the appearance of new symptoms, or with any questions or concerns. Compliance is encouraged with any medications and follow up testing that is ordered. It is a privilege to be allowed the opportunity to participate in? your urological care.? Again, if you have any questions or concerns If you have any questions or concerns please do not hesitate to contact me. The office is [phone]. This note is constructed using voice recognition software. While every effort has been made to ensure accuracy pharmaceutical officer errors may have been included. Yours sincerely, JEANNA Sheehan Coding Level of Care Code Est Pt Level 4 (00787) Diagnoses Lower urinary tract symptoms R39.9 Urinary frequency R35.0 Dysuria R30.0
--- OUTSIDE RECORDS SUMMARY | 2025-05-18 19:20 | XMS_ITS | Encounter Summary ---
Author Organization [facility] Address [address] [place] [address] Phone Care Team Providers Care Hot Header Operator Name Role Phone Vee Armstrong MD Primary Care Provider Encounter Details Date Type Department Care Team (Late st Contact Info) Description 03/15/2013 Documentation [facility] [place] [address] [place], [place] [phone] Family Medicine, Physician [address], [place] [phone] Social History Tobacco Use Types Packs/Day Years [...] on filedocumented in this encounter Care Teams Hot Header Operator Relationship Specialty Start Date End Date Vee Armstrong MD [address] [place] [address] PCP - General 02/28/17 12/25/22 documented as of this encounter
--- OUTSIDE RECORDS SUMMARY | 2025-05-18 19:20 | XMS_ITS | Encounter Summary ---
Author Organization [facility] Address [address] [place] [address] Phone Care Team Providers Care Telecommunications Officer Name Role Phone Vee Armstrong MD Primary Care Provider Encounter Details Date Type Department Care Team (Late st Contact Info) Description 10/03/2009 Documentation [facility] [place] [address] [place], [place] [phone] Family Medicine, Physician [address], [place] [phone] Social History Tobacco Use Types Packs/Day Years [...] on filedocumented in this encounter Care Teams Telecommunications Officer Relationship Specialty Start Date End Date Vee Armstrong MD [address] [place] [address] PCP - General 02/28/17 12/25/22 documented as of this encounter
--- OUTSIDE RECORDS SUMMARY | 2025-05-18 19:20 | XMS_ITS | Clinical Summary ---
Author Organization [facility] Address [address] [place] [address] Phone Care Team Providers Care Record Maker Name Role Phone Unavailable Primary Care Provider [...] of *Thrombophilia, No family history of *Sudden /MD under 55 Social History Tobacco Use Types [...] complete this topic Procedures * Due to [place] Ravel Law law, this organization might not be sharing sensitive test results. Procedure Name Priority Date/Time Associated Diagnosis Comments CHLAMYDIA AND GONORRHEA, AMPLIFIED Routine 08/31/2019 1:30 PM EST from Last 3 Months or Most Recently Relevant to Health Maintenance Results * Due to [place] Law law, this organization might not be sharing sensitive test results. * Chlamydia and Gonorrhoea, Amplified (08/31/2019 1:30 PM EST) Chlamydia Trachomatis, DNA Probe NEGATIVE (NEG) [facility] Comment: No Chlamydia Trachomatis RNA detected in this patient's sample (REFERENCE RANGE/NORMAL VALUE: NOT DETECTED) Note: This test uses government gauger- mediated amplification method to detect rRNA from C. Trachomatis URINE GC AMP PROBE NEGATIVE (NEG) [facility] Comment: No Neisseria Gonorrhoeae RNA detected in this patient's sample (REFERENCE RANGE/NORMAL VALUE: NOT DETECTED) NOTE: This test uses government gauger-mediated amplification method to detect rRNA from N.Gonorrhoeae. [...] without risk of sexual abuse. Consult the [facility] if needed. Contact phone number . Therapeutic failure or success cannot be determined with the Aptima Combo2 assay since nucleic acid may persist following appropriate antimicrobial therapy. The Centers for Disease Control and Prevention (CDC) recommends confirmatory retesting using culture or a different nucleic acid amplification test when positive results occur, if indicated. Testing performed or reported by [facility], a Service of [facility], [address] [place] [address] [place] [address] Nathan Wild MD, Library Science Professor 08/31/2019 1:30 PM EST 08/31/2019 8:34 PM EST us Vee Armstrong MD LAB MICROBIOLOGY - GENERAL ORDERABLES Final Result [facility] from Last 3 Months or Most Recently Relevant to Health Maintenance Insurance [employer] NON PCC
--- OUTSIDE RECORDS SUMMARY | 2025-05-18 19:20 | XMS_ITS | Encounter Summary ---
Author Organization [facility] Address [address] [place] [address] Phone Care Team Providers Care Instrumentation Specialist Name Role Phone Vee Armstrong MD Primary Care Provider Encounter Details Date Type Department Care Team (Late st Contact Info) Description 02/28/2014 Documentation [facility] [place] Medicine [address] [place], [place] [phone] Family Medicine, Physician [address] [place], [place] [phone] Social History Tobacco Use Types Packs/Day Years [...] on filedocumented in this encounter Care Teams Instrumentation Specialist Relationship Specialty Start Date End Date Vee Armstrong MD [address] [place] [address] PCP - General 02/28/17 12/25/22 documented as of this encounter
--- OUTSIDE RECORDS SUMMARY | 2025-05-18 19:20 | XMS_ITS | Encounter Summary ---
Author Organization [facility] Address [address] [place] [address] Phone Care Team Providers Care Produce Clerk Name Role Phone Vee Armstrong MD Primary Care Provider Encounter Details Date Type Department Care Team (Late st Contact Info) Description 03/06/2017 Conversion Encounter [facility] [address] [place] [address] Social History Tobacco Use Types Packs/Day Years [...] on filedocumented in this encounter Care Teams Produce Clerk Relationship Specialty Start Date End Date Vee Armstrong MD [address] [place] [address] PCP - General 02/28/17 12/25/22 documented as of this encounter
--- OUTSIDE RECORDS SUMMARY | 2025-05-18 19:20 | XMS_ITS | Encounter Summary ---
Author Organization [facility] Address [address] [place] [address] Phone Care Team Providers Care Facilities Administrator Name Role Phone Vee Armstrong MD Primary Care Provider Encounter Details Date Type Department Care Team (Late st Contact Info) Description 04/02/2014 Documentation [facility] [place] [address] [place], [place] [phone] Family Medicine, Physician [address], [place] [phone] Social History Tobacco Use Types Packs/Day Years [...] on filedocumented in this encounter Care Teams Facilities Administrator Relationship Specialty Start Date End Date Vee Armstrong MD [address] [place] [address] PCP - General 02/28/17 12/25/22 documented as of this encounter
== END 2025-05-18 15:34 | disposition home or self-care (01) ==
LOC: HO.HUSH 14:55
PROVIDERS: PCP Internal Medicine; Visit Provider Nurse Practitioner Family
DX: R39.9 Unspecified symptoms and signs involving the genitourinary system (principal); R35.0 Frequency of micturition; R30.0 Dysuria; Z13.9 Encounter for screening, unspecified
CPT/HCPCS: 99214

== ENCOUNTER 2025-05-19 15:09 | Outpatient (AMB) | payer OTHER, SELFPAY ==
--- NOTE | 2025-05-19 15:17 | A.OFFVIS_ITS ---
Vital Signs 05/19/25 15:18 Height 5 ft Weight 119 lb 0.794 oz BMI 23.2 BP 120/80 Blood Pressure Location Lt brachial Position Sitting Pulse 82 Intake Visit Reasons: Follow up- Chest Pain/Pressure r/s 2x 03-23-25 Intake Note: Follow-up c/o fluttering in her heart hard to breath when it happens Conditioner Tumbler Required: No Allergies diphenhydramine (From Benadryl) Allergy (Severe, Verified 05/18/25 21:47) Chest Pain, hard to breath Medication List - Last Reconciled 05/19/25 by Feliz Medina MD acetaminophen 650 mg (2 x 325 mg) PO Q6H PRN albuterol sulfate 90 mcg/actuation (Ventolin HFA) 2 puffs inhalation Q6H PRN 30 days amoxicillin-pot clavulanate 500-125 mg (Augmentin) 1 tab PO TID 10 days benzocaine-menthol 15-2.6 mg (Cepacol Sore Throat (benzocaine-menthol)) 1 stephanie mucous membrane Q2-4H PRN cholecalciferol (vitamin D3) 50 mcg PO DAILY 90 days dextromethorphan-guaifenesin 20-400 mg 1 tab PO Q4-6H PRN fexofenadine (Lindsey Allergy) 180 mg PO DAILY fluticasone propionate 50 mcg/actuation (Flonase Allergy Relief) 1 spray intranasal DAILY magnesium oxide 400 mg PO BEDTIME 30 days riboflavin (vitamin B2) 400 mg PO DAILY 30 days sumatriptan succinate 50 - 100 mg orally at onset of headache, may repeat in 2 hrs PRN; max 2 tabs per day or 4 tabs/week (may take with Ibuprofen) 30 days HPI Comments Details: Twila has been referred here for precordial chest pain which she is very concerned about heart related pain. Patient says she feels like sometimes a bubble like feeling which then eventually bursts in his symptoms get relieved. Symptoms happen frequently. She also complains of retrosternal chest tightness. These symptoms are not exertional related. She is not having any symptoms of palpitations. Workup in the past has been within normal limits. She had a stress test many years ago. [facility] Medical History Vitamin D deficiency Gastritis Allergic rhinitis Insomnia Chronic abdominal pain POTS (postural orthostatic tachycardia syndrome) Palpitations Surgical History No significant past surgical history Family History Mother No problems noted. Father No problems noted. 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 Current occupational exposures/hazards: No Sexual orientation: Straight/Heterosexual Gender identity: Female Cognitive needs: No Hearing needs: No Vision needs: No Female Reproductive History Menstrual Age of Menarche: 10 Review of Systems Const Denies chills, Denies fatigue, Denies fever(s), Denies frequent falls, Denies weakness, Denies weight gain and Denies weight loss ENT Denies dizziness Card Denies chest pain, Denies leg edema, Denies lightheadedness, Denies palpitations, Denies dyspnea, Denies dyspnea on exertion, Denies orthopnea and Denies other (loss of consciousness) Resp Denies cough, Denies dyspnea and Denies dyspnea on exertion GI Denies hematochezia and Denies change in stool character Musc Denies abnormal gait, Denies muscle weakness, Denies numbness, Denies radiating pain into limb and Denies tingling Neuro Denies Abnormal speech present, Denies abnormal gait, Denies dizziness, Denies frequent falls, Denies numbness, Denies tingling and Denies weakness Endo Denies fatigue and Denies palpitations Physical Exam Vital Signs: Last Vital Signs Pulse 82 05/19/25 15:18 BP 120/80 05/19/25 15:18 BMI result Body Mass Index 23.2 Const General: cooperative and comfortable Nutritional Appearance: thin Orientation/consciousness: patient oriented x3 Limitations: no limitations Neck Neck: Yes trachea midline and Yes supple Resp Effort & Inspection: normal respiratory effort Auscultation: clear to auscultation bilaterally Cardio Jugular venous distension: no JVD Palpation: normal PMI Rate: regular rate Rhythm: regular rhythm Heart sounds: S1 normal heart sound present and S2 normal heart sound present Neuro General: patient oriented x3 Speech: No Abnormal speech present Office Procedures EKG Details: EKGs shows normal sinus rhythm with right atrial enlargement with rightward axis [id number], Complete Assessment & Plan Assessment & Plan (1) Chest pain: Code(s): R07.9 - Chest pain, unspecified Plan: Atypical chest pain in his young woman. Discussed that likelihood of coronary artery disease extremely low. Also prolonged chest pain are not associated with any significant structural cardiac issues. She does have a rightward axis incomplete right bundle-branch block and right atrial enlargement. Will obtain echo. Will also suggest a stress test although likelihood of obstructive coronary artery disease low and this was discussed with her. Will follow up in the clinic if need be. Thank you for allowing me to partake in her care Orders: Orders CA stress test Today R07.9 - Chest pain, unspecified Coding Level of Care Code Est Pt Level 3 (08106) Complex EM visit Add On G2211 Diagnoses Chest pain R07.9 CPT Codes EKG - CPT: 29786-[id number], Complete ([id number])
[2025-05-19 15:18] VITALS: BP 120/80; PULSE 82; BMI 23.2
--- OUTSIDE RECORDS SUMMARY | 2025-05-19 17:56 | XMS_ITS | Encounter Summary ---
Author Organization [facility] Address [address] [place] [address] Phone Care Team Providers Care Gold Leaf Layer Name Role Phone Vee Armstrong MD Primary Care Provider [phone] Encounter Details Date Type Department Care Team (Late st Contact Info) Description 03/06/2017 Conversion Encounter [facility] [address] [place] [address] Social History Tobacco Use Types Packs/Day Years [...] on filedocumented in this encounter Care Teams Gold Leaf Layer Relationship Specialty Start Date End Date Vee Armstrong MD [address] [place] [address] PCP - General 02/28/17 12/25/22 documented as of this encounter
--- OUTSIDE RECORDS SUMMARY | 2025-05-19 17:56 | XMS_ITS | Encounter Summary ---
Author Organization [facility] Address [address] [place] [address] Phone Care Team Providers Care Leather Stamper Name Role Phone Vee Armstrong MD Primary Care Provider Encounter Details Date Type Department Care Team (Late st Contact Info) Description 03/15/2013 Documentation [facility] [place] [address] [place], [place] [phone] Family Medicine, Physician [address] [phone] Social History Tobacco Use Types Packs/Day Years [...] on filedocumented in this encounter Care Teams Leather Stamper Relationship Specialty Start Date End Date Vee Armstrong MD [address] [place] [address] PCP - General 02/28/17 12/25/22 documented as of this encounter
--- OUTSIDE RECORDS SUMMARY | 2025-05-19 17:56 | XMS_ITS | Encounter Summary ---
Author Organization [facility] Address [address] [place] [address] Phone Care Team Providers Care Communications Superintendent Name Role Phone Vee Armstrong MD Primary Care Provider Encounter Details Date Type Department Care Team (Late st Contact Info) Description 02/28/2014 Documentation [facility] [place] [address] [place], [place] [phone] Family Medicine, Physician [address] [phone] Social History Tobacco Use Types Packs/Day Years [...] on filedocumented in this encounter Care Teams Communications Superintendent Relationship Specialty Start Date End Date Vee Armstrong MD [address] [place] [address] PCP - General 02/28/17 12/25/22 documented as of this encounter
--- OUTSIDE RECORDS SUMMARY | 2025-05-19 17:56 | XMS_ITS | Encounter Summary ---
Author Organization [facility] Address [address] [place] [phone] Phone Care Team Providers Care Rn Delivery Name Role Phone Vee Armstrong MD Primary Care Provider Encounter Details Date Type Department Care Team (Late st Contact Info) Description 10/03/2009 Documentation [facility] [place] Family Medicine [address] [place], [place] [phone] Family Medicine, Physician [address] [place] [phone] Social History Tobacco Use Types Packs/Day Years [...] on filedocumented in this encounter Care Teams Rn Delivery Relationship Specialty Start Date End Date Vee Armstrong MD [address] [place] [address] PCP - General 02/28/17 12/25/22 documented as of this encounter
--- OUTSIDE RECORDS SUMMARY | 2025-05-19 17:56 | XMS_ITS | Clinical Summary ---
Author Organization [facility] Address [address] [place] [address] Phone Care Team Providers Care Light Industrial Name Role Phone Unavailable Primary Care Provider [...] of *Thrombophilia, No family history of *Sudden /NE under 55 Social History Tobacco Use Types [...] this topic Procedures * Due to [place] law, this organization might not be sharing sensitive test results. Procedure Name Priority Date/Time Associated Diagnosis Comments CHLAMYDIA AND GONORRHEA, AMPLIFIED Routine 08/31/2019 1:30 PM EST from Last 3 Months or Most Recently Relevant to Health Maintenance Results * Due to [place] law, this organization might not be sharing sensitive test results. * Chlamydia and Gonorrhoea, Amplified (08/31/2019 1:30 PM EST) Chlamydia Trachomatis, DNA Probe NEGATIVE (NEG) [facility] Comment: No Chlamydia Trachomatis RNA detected in this patient's sample (REFERENCE RANGE/NORMAL VALUE: NOT DETECTED) Note: This test uses staff mine warfare officer- mediated amplification method to detect rRNA from C. Trachomatis URINE GC AMP PROBE NEGATIVE (NEG) [facility] Comment: No Neisseria Gonorrhoeae RNA detected in this patient's sample (REFERENCE RANGE/NORMAL VALUE: NOT DETECTED) NOTE: This test uses staff mine warfare officer-mediated amplification method to detect rRNA from N.Gonorrhoeae. [...] without risk of sexual abuse. Consult the [facility] if needed. Contact phone number . Therapeutic failure or success cannot be determined with the Aptima Combo2 assay since nucleic acid may persist following appropriate antimicrobial therapy. The Centers for Disease Control and Prevention (CDC) recommends confirmatory retesting using culture or a different nucleic acid amplification test when positive results occur, if indicated. Testing performed or reported by [facility], a Service of [facility], [address] [place] [address] [place] [address] Nathan Wild MD, Size Roller Operator 08/31/2019 1:30 PM EST 08/31/2019 8:34 PM EST us Vee Armstrong MD LAB MICROBIOLOGY - GENERAL ORDERABLES Final Result [facility] from Last 3 Months or Most Recently Relevant to Health Maintenance Insurance [employer] NON PCC
--- OUTSIDE RECORDS SUMMARY | 2025-05-19 17:56 | XMS_ITS | Encounter Summary ---
Author Organization [facility] Address [address] [place] [phone] Phone Care Team Providers Care Continuous Towel Roller Name Role Phone Vee Armstrong MD Primary Care Provider Encounter Details Date Type Department Care Team (Late st Contact Info) Description 04/02/2014 Documentation [facility] [place] [address] [place], [place] [phone] Family Medicine, Physician [address], [place] [phone] Social History Tobacco Use Types Packs/Day Years [...] on filedocumented in this encounter Care Teams Continuous Towel Roller Relationship Specialty Start Date End Date Vee Armstrong MD [address] [place] [address] PCP - General 02/28/17 12/25/22 documented as of this encounter
== END 2025-05-19 15:55 | disposition home or self-care (01) ==
LOC: HO.HCS 15:10
PROVIDERS: PCP Internal Medicine; Visit Provider Internal Medicine Cardiovascular Disease
DX: R07.9 Chest pain, unspecified (principal)
CPT/HCPCS: 93010; 99213

== ENCOUNTER → 2025-05-19 15:09 | Outpatient (BNVA) | payer OTHER, SELFPAY | PROVIDERS: PCP Internal Medicine; Visit Provider Internal Medicine Cardiovascular Disease | DX: R07.2 Precordial pain (principal); I45.10 Unspecified right bundle-branch block | CPT/HCPCS: 93005 ==

== ENCOUNTER 2025-05-25 08:21 | Outpatient (AMB) | payer OTHER, SELFPAY ==
--- NOTE | 2025-05-25 08:18 | A.OFFVIS_ITS ---
Vital Signs 05/25/25 08:19 Height 5 ft Weight 119 lb 4 oz BMI 23.3 BP 108/64 Blood Pressure Location Rt brachial Position Sitting Pulse 78 Pulse Oximetry (%) 100 Oxygen Delivery Method Room Air Intake Visit Reasons: 01/05 LVM+Let INP-Migraine Intake Note: Migraine Medical Manager Required: No Accompanied by: Self / Same As Patient Allergies diphenhydramine (From Benadryl) Allergy (Severe, Verified 05/25/25 08:18) Chest Pain, hard to breath Medication List - Last Reconciled 05/25/25 by Janet León, MARCIA acetaminophen 650 mg (2 x 325 mg) PO Q6H PRN albuterol sulfate 90 mcg/actuation (Ventolin HFA) 2 puffs inhalation Q6H PRN 30 days amoxicillin-pot clavulanate 500-125 mg (Augmentin) 1 tab PO TID 10 days benzocaine-menthol 15-2.6 mg (Cepacol Sore Throat (benzocaine-menthol)) 1 stephanie mucous membrane Q2-4H PRN cholecalciferol (vitamin D3) 50 mcg PO DAILY 90 days coenzyme Q10 400 mg PO DAILY 90 days dextromethorphan-guaifenesin 20-400 mg 1 tab PO Q4-6H PRN fexofenadine (Lindsey Allergy) 180 mg PO DAILY fluticasone propionate 50 mcg/actuation (Flonase Allergy Relief) 1 spray intranasal DAILY magnesium oxide 400 mg PO BEDTIME 30 days riboflavin (vitamin B2) 400 mg PO DAILY 30 days sumatriptan succinate 50 - 100 mg orally at onset of headache, may repeat in 2 hrs PRN; max 2 tabs per day or 4 tabs/week (may take with Ibuprofen) 30 days HPI Comments Details: Right-handed 24-yr-old female presents for new patient evaluation of headache disorder. 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 PMH is notable for: Recent diagnosis of allergic rhinitis and asthma, vit D def, remote h/o syncope w/ ? of POTs, endometriosis, and recurrent UTIs- f/b [facility] urology. Pt reports she started having severe headaches in college, where she had to the ER. She recalls that the 1st time she went to the ER for a headache, she was given an IV migraine cocktail which triggered cough and SOB, which has been attributed to benadryl allergy but she herself is not sure. She denies any precipitating infection, injury, travel. After this, she was referred to [facility], who started her on propranolol, which made her excessively drowsy so she stopped it. Over time, the headaches have become more frequent. A few months ago, she had a severe migraine attack in the office, and she was given a sample of Ubrelvy 100 mg, which was effective. And was started on riboflavin 400 mg in the morning and magnesium 400 mg bedtime with as-needed sumatriptan 100 mg. This has been helpful, but she continues to have daily [id number] headaches with intermittent exacerbations of severe migraine. PMH and ROS are notable for:? Substernal chest pain, in setting of chronic borderline EKG findings of right axis deviation. F/B [facility] [place] Cardiology, recently advised patient to undergo CA stress test. She states previous symptoms of syncope and POTs have resolved. When more symptomatic, was tried on fludrocortisone, however she did not tolerate this. Fatigue and sleepiness Chronic neck pain Chronic back pain Needs new glasses, but no acute vision changes Pertinent denials include: concussions, head injuries, known anemia, diabetes, thyroid, PCOS, kidney stones, constipation, recent dizziness, seizure, clotting/bleeding d/o, anxiety, depression, ADD/ADHD, bipolar. Lifestyle considerations * Typical nutrition intake: She is trying to eat better overall, such as: trying to fast in the am, trying to rely less on sweets, and eating a full meal at home cracker and cookie machine operator with her family. slight appetite decrease * Typical fluid intake per day: two 32 fl oz of water per day * Caffeine use: trying to decrease coffee- so not every day, usually earlier in the day, sometimes in the evening * Sleep routine: Usual bedtime: 12-2 am and wake-up time: 5-6 am * Sleep difficulties: Endorses: Snoring, Excessive daytime sleepiness, Fatigue, Gasping Arousals, Restlessness in her legs after laying down, occasional creeping-crawling sensation in legs, rare leg cramps, Bruxism- does not have a mouth guard * Substance use: denies * Exercise:?going to the gym 3-4 x's per week- cardio, strength training * 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 No vertebral artery dissection. * 2020, brain MRI w/o: Normal MRI of the brain. No acute process. * Labs- chronic low MCH * Previous neurological care: [facility]- briefly after initial onset of migraine. * Family history of migraine or other headache disorder: mother's side of family Typical headache characteristics * Prodrome symptoms: head feels off * Aura: blurry vision with stars during the headache phase * Pain intensity: [id number] * Location, quality, characteristics: pressure and stabbing pain in the left or right occipital region, and may move up into to crown of head * Associated symptoms: photophobia, phonophobia, osmophobia, allodynia, nausea, vomiting, at times, lightheadedness, fatigue, cognitive difficulties, activity intolerance, * Atypical associated symptoms: None * Postdrome: lingering headache * Aggravating factors during this headache: lights, sounds, quick movement * Triggers that provoke this headache: denies * Time of day this headache usually occurs: No specific time of day * Duration and Frequency: near daily * Headache impact on the patient's quality of life: severe- has had to eave work Current treatment strategies * Current acute medication use/interventions: sumatriptan which is helpful * Current preventative medication use: B2 and Mag- may forget at times. * Current non-pharmacological interventions: Migraine cooling cap, rest in dark quiet space,. intensive care nurse- has helped in the past, but not more recently. [facility] Medical History Vitamin D deficiency Gastritis Allergic rhinitis Insomnia Chronic abdominal pain POTS (postural orthostatic tachycardia syndrome) Palpitations Surgical History No significant past surgical history Family History Mother No problems noted. Father No problems noted. 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 Current occupational exposures/hazards: No Sexual orientation: Straight/Heterosexual Gender identity: Female Cognitive needs: No Hearing needs: No Vision needs: No Female Reproductive History Menstrual Age of Menarche: 10 Physical Exam Vital Signs: Last Vital Signs Pulse 78 05/25/25 08:19 BP 108/64 05/25/25 08:19 Pulse Ox 100 05/25/25 08:19 Oxygen Delivery Method Room Air 05/25/25 08:19 BMI result Body Mass Index 23.3 Const Orientation/consciousness: patient oriented x3 Resp Effort & Inspection: normal respiratory effort and able to speak in complete sentences Neuro Other: Mallampati stage IV Mild retrognathia Mild bilateral TMJ tightness and indication of lower dental wearing No palpable scalp tenderness. Cervical ROM: Full range of motion without discomfort Bilateral Spurling: Negative General: patient oriented x3 Cranial nerves: Yes CN's II-XII intact bilaterally Cognition (Neuro): normal cognition Gait exam (Neuro): Normal gait present Motor exam (neuro): 5/5 motor strength present throughout Deep tendon reflexes (DTR's): Right triceps reflex intensity grade: 2+, Left triceps reflex intensity grade: 2+, Rt Biceps (C5, C6): 2+, Left biceps reflex intensity grade: 2+, Right brachioradialis reflex intensity grade: 2+, Left brachioradialis reflex intensity grade: 2+, Right patellar reflex intensity grade: 2+ and Left patellar reflex intensity grade: 2+ Coordination: [id number] test normal, tandem gait normal and Romberg test negative Pupils: Normal pupillary reactivity/response: bilateral Psych Appearance: grossly normal Mental Status: mental status grossly normal Speech and movement: Normal speech and movement present Affect: normal affect Attitude: cooperative Thought process: Normal thought process present Assessment & Plan Assessment & Plan (1) Restless leg syndrome: Code(s): G25.81 - Restless legs syndrome Category: Medical (2) Snoring: Code(s): R06.83 - Snoring Category: Medical (3) Excessive daytime sleepiness: Comment: ESS 18 Code(s): G47.19 - Other hypersomnia Category: Medical Plan Discussion note Discussed that the patient's headache symptoms are consistent with chronic migraine. Previous normal brain MRI without contrast and head and neck CTA results are reassuring, ruling out an underlying secondary headache disorder. However, it is likely that her chronic migraine symptoms may be more amenable to treatment if he can optimize her comorbid restless leg symptoms. Therefore, I advise her to undergo lab work and an in-lab sleep study to assess for sleep apnea, as well as periodic limb movements of sleep. I have also encouraged her to undergo the cardiac workup as recommended by [facility], to ensure that she does not have an underlying cardiac disease that would affect her chronic migraine management. You are advised to undergo the following: Fasting lab work In-lab sleep study to assess for sleep apnea and periodic limb movements of sleep CA stress test as ordered by [facility] Card[facility] Headache Management Tips Combining good self-care with some helpful tools can make managing headaches much easier. Healthy Habits * Eat a balanced diet * Drink enough water throughout the day, typically at least 64 oz of fluid per day * Get regular, adequate sleep consisting of 7-9 hours of sleep per night * Stay active with routine physical activity, typically at least 30 minutes 5 days per week * Stay connected with friends and family, enjoy meaningful activities, and take care of your mood Tracking Your Headaches * Write down when headaches happen, what helps, and any side effects of new treatments * Tracking is most important after changes in your treatment plan * Options: - Apps such as Migraine Pollo - A simple paper calendar Non-Medication Strategies * Continue migraine cooling cap as needed * Light sensitivity: special glasses may help (blue-light or FL-41 filters, green lenses) or green-light therapy * Avoid wearing dark sunglasses indoors * Sound sensitivity: noise-canceling earplugs can reduce bothersome noise * Neuromodulation devices: certain medical devices can be used alone or with medications to lower headache frequency and severity These strategies may not stop every attack, but over time, they can reduce headache frequency, intensity, and impact. For acute (as needed) headache treatment: It is important to take acute medications at the first sign of headache. Ho wever, please be aware that frequently using most acute medications may increase the frequency of your headache attacks, as well as make your other treatments less effective. * Continue Sumatriptan 100mg tab, 1/2 - 1 tab (50-100mg) at onset of headache, may repeat in 2 hours. Max of 2 tabs (200mg) per 24 hours. * May take sumatriptan with OTC Tylenol 650-1,000mg every 4-6 hours, Ibuprofen (liquid gels) 600mg every 6 hours, or Naproxen (liquid gels) 440mg q 12 hrs prn. * Potential adverse effects of triptans include, but are not limited to, nausea, fatigue, chest tightness/tingling (usually passes within a few minutes), and medication overuse headaches. Previous acute migraine medication trials: OTC analgesics, ineffective Acute migraine medication contraindications: None at this time- the we will reassess after she completes the CA stress test For headache prevention medication: Preventative medications should be taken routinely as prescribed for best effect , it may take several weeks for full effect to take effect. * Continue Riboflavin 400mg daily in the morning * Start Co Q10 400 mg daily in the morning- take with a healthy higher fat food, such as an egg, avocado, or peanut butter * Continue Magnesium 400mg daily at bedtime * She is hesitant to add a prescription preventative therapy at this time until the above workup is completed. Previous migraine prevention medication trials: Propranolol caused excessive drowsiness. Migraine prevention medication contraindications: Caution with retrying beta- blockers due to recent asthma diagnosis. We will follow-up upon review of above and with a follow-up clinic visit in 6 months or sooner as needed. Orders: Orders RT PSG in-lab sleep study Today G25.81 - Restless legs syndrome, G47.19 - Other hypersomnia, R06.83 - Snoring Complete Blood Count Auto Diff Today D64.9 - Anemia, unspecified, R00.2 - Palpitations, R07.9 - Chest pain, unspecified Comprehensive [place]. Panel Fast Today D64.9 - Anemia, unspecified, R00.2 - Palpitations, R07.9 - Chest pain, unspecified Vitamin B12 and Folate Today D64.9 - Anemia, unspecified, R00.2 - Palpitations, R07.9 - Chest pain, unspecified C Reactive Protein Today D64.9 - Anemia, unspecified, R00.2 - Palpitations, R07.9 - Chest pain, unspecified Vitamin D 25-OH (D2 and D3) Today D64.9 - Anemia, unspecified, E55.9 - Vitamin D deficiency, unspecified, R00.2 - Palpitations, R07.9 - Chest pain, unspecified Magnesium Today D64.9 - Anemia, unspecified, R00.2 - Palpitations, R07.9 - Chest pain, unspecified Ferritin Today D64.9 - Anemia, unspecified, R00.2 - Palpitations, R07.9 - Chest pain, unspecified IRON PROFILE Today D64.9 - Anemia, unspecified, R00.2 - Palpitations, R07.9 - Chest pain, unspecified Erythrocyte Sedimentation Rate Today D64.9 - Anemia, unspecified, R00.2 - Palpitations, R07.9 - Chest pain, unspecified KELLI Reflex Titer and Pattern Today D64.9 - Anemia, unspecified, R00.2 - Palpitations, R07.9 - Chest pain, unspecified TSH reflex Free T4 Today D64.9 - Anemia, unspecified, R00.2 - Palpitations, R07.9 - Chest pain, unspecified Medications: New coenzyme Q10 Daily in a.m.. Take with higher fat food 400 mg PO DAILY 90 caps 3RF 90 days Coding Level of Care Code New Pt Level 4 (99445) Diagnoses Restless leg syndrome G25.81 Snoring R06.83 Excessive daytime sleepiness G47.19
[2025-05-25 08:19] VITALS: BP 108/64; PULSE 78; O2SAT 100; BMI 23.3
--- OUTSIDE RECORDS SUMMARY | 2025-05-25 08:31 | XMS_ITS | Encounter Summary ---
Author Organization [facility] Address [address] [place] [phone] Phone Care Team Providers Care Wood Coater Name Role Phone Vee Armstrong MD Primary Care Provider Encounter Details Date Type Department Care Team (Late st Contact Info) Description 02/28/2014 Documentation [facility] [place] Family Medicine [address] [place] [address] Family Medicine, Physician [address] [place], [place] [phone] Social History Tobacco Use Types Packs/Day Years [...] on filedocumented in this encounter Care Teams Wood Coater Relationship Specialty Start Date End Date Vee Armstrong MD [address] [place] [address] PCP - General 02/28/17 12/25/22 documented as of this encounter
--- OUTSIDE RECORDS SUMMARY | 2025-05-25 08:31 | XMS_ITS | Encounter Summary ---
Author Organization [facility] Address [address] [place] [address] Phone Care Team Providers Care Side Show Entertainer Name Role Phone Vee Armstrong MD Primary Care Provider Encounter Details Date Type Department Care Team (Late st Contact Info) Description 03/15/2013 Documentation [facility] [place] Family Medicine [address] [place], [place] [phone] Family Medicine, Physician [address], [place] [phone] Social History Tobacco Use Types Packs/Day Years [...] on filedocumented in this encounter Care Teams Side Show Entertainer Relationship Specialty Start Date End Date Vee Armstrong MD [address] [place] [address] PCP - General 02/28/17 12/25/22 documented as of this encounter
--- OUTSIDE RECORDS SUMMARY | 2025-05-25 08:31 | XMS_ITS | Encounter Summary ---
Author Organization [facility] Address [address] [place] [phone] Phone Care Team Providers Care Health Safety Coordinator Name Role Phone Vee Armstrong MD Primary Care Provider Encounter Details Date Type Department Care Team (Late st Contact Info) Description 04/02/2014 Documentation [facility] [place] [place] Family Medicine [address] [place], [place] [phone] Family Medicine, Physician [address], [place] [phone] Social History Tobacco Use Types Packs/Day Years [...] on filedocumented in this encounter Care Teams Health Safety Coordinator Relationship Specialty Start Date End Date Vee Armstrong MD [address] [place] [address] PCP - General 02/28/17 12/25/22 documented as of this encounter
--- OUTSIDE RECORDS SUMMARY | 2025-05-25 08:31 | XMS_ITS | Clinical Summary ---
Author Organization [facility] Address [address] [place] [address] Phone Care Team Providers Care Team Otr Truck Driver Name Role Phone Unavailable Primary Care Provider [...] of *Thrombophilia, No family history of *Sudden /[place] under 55 Social History Tobacco Use Types [...] complete this topic Procedures * Due to [place] law, this organization might not be sharing sensitive test results. Procedure Name Priority Date/Time Associated Diagnosis Comments CHLAMYDIA AND GONORRHEA, AMPLIFIED Routine 08/31/2019 1:30 PM EST from Last 3 Months or Most Recently Relevant to Health Maintenance Results * Due to [place] law, this organization might not be sharing sensitive test results. * Chlamydia and Gonorrhoea, Amplified (08/31/2019 1:30 PM EST) Chlamydia Trachomatis, DNA Probe NEGATIVE (NEG) [facility] Comment: No Chlamydia Trachomatis RNA detected in this patient's sample (REFERENCE RANGE/NORMAL VALUE: NOT DETECTED) Note: This test uses exhibit preparator- mediated amplification method to detect rRNA from C. Trachomatis URINE GC AMP PROBE NEGATIVE (NEG) [facility] Comment: No Neisseria Gonorrhoeae RNA detected in this patient's sample (REFERENCE RANGE/NORMAL VALUE: NOT DETECTED) NOTE: This test uses exhibit preparator-mediated amplification method to detect rRNA from N.Gonorrhoeae. [...] without risk of sexual abuse. Consult the [facility] if needed. Contact phone number . Therapeutic failure or success cannot be determined with the Aptima Combo2 assay since nucleic acid may persist following appropriate antimicrobial therapy. The Centers for Disease Control and Prevention (CDC) recommends confirmatory retesting using culture or a different nucleic acid amplification test when positive results occur, if indicated. Testing performed or reported by [facility], a Service of [facility], [address] [place] [address] [place] [address] Nathan Wild MD, Middle School Principal 08/31/2019 1:30 PM EST 08/31/2019 8:34 PM EST us Vee Armstrong MD LAB MICROBIOLOGY - GENERAL ORDERABLES Final Result [facility] from Last 3 Months or Most Recently Relevant to Health Maintenance Insurance [employer] NON PCC
--- OUTSIDE RECORDS SUMMARY | 2025-05-25 08:31 | XMS_ITS | Encounter Summary ---
Author Organization [facility] Address [address] [place] [phone] Phone Care Team Providers Care Setter Juice Packaging Machines Name Role Phone Vee Armstrong MD Primary Care Provider Encounter Details Date Type Department Care Team (Late st Contact Info) Description 10/03/2009 Documentation [facility] [place] [address] [place], [place] [phone] Family Medicine, Physician [address] [place], [place] [phone] Social History Tobacco Use Types Packs/Day Years [...] on filedocumented in this encounter Care Teams Setter Juice Packaging Machines Relationship Specialty Start Date End Date Vee Armstrong MD [address] [place] [address] PCP - General 02/28/17 12/25/22 documented as of this encounter
--- OUTSIDE RECORDS SUMMARY | 2025-05-25 08:31 | XMS_ITS | Encounter Summary ---
Author Organization [facility] Address [address] [place] [phone] Phone Care Team Providers Care Pilot Supervisor Name Role Phone Vee Armstrong MD Primary Care Provider Encounter Details Date Type Department Care Team (Late st Contact Info) Description 03/06/2017 Conversion Encounter [facility] [address] [place] [address] Social History Tobacco Use Types Packs/Day Years [...] on filedocumented in this encounter Care Teams Pilot Supervisor Relationship Specialty Start Date End Date Vee Armstrong MD [address] [place] [address] PCP - General 02/28/17 12/25/22 documented as of this encounter
== END 2025-05-25 14:05 | disposition home or self-care (01) ==
PROVIDERS: PCP Internal Medicine; Visit Provider Nurse Practitioner Family
DX: G25.81 Restless legs syndrome (principal); R06.83 Snoring; G47.19 Other hypersomnia
CPT/HCPCS: 99204

== ENCOUNTER 2025-05-27 08:51 | Outpatient (REF) | payer OTHER, SELFPAY ==
--- OUTSIDE RECORDS SUMMARY | 2025-05-27 09:40 | XMS_ITS | Encounter Summary ---
Author Organization [facility] Address [address] [place] [address] Phone Care Team Providers Care Core Loader Name Role Phone Vee Armstrong MD Primary Care Provider Encounter Details Date Type Department Care Team (Late st Contact Info) Description 04/02/2014 Documentation [facility] [place] [address] [place], [place] [phone] Family Medicine, Physician [address] [phone] Social History Tobacco Use Types Packs/Day Years [...] on filedocumented in this encounter Care Teams Core Loader Relationship Specialty Start Date End Date Vee Armstrong MD [address] [place] [address] PCP - General 02/28/17 12/25/22 documented as of this encounter
--- OUTSIDE RECORDS SUMMARY | 2025-05-27 09:40 | XMS_ITS | Clinical Summary ---
Author Organization [facility] Address [address] [place] [address] Phone Care Team Providers Care Environmental Emergencies Assistant Name Role Phone Unavailable Primary Care Provider [...] of *Thrombophilia, No family history of *Sudden /[place] under 55 Social History Tobacco Use Types [...] complete this topic Procedures * Due to [place] [employer] law, this organization might not be sharing sensitive test results. Procedure Name Priority Date/Time Associated Diagnosis Comments CHLAMYDIA AND GONORRHEA, AMPLIFIED Routine 08/31/2019 1:30 PM EST from Last 3 Months or Most Recently Relevant to Health Maintenance Results * Due to [place] [employer] law, this organization might not be sharing sensitive test results. * Chlamydia and Gonorrhoea, Amplified (08/31/2019 1:30 PM EST) Chlamydia Trachomatis, DNA Probe NEGATIVE (NEG) [facility] Comment: No Chlamydia Trachomatis RNA detected in this patient's sample (REFERENCE RANGE/NORMAL VALUE: NOT DETECTED) Note: This test uses aggregate conveyor operator- mediated amplification method to detect rRNA from C. Trachomatis URINE GC AMP PROBE NEGATIVE (NEG) [facility] Comment: No Neisseria Gonorrhoeae RNA detected in this patient's sample (REFERENCE RANGE/NORMAL VALUE: NOT DETECTED) NOTE: This test uses aggregate conveyor operator-mediated amplification method to detect rRNA from N.Gonorrhoeae. [...] without risk of sexual abuse. Consult the [facility] if needed. Contact phone number . Therapeutic failure or success cannot be determined with the Aptima Combo2 assay since nucleic acid may persist following appropriate antimicrobial therapy. The Centers for Disease Control and Prevention (CDC) recommends confirmatory retesting using culture or a different nucleic acid amplification test when positive results occur, if indicated. Testing performed or reported by [facility], a Service of [facility], [address] [place] [address] [place] [address] Nathan Wild MD, Sharepoint Admin 08/31/2019 1:30 PM EST 08/31/2019 8:34 PM EST us Vee Armstrong MD LAB MICROBIOLOGY - GENERAL ORDERABLES Final Result [facility] from Last 3 Months or Most Recently Relevant to Health Maintenance Insurance [employer] NON PCC
--- OUTSIDE RECORDS SUMMARY | 2025-05-27 09:40 | XMS_ITS | Encounter Summary ---
Author Organization [facility] Address [address] [place] [phone] Phone Care Team Providers Care Facility Rehab Director Name Role Phone Vee Armstrong MD Primary Care Provider Encounter Details Date Type Department Care Team (Late st Contact Info) Description 03/15/2013 Documentation [facility] [place] [address] [place], [place] [phone] Family Medicine, Physician [address] [place], [place] [phone] Social History Tobacco Use Types Packs/Day Years [...] on filedocumented in this encounter Care Teams Facility Rehab Director Relationship Specialty Start Date End Date Vee Armstrong MD [address] [place] [address] PCP - General 02/28/17 12/25/22 documented as of this encounter
--- OUTSIDE RECORDS SUMMARY | 2025-05-27 09:40 | XMS_ITS | Encounter Summary ---
Author Organization [facility] Address [address] [place] [address] Phone Care Team Providers Care Lead Network Architect Name Role Phone Vee Armstrong MD Primary Care Provider Encounter Details Date Type Department Care Team (Late st Contact Info) Description 02/28/2014 Documentation [facility] [place] [address] [place], [place] [phone] Family Medicine, Physician [address] [phone] Social History Tobacco Use Types Packs/Day Years [...] on filedocumented in this encounter Care Teams Lead Network Architect Relationship Specialty Start Date End Date Vee Armstrong MD [address] [place] [address] PCP - General 02/28/17 12/25/22 documented as of this encounter
--- OUTSIDE RECORDS SUMMARY | 2025-05-27 09:40 | XMS_ITS | Encounter Summary ---
Author Organization [facility] Address [address] [place] [phone] Phone Care Team Providers Care Beauty Therapist Name Role Phone Vee Armstrong MD Primary Care Provider Encounter Details Date Type Department Care Team (Late st Contact Info) Description 03/06/2017 Conversion Encounter [facility] [address] [place] [address] Social History Tobacco Use Types Packs/Day Years [...] on filedocumented in this encounter Care Teams Beauty Therapist Relationship Specialty Start Date End Date Vee Armstrong MD [address] [place] [address] PCP - General 02/28/17 12/25/22 documented as of this encounter
--- OUTSIDE RECORDS SUMMARY | 2025-05-27 09:40 | XMS_ITS | Encounter Summary ---
Author Organization [facility] Address [address] [place] [phone] Phone Care Team Providers Care Housekeeping Coordinator Name Role Phone Vee Armstrong MD Primary Care Provider Encounter Details Date Type Department Care Team (Late st Contact Info) Description 10/03/2009 [place] [facility] [place] [address] [place], [place] [phone] Family Medicine, Physician [address] [place], [place] [phone] Social History Tobacco Use Types Packs/Day Years [...] on filedocumented in this encounter Care Teams Housekeeping Coordinator Relationship Specialty Start Date End Date Vee Armstrong MD [address] [place] [address] PCP - General 02/28/17 12/25/22 documented as of this encounter
[2025-05-27 13:16] LABS: MANUAL DIFF FLAG NO
[2025-05-27 13:44] LABS: Hematocrit 39.8 % (37.0-47.0); Hemoglobin 12.5 g/dl (12.0-16.0); Imm Gran Abs Auto 0.01 X10*3/uL (0.00-0.03); Imm Gran Pct Auto 0.2 % (0.0-0.4); Lymphocytes Absolute Auto 1.1 X10*3/uL (1.2-4.9); Mean Corpuscular HGB Conc 31.4 g/dl (31.0-35.0); Mean Corpuscular Hemoglobin 25.9 pg (27.0-33.0); Mean Corpuscular Volume 82.6 fL (80.0-98.0); NRBC Abs Auto 0.000 X10*3/uL (0.0-0.012); NRBC Pct Auto 0.0 /100WBC (0.0-0.2); Platelet Count 360 X10*3/uL (160-400); Red Blood Count 4.82 X10*6/uL (4.20-5.50); White Blood Count 4.8 X10*3/uL (4.8-10.8)
[2025-05-27 14:07] LABS: Alanine Aminotransferase 9 U/L (0-31); Albumin Level 4.6 g/dL (3.5-5.0); Alkaline Phosphatase 74 U/L (39-117); Anion Gap 11 (12-20); Aspartate Amino Transferase 21 U/L (5-31); Blood Urea Nitrogen 9 mg/dL (9-16); Calcium 8.9 mg/dL (8.4-10.2); Carbon Dioxide 26 mmol/L (22-29); Chloride 106 mmol/L (96-108); Estimated Glomerular Filt Rate > 60; Iron 33 mcg/dL (30-160); Magnesium 2.3 mg/dL (1.6-2.6); Percent Iron Saturation 10 % (15-50); Potassium 3.5 mmol/L (3.3-5.1); Sodium 139 mmol/L (135-145); Total Iron Binding Capacity 337 mcg/dL (228-428); Total Protein 7.1 g/dL (6.5-8.0); Unsaturated Iron Binding 304 ug/dL
[2025-05-27 14:26] LABS: Ferritin 7 ng/mL (10-122)
[2025-05-27 14:30] LABS: Folate 12.3 ng/mL (> or = 4.0); Vitamin B12 419 pg/mL (200-900)
[2025-05-31 16:03] LABS: Anti Nuclear Antibody Screen NEGATIVE (NEGATIVE)
[2025-06-02 15:03] LABS: Vitamin D 25-OH, D2 <4 ng/mL; Vitamin D 25-OH, D3 17 ng/mL; Vitamin D 25-OH, Total 17 ng/mL (30-100)
== END 2025-05-27 08:52 | disposition home or self-care (01) ==
LOC: HO.HKASLDS 08:51
PROVIDERS: PCP Internal Medicine; Visit Provider Nurse Practitioner Family
DX: Z01.84 Encounter for antibody response examination (principal); Z13.21 Encounter for screening for nutritional disorder; D64.9 Anemia, unspecified; R00.2 Palpitations; R07.9 Chest pain, unspecified
CPT/HCPCS: 36415; 80053; 82306; 82607; 82728; 82746; 83540; 83735; 84443; 85025; 86038; 86140